=== PATIENT | male | born 1955 | race Caucasian/White ===

== ENCOUNTER 2019-03-16 13:12 | Outpatient (CLI) | payer BC, SELFPAY ==
--- NOTE | ~2019-03-16 | XR_ITS ---
XR abdomen/kub 1V 03/16/2019 13:37 Indication: Kidney stones. Hematuria. Procedure: KUB Comparison: No prior studies for comparison. Findings: Moderately distended small bowel loops measuring up to 4.3 cm. Moderate gas in the colon. E valuation for renal stones limited by bowel content and gas. There are possible bilateral renal stone s. Impression: 1: Moderate gas throughout the small bowel and colon, likely ileus. 2: Possible bilateral nephrolithiasis. Evaluation for renal stones limited by bowel content. Reviewed, dictated and finalized at location A. INSERTER Impression: 1: Moderate gas throughout the small bowel and colon, likely ileus. 2: Possible bilateral nephrolithiasis. Evaluation for renal stones limited by sariah adorno.
== END 2019-03-16 13:13 | disposition home or self-care (01) ==
LOC: ANHIMG 13:23
PROVIDERS: PCP Family Medicine; Visit Provider Urology
DX: N20.0 Calculus of kidney (principal)
CPT/HCPCS: 74018

== ENCOUNTER 2019-03-21 06:26 | Inpatient (IN) | payer BC, SELFPAY ==
[2019-03-21] VITALS (31 sets, daily range): BP systolic 97–141; BP diastolic 61–101; PULSE 66–99; RESP 18–36; TEMP 35.8–37.2; O2SAT 94–100; BMI 39.9
--- NOTE | ~2019-03-21 | XR_ITS ---
EXAMINATION: XR chest 1V portable DATE: 03/22/2019 05:50 INDICATION: Pulmonary edema. Vascular congestion. TECHNIQUE: A single frontal view of the chest was obtained. COMPARISON: Chest single view 03/21/2019, CT abdomen and pelvis 12/25/2018 FINDINGS: Sensitivity is decreased by obesity. A calcified left lung nodule and calcified left hilar lymph nodes are consistent with old granulomatous disease. No pleural effusion or pneumothorax. The h eart size is normal. IMPRESSION: 1. No acute cardiopulmonary disease. Reviewed, dictated and finalized at location A. CAR OPERATOR
--- NOTE | ~2019-03-21 | XR_ITS ---
XR chest 1V portable 03/21/2019 09:50 Indication: Shortness of breath Procedure: AP portable chest Comparison: 03/21/2019 Findings: Cardiomegaly with pulmonary vascular congestion. No focal pneumonia, pleural effusion or pn eumothorax. No acute osseous abnormality. Impression: 1: Cardiomegaly with pulmonary vascular congestion. Reviewed, dictated and finalized at location A. CUTTER Impression: 1: Cardiomegaly with pulmonary vascular congestion.
--- NOTE | ~2019-03-21 | XR_ITS ---
XR chest 1V portable 03/21/2019 06:53 Indication: Chest pain Procedure: AP portable chest Comparison: 09/22/2010 Findings: Shallow inspiration. No focal air space disease, pulmonary edema, pleural effusion or suspe cted pneumothorax. Heart size is normal for technique. There is evidence for chronic granulomatous di sease. Impression: 1: No acute cardiopulmonary disease. Reviewed, dictated and finalized at location A. T SETTER Impression: 1: No acute cardiopulmonary disease.
--- NOTE | 2019-03-21 06:29 | ECG_ITS ---
Measurements Intervals [place] Rate: 84 P: 66 OK: 218 QRS: -33 QRSD: 96 T: -29 QT: 383 QTc: 455 Interpretive Statements SINUS RHYTHM WITH FIRST DEGREE AV BLOCK VENTRICULAR PREMATURE COMPLEXES LEFT AXIS DEVIATION LOW QRS VOLTAGE IN PRECORDIAL LEADS ANTEROSEPTAL ST ELEVATION MYOCARDIAL INFARCT- ACUTE HIGH LATERAL ST ELEVATION MYOCARDIAL INJURY- ACUTE BASELINE WANDER- V6 ABNORMAL ECG Electronically Signed On 03-21-2019 8:05:39 GENERAL FARMER by Regulo Rios D.O.
--- NOTE | 2019-03-21 06:31 | ED.CHESTPAIN ---
HPI - Chest Pain General Chief Complaint: Chest Pain Stated Complaint: stemi Time Seen by Provider: 03/21/19 06:29 Source: patient, family and EMS Mode of arrival: EMS Limitations: no limitations History of Present Illness HPI narrative: Intermittent chest pain for the last 3 days, woke up this morning with severe central chest pain radiating to both arms, no shortness of breath, no diaphoresis. History of hypertension, denies smoking or a family history of coronary artery disease. MD complaint: chest pain and chest heaviness Pertinent past history: other (Hypertension) Prior episodes: No Pain location: substernal Pain radiation: right arm and left arm Severity: severe Pain scale (0-10): 10 Relieving factors: nothing Exacerbating factors: exertion Treatment prior to arrival: aspirin and oxygen Risk Factors Coronary artery disease risk factors: diabetes and hypertension Related Data Allergies Allergy/AdvReac Type Severity Reaction Status Date / Time Sulfa (Sulfonamide Allergy Unknown Unknown Verified 10/31/18 17:37 Antibiotics) Review of Systems Review of Systems: Narrative: CONSTITUTIONAL: Denies fever, chills, or sweats. EYES: Denies visual changes, redness, or discharge. ENT: Denies rhinorrhea, congestion, sore throat, or otalgia. CARDIOVASCULAR: Intermittent chest pain for the last 3 days RESPIRATORY: Denies cough or dyspnea. GASTROINTESTINAL: Denies abdominal pain, nausea, vomiting, or diarrhea. GENITOURINARY: Denies dysuria or hematuria. SKIN: Denies rash or itching. MUSCULOSKELETAL: Denies back pain, joint pain, or myalgia. NEUROLOGIC: Denies headache, numbness, or weakness. PSYCHIATRIC: Denies anxiety or depression. PMFSH Family History Family History Mother Hypertension Family history of malignant neoplasm of breast in first degree relative Family history of malignant neoplasm of ovary Social History Social History Smoking status: Never smoker Second hand tobacco smoke exposure: No Alcohol intake: never Gender identity (if verbalized by the patient): Male Exam Narrative: Exam Narrative: General appearance: Well-developed, well-nourished Skin: Pale, cold to skin Head: Normocephalic, nontraumatic Eyes: Clear conjunctiva ENT: Oropharynx normal, ears normal, nose normal Neck: Supple, nontender Chest and respiratory: Airway patent, no respiratory distress, no accessory muscle use Heart: Regular rate/rhythm Abdomen: Soft, nontender, no organomegaly, quiet bowel sounds Vascular: Normal peripheral pulses, normal capillary refill. Musculoskeletal: Normal range of motion, nontender back Neurologic: Alert and oriented ?3, ADVANCE SCOUT is normal as tested, no gross motor deficit Course Course Emergency Course: Improving Consultations Consultation #1: DR SARAH MORFIN Date: 03/21/19 Vital Signs Vital signs: Vital Signs Temperature 37.2 C 03/21/19 06:26 Pulse Rate 86 03/21/19 06:26 Respiratory Rate 20 03/21/19 06:26 Blood Pressure 139/95 H 03/21/19 06:26 Pulse Oximetry 96 03/21/19 06:26 Temperature 37.2 C 03/21/19 06:26 Pulse Rate 66 03/21/19 06:53 Respiratory Rate 18 03/21/19 06:44 Blood Pressure 141/101 H 03/21/19 06:44 Pulse Oximetry 95 03/21/19 06:44 MDM - Chest Pain MDM Narrative Medical decision making narrative: EKG showed acute anterolateral OH with reciprocal changes, cardiology consult placed prior patient arrival to the emergency room. Differential Diagnosis Differential diagnosis: Likely other (Acute OH) Lab Data Result diagrams: 03/21/19 06:39 03/21/19 06:3
[2019-03-21] MEDS: ONDANSETRON INJ 4 MG/2 ML VIAL IV PUSH (06:34)
[2019-03-21] MEDS: MORPHINE SULFATE 2 MG/ML INJ IV PUSH (06:34)
[2019-03-21] MEDS: NITROGLYCERIN OINTMENT 1 INCH DOSE TRANSDERM (06:35)
[2019-03-21] MEDS: HEPARIN SOD/D5W 100 UNITS/ML 25,000 UNITS/250 ML BAG 14.3 UNITS IV CONT (06:43)
[2019-03-21] MEDS: METOPROLOL TARTRATE INJ 5 MG/5 ML VIAL IV PUSH ×3 (06:49→06:53)
[2019-03-21 06:52] LABS: Basophils Absolute Auto 0.1 K/mm3 (0.0-0.1); Basophils Percent Auto 0.5 % (0.2-1.2); Eosinophils Absolute Auto 0.4 K/mm3 (0-0.3); Eosinophils Percent Auto 3.5 % (0-4.4); Hematocrit 43.2 % (42.0-52.0); Hemoglobin 13.9 g/dL (14.0-18.0); Immature Granulocyte Absolute 0.05 K/mm3 (0.00-0.031); Immature Granulocyte Percent A 0.4 % (0-0.5); Lymphocytes Absolute Auto 2.71 K/mm3 (0.9-3.2); Lymphocytes Percent Auto 21.4 % (18.3-44.2); Mean Corpuscular HGB Conc 32.2 g/dl (32-36); Mean Corpuscular Hemoglobin 26.9 pg (26-34); Mean Corpuscular Volume 83.6 fl (80-100); Monocytes Absolute Auto 0.9 K/mm3 (0.1-0.6); Monocytes Percent Auto 7.3 % (2.6-8.5); Neutrophils Absolute Auto 8.5 K/mm3 (1.3-6.7); Neutrophils Percent Auto 66.9 % (45.5-73.1); Platelet Count Result 264 k/mm3 (150-375); Red Blood Count 5.17 M/mm3 (4.6-6.20); Red Cell Distribution Width 14.4 % (11.5-14.5); White Blood Count 12.7 K/mm3 (4.5-10.0)
[2019-03-21] MEDS: HEPARIN SODIUM 5,000 UNITS/ML VIAL 4000 UNITS IV PUSH (06:57)
[2019-03-21 07:03] LABS: Partial Thromboplastin Time 24.3 SECONDS (22.3-36.8); Prothrombin Time 12.4 Seconds (11.1-14.7)
[2019-03-21 07:13] LABS: Alanine Aminotransferase 27 U/L (4-50); Albumin Level 4.3 g/dL (3.5-5.1); Alkaline Phosphatase 102 U/L (38-126); Aspartate Amino Transferase 25 U/L (17-59); Bilirubin,Total 0.3 mg/dL (0.2-1.3); Blood Urea Nitrogen 16 mg/dL (9-20); Calcium 10.2 mg/dL (8.4-10.2); Carbon Dioxide 29 mmol/L (22-30); Chloride 95 mmol/L (98-107); Estimated Glomerular Filt Rate > 60; Glucose 175 mg/dL (75-110); Potassium 2.7 mmol/L (3.4-5.0); Sodium 137 mmol/L (137-145)
[2019-03-21 07:17] LABS: Troponin I 0.032 ng/mL (0.000-0.034)
--- NOTE | 2019-03-21 08:23 | PM.CNCAR ---
Assessment and Plan Additional Plan STEMI ant wall; plan emergency LHC, heparin, ASA, Ticagrelor S/p PCI to proximal LAD with one ALEJANDRO, large thrombus burden, plan TTE, ASA, Ticagrelor, Integrillin for 12 hours, statin, ACEI History of Present Illness History of Present Illness Consult date/time: 03/21/19 08:23 Consult reason: chest pain Reason For Visit: stemi Narrative: acute chest pain mid sternal sever pressure like, 11/26 started at 7 AM, had milder chest pain last night and on/of pain for 3 days, pain radiates to shoulder and back, associated with sweating and nausea Review of Systems Review of Systems: All systems reviewed & are unremarkable except as noted in HPI and below PMFSH Past Medical History Medical History (Updated 03/21/19 @ 08:26 by Donnell Smith MD) HTN (hypertension) Kidney stones Surgical History Surgical History (Updated 03/21/19 @ 08:26 by Donnell Smith MD) H/O hand surgery Family History Family History Mother Hypertension Family history of malignant neoplasm of breast in first degree relative Family history of malignant neoplasm of ovary Social History Social History Smoking status: Never smoker Second hand tobacco smoke exposure: No Alcohol intake: never Gender identity (if verbalized by the patient): Male Meds Home Medications and Allergies Home Medications Medication Instructions Recorded Confirmed Type hydrochlorothiazide 25 mg tablet 25 mg PO DAILY #90 tablet 01/12/19 Rx simvastatin 10 mg tablet 10 mg PO DAILY #90 tablet 01/12/19 Rx zolpidem 10 mg tablet 10 mg PO DAILY #30 tablet 01/12/19 Rx amlodipine 5 mg tablet 5 mg PO DAILY #90 tablet 01/22/19 Rx potassium chloride 20 mEq 20 meq PO DAILY #90 tablet 01/22/19 Rx tablet,extended release Allergies Allergy/AdvReac Type Severity Reaction Status Date / Time Sulfa (Sulfonamide Allergy Unknown Unknown Verified 10/31/18 17:37 Antibiotics) Vital Signs Vital Signs - 24 hr 03/21/19 06:26 03/21/19 06:29 03/21/19 06:44 Temperature 37.2 C Pulse Rate 86 85 79 Respiratory Rate 20 18 Blood Pressure 139/95 H 141/101 H Pulse Oximetry 96 95 03/21/19 06:49 03/21/19 06:53 Temperature Pulse Rate 78 66 Respiratory Rate Blood Pressure Pulse Oximetry Exam Const: General: comfortable and no acute distress Other: Able to lie flat HENMT: General nose exam: Normal nares present and no epistaxis Mouth: Yes moist mucous membranes Eyes: Sclera: sclerae normal Pupils: Equal, round and reactive pupils present Neck: Neck: supple and no JVD Carotids: no bruits Resp: Auscultation: clear to auscultation bilaterally and lung sounds not diminished Other: No chest wall tenderness Cardio: Rate: regular rate Rhythm: regular rhythm Heart sounds: no gallops, no murmurs and no rubs GI: GI Palp: Yes Soft to palpation and No Tenderness to palpation present (GI) Auscultation: normal bowel sounds Skin: General skin exam: normal color, rashes and/or lesions noted and no erythema Other: Warm Neuro: Cranial nerves: Yes Equal, round and reactive pupils present Speech: normal speech Motor exam (neuro): Normal motor muscle tone present throughout Other: No obvious focal deficit or facial asymmetry Extrem: General: no edema Right upper extremity: normal capillary refill Left upper extremity: normal capillary refill Right lower extremity: normal capillary refill Left lower extremity: normal capillary refill Other: Normal capillary refills Intact distal pulses. Psych: Mental Status: mental status grossly normal Affect: normal affect Results Labs and Meds Result diagrams: 03/21/19 06:39 03/21/19 06:39 Lab results: Cardiac Enzymes 03/21/19 Range/Units 06:39 AST 25 (17-59) U/L Troponin I 0.032 (0.000-0.034) ng/mL Coagulation
--- NOTE | 2019-03-21 08:29 | P.PCNCC_ITS ---
Cardiac Cath Procedure Note Date of procedure:: 03/21/19 Performing physician:: Donnell Smith MD Procedure Procedure note:: INDICATION: 1. STEMI HISTORY Patient presented with acute sever chest pain, EKG showed STEMI ant wall PROCEDURES 1. Coronary angiogram 2. LHC 3. PCI to LAD ACCESS SITE PROCEDURE DETAILS Consent obtained and time out done. Access site prepped and draped in sterile fashion. Moderate sedation given with fentanyl 100 mcg and tolerated well, fully conscious at end of procedure Access obtained with modified Seldinger technique with no difficulty. Coronary angiogram was recorded using CLS 3.5 and JR4 catheter in different angels LHC was done with JR4 catheter HEMODYNAMIC FINDINGS Aorta: 100/80 LVEDP 30 No gradient across AV ANGIOGRAPHIC FINDINGS 1. Left main: normal, free of obstructive disease, gives LAD and LCX 2. LAD: proximal LAD 100% occlusion with large thrombus culprit lesion for STEMI, LAD gives large diagonal and wraps around apex. 3. LCX: Non dominant and gives large OM then continue as LPL with no obstructive disease. 4. RCA: Dominant vessel gives rPDA and rPL. RCA, Proximal RCA has 50% stenosis and remaining part and branches with no significant disease PCI DETAILS Pre intervention Lesion: acute total occlusion of proximal culprit lesion of STEMI, class C, GILBERTO 0 Guide catheter: CLS 3.5 Anticoagulation: Heparin to target ACT > 250 sec Antiplatelet therapy: ASA in ER , Integrillin given for large thrombus burden and Ticagrelor was to mervin geiven after cath Guide wire: Samurai used to cross to distal vessel into diagonal and later BMW crossed into LAD Balloon dilation was done with Emerge 2.25 * 12 balloon at 12 SREE Aspiration thrombectomy was done with EXPORT into LAD and diagonal and large thrombus aspirated Stent promus premier 3.0 * 24 mm deployed at lesion in proximal LAD and ended before origin of large Daigonal, deployed at 12 SREE, post stent balloon dilation was done with Quantum apex 3.0 * 8 and 3.5 * 12 NC balloon at 18 SREE. IC ad enosine 600 mcg given to improve myocardial blush and GILBERTO flow since apical LAD has residual thrombus and too far to aspirate. Post intervention: residual stenosis 0% and GILBERTO 3 flow established COMPLICATION: None Estimated blood loss: 30 ml patient tolerated procedure well, asymptomatic at end of procedure, awake, intact pulses and following commands CONCLUSION Acute total occlusion of proximal LAD Culprit lesion of STEMI S/P Primary PCI with promus premier 3.0 * 24 and post dilated with 3.5 * 12 NC balloon. Aspiration thrombectomy and IC adenosine was used RECOMMENDATION DAPT for at least one year lasix and TTE
[2019-03-21] MEDS: NITROGLYCERIN/D5W 200 MCG/ML 50 MG/250 ML BTL IV CONT (09:08)
[2019-03-21 09:37] LABS: Potassium 3.5 mmol/L (3.4-5.0)
--- NOTE | 2019-03-21 09:43 | WPDCNINT ---
Assessment and Plan Assessment and plan (1) ST elevation (STEMI) myocardial infarction: Qualifiers: Involved coronary artery: other anterior wall coronary artery Qualified Code(s): I21.09 - ST elevation (STEMI) myocardial infarction involving other coronary artery of anterior wall Code(s): I21.3 - ST elevation (STEMI) myocardial infarction of unspecified site Status: Acute Assessment and Plan: patient presented with chest pain on the morning of 03/21/2019, he has been having chest pain for the last 3 days prior to admission which was worse on the day of admission and was associated with shortness of breath, diaphoresis and nausea. 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 Status post primary PCI with drug eluting stent x1. Aspiration thrombectomy and intracardiac Adenosine was used. LVEDP was 30, went into flash pulmonary edema, was given Lasix, started on nitroglycerin infusion, transferred to the ICU for further management. - Patient currently chest pain-free - adequate urine output, - continue nitroglycerin infusion - continue heparin infusion, aspirin, Brilinta, high-dose statin - will hold beta-shayla (2) Pulmonary edema: Qualifiers: Chronicity: acute Qualified Code(s): J81.0 - Acute pulmonary edema Code(s): J81.1 - Chronic pulmonary edema Status: Acute Assessment and Plan: pulmonary edema on chest x-ray, patient has had adequate urine output, continue nitroglycerin BiPAP - ABGs reviewed, FiO2 has been decr (3) Hyperlipidemia: Qualifiers: Hyperlipidemia type: unspecified Qualified Code(s): E78.5 - Hyperlipidemia, unspecified Code(s): E78.5 - Hyperlipidemia, unspecified Status: Acute Assessment and Plan: continue high-dose statin (4) Essential hypertension: Code(s): I10 - Essential (primary) hypertension Status: Acute Assessment and Plan: on nitroglycerin infusion, maintain systolic blood pressures 100-120 mmHg Additional Plan discussed with patient and his in details and updated them regarding patient's condition and plan of care. I answered all questions code status: Full code Critical care time spent: 42 minutes Due to a high probability of clinically significant, life threatening deterioration, the patient required my highest level of preparedness to intervene emergently and I personally spent this critical care time directly and personally managing the patient. This critical care time included obtaining a history; examining the patient; pulse oximetry; ordering and review of studies; arranging urgent treatment with development of a management plan; evaluation of patient's response to treatment; frequent reassessment; and discussions with other providers. It was exclusive of separately billable procedures and treating other patients and teaching time. Please see Assessment and Plan section and the rest of the note for further information on patient assessment and treatment Char Filter Operator Consult Note Consult date: 03/21/19 Time Seen: 09:34 Reason for consult: acute STEMI status post cardiac catheterization with stent placement to proximal LAD, pulmonary edema, elevated LVEDP, respiratory failure on BiPAP HPI: Go Morrow is a 63 year old male history of arrhythmia, back pain, chronic bronchitis, enlarged prostate, history of bladder infections, sleep apnea on CPAP, hyperlipidemia, essential hypertension, kidney stones, obesity, pneumonia, urinary incontinence presented the ED on 03/21/2019 with severe substernal chest pain radiating to both thumbs along with diaphoresis, shortness of breath and nausea. Patient states he has been having intermittent chest pain for the last 3 days but woke up this morning with severe central chest pain. EKG showed acute anterior ST-
[2019-03-21 09:52] LABS: Alveolar/Arterial O2 Gradient 371.6 mmHg; Base Excess ABG 1.7 mEq/l (+/-2.0); Fractional Inspired Oxygen 80 %; HCO3 ABG 28.4 mEq/l (22.0-26.0); Oxygen Content ABG 21.3 %vol (16.0-22.0); Oxygen Saturation ABG 98.7 % (95.0-100.0); Oxyhemoglobin 97.5 % THb (90.0-100.0); PCO2 ABG 52.3 mmHg (35.0-45.0); PO2 ABG 143.9 mmHg (80.0-100.0); Total Hemoglobin 15.4 g/dL (12.0-18.0); pH ABG 7.353 (7.350-7.450)
[2019-03-21 09:53] LABS: Device NON-INVASIVE VENT; Modified Allen's Test Pass; Site Drawn LEFT RADIAL
[2019-03-21 09:54] LABS: Non-Invasive Expiratory Pressure 6 CMH2O; Non-Invasive Inspiratory Pressure 14 CMH2O; Non-Invasive Vent Rate 4 /MIN
[2019-03-21 09:58] LABS: Troponin I > 80.000 ng/mL (0.000-0.034)
--- NOTE | 2019-03-21 11:52 | ADMIMU ---
This patient, Go Morrow, was admitted to IMU status, and placed in Intensive Care Unit-7. Patient/family oriented to hospital policies and general routines including ID bracelet, bed and alarms, visiting hours, pain management, procedures, bathroom and other care routines, personal items, smoking policy, room service/diet, and visiting hours. Valuables list has been completed. Information on how to activate the Rapid Response Team has been discussed. Patient/Family are encouraged to report perceived risks to care and to ask questions if they do not understand what they are told or what they should do.
[2019-03-21] MEDS: POTASSIUM CHLORIDE 20 MEQ PACKET (FOR LIQUID) 40 MEQ PO (12:12)
[2019-03-21] MEDS: ASPIRIN 81 MG ENTERIC TABLET PO (12:13)
[2019-03-21] MEDS: ATORVASTATIN 40 MG TABLET 80 MG PO (12:13)
--- NOTE | 2019-03-21 13:07 | ECG_ITS ---
Measurements Intervals [place] Rate: 84 P: 16 SC: 179 QRS: 29 QRSD: 98 T: 67 QT: 384 QTc: 454 Interpretive Statements SINUS RHYTHM LOW QRS VOLTAGE IN LIMB LEADS ANTEROSEPTAL MYOCARDIAL INFARCTION , PROBABLY RECENT ABNORMAL ECG Electronically Signed On 03-21-2019 14:34:53 NAIL MACHINE OPERATOR by Regulo Rios D.O.
[2019-03-21 13:20] LABS: Troponin I > 80.000 ng/mL (0.000-0.034)
--- NOTE | 2019-03-21 14:52 | ADMGEN ---
This patient, Go Morrow, was admitted to Intensive Care Unit-7 at 0900. Patient/family oriented to hospital policies and general routines including ID bracelet, bed and alarms, visiting hours, pain management, procedures, bathroom and other care routines, personal items, smoking policy, room service/diet, and visiting hours. Valuables list has been completed. Information on how to activate the Rapid Response Team has been discussed. Patient/Family are encouraged to report perceived risks to care and to ask questions if they do not understand what they are told or what they should do.
[2019-03-21 15:16] LABS: Blood Urea Nitrogen 19 mg/dL (9-20); Calcium 9.6 mg/dL (8.4-10.2); Carbon Dioxide 31 mmol/L (22-30); Chloride 95 mmol/L (98-107); Estimated Glomerular Filt Rate > 60; Glucose 135 mg/dL (75-110); Sodium 136 mmol/L (137-145)
[2019-03-21 15:48] LABS: Partial Thromboplastin Time 25.4 SECONDS (22.3-36.8)
--- NOTE | 2019-03-21 16:36 | PC.NURSE ---
TR Band removed at 1635. Hemostasis achieved and stat seal and tegaderm in placed. Pulse strong, normal color. Fingers cool to touch, but no changed noted from before TR band removed.
--- NOTE | 2019-03-21 18:00 | ECG_ITS ---
Measurements Intervals [place] Rate: 93 P: 30 ND: 171 QRS: 9 QRSD: 101 T: 46 QT: 363 QTc: 453 Interpretive Statements SINUS RHYTHM CANNOT RULE OUT SEPTAL INFARCT, AGE INDETERMINATE BORDERLINE ST-T WAVE ABNORMALITY- INF/LAT LEADS ABNORMAL ECG Electronically Signed On 03-24-2019 9:44:12 LOCOMOTIVE CRANE ENGINEER by Regulo Rios D.O.
--- NOTE | 2019-03-21 19:45 | PC.NURSE ---
Dr. Smith notified regarding patient dyspepsia/chest pressure. Patient cannot distinguish wether or not it's chest pressure or heart burn. Order for Maalox (may substitute) and for protonix. Continue to monitor.
[2019-03-21] MEDS: lisinopriL 2.5 MG TABLET PO (20:15)
[2019-03-21] MEDS: MAG HYDROX/AL HYDROX/SIMETH 30 ML UDC PO (20:15)
[2019-03-21] MEDS: TICAGRELOR 90 MG TABLET PO (20:15)
[2019-03-21] MEDS: PANTOPRAZOLE SODIUM IV 40 MG VIAL IV PUSH (20:18)
[2019-03-21] MEDS: ACETAMINOPHEN 325 MG TABLET 650 MG PO (22:43)
[2019-03-22] VITALS (25 sets, daily range): BP systolic 96–132; BP diastolic 52–86; PULSE 70–106; RESP 17–33; TEMP 36.3–36.9; O2SAT 92–99
--- NOTE | 2019-03-22 | ECHO_ITS ---
Patient Info Name: Go Morrow Age: 63 years : 1955 Gender: Male Ht: 68 in Wt: 268 lbs BSA: 2.47 m2 HR: 92 bpm Heart Rhythm: Sinus Rhythm Technical Quality: Good Exam Date: 03/22/2019 7:59 AM Exam Location: [facility] Patient Status: Inpatient Admit Date: 03/21/2019 Staff Ordering Physician: Donnell Smith MD Repair Mechanic: Chalino Peña, JOHANA, RT Attending Provider: Donnell Smith MD Exam Type: CA echo dop color flow w con Study Info Indications I21.3 - ST elevation (STEMI) myocardial infarction of unspecified site Complete two-dimensional, color flow and Doppler transthoracic echocardiogram is performed with contrast to opacify the left ventrical and to improve the deliniation of the left ventrical endocarial boarders. Summary 1. Left ventricular chamber dimension is mildly enlarged. 2. Left ventricular systolic function is moderately reduced, estimated at 40-45%. 3. There is moderately increased left ventricular wall thickness. 4. The left ventricular diastolic function is grade I diastolic dysfunction. 5. The anteroseptal wall, apical septum, apical lateral wall, apical cap, mid anterior wall, and mid anterolateral wall are hypokinetic. 6. There is mild pulmonic regurgitation. 7. The aortic root size at the sinus of Valsalva is mildly dilated. Left Ventricle Left ventricular chamber dimension is mildly enlarged. Left ventricular systolic function is moderately reduced, estimated at 40-45%. There is moderately increased left ventricular wall thickness. The left ventricular diastolic function is grade I diastolic dysfunction. The anteroseptal wall, apical septum, apical lateral wall, apical cap, mid anterior wall, and mid anterolateral wall are hypokinetic. All other sims appear normal. Right Ventricle Right ventricular chamber dimension is normal. Right ventricular systolic function is normal. Left Atria Left atrial chamber dimension is normal. Right Atria Right atrial chamber dimension is normal. Atrial Septum Intact interatrial septum visualized by color flow imaging. Aortic Valve The aortic valve is probable trileaflet. There is mild aortic valve sclerosis. There is no aortic valve stenosis. There is trace aortic valve regurgitation. Pulmonic Valve The pulmonic valve is normal. There is no pulmonic valve stenosis. There is mild pulmonic regurgitation. Mitral Valve The mitral valve has normal leaflets. There is no mitral valve stenosis. There is trace mitral valve regurgitation. Tricuspid Valve The tricuspid valve leaflets are normal. There is no significant tricuspid valve stenosis. There is trace tricuspid valve regurgitation. Pericardium/Pleural The pericardium appears normal. There is no pericardial effusion. Inferior Vena Cava Dilated inferior vena cava with <50% collapse upon inspiration consistent with elevated right atrial pressure, 10 mmHg. Aorta The aortic root size at the sinus of Valsalva is mildly dilated. Left Ventricular Outflow Tract Name Value Normal LVOT 2D LVOT Diameter 2.26 cm LVOT Doppler LVOT Peak Gradient
[2019-03-22 05:36] LABS: Basophils Percent Auto 0.1 % (0.2-1.2); Eosinophils Absolute Auto 0.1 K/mm3 (0-0.3); Eosinophils Percent Auto 0.3 % (0-4.4); Hematocrit 39.2 % (42.0-52.0); Hemoglobin 12.9 g/dL (14.0-18.0); Immature Granulocyte Absolute 0.11 K/mm3 (0.00-0.031); Immature Granulocyte Percent A 0.6 % (0-0.5); Lymphocytes Absolute Auto 0.98 K/mm3 (0.9-3.2); Lymphocytes Percent Auto 5.4 % (18.3-44.2); Mean Corpuscular HGB Conc 32.9 g/dl (32-36); Mean Corpuscular Hemoglobin 26.8 pg (26-34); Mean Corpuscular Volume 81.5 fl (80-100); Monocytes Absolute Auto 1.3 K/mm3 (0.1-0.6); Monocytes Percent Auto 7.3 % (2.6-8.5); Neutrophils Absolute Auto 15.6 K/mm3 (1.3-6.7); Neutrophils Percent Auto 86.3 % (45.5-73.1); Platelet Count Result 258 k/mm3 (150-375); Red Blood Count 4.81 M/mm3 (4.6-6.20); Red Cell Distribution Width 14.5 % (11.5-14.5); White Blood Count 18.1 K/mm3 (4.5-10.0)
[2019-03-22 05:40] LABS: Alanine Aminotransferase 87 U/L (4-50); Albumin Level 3.8 g/dL (3.5-5.1); Alkaline Phosphatase 84 U/L (38-126); Aspartate Amino Transferase 527 U/L (17-59); Bilirubin,Total 0.5 mg/dL (0.2-1.3); Blood Urea Nitrogen 28 mg/dL (9-20); Calcium 9.3 mg/dL (8.4-10.2); Carbon Dioxide 29 mmol/L (22-30); Chloride 95 mmol/L (98-107); Estimated CRCL calculation 72 ml/min; Estimated Glomerular Filt Rate > 60; Glucose 124 mg/dL (75-110); Magnesium 2.1 mg/dL (1.6-2.3); Potassium 3.3 mmol/L (3.4-5.0); Sodium 134 mmol/L (137-145)
[2019-03-22] MEDS: ATORVASTATIN 40 MG TABLET 80 MG PO (08:56)
[2019-03-22] MEDS: TICAGRELOR 90 MG TABLET PO ×2 (08:56→20:36)
[2019-03-22] MEDS: ASPIRIN 81 MG ENTERIC TABLET PO (08:56)
[2019-03-22] MEDS: lisinopriL 2.5 MG TABLET PO (08:56)
--- NOTE | 2019-03-22 08:59 | PM.PNCARD ---
Progress Note: A&P Additional Plan 63-year-old patient with acute anterior wall myocardial infarction interrupted yesterday with emergency PCI Continue dual anti-platelet therapy Start metoprolol Continue WILL-inhibitor Continue high-dose statin Transfer to IMU Time Spent With Patient Time with patient: 15 - 25 minutes Subjective Date/time seen: Date of service: 03/22/19 08:59 Interval history: Follow-up visit for acute ST-elevation SD yesterday Patient asymptomatic this morning Questions answered regarding details of yesterday's procedure a and evaluation/prognosis going forward Exam Const: General: comfortable and no acute distress HENMT: Mouth: Yes moist mucous membranes Eyes: Sclera: sclerae normal Pupils: Equal, round and reactive pupils present Neck: Neck: supple and no JVD Thyroid: thyroid normal Resp: Effort & Inspection: normal respiratory effort Auscultation: clear to auscultation bilaterally Cardio: Rate: regular rate Rhythm: regular rhythm Heart sounds: Gallop heart sound present S4 gallop GI: Auscultation: normal bowel sounds Skin: General skin exam: normal color Extrem: General: normal to inspection Other: Normal distal pulses, no edema Objective Data Vital Signs Vital Signs: Vital Signs - 24 hr 03/21/19 09:05 03/21/19 09:14 03/21/19 09:30 Temperature Pulse Rate 86 86 85 Respiratory Rate 31 H 28 H 33 H Blood Pressure 135/88 116/94 H Pulse Oximetry 100 100 100 03/21/19 09:45 03/21/19 09:50 03/21/19 09:51 Temperature 35.8 C L Pulse Rate 87 86 87 Respiratory Rate 29 H 30 H Blood Pressure 117/75 116/94 H Pulse Oximetry 100 100 100 03/21/19 10:00 03/21/19 10:30 03/21/19 10:36 Temperature Pulse Rate 87 84 84 Respiratory Rate 28 H 20 Blood Pressure 112/74 108/79 Pulse Oximetry 99 100 100 03/21/19 11:00 03/21/19 11:07 03/21/19 12:00 Temperature Pulse Rate 79 80 79 Respiratory Rate 21 H 22 H 19 Blood Pressure 107/61 97/74 L Pulse Oximetry 94 95 97 03/21/19 12:35 03/21/19 13:00 03/21/19 14:00 Temperature Pulse Rate 83 85 Respiratory Rate 20 20 Blood Pressure 111/79 112/86 Pulse Oximetry 95 97 98 03/21/19 14:03 03/21/19 14:57 03/21/19 15:00 Temperature Pulse Rate 85 86 Respiratory Rate 20 22 H Blood Pressure 112/86 102/83 Pulse Oximetry 98 100 99 03/21/19 16:00 03/21/19 16:37 03/21/19 18:00 Temperature 36.7 C Pulse Rate 95 95 Respiratory Rate 21 H 19 Blood Pressure 109/78 131/82 Pulse Oximetry 97 98 100 03/21/19 20:00 03/21/19 20:38 03/21/19 22:00 Temperature 36.7 C Pulse Rate 92 93 Respiratory Rate 18 18 Blood Pressure 116/80 126/81 Pulse Oximetry 94 94 96 03/21/19 23:20 03/22/19 00:00 03/22/19 00:01 Temperature 36.8 C Pulse Rate 99 93 92 Respiratory Rate 19 19 17 Blood Pressure 96/67 L Pulse Oximetry 94 94 03/22/19 01:00 03/22/19 01:01 03/22/19 02:00 Temperature Pulse Rate 96 101 H 95 Respiratory Rate 23 H 24 H 30 H Blood Pressure 114/77 Pulse Oximetry 03/22/19 02:01 03/22/19 03:00 03/22/19 04:00 Temperature 36.9 C Pulse Rate 100 88 91 Respiratory Rate 33 H 17 22 H Blood Pressure 119/81 99/52 L Pulse Oximetry 96 03/22/19 05:48 03/22/19 06:00 Temperature Pulse Rate 91 92 Respiratory Rate 21 H Blood Pressure 132/86 Pulse Oximetry 95 Intake/Output Intake/Output: Intake & Output 03/19/19 03/20/19 03/21/19 03/22/19 23:59 23:59 23:59 23:59 Intake Total 257.5 800 Output Total 800 400 Balance -542.5 400 Meds/Results Medications: Active Medications Generic Name Dose Route Start Last Admin Trade Name Freq PRN Reason Stop Dose Admin Acetaminophen 650 mg 03/21/19 22:33 03/21/19 22:43 Tylenol Tablet PO 650 mg Q4H PRN Administration Mild Pain (1-3) or Fever Al Hydrox/Mg Hydrox/Simethicone 30 ml 03/21/19 19:46 Mylanta PO Q6H PRN Indigestion Aspirin 81 mg 03/21/19 09:00 03/21/19 12:13 A
[2019-03-22] MEDS: PANTOPRAZOLE SODIUM IV 40 MG VIAL IV PUSH (09:00)
[2019-03-22] MEDS: METOPROLOL SUCCINATE EXT REL 50 MG TABCR PO (09:43)
[2019-03-22] MEDS: PERFLUTREN LIPID MICROSPHERES 1.5 ML VIAL DILUTED TO 10 ML TOTAL VOLUME IV PUSH (09:48)
--- NOTE | 2019-03-22 10:36 | PCCPR ---
Visited pt inpt to discuss Cardiac Rehab
[2019-03-22 11:20] LABS: Activated Clotting Time 197 SEC (74-137)
[2019-03-22 11:21] LABS: Activated Clotting Time 257 SEC (74-137)
--- NOTE | 2019-03-22 14:28 | PC.NURSE ---
This patient, Go Morrow, was transferred to [[id number]] on 03/22/19 at 1428. Personal belongings sent with patient. Belongings list checked and signed with receiving [ ]. Report given to [DANIELA REZA]. Appropriate documentation sent with patient.
--- NOTE | 2019-03-22 14:41 | PC.NURSE ---
This patient, Go Morrow, was received from ICU-7 on 03/22/19 at 1430. Personal belongings list checked and signed. Patient/family oriented to unit policies and routines
[2019-03-23] VITALS (12 sets, daily range): BP systolic 99–116; BP diastolic 55–75; PULSE 84–97; RESP 20; TEMP 36.5–36.7; O2SAT 93–98
[2019-03-23] MEDS: ATORVASTATIN 40 MG TABLET 80 MG PO (09:09)
[2019-03-23] MEDS: lisinopriL 2.5 MG TABLET PO (09:09)
[2019-03-23] MEDS: ASPIRIN 81 MG ENTERIC TABLET PO (09:09)
[2019-03-23] MEDS: METOPROLOL SUCCINATE EXT REL 50 MG TABCR PO (09:09)
[2019-03-23] MEDS: TICAGRELOR 90 MG TABLET PO (09:09)
[2019-03-23] MEDS: PANTOPRAZOLE SODIUM IV 40 MG VIAL IV PUSH (09:10)
--- NOTE | 2019-03-23 11:07 | PM.DS ---
DS: Diagnosis Admitting Diagnosis Admitting Diagnosis: ST elevation (STEMI) myocardial infarction involving other coronary artery of anterior wall Discharge Diagnosis (1) ST elevation (STEMI) myocardial infarction: Qualifiers: Involved coronary artery: other anterior wall coronary artery Qualified Code(s): I21.09 - ST elevation (STEMI) myocardial infarction involving other coronary artery of anterior wall Code(s): I21.3 - ST elevation (STEMI) myocardial infarction of unspecified site Status: Acute Assessment and Plan: Presented 2019 with chest pain. Emergency cardiac catheterization with the findings of a total occlusion the proximal LAD. Proceeded on to primary PCI with a Promus Premier 3.0 x 24 mm drug-eluting stent. Aspiration thrombectomy and intracoronary adenosine was also used. He went into flash pulmonary edema which resolved with furosemide and BiPAP support. He was started on aspirin, atorvastatin, Brilinta and low-dose WILL-inhibitor. Beta-shayla was added by Dr. Sin on 03/22/2019 which he tolerated well. Lungs were clear the first day post procedure. Potassium was supplemented. Not planning to send him home on a potassium supplemented as his hydrochlorothiazide is being discontinued. Check BMP next week. (2) Pulmonary edema: Qualifiers: Chronicity: acute Qualified Code(s): J81.0 - Acute pulmonary edema Code(s): J81.1 - Chronic pulmonary edema Status: Acute Assessment and Plan: Resolved with BiPAP support and diuretics. (3) Essential hypertension: Code(s): I10 - Essential (primary) hypertension Status: Acute Assessment and Plan: Blood pressure was a little soft after 50 mg Metoprolol succinate. Plan to discharge with only 25 Metoprolol succinate along with lisinopril 2.5 mg daily. (4) Hyperlipidemia: Qualifiers: Hyperlipidemia type: unspecified Qualified Code(s): E78.5 - Hyperlipidemia, unspecified Code(s): E78.5 - Hyperlipidemia, unspecified Status: Acute Assessment and Plan: High-dose statin DS: Summary Hospital Course Reason for hospitalization: Chest pain Hospital Course: 63-year-old male presented to the hospital after several days of intermittent chest discomfort becoming severe central pain radiating to both arms. EKG was consistent with an anterior myocardial infarction. He was taken emergently to the cardiac catheterization lab with a significant findings of a total occlusion of the proximal LAD. This was treated with stenting with a drug-eluting stent. He also has had aspiration of large clot burden. He went into pulmonary edema after the procedure. He was supported with BiPAP and diuretics. Pulmonary edema resolved. He was started on aspirin, Brilinta, atorvastatin and a low-dose WILL-inhibitor. Beta-shayla was added than following day. Potassium was supplemented. Blood pressure was soft but he was asymptomatic. He was ambulating in the room without chest discomfort or shortness of breath. Right wrist was without swelling or bleeding. Fingers were warm. Capillary refill brisk. He had both a radial and ulnar pulse. He was discharged home in stable and pain-free condition. Time Spent with Patient Time attestation: Total time spent providing and/or coordinating discharge services: 35 minutes Exam Const: General: comfortable and no acute distress HENMT: General nose exam: Normal nares present and no epistaxis Mouth: Yes moist mucous membranes Eyes: Sclera: sclerae normal Pupils: Equal, round and reactive pupils present Neck: Neck: supple and no JVD Resp: Effort & Inspection: normal respiratory effort Auscultation: clear to auscultation bilaterally Cardio: Rate: regular rate Rhythm: regular rhythm Heart sounds: no murmurs and
[2019-03-23 11:27] LABS: Blood Urea Nitrogen 26 mg/dL (9-20); Calcium 8.7 mg/dL (8.4-10.2); Carbon Dioxide 32 mmol/L (22-30); Chloride 95 mmol/L (98-107); Estimated CRCL calculation 79 ml/min; Estimated Glomerular Filt Rate > 60; Glucose 109 mg/dL (75-110); Magnesium 2.4 mg/dL (1.6-2.3); Potassium 3.1 mmol/L (3.4-5.0); Sodium 136 mmol/L (137-145)
[2019-03-23] MEDS: POTASSIUM CHLORIDE 20 MEQ TABLET 40 MEQ PO ×2 (11:51→14:16)
== END 2019-03-23 16:05 | disposition home or self-care (01) | DRG 247 ==
LOC: ANHED 06:54 → ANHICU 08:04 → ANHIMU 03-22 14:40
PROVIDERS: Internal Medicine; Nurse Practitioner Adult Health; Admitting Provider Internal Medicine Interventional Cardiology; Emergency Provider Emergency Medicine; PCP Family Medicine; Visit Provider Internal Medicine Interventional Cardiology
PROC: 4A023N7 Measurement of Cardiac Sampling and Pressure, Left Heart, Percutaneous Approach (ICD-10-PCS; CPT 93452; principal; 2019-03-21 06:50)
PROC: 4A023N7 Measurement of Cardiac Sampling and Pressure, Left Heart, Percutaneous Approach (ICD-10-PCS; 2019-03-21 06:50)
DX: I21.09 ST elevation (STEMI) myocardial infarction involving other coronary artery of anterior wall (principal); Z68.41 Body mass index [BMI] 40.0-44.9, adult; I50.1 Left ventricular failure, unspecified; E11.9 Type 2 diabetes mellitus without complications; J42 Unspecified chronic bronchitis; N40.0 Benign prostatic hyperplasia without lower urinary tract symptoms; E78.5 Hyperlipidemia, unspecified; Z87.442 Personal history of urinary calculi; E66.9 Obesity, unspecified; R32 Unspecified urinary incontinence; G47.30 Sleep apnea, unspecified; I11.0 Hypertensive heart disease with heart failure
CPT/HCPCS: 36415; 36600; 71045; 80048; 80053; 82805; 83735; 84100; 84132; 84484; 85025; 85380; 85610; 85730; 87081; 93005; 93458; 94002; 94003; 94660; 96365; 96366; 96375; 99291; A9270; C1725; C1757; C1769; C1874; C1887; C1894; C8929; C9113; C9606; J0153; J1327; J1644; J1940; J2001; J2250; J2270; J2405; J3010; J3480; J7040; Q9957

== ENCOUNTER 2019-04-06 22:05 | Emergency (ER) | payer BC, SELFPAY ==
--- NOTE | ~2019-04-06 | CT_ITS ---
EXAMINATION: CT abdomen pelvis wo con DATE: 04/06/2019 22:55 INDICATION: Hematuria TECHNIQUE: Computed tomography (CT) of the abdomen and pelvis was performed without intravenous contr ast. The dose-length product was 813.55 mGy-cm. Automated exposure control and iterative reconstructi on technique were employed. COMPARISON: CT dated 12/25/2018 FINDINGS: Lung bases are unremarkable. No significant pleural or pericardial effusion. Calcified gran uloma left lower lobe. No significant vascular abnormality. There are innumerable nonobstructing bila teral renal stones. There is mild bilateral ureterectasis, although no ureteral stones are identified . There is mild periureteral edema. Ascending urinary tract infection not excluded. Bladder wall is m ildly thickened, likely due to decompression. There are coarse prostate calcifications. There are gallstones. The liver, spleen, pancreas, adrenal glands are unremarkable. Nonobstructive mervin wel gas pattern. Status post appendectomy. No abnormal pelvic masses or fluid collections. There is a n accessory splenule. Mild lumbar spondylosis. Stable 2.2 cm exophytic right renal cyst posteriorly. Lining diverticulosis without evidence for diverticulitis. No bowel obstruction. IMPRESSION: 1. Nonobstructing bilateral nephrolithiasis. 2: Cholelithiasis. 3: Mild bilateral ureterectasis without evidence for obstructing stone. Mild periureteral edema bilat erally. Cannot exclude ascending urinary tract infection. Reviewed, dictated and finalized at location A. DESIGNER IMPRESSION: 1. Nonobstructing bilateral nephrolithiasis. 2: Cholelithiasis. 3: Mild bilateral ureterectasis without evidence for obstructing stone. Mild pe riureteral edema bilaterally. Cannot exclude ascending urinary tract infection.
--- NOTE | ~2019-04-06 | XR_ITS ---
EXAMINATION: XR chest 2V 04/06/2019 23:02 INDICATION: Cough PROCEDURE: 2 view chest COMPARISON: Comparison to multiple prior studies sequentially, with oldest reviewed study dated 07/2010. FINDINGS: The lungs are clear. The cardiomediastinal silhouette is within normal limits. There are no pleural effusions. There is no pneumothorax suspected. IMPRESSION: 1: NO ACUTE CARDIOPULMONARY DISEASE. Reviewed, dictated and finalized at location A. ARCH AND INSIGHTS EXECUTIVE
[2019-04-06 22:10] VITALS: BP 140/88; PULSE 95; RESP 22; TEMP 37.2; O2SAT 97
--- NOTE | 2019-04-06 22:27 | ED.MALEGU ---
HPI - Male Genitourinary General Chief complaint: Urogenital-Male Stated complaint: bloody urination Time Seen by Provider: 04/06/19 22:13 Source: patient and RN notes reviewed Mode of arrival: ambulatory Limitations: no limitations History of Present Illness HPI Narrative: Pt is a 63 y/o male with a Hx of kidney stones, who presents to the ED with c/o hematuria starting this evening. Pt denies beng sob, but states he's had sob on exertion and that is nothing new and has had it since he had his cardiac cath done. Pt denies chest pain. Pt states he is not here for sob or cp but for hematuria. He notes that he was recently hospitalized on 03/22/19 following an acute MA. Pt states that he had a Moran catheter placed during his stay, and notes that the catheter was removed on 03/23/19. He states that he noticed mild burning with urination shortly after the catheter was removed, but notes that he hasn't had any blood in his urine until tonight. Pt also reports a cough for the past 6-7 weeks, but denies any flank pain, ABD pain, CP, or SOB. He notes that he is currently taking Brilinta and ASA. Complaint: other (Hematuria) Context: other (recent Moran catheter) Associated symptoms: Reports other (cough) Related Data Home Medications Medication Instructions Recorded Confirmed benzonatate 100 mg PO PRN PRN 03/21/19 03/21/19 ergocalciferol (vitamin D2) 50,000 unit PO DAILY 03/21/19 03/21/19 finasteride 5 mg PO DAILY 03/21/19 03/21/19 Allergies Allergy/AdvReac Type Severity Reaction Status Date / Time Sulfa (Sulfonamide Allergy Unknown Unknown Verified 04/06/19 22:18 Antibiotics) Review of Systems Review of Systems: All systems reviewed & are unremarkable except as noted in HPI and below Cardiovascular: Cardiovascular: Denies chest pain Respiratory: Respiratory: Denies dyspnea Gastrointestinal: Gastrointestinal: Denies abdominal pain Genitourinary: Genitourinary: Reports hematuria and Denies flank pain PMFSH Past Medical History Medical History Arrhythmia Arthritis Back pain Bronchitis Chronic back pain Eczema Enlarged prostate Essential (primary) hypertension Gallstones History of angina History of bladder infections HTN (hypertension) Hyperlipidemia Kidney stones Obesity Obstructive sleep apnea on CPAP Pneumonia ST elevation (STEMI) myocardial infarction Urinary incontinence UTI (urinary tract infection) Surgical History Surgical History H/O hand surgery History of appendectomy Hx of lithotripsy S/P trigger finger release Social History Social History Smoking status: Never smoker Second hand tobacco smoke exposure: No Alcohol intake: never Substance use: never Gender identity (if verbalized by the patient): Male Spiritual care concerns: No Agree to blood products: Yes Exam Const: General: cooperative, healthy appearing, comfortable, no acute distress, well developed, alert and awake; No confusion Orientation/consciousness: oriented to person, oriented to place, oriented to time, patient oriented x3 and No confusion Limitations: no limitations HENMT: Head: normal to inspection, normocephalic and atraumatic Resp: Effort & Inspection: normal respiratory effort, able to speak in complete sentences, no respiratory distress and not tachypneic Auscultation: clear to auscultation bilaterally, no crackles, no rales, no rhonchi and no wheezes Cardio: Rate: regular rate Rhythm: regular rhythm GI: Inspection: normal to inspection GI Palp: No abdominal tenderness, Yes Soft to palpation, No Tenderness to palpation present (GI), No Guarding due to palpation present (GI), No Rigid due to palpation and No Rebound tenderness present Auscultation: normal bowel sounds : General: Yes no CVA tenderness Back/Spine/Pelvis: Back: no CVA tenderness Skin
--- NOTE | 2019-04-06 22:32 | ECG_ITS ---
Measurements Intervals [place] Rate: 94 P: 50 TN: 180 QRS: -35 QRSD: 108 T: 120 QT: 382 QTc: 480 Interpretive Statements SINUS RHYTHM POSSIBLE LEFT ATRIAL ENLARGEMENT LEFT AXIS DEVIATION ANTEROSEPTAL INFARCT, AGE INDETERMINATE ST-T WAVE ABNORMALITY IN LATERAL LEADS- CONSIDER ISCHEMIA BASELINE WANDER- II, III, V2 ABNORMAL ECG Electronically Signed On 04-07-2019 6:58:53 VIDEO CONTROL ENGINEER by Regulo Rios D.O.
--- NOTE | 2019-04-06 22:53 | PC.NURSE ---
Patient in radiology.
[2019-04-06 23:04] LABS: Basophils Percent Auto 0.4 % (0.2-1.2); Eosinophils Absolute Auto 0.4 K/mm3 (0-0.3); Eosinophils Percent Auto 4.1 % (0-4.4); Hemoglobin 12.2 g/dL (14.0-18.0); Immature Granulocyte Absolute 0.02 K/mm3 (0.00-0.031); Immature Granulocyte Percent A 0.2 % (0-0.5); Lymphocytes Absolute Auto 1.13 K/mm3 (0.9-3.2); Lymphocytes Percent Auto 12.6 % (18.3-44.2); Mean Corpuscular HGB Conc 31.3 g/dl (32-36); Mean Corpuscular Volume 83.2 fl (80-100); Mean Platelet Volume 10.7 fl (7.4-10.4); Monocytes Absolute Auto 1.1 K/mm3 (0.1-0.6); Monocytes Percent Auto 12.5 % (2.6-8.5); Neutrophils Absolute Auto 6.3 K/mm3 (1.3-6.7); Neutrophils Percent Auto 70.2 % (45.5-73.1); Platelet Count Result 256 k/mm3 (150-375); Red Blood Count 4.69 M/mm3 (4.6-6.20); Red Cell Distribution Width 14.4 % (11.5-14.5)
[2019-04-06] MEDS: LACTATED RINGERS 1,000 ML 999 ML IV CONT (23:16)
[2019-04-06 23:19] LABS: Add Urine Microscopic? YES; Appearance Urine Clear (Clear); Bilirubin Urine Negative (Negative); Blood Urine 3+ (Negative); Color Urine Red (Yellow); Glucose Urine UA Negative (Negative); Ketones Urine Negative (Negative); Leukocyte Esterase Ur 2+ LEU/UL (Negative); Mucus Urine Rare /lpf; Nitrate Urine Negative (Negative); Protein Urine 2+ mg/dL (Negative); RBC Urine >75 /hpf (0-2); Specific Grav Ur 1.006 (1.001-1.035); Urobilinogen Urine Negative mg/dL (<2.0); WBC Urine >75 /hpf
[2019-04-06 23:22] LABS: Partial Thromboplastin Time 29.9 SECONDS (22.3-36.8)
[2019-04-06 23:49] VITALS: BP 120/77; PULSE 86; RESP 24; O2SAT 97
[2019-04-07 00:25] LABS: Blood Urea Nitrogen 20 mg/dL (9-20); Calcium 8.8 mg/dL (8.4-10.2); Carbon Dioxide 25 mmol/L (22-30); Chloride 100 mmol/L (98-107); Estimated Glomerular Filt Rate > 60; Glucose 97 mg/dL (75-110); Potassium 3.6 mmol/L (3.4-5.0); Sodium 137 mmol/L (137-145)
[2019-04-07 00:36] LABS: Troponin I 0.092 ng/mL (0.000-0.034)
[2019-04-07 00:53] VITALS: BP 140/86; PULSE 87; RESP 19; O2SAT 97
[2019-04-07 02:21] LABS: Troponin I 0.095 ng/mL (0.000-0.034)
[2019-04-07 02:38] VITALS: BP 133/86; PULSE 80; RESP 18; O2SAT 98
== END 2019-04-07 02:40 | disposition home or self-care (01) ==
PROVIDERS: Emergency Provider Emergency Medicine; PCP Family Medicine
DX: N30.01 Acute cystitis with hematuria (principal); M19.90 Unspecified osteoarthritis, unspecified site; N40.0 Benign prostatic hyperplasia without lower urinary tract symptoms; I10 Essential (primary) hypertension; I25.2 Old myocardial infarction; E78.5 Hyperlipidemia, unspecified; G47.33 Obstructive sleep apnea (adult) (pediatric); Z87.440 Personal history of urinary (tract) infections; E66.9 Obesity, unspecified; K80.20 Calculus of gallbladder without cholecystitis without obstruction; N20.0 Calculus of kidney; Z87.442 Personal history of urinary calculi; Z79.02 Long term (current) use of antithrombotics/antiplatelets
CPT/HCPCS: 36415; 71046; 74176; 80048; 81001; 84484; 85025; 85610; 85730; 87077; 87086; 87088; 87186; 93005; 96361; 96365; 99284; J0696; J7120

== ENCOUNTER 2019-04-22 16:41 | Emergency (ER) | payer BC, SELFPAY ==
[2019-04-22 17:10] VITALS: BP 114/67; PULSE 78; RESP 19; TEMP 37.2; O2SAT 99
[2019-04-22 17:28] LABS: Basophils Percent Auto 0.3 % (0.2-1.2); Eosinophils Absolute Auto 0.5 K/mm3 (0-0.3); Eosinophils Percent Auto 5.1 % (0-4.4); Hematocrit 40.4 % (42.0-52.0); Hemoglobin 12.5 g/dL (14.0-18.0); Immature Granulocyte Absolute 0.03 K/mm3 (0.00-0.031); Immature Granulocyte Percent A 0.3 % (0-0.5); Lymphocytes Absolute Auto 1.13 K/mm3 (0.9-3.2); Lymphocytes Percent Auto 12.8 % (18.3-44.2); Mean Corpuscular HGB Conc 30.9 g/dl (32-36); Mean Corpuscular Hemoglobin 25.9 pg (26-34); Mean Corpuscular Volume 83.8 fl (80-100); Mean Platelet Volume 11.1 fl (7.4-10.4); Monocytes Absolute Auto 0.8 K/mm3 (0.1-0.6); Monocytes Percent Auto 8.9 % (2.6-8.5); Neutrophils Absolute Auto 6.4 K/mm3 (1.3-6.7); Neutrophils Percent Auto 72.6 % (45.5-73.1); Platelet Count Result 214 k/mm3 (150-375); Red Blood Count 4.82 M/mm3 (4.6-6.20); Red Cell Distribution Width 14.6 % (11.5-14.5); White Blood Count 8.8 K/mm3 (4.5-10.0)
[2019-04-22 17:37] LABS: Blood Urea Nitrogen 13 mg/dL (9-20); Carbon Dioxide 25 mmol/L (22-30); Chloride 105 mmol/L (98-107); Estimated Glomerular Filt Rate > 60; Glucose 99 mg/dL (75-110); Potassium 3.3 mmol/L (3.4-5.0); Sodium 138 mmol/L (137-145)
[2019-04-22 18:56] LABS: Add Urine Microscopic? YES; Appearance Urine Cloudy (Clear); Bacteria Urine 3+ /hpf; Bilirubin Urine Negative (Negative); Blood Urine 3+ (Negative); Color Urine Yellow (Yellow); Glucose Urine UA Negative (Negative); Ketones Urine Negative (Negative); Leukocyte Esterase Ur 3+ LEU/UL (Negative); Mucus Urine Rare /lpf; Nitrate Urine Negative (Negative); Protein Urine 1+ mg/dL (Negative); RBC Urine >75 /hpf (0-2); Specific Grav Ur 1.008 (1.001-1.035); Urobilinogen Urine Negative mg/dL (<2.0); WBC Urine >75 /hpf
--- NOTE | 2019-04-22 19:53 | ED.ABDPAIN ---
HPI - Abdominal Pain General Chief Complaint: Urogenital-Male Stated Complaint: blood in urine Time Seen by Provider: 04/22/19 18:28 Source: patient, family and old records reviewed Mode of arrival: ambulatory Limitations: no limitations History of Present Illness HPI narrative: Patient is a 63-year-old male who presents to emergency department for evaluation of hematuria that is painless in nature and has been present now since this morning noting red blood in the urine notes that he recently had a similar occurrence that was diagnosed as cystitis had had blood work and imaging at that time and is scheduled to see urology on Friday patient on arrival denies any pain or other complaints and is resting comfortably in the room Related Data Home Medications Medication Instructions Recorded Confirmed benzonatate 100 mg PO PRN PRN 03/21/19 03/21/19 ergocalciferol (vitamin D2) 50,000 unit PO DAILY 03/21/19 03/21/19 finasteride 5 mg PO DAILY 03/21/19 03/21/19 Allergies Allergy/AdvReac Type Severity Reaction Status Date / Time Sulfa (Sulfonamide Allergy Unknown Unknown Verified 04/09/19 16:29 Antibiotics) Review of Systems Review of Systems: All systems reviewed & are unremarkable except as noted in HPI and below PMFSH Past Medical History Medical History Arrhythmia Arthritis Back pain Bronchitis CHF (congestive heart failure), NYHA class I Chronic back pain Eczema Enlarged prostate Essential (primary) hypertension Gallstones History of angina History of bladder infections HTN (hypertension) Hyperlipidemia Kidney stones Obesity Obstructive sleep apnea on CPAP Pneumonia ST elevation (STEMI) myocardial infarction Urinary incontinence UTI (urinary tract infection) Surgical History Surgical History H/O hand surgery History of appendectomy Hx of lithotripsy S/P trigger finger release Social History Social History Smoking status: Never smoker Second hand tobacco smoke exposure: No Alcohol intake: never Substance use: never Gender identity (if verbalized by the patient): Male Spiritual care concerns: No Agree to blood products: Yes Exam Narrative: Exam Narrative: GENERAL: Well-appearing, obese, and in no acute distress. HEAD: Normocephalic, atraumatic. EYES: PERRLA and EOMI. ENT: Nares clear, no rhinorrhea or epistaxis. Mucous membranes moist. CHEST: Clear to auscultation. No respiratory distress. No wheezes rales or rhonchi HEART: Regular rate and rhythm. No murmur heard. Normal peripheral pulses. ABDOMEN: Soft, nontender, distended EXTREMITIES: Normal range of motion. No edema. SKIN: Warm, dry, no rash. NEURO: No focal deficits. Alert and oriented x3. PSYCH: Normal mood and affect. Course Course Emergency Course: Patient in the room at this time will be treated for his cystitis as the likely etiology given that it had resolved with antibiotics and the prior recurrence and is scheduled to see urology Vital Signs Vital signs: Vital Signs Temperature 99 F 04/22/19 17:10 Pulse Rate 78 04/22/19 17:10 Respiratory Rate 19 04/22/19 17:10 Blood Pressure 114/67 04/22/19 17:10 Pulse Oximetry 99 04/22/19 17:10 Temperature 99 F 04/22/19 17:10 Pulse Rate 78 04/22/19 17:10 Respiratory Rate 19 04/22/19 17:10 Blood Pressure 114/67 04/22/19 17:10 Pulse Oximetry 99 04/22/19 17:10 MDM - Abdominal Pain MDM Narrative Medical decision making narrative: Patient is afebrile nontoxic-appearing no distress felt appropriate for outpatient reevaluation provided with reasons to return was given a dose of antibiotic in the emergency department and provided with reasons to return and agrees to do so no high risk changes in the blood work at this time urinalysis suggest cystitis Lab Data Result diagra
[2019-04-22] MEDS: cefTRIAXone 1 GM VIAL IM (19:57)
--- NOTE | 2019-04-22 20:01 | PC.NURSE ---
Lidocaine used for Rocephin reconstitution.
[2019-04-22 20:09] VITALS: BP 111/71; PULSE 71; RESP 18; TEMP 36.4; O2SAT 96
== END 2019-04-22 20:10 | disposition home or self-care (01) ==
PROVIDERS: Emergency Medicine; Emergency Provider Emergency Medicine; PCP Family Medicine
DX: N39.0 Urinary tract infection, site not specified (principal); M19.90 Unspecified osteoarthritis, unspecified site; I50.9 Heart failure, unspecified; I11.0 Hypertensive heart disease with heart failure; N40.0 Benign prostatic hyperplasia without lower urinary tract symptoms; E78.5 Hyperlipidemia, unspecified; Z87.442 Personal history of urinary calculi; E66.9 Obesity, unspecified; I25.2 Old myocardial infarction; Z87.440 Personal history of urinary (tract) infections
CPT/HCPCS: 36415; 80048; 81001; 85025; 87077; 87086; 87088; 87186; 96372; 99283; J0696

== ENCOUNTER 2019-05-04 15:34 | Outpatient (CLI) | payer BC, SELFPAY ==
--- NOTE | ~2019-05-04 | XR_ITS ---
XR chest 2V DATE: 05/04/2019 15:51 INDICATION: Dyspnea on exertion. Productive cough. History of congestive heart failure and hypertensi on. TECHNIQUE: PA and lateral views COMPARISON: 04/06/2019 PA and lateral chest FINDINGS: Small pleural effusions, right greater than left, new since 04/06/2019. There is pulmonary v ascular redistribution suggesting mild pulmonary venous hypertension. Mild cardiomegaly. Aortic unfol ding. There is minimal atelectasis at the right lung base. IMPRESSION: Mild congestive changes and right basilar atelectasis, small pleural effusions Reviewed, dictated and finalized at location B. IMPRESSION: Mild congestive changes and right basilar atelectasis, small pleura l effusions
== END 2019-05-04 15:35 | disposition home or self-care (01) ==
LOC: ANHIMG 15:38
PROVIDERS: PCP Family Medicine; Visit Provider Nurse Practitioner Adult Health
DX: R06.09 Other forms of dyspnea (principal)
CPT/HCPCS: 71046

== ENCOUNTER 2019-05-10 16:30 | Outpatient (RCR) | payer BC, SELFPAY ==
[2019-04-30 08:54] VITALS: BP 104/70; PULSE 64; RESP 16; O2SAT 94
[2019-04-30 12:01] VITALS: PULSE 64
--- NOTE | 2019-05-12 09:54 | PCCPR ---
Program is temporarily suspended due to COVID outbreak.
--- NOTE | 2019-05-19 12:53 | PCCPR ---
Spoke with Go today to check on him and his home activity. He states he is walking most 30 min 2 times per wk. However he did c/o it he does experience SOB during his walk and does have a cough. He had a C x R 2-3 weeks ago and was told he has some fluid on his lungs. He was prescribed a water pill and does not feel that has improved his SOB. Denies having a fever and is due to see Dr Vargas in the next couple of days. Reminded him we definitely closed for through June 16. Let him know to call for questions and that we will be calling weekly to check on him. Go want his exercise guide hand out mailed to his home.
--- NOTE | 2019-05-26 11:12 | PCCPR ---
Spoke with Brice - he was not home. She states he is doing well but has a cough. She said he has had the cough and SOB since his procedure. She states they spoke with the research consultant who discontinued the lisinopril. Told her that Go could call us back if he wanted otherwise we will check in next week.
--- NOTE | 2019-06-02 14:45 | PCCPR ---
Check in completed with patient. Last I spoke with Go he was having an increased cough & SOB. had mentioned that they were discontinuing his lisinopril. When speaking with the patient today he states that the cough and SOB has gotten worse. He states they are going to be removing fluid from his lungs. He is supposed to have an appt Friday. Will continue to follow weekly.
--- NOTE | 2019-06-09 13:44 | PCCPR ---
Weekly update call-Left message.
--- NOTE | 2019-07-01 13:06 | PCCPR ---
Starting Bi-Weekly calls. Left message for patient.
--- NOTE | 2019-09-13 16:37 | PCCPR ---
Go here today states he was Covid tested today in preparation for his ICD procedure on Friday. Explained our experience told us the pt should isolate between now and the procedure. We encouraged him to check with his MD. Explained he will need a release to resume cardiac rehab post procedure.
--- NOTE | 2019-09-27 08:12 | PCCPR ---
Spoke with Go Inquiring about his release to resume rehab. He states he is scheduled to see Dr Lee who placed his ICD and plans to ask when he may return to exercise. Reminded him we will need a release to resume.
== END 2019-05-10 23:59 | disposition home or self-care (01) ==
LOC: ANHCPREHAB 16:30
PROVIDERS: PCP Family Medicine; Visit Provider Nurse Practitioner Adult Health
DX: Z95.5 Presence of coronary angioplasty implant and graft (principal)
CPT/HCPCS: 93798

== ENCOUNTER 2019-06-01 10:25 | Outpatient (CLI) | payer BC, SELFPAY ==
--- NOTE | ~2019-06-01 | CT_ITS ---
EXAMINATION: CT chest wo con DATE: 06/01/2019 10:50 INDICATION: Cough TECHNIQUE: Computed tomography (CT) of the chest was performed without intravenous contrast. Addition al 3D reconstructions utilizing coronal maximum intensity projection (MIP) were performed. Automated exposure control and iterative reconstruction technique were employed. The dose-length product was 56 1.15 mGy-cm. COMPARISON: CT chest dated 08/05/[address] abdomen and pelvis dated 04/06/2019 FINDINGS: Unilateral small to moderate sized posteriorly layering right pleural effusion. Passive compressive a telectasis in the dependent right lower lobe. No evident underlying pneumonia or pulmonary edema. Parrish cified nodule at the lingula and calcified left hilar lymph nodes consistent with old granulomatous d isease. 5 mm noncalcified granuloma in the left lower lobe unchanged since 2014. Heart size is normal . Atherosclerotic calcifications at the circumflex coronary artery and likely stenting along the left anterior descending coronary artery. No pericardial effusion. Several mildly prominent but still nor mal-sized mediastinal lymph nodes which are likely reactive. Small calcification along the nondepende nt wall of the partially visualized otherwise normal-appearing gallbladder. Splenic calcification con sistent with old granulomatous disease. Mild scattered degenerative skeletal changes. IMPRESSION: 1. Unilateral small to moderate-sized right pleural effusion of indeterminate etiology with compressi ve atelectasis in the right lower lobe. Consider diagnostic thoracentesis. Reviewed, dictated and finalized at location A. IMPRESSION: 1. Unilateral small to moderate-sized right pleural effusion of indeterminate e tiology with compressive atelectasis in the right lower lobe. Consider diagnost ic thoracentesis.
== END 2019-06-01 10:26 | disposition home or self-care (01) ==
PROVIDERS: PCP Family Medicine; Visit Provider Family Medicine
DX: I50.9 Heart failure, unspecified (principal); J81.1 Chronic pulmonary edema; R05 Cough; R06.09 Other forms of dyspnea; J90 Pleural effusion, not elsewhere classified
CPT/HCPCS: 71250

== ENCOUNTER 2019-06-17 10:23 | Outpatient (CLI) | payer BC, SELFPAY ==
--- NOTE | ~2019-06-17 | XR_ITS ---
XR chest 2V DATE: 06/17/2019 10:48 INDICATION: Shortness of breath TECHNIQUE: 2 views COMPARISON: 06/01/2019 CT chest without contrast material 05/03/2021 view chest FINDINGS: There is moderate increased right pleural effusion since 05/04/2019, with persistent right b asilar infiltrate/atelectasis Heart size appears within normal limits. Probable LAD coronary artery stent. No left pleural effusion . No pneumothorax. The left lung appears clear. Old calcified pulmonary granulomatous disease on the left. No hilar or mediastinal enlargement is evident. Diffuse osteopenia. IMPRESSION: Moderate right pleural effusion, increased since 05/04/2019, with infiltrate and/or atelec tasis at right lung base. Reviewed, dictated and finalized at location A. IMPRESSION: Moderate right pleural effusion, increased since 05/04/2019, with in filtrate and/or atelectasis at right lung base.
== END 2019-06-17 10:24 | disposition home or self-care (01) ==
PROVIDERS: PCP Family Medicine; Visit Provider Family Medicine
DX: R06.02 Shortness of breath (principal); J90 Pleural effusion, not elsewhere classified; R91.8 Other nonspecific abnormal finding of lung field
CPT/HCPCS: 71046

== ENCOUNTER 2019-06-21 00:37 | Emergency (ER) | payer BC, SELFPAY ==
--- NOTE | ~2019-06-21 | CT_ITS ---
EXAMINATION: CTA chest PE abdomen pel DATE: 06/21/2019 08:11 CDT INDICATION: Dyspnea and cough. Right upper quadrant abdominal pain. TECHNIQUE: Computed tomographic angiography (CTA) of the chest, abdomen, and pelvis was performed wit hout and with 100 mL Omnipaque-350 intravenous contrast. The dose-length product was 2298.89 mGy-cm. Maximum intensity projection 3D-reconstructions of the aorta and other arteries were constructed by lisa morales technologist on a separate workstation. Automated exposure control and iterative reconstruction te chnique were employed. COMPARISON: CT dated 06/01/2019 FINDINGS: CHEST CTA: Interval enlargement of moderate right pleural effusion. Heart size normal. There is compressive atel ectasis in the right lower lobe and right middle lobe. Study is technically adequate without evidence for pulmonary embolism. No evidence for thoracic aortic aneurysm or dissection. There is atheroscler osis of the aorta and coronary arteries. No pneumothorax. No endobronchial lesions. ABDOMEN AND PELVIS CTA: The liver, spleen, pancreas, adrenal glands are unremarkable. There are gallstones. There are multipl e nonobstructing bilateral renal stones. There is a 3 mm left to mid ureteral stone with mild hydrone phrosis. There is mild bilateral urothelial enhancement/thickening. There are small bilateral renal c ysts. Nonobstructive bowel gas pattern with moderate gas throughout the small bowel and colon. No damaris e air. Colonic diverticulosis without evidence for diverticulitis. No lymphadenopathy. The thoracic a nd lumbar spondylosis most advanced at L5-S1. IMPRESSION: 1. Moderate right pleural effusion with underlying compressive atelectasis. 2: No evidence for pulmonary embolism. 3: 3 mm left mid ureteral stone with mild hydronephrosis. 4: Bilateral urothelial enhancement/thickening. Consider correlation with urinalysis to assess for UT I. 5: Cholelithiasis. 6: Nonobstructing bilateral nephrolithiasis. Reviewed, dictated and finalized at location A. IMPRESSION: 1. Moderate right pleural effusion with underlying compressive atelectasis. 2: No evidence for pulmonary embolism. 3: 3 mm left mid ureteral stone with mild hydronephrosis. 4: Bilateral urothelial enhancement/thickening. Consider correlation with urina lysis to assess for UTI. 5: Cholelithiasis. 6: Nonobstructing bilateral nephrolithiasis.
[2019-06-21 00:40] VITALS: BP 148/88; PULSE 104; RESP 30; TEMP 36.8; O2SAT 97
--- NOTE | 2019-06-21 00:47 | ED.SOB ---
HPI - SOB/Dyspnea General Chief Complaint: Shortness of Breath/Dyspnea Stated Complaint: SOB Time Seen by Provider: 06/21/19 00:41 Source: patient Mode of arrival: ambulatory Limitations: no limitations History of Present Illness HPI Narrative: Patient is a 63-year-old male presents to the emergency department with complaint of shortness of breath and right upper quadrant abdominal pain. Patient reports onset of symptoms of both shortness of breath and right upper quadrant pain 3 days ago. On review of patient's medical record, patient has been having issues with pulmonary edema and right-sided pleural effusion. Patient is supposed to be getting a thoracentesis for further evaluation of the pleural effusion. Patient is now complaining of right upper quadrant abdominal pain which she states is new. He denies any nausea, vomiting, diarrhea, constipation, or current urinary symptoms. Patient had issues with cough that subsided when he was taken off of his lisinopril. Patient denies any fever. MD elicited complaint: shortness of breath Pertinent past history: congestive heart failure Onset (ago): day(s) Timing: constant and progressively worsening Exacerbating factors: lying flat Known history of: congestive heart failure Associated symptoms: abdominal pain (Right upper quadrant) Related Data Home Medications Medication Instructions Recorded Confirmed acetaminophen 500 mg tablet 500 mg PO Q6H PRN 05/21/19 06/21/19 ascorbic acid (vitamin C) 500 mg 500 mg PO DAILY 05/21/19 06/21/19 tablet ergocalciferol (vitamin D2) 1,250 50,000 unit PO WEEKLY cap 05/21/19 06/21/19 mcg (50,000 unit) capsule fexofenadine 180 mg tablet 180 mg PO DAILY 05/21/19 06/21/19 furosemide 40 mg tablet 80 mg PO BID tablet 06/15/19 06/21/19 potassium chloride 20 mEq 20 meq PO BID tablet 06/15/19 06/21/19 tablet,extended release Allergies Allergy/AdvReac Type Severity Reaction Status Date / Time Sulfa (Sulfonamide Allergy Unknown Unknown Verified 06/21/19 00:45 Antibiotics) Review of Systems Review of Systems: All systems reviewed & are unremarkable except as noted in HPI and below Constitutional: Constitutional: Denies fever(s) Cardiovascular: Cardiovascular: Denies chest pain and Reports leg edema (Chronic) Respiratory: Respiratory: Reports cough (Subsided) and Reports dyspnea Gastrointestinal: Gastrointestinal: Reports abdominal pain, Denies constipation, Denies diarrhea, Denies nausea and Denies vomiting PMFSH Past Medical History Medical History (Updated 06/21/19 @ 03:24 by Liza Richard MD) Arrhythmia Arthritis Back pain Bronchitis Calculus of kidney CHF (congestive heart failure), NYHA class I Chronic back pain Cough Eczema Enlarged prostate Essential (primary) hypertension Gallstones History of angina History of bladder infections HTN (hypertension) Hyperlipidemia Kidney stones Obesity Obstructive sleep apnea on CPAP Pneumonia ST elevation (STEMI) myocardial infarction Urinary incontinence UTI (urinary tract infection) Surgical History Surgical History (Updated 06/21/19 @ 01:10 by Liza Richard MD) H/O hand surgery History of appendectomy History of coronary artery stent placement Hx of lithotripsy S/P trigger finger release Social History Social History Smoking status: Never smoker Second hand tobacco smoke exposure: No Alcohol intake: never Substance use: never Gender identity (if verbalized by the patient): Male Spiritual care concerns: No Agree to blood products: Yes Exam Const: General: cooperative, no acute distress and alert Nutritional Appearance: obese Orientation/consciousness: patient oriented x3 Limitations: no limitations Eyes: Conjunctivae: conjunctivae normal Pupils: Equal, round and reactive pupils present Resp: Effort & Inspection: normal respiratory effort Auscultation: diminished lung
--- NOTE | 2019-06-21 00:59 | ECG_ITS ---
Measurements Intervals [place] Rate: 100 P: 51 ME: 165 QRS: -34 QRSD: 104 T: 100 QT: 352 QTc: 454 Interpretive Statements SINUS TACHYCARDIA VENTRICULAR PREMATURE COMPLEXES POSSIBLE LEFT ATRIAL ENLARGEMENT LEFT AXIS DEVIATION CANNOT RULE OUT SEPTAL INFARCT, AGE INDETERMINATE BORDERLINE ST-T WAVE ABNORMALITY- LATERAL LEADS BASELINE WANDER- AVR, AVL, AVF, V1-V2 ABNORMAL ECG Electronically Signed On 06-21-2019 6:59:26 CDT by Regulo Rios D.O.
[2019-06-21 01:22] LABS: Lactic Acid Reflex 0.9 mmol/L (0.7-2.1)
[2019-06-21 01:27] LABS: Basophils Percent Auto 0.3 % (0.2-1.2); Eosinophils Absolute Auto 0.4 K/mm3 (0-0.3); Eosinophils Percent Auto 3.5 % (0-4.4); Hematocrit 44.2 % (42.0-52.0); Hemoglobin 13.9 g/dL (14.0-18.0); Immature Granulocyte Absolute 0.05 K/mm3 (0.00-0.031); Immature Granulocyte Percent A 0.4 % (0-0.5); Lymphocytes Absolute Auto 1.49 K/mm3 (0.9-3.2); Lymphocytes Percent Auto 12.9 % (18.3-44.2); Mean Corpuscular HGB Conc 31.4 g/dl (32-36); Mean Corpuscular Hemoglobin 25.4 pg (26-34); Mean Corpuscular Volume 80.7 fl (80-100); Mean Platelet Volume 12.1 fl (7.4-10.4); Monocytes Percent Auto 8.9 % (2.6-8.5); Neutrophils Absolute Auto 8.5 K/mm3 (1.3-6.7); Platelet Count Result 239 k/mm3 (150-375); Red Blood Count 5.48 M/mm3 (4.6-6.20); Red Cell Distribution Width 14.5 % (11.5-14.5); White Blood Count 11.6 K/mm3 (4.5-10.0)
[2019-06-21 01:31] LABS: Estimated Glomerular Filt Rate > 60
[2019-06-21 01:31] LABS: Prothrombin Time 13.2 Seconds (11.1-14.7)
[2019-06-21 01:32] LABS: Partial Thromboplastin Time 27.9 SECONDS (22.3-36.8)
[2019-06-21 02:08] LABS: Add Urine Microscopic? YES; Appearance Urine Clear (Clear); Bilirubin Urine Negative (Negative); Blood Urine 3+ (Negative); Color Urine Colorless (Yellow); Glucose Urine UA Negative (Negative); Ketones Urine Negative (Negative); Leukocyte Esterase Ur Trace LEU/UL (Negative); Mucus Urine Rare /lpf; Nitrate Urine Negative (Negative); Protein Urine Negative (Negative); RBC Urine >75 /hpf (0-2); Specific Grav Ur 1.009 (1.001-1.035); Squamous Epithelial Cell Urine Rare /hpf (Few); Urobilinogen Urine Negative mg/dL (<2.0)
[2019-06-21 02:23] VITALS: BP 124/85; PULSE 91; RESP 28; O2SAT 100
[2019-06-21 02:44] LABS: Alanine Aminotransferase 26 U/L (4-50); Albumin Level 3.9 g/dL (3.5-5.1); Alkaline Phosphatase 99 U/L (38-126); Aspartate Amino Transferase 24 U/L (17-59); Bilirubin,Total 0.4 mg/dL (0.2-1.3); Blood Urea Nitrogen 19 mg/dL (9-20); Calcium 8.3 mg/dL (8.4-10.2); Carbon Dioxide 27 mmol/L (22-30); Chloride 101 mmol/L (98-107); Estimated Glomerular Filt Rate > 60; Glucose 108 mg/dL (75-110); Lipase 95 U/L (23-300); Magnesium 2.1 mg/dL (1.6-2.3); Potassium 3.7 mmol/L (3.4-5.0); Sodium 137 mmol/L (137-145)
[2019-06-21 02:56] LABS: NT Pro B Type Natriuretic Pept 1620 PG/ML (5-100); Troponin I 0.022 ng/mL (0.000-0.034)
[2019-06-21 03:23] VITALS: BP 120/67; PULSE 90; RESP 20; O2SAT 97
[2019-06-21] MEDS: ACETAMINOPHEN 500 MG TABLET 1000 MG PO (03:36)
[2019-06-21 03:37] VITALS: BP 122/81; PULSE 88; RESP 28; O2SAT 97
== END 2019-06-21 03:40 | disposition home or self-care (01) ==
PROVIDERS: Emergency Provider Emergency Medicine; PCP Family Medicine
DX: J90 Pleural effusion, not elsewhere classified (principal); R10.11 Right upper quadrant pain; M19.90 Unspecified osteoarthritis, unspecified site; K80.20 Calculus of gallbladder without cholecystitis without obstruction; N13.2 Hydronephrosis with renal and ureteral calculous obstruction; Z87.442 Personal history of urinary calculi; I50.9 Heart failure, unspecified; I11.0 Hypertensive heart disease with heart failure; N40.0 Benign prostatic hyperplasia without lower urinary tract symptoms; Z87.440 Personal history of urinary (tract) infections; G47.33 Obstructive sleep apnea (adult) (pediatric); I25.2 Old myocardial infarction; Z95.5 Presence of coronary angioplasty implant and graft; R00.0 Tachycardia, unspecified; I49.3 Ventricular premature depolarization; R94.31 Abnormal electrocardiogram [ECG] [EKG]
CPT/HCPCS: 36415; 71275; 74177; 80053; 81001; 83605; 83690; 83735; 83880; 84484; 85025; 85610; 85730; 87086; 93005; 99284; A9270; Q9967

== ENCOUNTER 2019-06-23 09:43 | Outpatient (CLI) | payer BC, SELFPAY ==
[2019-06-23] VITALS (9 sets, daily range): BP systolic 105–123; BP diastolic 56–75; PULSE 70–85; RESP 18–30; TEMP 36.6; O2SAT 93–100
--- NOTE | ~2019-06-23 | XR_ITS ---
XR chest 1V 06/23/2019 11:01 Indication: Right pleural effusion. Procedure: AP view of the chest Comparison: Comparison to multiple prior studies sequentially, with oldest reviewed study dated 04/2019. Findings: Cardiomegaly. Small right pleural effusion. No focal pneumonia, edema or pneumothorax. No a cute osseous abnormality. Impression: 1: Stable small right pleural effusion. 2: Cardiomegaly. Reviewed, dictated and finalized at location A. Impression: 1: Stable small right pleural effusion. 2: Cardiomegaly.
--- NOTE | ~2019-06-23 | US_ITS ---
EXAMINATION: US thoracentesis DATE: 06/23/2019 11:23 INDICATION: Right pleural effusion TECHNIQUE: The procedure and its risks and benefits were discussed with the patient. Potential risks discussed included bleeding, infection, and pneumothorax. The patient understood the risks and agreed to proceed. The skin was prepped and draped in sterile fashion. 1% lidocaine was used for local anes thesia. Under ultrasound guidance, a 5 Fr catheter with trochar was advanced into the right pleural e ffusion. Fluid was aspirated. The catheter was removed, and a dressing was applied. There were no imm ediate complications. FINDINGS: Ultrasound images demonstrate a moderate-sized right pleural effusion and the catheter within the flu id. IMPRESSION: 1. Successful ultrasound-guided thoracentesis yielding 1000 mL of cloudy yellowish fluid. Reviewed, dictated and finalized at location A. IMPRESSION: 1. Successful ultrasound-guided thoracentesis yielding 1000 mL of cloudy yello wish fluid.
[2019-06-23 10:27] LABS: Amylase 85 U/L (30-110); Glucose 113 mg/dL (75-110); Lactate Dehydrogenase 298 U/L (313-618)
[2019-06-23 11:52] LABS: Appearance Pleural Fluid Cloudy (Clear); Pleural fluid source Pleural fluid
[2019-06-23 11:53] LABS: Color Pleural Fluid Yellow (Colorless)
--- NOTE | 2019-06-23 13:05 | SUR.PHASEII ---
1245 BUTTERFLY IV IN RIGHT AC W/OCCLUSIVE DRSG D/I DC'D AT THIS TIME W/TIP INTACT. 1255 PT DC'D TO HOME. BANDAID D/I TO RIGHT UPPER LATERAL THORACIC AREA. NO DISTRESS NOTED. FOLLOW UP INSTRUCTION PROVIDED.
[2019-06-23 13:27] LABS: pH Pleural Fluid 7.458 (7.210-7.500)
[2019-06-23 14:03] LABS: Lymphocytes Pleural Fluid 23 %; Macrophages Pleural Fluid 3 %; Mesothelial Cells Pleural Flui 3 %; Monocytes Pleural Fluid 1 %; Neutrophils Pleural Fluid 70 % (0-25)
[2019-06-25 04:29] LABS: LDH Pleural Fluid 463 U/L; Total Protein Pleural Fluid 3.7 g/dL
[2019-06-26 02:41] LABS: Amylase, Pleural Fluid 26 U/L
== END 2019-06-23 09:44 | disposition home or self-care (01) ==
PROVIDERS: Radiology Diagnostic Radiology; PCP Family Medicine; Visit Provider Nurse Practitioner Family
DX: J90 Pleural effusion, not elsewhere classified (principal)
CPT/HCPCS: 32555; 36415; 71045; 82150; 82947; 83615; 83986; 84155; 84157; 87015; 87102; 87116; 87206; 88104; 88108; 88305; 89051

== ENCOUNTER 2019-07-01 11:30 | Inpatient (IN) | payer BC, SELFPAY ==
[2019-07-01] VITALS (9 sets, daily range): BP systolic 106–141; BP diastolic 52–87; PULSE 86–110; RESP 18–28; TEMP 36.1–36.9; O2SAT 95–99; BMI 36.6
--- NOTE | ~2019-07-01 | US_ITS ---
US thoracentesis DATE: 07/01/2019 16:19 INDICATION: Right pleural effusion TECHNIQUE: The purpose of the procedure, technique and potential locations including bleeding and pne umothorax were discussed with the patient. The patient verbalized understanding and gave consent. Timeout procedure confirmed proper patient and procedure. An appropriate site for intracostal access to the posterior lateral right pleural space was identifie d sonographically. The skin was prepared with sterile Betadine solution. Sterile drape was applied. 1 % lidocaine local anesthetic was administered to the skin and underlying subcutaneous tissues. A sing le stick thoracentesis needle/catheter was introduced into the pleural space, yielding clear yellowis h pleural fluid at the hub of the needle. The catheter was then advanced over the needle and the need le withdrawn. 1 L of clear yellowish pleural fluid was evacuated into vacuum bottle. The patient was cooperative and tolerated the procedure well, without comp location. Chest radiograph following the procedure revealed no evidence of pneumothorax. IMPRESSION: Uneventful sonographically directed percutaneous right thoracentesis yielding 1 L of ricardo r yellowish pleural fluid Reviewed, dictated and finalized at Location A. Reviewed, dictated and finalized at location A. IMPRESSION: Uneventful sonographically directed percutaneous right thoracentesi s yielding 1 L of clear yellowish pleural fluid
--- NOTE | ~2019-07-01 | CT_ITS ---
EXAMINATION: CTA chest PE protocol DATE: 07/01/2019 14:40 INDICATION: Chest pain. Pleural effusion. TECHNIQUE: Computed tomography angiography (CTA) of the chest was performed with 100 mL Omnipaque-350 intravenous contrast timed to evaluate the pulmonary arteries. Coronal maximum intensity projection 3D-reconstructions were created by the technologist. Automated exposure control and iterative reconst ruction technique were employed. Exam dose: 913.75 mGy-cm total exam DLP. COMPARISON: 06/23/2019 AP chest FINDINGS: There is diagnostic contrast enhancement of the pulmonary arteries and no evidence of pulmo nary embolism. No evidence of thoracic aortic aneurysm or dissection. There is a large right pleural effusion with compressive atelectasis of the right lower and middle lo bes. Heart size is within normal limits. No pericardial or left pleural effusion. Calcified lingular pulmonary granuloma and calcified left hilar nodes consistent with old granulomato us disease. No hilar or mediastinal mass lesion or lymphadenopathy. There is a nonspecific small focal sclerotic lesion at the anterolateral aspect of the left seventh r ib. IMPRESSION: Large right pleural effusion with compressive atelectasis since the middle and lower lob es and particularly No evidence of pulmonary embolism Reviewed, dictated and finalized at Location [facility]. Reviewed, dictated and finalized at location A. IMPRESSION: Large right pleural effusion with compressive atelectasis since th e middle and lower lobes and particularly No evidence of pulmonary embolism
--- NOTE | ~2019-07-01 | XR_ITS ---
EXAMINATION: XR chest 1V portable DATE: 07/02/2019 10:01 INDICATION: Right pleural effusion. TECHNIQUE: A single frontal view of the chest was obtained. COMPARISON: Chest single view 07/01/2019, chest CT 07/01/2019 FINDINGS: Moderate-sized right pleural effusion. A calcified left lung nodule and calcified left nicholas r lymph nodes are consistent with old granulomatous disease. No pneumothorax. The heart size is robyn l. IMPRESSION: 1. Stable moderate-sized right pleural effusion. 2. Airspace opacities at right lung base, consistent with atelectasis or less likely pneumonia. Reviewed, dictated and finalized at location A. IMPRESSION: 1. Stable moderate-sized right pleural effusion. 2. Airspace opacities at right lung base, consistent with atelectasis or less l ikely pneumonia.
--- NOTE | ~2019-07-01 | US_ITS ---
EXAMINATION: US thoracentesis DATE: 07/02/2019 15:36 INDICATION: pleural effusion TECHNIQUE: The procedure and its risks, benefits, and alternatives were discussed with the patient. P otential risks discussed included bleeding, infection, and pneumothorax. The patient understood the r isks and agreed to proceed. The skin was prepped and draped in sterile fashion. 1% lidocaine was used for local anesthesia. Under ultrasound guidance, a 5 Fr catheter with trochar was advanced into the right pleural effusion. Fluid was aspirated. The catheter was removed, and a dressing was applied. Th ere were no immediate complications. FINDINGS: Ultrasound images demonstrate a right pleural effusion and the catheter within the fluid. IMPRESSION: 1. Successful ultrasound-guided thoracentesis yielding 1000 mL of rene-colored fluid. Reviewed, dictated and finalized at location A. IMPRESSION: 1. Successful ultrasound-guided thoracentesis yielding 1000 mL of rene-colore d fluid.
--- NOTE | ~2019-07-01 | XR_ITS ---
EXAMINATION: XR chest 1V DATE: 07/02/2019 15:22 INDICATION: Right pleural effusion status post thoracentesis. TECHNIQUE: A single frontal view of the chest was obtained. COMPARISON: Chest single view at 9:52 AM FINDINGS: There is a moderate-sized right pleural effusion. There are airspace opacities at right collin g base. A calcified left lung nodule and calcified left hilar lymph nodes are consistent with old gra nulomatous disease. No pneumothorax. The heart size is normal. IMPRESSION: 1. Moderate-sized right pleural effusion with improvement status post thoracentesis. 2. Airspace opacities at right lung base, consistent with atelectasis or less likely pneumonia. Reviewed, dictated and finalized at location A. IMPRESSION: 1. Moderate-sized right pleural effusion with improvement status post thoracent esis. 2. Airspace opacities at right lung base, consistent with atelectasis or less l ikely pneumonia.
--- NOTE | ~2019-07-01 | XR_ITS ---
EXAMINATION: XR chest 2V DATE: 07/03/2019 13:42 INDICATION: Congestive heart failure TECHNIQUE: Frontal and lateral views of the chest are obtained COMPARISON: 07/02/2019 FINDINGS: Right basilar airspace opacities persist with slight worsening. There is a stable moderate- sized right pleural effusion. No pneumothorax is identified. The cardiomediastinal silhouette is norm al. There is mild thoracic spondylosis. IMPRESSION: 1. Stable moderate-sized right pleural effusion. 2. Right basilar airspace opacity with slight worsening, consistent with atelectasis or less likely p neumonia. Reviewed, dictated and finalized at location A. IMPRESSION: 1. Stable moderate-sized right pleural effusion. 2. Right basilar airspace opacity with slight worsening, consistent with atelec tasis or less likely pneumonia.
--- NOTE | ~2019-07-01 | XR_ITS ---
EXAMINATION: XR chest 2V DATE: 07/04/2019 13:36 INDICATION: Right pleural effusion TECHNIQUE: Frontal and lateral views of the chest are obtained COMPARISON: 07/03/2019 FINDINGS: A moderate size right pleural effusion persists without significant change. There are stabl e airspace opacities of the right lung base. There is no pneumothorax. The heart size is normal. Mild thoracic spondylosis is noted. IMPRESSION: 1. Moderate size right pleural effusion, stable. 2. Stable right basilar airspace opacity, consistent with atelectasis or less likely pneumonia. Reviewed, dictated and finalized at location A. IMPRESSION: 1. Moderate size right pleural effusion, stable. 2. Stable right basilar airspace opacity, consistent with atelectasis or less l ikely pneumonia.
--- NOTE | ~2019-07-01 | XR_ITS ---
XR chest 1V DATE: 07/01/2019 16:11 INDICATION: Post right thoracentesis chest radiograph TECHNIQUE: Portable AP chest on 07/01/2019 at 1609 hours following right-sided ultrasound-guided thora centesis yielding 1 L of yellowish pleural fluid COMPARISON: 06/23/2019 AP chest FINDINGS: There is opacification of the lower 1/3-1/2 of the right hemithorax likely due to a combina tion of pleural effusion and atelectasis. No pneumothorax is evident. No left pleural effusion. The l eft lung appears essentially clear. IMPRESSION: Persistent opacification of the lower 1/3-1/2 of right hemithorax likely due to a combina tion of residual right pleural fluid and atelectasis; no evidence of pneumothorax following right-ena ed thoracentesis yielding 1000 cc yellowish pleural fluid Reviewed, dictated and finalized at location A. IMPRESSION: Persistent opacification of the lower 1/3-1/2 of right hemithorax l ikely due to a combination of residual right pleural fluid and atelectasis; no evidence of pneumothorax following right-sided thoracentesis yielding 1000 cc y ellowish pleural fluid
--- NOTE | ~2019-07-01 | XR_ITS ---
EXAMINATION: XR chest 2V DATE: 07/01/2019 12:00 INDICATION: Chest pain. TECHNIQUE: Frontal and lateral views of the chest were obtained. COMPARISON: Chest single view 06/23/2019, CT abdomen and pelvis 06/21/2019 FINDINGS: There is a moderate-sized right pleural effusion. There are airspace opacities at right collin g base. A calcified left lung nodule and calcified left hilar lymph nodes are consistent with old gra nulomatous disease. No pneumothorax. Cardiomegaly is noted. IMPRESSION: 1. Worsened moderate-sized right pleural effusion. 2. Airspace opacities at right lung base, consistent with atelectasis or less likely pneumonia. 3. Cardiomegaly. Reviewed, dictated and finalized at location A. IMPRESSION: 1. Worsened moderate-sized right pleural effusion. 2. Airspace opacities at right lung base, consistent with atelectasis or less l ikely pneumonia. 3. Cardiomegaly.
--- NOTE | 2019-07-01 11:46 | ECG_ITS ---
Measurements Intervals [place] Rate: 104 P: 55 [place]: 163 QRS: -28 QRSD: 93 T: 102 QT: 327 QTc: 432 Interpretive Statements SINUS TACHYCARDIA VENTRICULAR PREMATURE COMPLEXES CANNOT RULE OUT SEPTAL INFARCT, AGE INDETERMINATE BORDERLINE ST-T WAVE ABNORMALITY- LATERAL LEADS ABNORMAL ECG Electronically Signed On 07-01-2019 12:11:30 CDT by Regulo Rios D.O.
[2019-07-01 11:58] LABS: Basophils Percent Auto 0.2 % (0.2-1.2); Eosinophils Absolute Auto 0.2 K/mm3 (0-0.3); Eosinophils Percent Auto 1.7 % (0-4.4); Hematocrit 40.7 % (42.0-52.0); Hemoglobin 12.7 g/dL (14.0-18.0); Immature Granulocyte Absolute 0.03 K/mm3 (0.00-0.031); Immature Granulocyte Percent A 0.3 % (0-0.5); Lymphocytes Absolute Auto 0.54 K/mm3 (0.9-3.2); Lymphocytes Percent Auto 5.8 % (18.3-44.2); Mean Corpuscular HGB Conc 31.2 g/dl (32-36); Mean Corpuscular Hemoglobin 25.3 pg (26-34); Mean Corpuscular Volume 81.1 fl (80-100); Mean Platelet Volume 10.8 fl (7.4-10.4); Monocytes Absolute Auto 1.2 K/mm3 (0.1-0.6); Monocytes Percent Auto 12.6 % (2.6-8.5); Neutrophils Absolute Auto 7.4 K/mm3 (1.3-6.7); Neutrophils Percent Auto 79.4 % (45.5-73.1); Platelet Count Result 243 k/mm3 (150-375); Red Blood Count 5.02 M/mm3 (4.6-6.20); Red Cell Distribution Width 14.7 % (11.5-14.5); White Blood Count 9.3 K/mm3 (4.5-10.0)
[2019-07-01 12:08] LABS: INR 1.1; Prothrombin Time 14.2 Seconds (11.1-14.7)
[2019-07-01 12:09] LABS: Partial Thromboplastin Time 30.1 SECONDS (22.3-36.8)
[2019-07-01 12:10] LABS: Blood Urea Nitrogen 14 mg/dL (9-20); Calcium 8.7 mg/dL (8.4-10.2); Carbon Dioxide 31 mmol/L (22-30); Chloride 100 mmol/L (98-107); Estimated CRCL calculation 83 ml/min; Estimated Glomerular Filt Rate > 60; Glucose 106 mg/dL (75-110); Potassium 3.4 mmol/L (3.4-5.0); Sodium 137 mmol/L (137-145)
[2019-07-01] MEDS: ASPIRIN 81 MG CHEWABLE TABLET 324 MG PO (12:11)
--- NOTE | 2019-07-01 12:17 | ED.CHESTPAIN ---
HPI - Chest Pain General Chief Complaint: Chest Pain <EARLE Lujan Last Filed: 07/01/19 17:15> Stated Complaint: CP <Marsha Garcia PA-C - Last Filed: 07/01/19 17:15> Time Seen by Provider: 07/01/19 11:37 <Marsha Garcia PA-C - Last Filed: 07/01/19 17:15> Source: patient and family <EARLE Lujan Last Filed: 07/01/19 17:15> Mode of arrival: wheelchair <EARLE Lujan Last Filed: 07/01/19 17:15> Limitations: no limitations <EARLE Lujan Last Filed: 07/01/19 17:15> History of Present Illness HPI narrative: This is a 63 year old male that presents to the ER for shortness of breath x 4 days. Reports increasing shortness of breath. Even at rest. Also reports over the last couple days he has been having sharp intermittent chest pain that only lasts a second. Does not report any association with exertion and chest pain. Reports he recently had some fluid removed from his right lung. Also reports a mild cough. Denies fever. <Marsha Garcia PA-C - Last Filed: 07/01/19 17:15> Related Data Home Medications: Home Medications Medication Instructions Recorded Confirmed acetaminophen 500 mg tablet 500 mg PO Q6H PRN 05/21/19 06/29/19 ascorbic acid (vitamin C) 500 mg 500 mg PO DAILY 05/21/19 06/29/19 tablet ergocalciferol (vitamin D2) 1,250 50,000 unit PO WEEKLY cap 05/21/19 06/29/19 mcg (50,000 unit) capsule fexofenadine 180 mg tablet 180 mg PO DAILY 05/21/19 06/29/19 potassium chloride 20 mEq 20 meq PO BID tablet 06/15/19 06/29/19 tablet,extended release furosemide 40 mg tablet 40 mg PO BID tablet 06/29/19 06/29/19 <EARLE Lujan Last Filed: 07/01/19 17:15> Allergies/Adverse Reactions: Allergies Allergy/AdvReac Type Severity Reaction Status Date / Time Sulfa (Sulfonamide Allergy Unknown Unknown Verified 06/29/19 08:35 Antibiotics) <Marsha Garcia PA-C - Last Filed: 07/01/19 17:15> Review of Systems Review of Systems: Narrative: CONSTITUTIONAL: Denies fever CARDIOVASCULAR: Reports chest pain, and edema. RESPIRATORY: Reports cough and dyspnea. <Marsha Garcia PA-C - Last Filed: 07/01/19 17:15> All systems reviewed & are unremarkable except as noted in HPI and below <Marsha Garcia PA-C - Last Filed: 07/01/19 17:15> [facility] Past Medical History Medical History: Medical History (Updated 07/01/19 @ 17:15 by Marsha Garcia PA-C) Arrhythmia Arthritis Back pain Bronchitis Calculus of kidney CHF (congestive heart failure), NYHA class I Chronic back pain Cough Eczema Enlarged prostate Essential (primary) hypertension Gallstones History of angina History of bladder infections HTN (hypertension) Hyperlipidemia Kidney stones Obesity Obstructive sleep apnea on CPAP Pneumonia ST elevation (STEMI) myocardial infarction Urinary incontinence UTI (urinary tract infection) <Marsha Garcia PA-C - Last Filed: 07/01/19 17:15> Surgical History Surgical History: Surgical History (Updated 06/21/19 @ 01:10 by Liza Richard MD) H/O hand surgery History of appendectomy History of coronary artery stent placement Hx of lithotripsy S/P trigger finger release <Marsha Garcia PA-C - Last Filed: 07/01/19 17:15> Social History Social History: Social History Smoking status: Never smoker Second hand tobacco smoke exposure: No Alcohol intake: never Substance use: never Gender identity (if verbalized by the patient): Male Spiritual care concerns: No Agree to blood products: Yes <Marsha Garcia PA-C - Last Filed: 07/01/19 17:15> Exam Narrative: Exam Narrative: GENERAL: Well-appearing, obese, and in no acute distress. HEAD: Normocephalic, atraumatic. EYES: EOMI. ENT: Nares clear, no rhinorrhea or epistaxis. Mucous membranes moist. Oropharynx without tonsillar hypertrophy exudate or other lesions. Nicola
[2019-07-01 12:22] LABS: Troponin I 0.023 ng/mL (0.000-0.034)
[2019-07-01 12:43] LABS: Alveolar/Arterial O2 Gradient 33.9 mmHg; Base Excess ABG 4.8 mEq/l (+/-2.0); Carboxyhemoglobin 0.6 % THb (0-2.0); Fractional Inspired Oxygen 21 %; HCO3 ABG 27.9 mEq/l (22.0-26.0); Methemoglobin ABG 0.2 %THb (0-1.5); Oxygen Content ABG 17.7 %vol (16.0-22.0); Oxygen Saturation ABG 95.8 % (95.0-100.0); Oxyhemoglobin 93.8 % THb (90.0-100.0); PCO2 ABG 36.3 mmHg (35.0-45.0); PO2 ABG 72.4 mmHg (80.0-100.0); PO2 FiO2 Ratio Arterial Blood 3.45 %; Reduced Hemoglobin 5.4 %THb (0-5.0); Total Hemoglobin 13.4 g/dL (12.0-18.0); pH ABG 7.504 (7.350-7.450)
[2019-07-01 12:44] LABS: Device ROOM AIR; Modified Allen's Test Pass; Site Drawn LEFT RADIAL
[2019-07-01 12:48] LABS: Lactate Dehydrogenase 269 U/L (313-618)
[2019-07-01 13:15] LABS: NT Pro B Type Natriuretic Pept 1610 PG/ML (5-100)
[2019-07-01 13:19] LABS: Lactic Acid Reflex 1.2 mmol/L (0.7-2.1)
[2019-07-01 13:27] LABS: Alanine Aminotransferase 26 U/L (4-50); Albumin Level 3.8 g/dL (3.5-5.1); Alkaline Phosphatase 92 U/L (38-126); Aspartate Amino Transferase 25 U/L (17-59); Bilirubin,Total 0.5 mg/dL (0.2-1.3); CRP 11.7 mg/dL (<1.0)
[2019-07-01] MEDS: FUROSEMIDE INJ 40 MG/4 ML VIAL IV PUSH (13:34)
[2019-07-01 16:09] LABS: Troponin I 0.022 ng/mL (0.000-0.034)
[2019-07-01 16:41] LABS: pH Pleural Fluid 7.456 (7.210-7.500)
--- NOTE | 2019-07-01 17:43 | ADMGEN ---
This patient, oG Morrow, was admitted to Medical Room 250-. Patient/family oriented to hospital policies and general routines including ID bracelet, bed and alarms, visiting hours, pain management, procedures, bathroom and other care routines, personal items, smoking policy, room service/diet, and visiting hours. Valuables list has been completed. Information on how to activate the Rapid Response Team has been discussed. Patient/Family are encouraged to report perceived risks to care and to ask questions if they do not understand what they are told or what they should do.
[2019-07-01 18:14] LABS: Appearance Pleural Fluid Hazy (Clear); Color Pleural Fluid Yellow (Colorless); Neutrophils Pleural Fluid 70 % (0-25); Nucleated Cell Pleural Fluid 7011 /uL (0-1000); Pleural fluid source Pleural fluid; RBC Pleural Fluid 2344 /uL (0-0)
[2019-07-01 18:15] LABS: Lymphocytes Pleural Fluid 23 %; Macrophages Pleural Fluid 2 %; Monocytes Pleural Fluid 5 %
[2019-07-01 19:29] LABS: Troponin I 0.021 ng/mL (0.000-0.034)
--- NOTE | 2019-07-01 20:15 | PM.IMHP ---
H&P: HPI History of Present Illness Chief complaint: Shortness of breath and chest pain. Narrative: Go Morrow is a 63-year-old male with coronary artery disease, anterior wall STEMI on 03/21/2019 status post drug-eluting stent and aspiration thrombectomy of a totally occluded proximal LAD, systolic congestive heart failure, hypertension, hyperlipidemia, and obstructive sleep apnea who presented to the emergency department earlier today with complaints of shortness of breath and chest pain. Over the past 3 days or so he reports increasing dyspnea on lesser and lesser exertion, to the point where he is short of breath even walking across the room. He also reports orthopnea, lower extremity edema, and abdominal bloating. Additionally, he has right-sided pleuritic chest pain. The symptoms are similar to those he experienced several weeks ago when he was found to have a right-sided pleural effusion. A thoracentesis done 06/23/2019 yielded 1000 milliliters of cloudy, yellow fluid. The patient was told that this was likely due to congestive heart failure, and he continues to take Lasix 40 milligrams b.i.d. Today, he was found to have reaccumulation of the right-sided pleural effusion and is being admitted in this setting. He is feeling better after repeat thoracentesis. He denies fever, chills, and sweats. No cold or flu symptoms. He denies cough. No chest pain or palpitations. He denies history of venous thromboembolism. No known history of cirrhosis. He denies recent travel and sick contacts. Review of Systems Review of Systems: Narrative: Twelve systems were reviewed with pertinent positives and negatives as per HPI. No nausea, vomiting, diarrhea, or constipation. He denies dysuria, hematuria, and urinary retention. He states compliance with his CPAP. Since his [place] he has been trying to lose weight, and has lost 22 pounds in that time frame. He does note, however, that his abdomen seems to be bloated and more distended despite this weight loss. No known history of liver disease. No jaundice or pruritus. Except as documented, all other systems were reviewed and are negative. [facility] Past Medical History Medical History (Updated 07/01/19 @ 21:29 by Emilee Siegel PA-C) Benign prostatic hyperplasia Calculus of kidney Chronic anemia Chronic back pain Congestive heart failure March 2019 showed mildly enlarged left ventricle, reduced left ventricular systolic function with ejection fraction estimated at 40 to 45%, moderately increased left ventricular wall thickness, grade 1 diastolic dysfunction, and hypokinetic segments to include the anteroseptal wall, apical septum, apical lateral wall, apical cap, mid anterior wall, and mid anterolateral wall. Coronary artery disease Eczema Essential hypertension Gallstones History of angina History of bladder infections Hyperlipidemia Kidney stones Obesity Obstructive sleep apnea on CPAP Osteoarthritis ST elevation (STEMI) myocardial infarction ST elevation myocardial infarction (STEMI) of anterior wall (~03/2019) Status post drug-eluting stent to the proximal LAD. Urinary incontinence UTI (urinary tract infection) Surgical History Surgical History (Updated 06/21/19 @ 01:10 by Liza Richard MD) H/O hand surgery History of appendectomy History of coronary artery stent placement Hx of lithotripsy S/P trigger finger release Family History Family History (Updated 07/01/19 @ 21:22 by Emilee Siegel PA-C) Mother Hypertension Family history of malignant neoplasm of breast in first degree relative Family history of malignant neoplasm of ovary Father Pacemaker Social History Social History (Updated 07/01/19 @ 21:23 by Emilee Siegel PA-C) Social History: The patient is and lives in [place], [place] with his . He has no children. 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 He mandy
[2019-07-02] VITALS (13 sets, daily range): BP systolic 105–134; BP diastolic 51–98; PULSE 57–105; RESP 12–30; TEMP 36.1–36.8; O2SAT 94–100
--- NOTE | 2019-07-02 | ECHO_ITS ---
Patient Info Name: Go Morrow Age: 63 years : 1955 Gender: Male Ht: 69 in Wt: 254 lbs BSA: 2.42 m2 HR: 94 bpm BP: 109 / 51 mmHg Technical Quality: Good Exam Date: 07/02/2019 12:01 PM Exam Location: [facility] Patient Status: Inpatient Admit Date: 07/01/2019 Staff Ordering Physician: Anita Jane MD Fortune Teller: Chalino Peña RDCS, RT Attending Provider: Adri Bustillo PA-C Referring Physician: Lucinda JONES; Exam Type: CA echo doppler color flow Study Info Indications R06.02 - Shortness of breath Complete two-dimensional, color flow and Doppler transthoracic echocardiogram is performed. Summary 1. Left ventricular chamber dimension is severely enlarged. 2. The entire apex is akinetic, remaining wall segments are hypokinetic. 3. Left ventricular systolic function is severely reduced, estimated at 15-20%. 4. The left ventricular diastolic function is grade IV diastolic dysfunction. 5. E/e' 16 is elevated. 6. Left atrial chamber dimension is severely enlarged. 7. There is moderate aortic valve sclerosis. 8. The mitral valve has mildly calcified annulus. 9. There is mild mitral valve regurgitation. 10. There is trace tricuspid valve regurgitation. 11. Moderate pulmonary hypertension, estimated pulmonary arterial systolic pressure is 59 mmHg. Left Ventricle E/e' 16 is elevated. The entire apex is akinetic, remaining wall segments are hypokinetic. Left ventricular chamber dimension is severely enlarged. Left ventricular systolic function is severely reduced, estimated at 15-20%. The left ventricular diastolic function is grade IV diastolic dysfunction. Right Ventricle Right ventricular systolic function is normal based on TAPSE 2.6 cm. Right ventricular chamber dimension is not well visualized. Left Atria Left atrial chamber dimension is severely enlarged. Right Atria Right atrial chamber dimension is not well visualized. Aortic Valve The aortic valve is trileaflet. There is moderate aortic valve sclerosis. There is no aortic valve stenosis. There is no aortic valve regurgitation. Pulmonic Valve There is no pulmonic regurgitation. Mitral Valve The mitral valve has mildly calcified annulus. There is no mitral valve stenosis. There is mild mitral valve regurgitation. Tricuspid Valve There is trace tricuspid valve regurgitation. Moderate pulmonary hypertension, estimated pulmonary arterial systolic pressure is 59 mmHg. Pericardium/Pleural There is no pericardial effusion. Inferior Vena Cava Normal inferior vena cava with >50% collapse upon inspiration consistent with normal right atrial pressure, 5 mmHg. Aorta The aortic root size at the sinus of Valsalva is normal. Left Ventricular Outflow Tract Name Value Normal LVOT 2D LVOT Diameter 2.2 cm LVOT Doppler LVOT Peak Gradient 3 mmHg LVOT Mean Gradient 2 mmHg LVOT VTI 15 cm LVOT VTI/AV VTI Ratio 0.7 LVOT Stroke Volume 58 ml
[2019-07-02] MEDS: MORPHINE SULFATE 4 MG/ML INJ IV PUSH (02:05)
--- NOTE | 2019-07-02 04:36 | PC.NURSE ---
[id number] computer down time
[2019-07-02 06:01] LABS: Basophils Percent Auto 0.3 % (0.2-1.2); Eosinophils Absolute Auto 0.4 K/mm3 (0-0.3); Eosinophils Percent Auto 4.3 % (0-4.4); Hematocrit 39.5 % (42.0-52.0); Hemoglobin 12.3 g/dL (14.0-18.0); Immature Granulocyte Absolute 0.03 K/mm3 (0.00-0.031); Immature Granulocyte Percent A 0.3 % (0-0.5); Lymphocytes Percent Auto 9.6 % (18.3-44.2); Mean Corpuscular HGB Conc 31.1 g/dl (32-36); Mean Corpuscular Hemoglobin 25.3 pg (26-34); Mean Corpuscular Volume 81.1 fl (80-100); Mean Platelet Volume 10.7 fl (7.4-10.4); Monocytes Percent Auto 11.1 % (2.6-8.5); Neutrophils Absolute Auto 6.9 K/mm3 (1.3-6.7); Neutrophils Percent Auto 74.4 % (45.5-73.1); Platelet Count Result 248 k/mm3 (150-375); Red Blood Count 4.87 M/mm3 (4.6-6.20); Red Cell Distribution Width 14.6 % (11.5-14.5); White Blood Count 9.3 K/mm3 (4.5-10.0)
[2019-07-02 06:19] LABS: Blood Urea Nitrogen 16 mg/dL (9-20); Calcium 7.9 mg/dL (8.4-10.2); Carbon Dioxide 31 mmol/L (22-30); Chloride 99 mmol/L (98-107); Estimated CRCL calculation 94 ml/min; Estimated Glomerular Filt Rate > 60; Glucose 112 mg/dL (75-110); Potassium 3.4 mmol/L (3.4-5.0); Sodium 136 mmol/L (137-145)
[2019-07-02] MEDS: ASPIRIN 81 MG ENTERIC TABLET PO (09:17)
[2019-07-02] MEDS: FINASTERIDE 5 MG TABLET PO (09:17)
[2019-07-02] MEDS: POTASSIUM CHLORIDE 20 MEQ TABLET.ER PO ×2 (09:17→18:04)
[2019-07-02] MEDS: ATORVASTATIN 40 MG TABLET 80 MG PO (09:17)
[2019-07-02] MEDS: TICAGRELOR 90 MG TABLET PO ×2 (09:18→19:47)
[2019-07-02] MEDS: LORATADINE 10 MG TABLET PO (09:18)
[2019-07-02] MEDS: FUROSEMIDE 40 MG TABLET PO (09:18)
[2019-07-02] MEDS: METOPROLOL SUCCINATE EXT REL 25 MG TABCR PO (09:18)
--- NOTE | 2019-07-02 11:44 | PM.CNPUL ---
Assessment and Plan Assessment and plan (1) Pleural effusion on right: Code(s): J90 - Pleural effusion, not elsewhere classified Status: Acute Assessment and Plan: Seems to be exudative, likely due to CHF, BNP was 1600 on admission with a normal Cr. Unilateral pleural effusions are present in 25% of decompensated heart failure. Cytology has been negative multiple times now and he has no significant risk factors for lung malignancy - Will need another large volume thoracentesis today - will need repeat Echo to recheck EF, diastolic dysfunction changes - Would recommend adding spironlactone to lasix - can be discharged home after thoracentesis from pulmonary point of view - needs outpatient CXR PA and lateral in 1-2 weeks History of Present Illness History of Present Illness Consult date: 07/02/19 Reason for consult: pleural effusion Chief complaint: R Pleural effusion Narrative: 63 y/o male with CAD, CHF, AIDAN with no significant smoking or drinking history presents with recurrent pleural effusion causing dyspnea on exertion. He denies orthopnea, PND or LE edema. He has large volume thoracentesis a few weeks ago which produced 1000 cc of cloudy yellow fluid. He has no signs of infection, bronchitis or pneumonia. He has no significant smoking history. His weight is consitent at home and he takes his diuretics as prescribed bid. He was admitted and had another large volume thoracentesis but only 1000 cc was drained. CXR today still shows moderate to large pleural effusion Review of Systems Review of Systems: All systems reviewed & are unremarkable except as noted in HPI and below PMFSH Past Medical History Medical History (Updated 07/01/19 @ 21:29 by Emilee Siegel, PAAndrewC) Benign prostatic hyperplasia Calculus of kidney Chronic anemia Chronic back pain Congestive heart failure March 2019 showed mildly enlarged left ventricle, reduced left ventricular systolic function with ejection fraction estimated at 40 to 45%, moderately increased left ventricular wall thickness, grade 1 diastolic dysfunction, and hypokinetic segments to include the anteroseptal wall, apical septum, apical lateral wall, apical cap, mid anterior wall, and mid anterolateral wall. Coronary artery disease Eczema Essential hypertension Gallstones History of angina History of bladder infections Hyperlipidemia Kidney stones Obesity Obstructive sleep apnea on CPAP Osteoarthritis ST elevation (STEMI) myocardial infarction ST elevation myocardial infarction (STEMI) of anterior wall (~03/2019) Status post drug-eluting stent to the proximal LAD. Urinary incontinence UTI (urinary tract infection) Surgical History Surgical History (Updated 06/21/19 @ 01:10 by Liza Richard MD) H/O hand surgery History of appendectomy History of coronary artery stent placement Hx of lithotripsy S/P trigger finger release Family History Family History (Updated 07/01/19 @ 21:22 by Emilee Siegel PA-C) Mother Hypertension Family history of malignant neoplasm of breast in first degree relative Family history of malignant neoplasm of ovary Father Pacemaker Social History Social History (Updated 07/01/19 @ 21:23 by Emilee Siegel PA-C) Social History: The patient is and lives in [place], [place] with his . He has no children. 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 He designates his , Concepción Nunes, as his surrogate decision maker and he wishes to be a full code. He Spiritual care concerns: No Agree to blood products: Yes Meds Home Medications and Allergies Home Medications Medication Instructions Recorded Confirmed Type aspirin 81 mg PO QAM #30 tablet 03/23/19 07/01/19 Rx atorvastatin 80 mg PO DAILY #30 tablet 03/23/19 07/01/19 Rx metoprolol succinate 25 mg PO DAILY #30 tablet 03/23/19 07/01/19 Rx nitroglycerin 0.4 mg SUBLINGUAL D
--- NOTE | 2019-07-02 17:25 | PM.IMPN ---
Progress Note: A&P Assessment and Plan (1) Congestive heart failure: Code(s): I50.9 - Heart failure, unspecified Status: Acute Assessment and Plan: Acute on chronic systolic and diastolic CHF. His Echocardiogram from 03/21/19 showed his EF was 40-45%, mildly enlarged LV, diastolic dysfunction grade 1, anterior septal wall, apical septal, apical lateral wall, apical cap, mid anterior wall and mid anterior lateral wall hypokinetic. Mild pulmonic regurg. Echocardiogram shows he has worsening systolic function with EF of 15-20%. Left ventricular chamber dimension is severely enlarged. The entire apex is akinetic, remaining wall segments are hypokinetic. The left ventricular diastolic function is grade IV diastolic dysfunction. E/e' 16 is elevated. Left atrial chamber dimension is severely enlarged. There is moderate aortic valve sclerosis. Moderate pulmonary hypertension, estimated pulmonary arterial systolic pressure is 59 mmHg. Will start IV Lasix for better diuresis Will also start spironolactone 25 mg in the morning. 1500 cc fluid restriction Will consult Cardiology for further evaluation with worsening EF. Strict input and output, monitor renal function electrolytes. (2) Pleural effusion on right: Code(s): J90 - Pleural effusion, not elsewhere classified Status: Acute Assessment and Plan: Recurrent right-sided pleural effusion, status post thoracentesis on 06/23/2019 and 07/01/2019. By history, likely related to congestive heart failure. Fluid results show yellow, hazy appearance with 2300 PRBCs, 7000 nucleated cells, neutrophils elevated at 70%. We have ruled out acute infection since his pH of his pleural fluid is normal, no leukocytosis, no fevers or other symptoms associated with an infection. CRP was elevated 11.7. He was empirically started on azithromycin and ceftriaxone, but this was discontinued. Liver was unremarkable on CT of the abdomen pelvis in March 2019, with no reports of ascites. Dr. Jane Pulmonology was consulted who feels it is associated with CHF exacerbation and he is low risk for infection/malignant cause. Continue monitoring fluid status (3) Pleuritic chest pain: Code(s): R07.81 - Pleurodynia Status: Acute Assessment and Plan: On arrival he was having Right-sided pleuritic chest pain related to pleural effusion. Today after thoracentesis he denies any chest pain at this time. (4) Chronic anemia: Code(s): D64.9 - Anemia, unspecified Status: Acute Assessment and Plan: Hemoglobin and hematocrit are stable on review of previous labs. (5) Coronary artery disease: Code(s): I25.10 - Atherosclerotic heart disease of [place] coronary artery without angina pectoris Status: Acute Assessment and Plan: Status post drug-eluting stent to the proximal LAD in March 2019. Continue aspirin, ticagrelor, beta-shayla, and statin. (6) Obstructive sleep apnea on CPAP: Code(s): G47.33 - Obstructive sleep apnea (adult) (pediatric); Z99.89 - Dependence on other enabling machines and devices Status: Acute Assessment and Plan: Patient states he is compliant with CPAP. Will order home CPAP settings. Time Spent With Patient Time with patient: 25 - 35 minutes Subjective Date/time seen: 07/02/19 17:26 Interval history: Date of service 07/02/2019: Patient reports feeling better since having his 2nd thoracentesis. He denies any shortness of breath at rest or with exertion. He has not been coughing at all. He otherwise is very anxious and would like to go home today. He denies much leg sw
[2019-07-02] MEDS: FUROSEMIDE INJ 40 MG/4 ML VIAL IV PUSH (18:05)
[2019-07-02] MEDS: POTASSIUM CHLORIDE 20 MEQ TABLET (19:47)
[2019-07-02] MEDS: ACETAMINOPHEN 325 MG TABLET 650 MG PO (19:51)
[2019-07-03] VITALS (11 sets, daily range): BP systolic 114–128; BP diastolic 55–88; PULSE 72–96; RESP 16–26; TEMP 36.1–36.4; O2SAT 95–97
[2019-07-03 05:24] LABS: Hematocrit 41.7 % (42.0-52.0); Hemoglobin 13.1 g/dL (14.0-18.0); Mean Corpuscular HGB Conc 31.4 g/dl (32-36); Mean Corpuscular Hemoglobin 25.3 pg (26-34); Mean Corpuscular Volume 80.7 fl (80-100); Mean Platelet Volume 10.7 fl (7.4-10.4); Platelet Count Result 260 k/mm3 (150-375); Red Blood Count 5.17 M/mm3 (4.6-6.20); Red Cell Distribution Width 14.6 % (11.5-14.5); White Blood Count 10.1 K/mm3 (4.5-10.0)
[2019-07-03 05:40] LABS: Blood Urea Nitrogen 17 mg/dL (9-20); Calcium 8.6 mg/dL (8.4-10.2); Carbon Dioxide 31 mmol/L (22-30); Chloride 101 mmol/L (98-107); Estimated CRCL calculation 95 ml/min; Estimated Glomerular Filt Rate > 60; Glucose 130 mg/dL (75-110); Magnesium 2.3 mg/dL (1.6-2.3); Potassium 3.6 mmol/L (3.4-5.0); Sodium 136 mmol/L (137-145)
[2019-07-03] MEDS: ONDANSETRON INJ 4 MG/2 ML VIAL IV PUSH ×2 (08:03→20:08)
[2019-07-03] MEDS: FUROSEMIDE INJ 40 MG/4 ML VIAL IV PUSH ×2 (08:05→16:53)
[2019-07-03] MEDS: POTASSIUM CHLORIDE 20 MEQ TABLET.ER PO ×2 (10:06→16:53)
[2019-07-03] MEDS: FINASTERIDE 5 MG TABLET PO (10:06)
[2019-07-03] MEDS: SPIRONOLACTONE 25 MG TABLET PO (10:07)
[2019-07-03] MEDS: ASPIRIN 81 MG ENTERIC TABLET PO (10:07)
[2019-07-03] MEDS: LORATADINE 10 MG TABLET PO (10:07)
[2019-07-03] MEDS: ATORVASTATIN 40 MG TABLET 80 MG PO (10:07)
[2019-07-03] MEDS: TICAGRELOR 90 MG TABLET PO ×2 (10:08→21:10)
--- NOTE | 2019-07-03 10:41 | PM.PNPUL ---
Progress Note: A&P Assessment and Plan (1) Pleural effusion on right: Code(s): J90 - Pleural effusion, not elsewhere classified Status: Acute Assessment and Plan: Likely due to CHF, EF is now 15-20% with total apical wall akinesis s/p anterio wall [place] and PCI in Mar 2019. - Cardiology consult pending - continue lasix and spironolactone, Would recommend decreasing dose of lasix as some contraction alkalosis is developing - no signs of pneumonia or pulmonary infection Subjective Date/time seen: 07/03/19 10:41 Interval history: Feels better after second thoracentesis except for minor pain at site. EF is 15-20% with total akinesis of apical wall, down from 45% in Mar 2019. Right pleural effusion is from CHF. Cardiology consult pending. Pt had an acute anterior wall [place] in Mar 2019 requiring PCI. Review of Systems Review of Systems: All systems reviewed & are unremarkable except as noted in HPI and below Exam Const: General: comfortable and no acute distress Eyes: General: appearance normal, both eyes and all related structures Neck: Neck: supple and no JVD Resp: Auscultation: crackles and diminished lung sounds Cardio: Rate: regular rate Rhythm: regular rhythm Heart sounds: Murmur heart sound present GI: GI Palp: Yes Soft to palpation Auscultation: normal bowel sounds Skin: General skin exam: normal color Neuro: Speech: normal speech Extrem: General: normal to inspection, no edema and no pedal edema Psych: Mental Status: mental status grossly normal Affect: normal affect Objective Data Vital Signs Vital Signs: Vital Signs - 24 hr 07/02/19 12:00 07/02/19 13:26 07/02/19 15:38 Temperature 36.1 C L Pulse Rate 93 101 H 90 Respiratory Rate 22 H 30 H Blood Pressure 134/71 116/67 Pulse Oximetry 94 94 07/02/19 15:39 07/02/19 16:00 07/02/19 20:00 Temperature Pulse Rate 91 92 94 Respiratory Rate 30 H Blood Pressure 105/60 Pulse Oximetry 95 07/02/19 22:00 07/02/19 22:42 07/03/19 00:00 Temperature 36.8 C Pulse Rate 57 L 78 85 Respiratory Rate 12 Blood Pressure 133/98 H Pulse Oximetry 100 95 07/03/19 04:00 07/03/19 06:00 Temperature 36.4 C L Pulse Rate 86 82 Respiratory Rate 16 Blood Pressure 128/71 Pulse Oximetry 97 Intake/Output Intake/Output: Intake & Output 06/30/19 07/01/19 07/02/19 07/03/19 23:59 23:59 23:59 23:59 Intake Total 540 2460 350 Output Total 1650 2000 580 Balance -1110 460 -230 Meds/Results Medications: Active Medications Generic Name Dose Route Start Last Admin Trade Name Freq PRN Reason Stop Dose Admin Acetaminophen 650 mg 07/01/19 19:07 07/02/19 19:51 Tylenol Tablet PO 650 mg Q6H PRN Administration Mild Pain (1-3) or Fever Acetaminophen 500 mg 07/01/19 21:11 Tylenol Tablet PO Q6H PRN Pain Rated 1-3 Hydrocodone Bitart/Acetaminophen 1 tab 07/01/19 19:07 07/02/19 15:48 Freeman 5-325 Mg PO 1 tab Q6H PRN Administration Pain Rated 4-6 Ascorbic Acid 500 mg 07/06/19 09:00 Vitamin C PO TuTh@0900 ADAN Aspirin 81 mg 07/02/19 09:00 07/03/19 10:07 Aspirin Ec PO 81 mg QAM ADAN Administration Atorvastatin Calcium 80 mg 07/02/19 09:00 07/03/19 10:07 Lipitor PO 80 mg DAILY ADAN Administration Finasteride 5 mg 07/02/19 09:00 07/03/19 10:06 Proscar PO 5 mg DAILY ADAN Administration Fluticasone Propionate 1 spray 07/01/19 21:11 Flonase 0.05% Nasal [place] NASAL BID PRN nasal congestion Furosemide 40 mg 07/02/19 17:00 07/03/19 08:05 Lasix Inj IV PUSH 40 mg BID ADAN Administration Loratadine 10 mg 07/02/19 09:00 07/03/19 10:07 Claritin PO 10 mg QAM ADAN Administration Metoprolol Succinate 25 mg 07/02/19 09:00 07/02/19 09:18 Toprol Xl PO 25 mg DAILY ADAN Administration Morphine Sulfate 2 mg 07/02/19 01:18 Morphine Sulfate Inj IV PUSH Q4H PRN Pain Rated 7-10 Rigobertodajoee
--- NOTE | 2019-07-03 11:19 | PM.CNCAR ---
Assessment and Plan Assessment and plan (1) Congestive heart failure: Code(s): I50.9 - Heart failure, unspecified Status: Acute Assessment and Plan: This is acute on chronic systolic congestive heart failure. Ejection fraction has markedly declined as compared to her EF at the time of his coronary angiogram. This is concerning for possible occlusion of his previous stent. He did have prolonged chest pain a few weeks ago. Continue long-acting metoprolol. Will add Entresto 24/26 mg p.o. b.i.d. as well as low-dose isosorbide mononitrate 15 mg daily as long as blood pressure will allow. Basic metabolic panel daily. He also may benefit from [place] in or depending on how he responds to the above treatment. Continue IV diuretics. Due to his significant decline in ejection fraction, I will keep him NPO after midnight on Friday for plan to repeat coronary angiogram to redefine his coronary anatomy. (2) Coronary artery disease: Code(s): I25.10 - Atherosclerotic heart disease of [place] coronary artery without angina pectoris Status: Acute Assessment and Plan: Continue aspirin, statin, Brilinta, metoprolol. (3) Essential hypertension: Code(s): I10 - Essential (primary) hypertension Status: Acute Assessment and Plan: At goal at this point (4) Hyperlipidemia: Qualifiers: Hyperlipidemia type: unspecified Qualified Code(s): E78.5 - Hyperlipidemia, unspecified Code(s): E78.5 - Hyperlipidemia, unspecified Status: Acute Assessment and Plan: On high-dose statin (5) Ischemic cardiomyopathy: Code(s): I25.5 - Ischemic cardiomyopathy Status: Acute Assessment and Plan: Severe. Upon discharge he will need a lifevest if able or implantation of an ICD depending on the results of the angiogram. History of Present Illness History of Present Illness Consult date/time: 07/03/19 11:19 Requesting physician: Adri Bustillo PA-C Consult reason: congestive heart failure Reason For Visit: R Pleural effusion Narrative: Date of service 07/03/2019: History: Patient is a 63-year-old male who has history of coronary disease who sustained a large anterior ST-elevation myocardial infarction in March 21, 2019 status post drug-eluting stent an aspiration thrombectomy of the proximal LAD. He has seen Dr. Randall and follow-up. Patient came to hospital because of a pleural effusion status post thoracentesis, shortness of breath and chest pain. Patient states that he had chest pain 1-2 weeks ago that was constant for about 3 days it was as if somebody was sitting on his chest. It then went away. Then 3 or 4 days ago he redeveloped chest pain. He also has a stabbing sensation that is much more short lived and feels like a poke. Chest x-ray did show large pleural effusion and he did have 1000 cc of fluid drained from his right lung. Echocardiogram was performed showing a markedly reduced ejection fraction of 15-20% with moderate pulmonary hypertension wall motion abnormalities consistent with LAD infarction in grade 4 diastolic dysfunction. Ejection fraction is markedly lower than half at the time of his previous intervention. At that time his ejection fraction was 40-45%. Patient does state that he is compliant with his medications. He denies any syncope, presyncope, palpitations. He admits to some occasional paroxysmal nocturnal dyspnea as well as some swelling. Review of Systems Review of Systems: All systems reviewed & are unremarkable except as noted in HPI and below Constitutional: Constitutional: Denies weakness Eyes: Eyes: Denies blurry vision ENT: Reports Normal hearing present Cardiovascular: Cardiovascular: Reports chest pain and Reports leg edema Respiratory: Respiratory: Reports dyspnea Gastrointestinal: Gastrointestinal: Reports abdominal pain Genitourinary: Genitourinary: Denies dysuria Musculoskeletal: Musculoskeletal: Denies
[2019-07-03] MEDS: METOPROLOL SUCCINATE EXT REL 25 MG TABCR PO (11:22)
--- NOTE | 2019-07-03 14:25 | P.PNIM_ITS ---
Progress Note: A&P Assessment and Plan (1) Congestive heart failure: Code(s): I50.9 - Heart failure, unspecified Status: Acute Assessment and Plan: Acute on chronic systolic and diastolic CHF. His Echocardiogram from 03/21/19 showed his EF was 40-45%, mildly enlarged LV, diastolic dysfunction grade 1, anterior septal wall, apical septal, apical lateral wall, apical cap, mid anterior wall and mid anterior lateral wall hypokinetic. Mild pulmonic regurg. * Echocardiogram shows he has worsening systolic function with EF of 15-20%. Left ventricular chamber dimension is severely enlarged. The entire apex is ak inetic, remaining wall segments are hypokinetic. The left ventricular diastolic function is grade IV diastolic dysfunction. E/e' 16 is elevated. Left atrial chamber dimension is severely enlarged. There is moderate aortic valve sclerosis. Moderate pulmonary hypertension, estimated pulmonary arterial systolic pressure is 59 mmHg. * Will start IV Lasix for better diuresis * Cardiology evalauted the patient and is concerned about the patient possibly reoccluding his recent stent. There are plans for cardiac catheterization Friday morning for further evaluation. * Then, depending on cath results plan for LifeVest or placing Defibrillator prior to discharge. * Cardiology started Entresto 25/26, Imdur 15mg, continue spironolactone 25, Toprol XL 25, * 1500 cc fluid restriction Will consult Cardiology for further evaluation with worsening EF. Strict input and output, monitor renal function electrolytes. (2) Pleural effusion on right: Code(s): J90 - Pleural effusion, not elsewhere classified Status: Acute Assessment and Plan: Recurrent right-sided pleural effusion, status post thoracentesis on 06/23/2019 and 07/01/2019. * By history, likely related to congestive heart failure. * Fluid results show yellow, hazy appearance with 2300 PRBCs, 7000 nucleated cells, neutrophils elevated at 70%. * We have ruled out acute infection since his pH of his pleural fluid is normal, no leukocytosis, no fevers or other symptoms associated with an infection. CRP was elevated 11.7. He was empirically started on azithromycin and ceftriaxone, but this was discontinued. * Liver was unremarkable on CT of the abdomen pelvis in March 2019, with no reports of ascites. * Dr. Jane Pulmonology was consulted who feels it is associated with CHF exacerbation and he is low risk for infection/malignant cause. Continue monitoring fluid status (3) Pleuritic chest pain: Code(s): R07.81 - Pleurodynia Status: Acute Assessment and Plan: * On arrival he was having Right-sided pleuritic chest pain related to pleural effusion. * Today after thoracentesis he denies any chest pain at this time. (4) Chronic anemia: Code(s): D64.9 - Anemia, unspecified Status: Acute Assessment and Plan: * Hemoglobin and hematocrit are stable on review of previous labs. (5) Coronary artery disease: Code(s): I25.10 - Atherosclerotic heart disease of [place] coronary artery without angina pectoris Status: Acute Assessment and Plan: * Status post drug-eluting stent to the proximal LAD in March 2019. * Continue aspirin, ticagrelor, beta-shayla, and statin. (6) Obstructive sleep apnea on CPAP: Code
--- NOTE | 2019-07-03 14:25 | PM.IMPN ---
Progress Note: A&P Assessment and Plan (1) Congestive heart failure: Code(s): I50.9 - Heart failure, unspecified Status: Acute Assessment and Plan: Acute on chronic systolic and diastolic CHF. His Echocardiogram from 03/21/19 showed his EF was 40-45%, mildly enlarged LV, diastolic dysfunction grade 1, anterior septal wall, apical septal, apical lateral wall, apical cap, mid anterior wall and mid anterior lateral wall hypokinetic. Mild pulmonic regurg. Echocardiogram shows he has worsening systolic function with EF of 15-20%. Left ventricular chamber dimension is severely enlarged. The entire apex is akinetic, remaining wall segments are hypokinetic. The left ventricular diastolic function is grade IV diastolic dysfunction. E/e' 16 is elevated. Left atrial chamber dimension is severely enlarged. There is moderate aortic valve sclerosis. Moderate pulmonary hypertension, estimated pulmonary arterial systolic pressure is 59 mmHg. Will start IV Lasix for better diuresis Cardiology evalauted the patient and is concerned about the patient possibly reoccluding his recent stent. There are plans for cardiac catheterization Friday morning for further evaluation. Then, depending on cath results plan for LifeVest or placing Defibrillator prior to discharge. Cardiology started Entresto /, Imdur 15mg, continue spironolactone 25, Toprol XL 25, 1500 cc fluid restriction Will consult Cardiology for further evaluation with worsening EF. Strict input and output, monitor renal function electrolytes. (2) Pleural effusion on right: Code(s): J90 - Pleural effusion, not elsewhere classified Status: Acute Assessment and Plan: Recurrent right-sided pleural effusion, status post thoracentesis on 06/23/2019 and 07/01/2019. By history, likely related to congestive heart failure. Fluid results show yellow, hazy appearance with 2300 PRBCs, 7000 nucleated cells, neutrophils elevated at 70%. We have ruled out acute infection since his pH of his pleural fluid is normal, no leukocytosis, no fevers or other symptoms associated with an infection. CRP was elevated 11.7. He was empirically started on azithromycin and ceftriaxone, but this was discontinued. Liver was unremarkable on CT of the abdomen pelvis in March 2019, with no reports of ascites. Dr. Jane Pulmonology was consulted who feels it is associated with CHF exacerbation and he is low risk for infection/malignant cause. Continue monitoring fluid status (3) Pleuritic chest pain: Code(s): R07.81 - Pleurodynia Status: Acute Assessment and Plan: On arrival he was having Right-sided pleuritic chest pain related to pleural effusion. Today after thoracentesis he denies any chest pain at this time. (4) Chronic anemia: Code(s): D64.9 - Anemia, unspecified Status: Acute Assessment and Plan: Hemoglobin and hematocrit are stable on review of previous labs. (5) Coronary artery disease: Code(s): I25.10 - Atherosclerotic heart disease of [place] coronary artery without angina pectoris Status: Acute Assessment and Plan: Status post drug-eluting stent to the proximal LAD in March 2019. Continue aspirin, ticagrelor, beta-shayla, and statin. (6) Obstructive sleep apnea on CPAP: Code(s): G47.33 - Obstructive sleep apnea (adult) (pediatric); Z99.89 - Dependence on other enabling machines and devices Status: Acute Assessment and Plan: Patient states he is compliant with CPAP. Will order home CPAP settings. Time Spent With Patient Time with patient: 25 - 35 minutes Subjective Date/t
[2019-07-03] MEDS: SACUBITRIL/VALSARTAN 24-26 MG TABLET 1 TAB PO (21:10)
[2019-07-04] VITALS (12 sets, daily range): BP systolic 106–127; BP diastolic 67–94; PULSE 68–97; RESP 20–24; TEMP 35.9–36.8; O2SAT 93–98
[2019-07-04 06:26] LABS: Hematocrit 40.5 % (42.0-52.0); Hemoglobin 12.5 g/dL (14.0-18.0); Mean Corpuscular HGB Conc 30.9 g/dl (32-36); Mean Corpuscular Hemoglobin 24.9 pg (26-34); Mean Corpuscular Volume 80.7 fl (80-100); Mean Platelet Volume 10.6 fl (7.4-10.4); Platelet Count Result 300 k/mm3 (150-375); Red Blood Count 5.02 M/mm3 (4.6-6.20); Red Cell Distribution Width 14.7 % (11.5-14.5); White Blood Count 12.7 K/mm3 (4.5-10.0)
[2019-07-04 06:49] LABS: Blood Urea Nitrogen 19 mg/dL (9-20); Calcium 8.3 mg/dL (8.4-10.2); Carbon Dioxide 28 mmol/L (22-30); Chloride 103 mmol/L (98-107); Estimated CRCL calculation 85 ml/min; Estimated Glomerular Filt Rate > 60; Glucose 117 mg/dL (75-110); Sodium 138 mmol/L (137-145)
[2019-07-04] MEDS: TICAGRELOR 90 MG TABLET PO ×2 (08:43→20:45)
[2019-07-04] MEDS: FUROSEMIDE INJ 40 MG/4 ML VIAL IV PUSH ×3 (08:43→20:45)
[2019-07-04] MEDS: SPIRONOLACTONE 25 MG TABLET PO (08:44)
[2019-07-04] MEDS: FINASTERIDE 5 MG TABLET PO (08:44)
[2019-07-04] MEDS: ASPIRIN 81 MG ENTERIC TABLET PO (08:44)
[2019-07-04] MEDS: SACUBITRIL/VALSARTAN 24-26 MG TABLET 1 TAB PO ×2 (08:45→20:45)
[2019-07-04] MEDS: POTASSIUM CHLORIDE 20 MEQ TABLET.ER PO ×2 (08:45→17:01)
[2019-07-04] MEDS: LORATADINE 10 MG TABLET PO (08:45)
[2019-07-04] MEDS: ATORVASTATIN 40 MG TABLET 80 MG PO (08:45)
[2019-07-04] MEDS: METOPROLOL SUCCINATE EXT REL 25 MG TABCR PO (08:46)
[2019-07-04] MEDS: ISOSORBIDE MONONITRATE 15 MG TAB.ER.24H PO (08:46)
--- NOTE | 2019-07-04 09:15 | PM.PNCARD ---
Progress Note: A&P Assessment and Plan (1) Congestive heart failure: Code(s): I50.9 - Heart failure, unspecified Status: Acute Assessment and Plan: This is acute on chronic systolic congestive heart failure. Ejection fraction has markedly declined as compared to her EF at the time of his coronary angiogram. This is concerning for possible occlusion of his previous stent. He did have prolonged chest pain a few weeks ago. Continue long-acting metoprolol, Entresto, isosorbide. He appears to be tolerating these new medications and therefore will increase isosorbide at 30 mg daily. Consider Corlanor in the future if needed. Continue IV diuretics. Due to his significant decline in ejection fraction, I will keep him NPO after midnight on Friday for plan to repeat coronary angiogram to redefine his coronary anatomy. (2) Coronary artery disease: Code(s): I25.10 - Atherosclerotic heart disease of [place] coronary artery without angina pectoris Status: Acute Assessment and Plan: Continue aspirin, statin, Brilinta, metoprolol. (3) Essential hypertension: Code(s): I10 - Essential (primary) hypertension Status: Acute Assessment and Plan: At goal at this point (4) Hyperlipidemia: Qualifiers: Hyperlipidemia type: unspecified Qualified Code(s): E78.5 - Hyperlipidemia, unspecified Code(s): E78.5 - Hyperlipidemia, unspecified Status: Acute Assessment and Plan: On high-dose statin (5) Ischemic cardiomyopathy: Code(s): I25.5 - Ischemic cardiomyopathy Status: Acute Assessment and Plan: Severe. Upon discharge he will need a lifevest if able or implantation of an ICD depending on the results of the angiogram. Subjective Date/time seen: 07/04/19 09:15 Interval history: Chief complaint: Pleural effusion, shortness of breath, heart failure Date of service 07/04/2019: He feels pretty well today overall. He does have some trivial swelling. No chest pain. Does have some abdominal distension. No shortness of breath Review of Systems Review of Systems: All systems reviewed & are unremarkable except as noted in HPI and below Constitutional: Constitutional: Denies excessive sweating, Denies headache(s) and Denies weakness Eyes: Eyes: Denies blurry vision ENT: Reports Normal hearing present, Denies headache(s), Denies lip swelling and Denies neck pain Cardiovascular: Cardiovascular: Reports chest pain, Reports leg edema and Reports dyspnea Respiratory: Respiratory: Reports dyspnea Gastrointestinal: Gastrointestinal: Reports abdominal pain Genitourinary: Genitourinary: Denies dysuria Musculoskeletal: Musculoskeletal: Denies neck pain and Denies numbness Integumentary/Breasts: Skin/Breast: Denies skin pain Neurologic: Reports Normal hearing present, Denies headache(s), Denies numbness and Denies weakness Psychiatric: Psychiatric: Denies depression Endocrine: Endocrine: Denies excessive sweating Hematologic/Lymphatic: Hematologic/Lymphatic: Denies easy bleeding Allergic/Immunologic: Allergic/Immunologic: Denies GI upset with certain foods and Denies lip swelling Exam Narrative: Exam Narrative: Alert and oriented Const: General: no acute distress HENMT: General nose exam: Normal nares present Eyes: Sclera: sclerae normal Neck: Neck: no JVD Chest: Other: No chest wall pain to palpation Resp: Effort & Inspection: normal respiratory effort Auscultation: diminished lung sounds Cardio: Rate: regular rate Rhythm: regular rhythm GI: Other: Protuberant Skin: General skin exam: normal color Neuro: Cranial nerves: Yes Normal hearing present Cognition (Neuro): normal cognition Speech: normal speech Extrem: General: edema (1+ bilateral lower extremity edema) Psych: Mental Status: mental status grossly normal Objective Data Vital Signs Vital Signs: Vital Signs - 24 hr 07/03/19 11:22 07/03/19 12:00
[2019-07-04] MEDS: polyethylene glycoL 3350 17 GM POWD.PACK PO (11:49)
[2019-07-04] MEDS: DOCUSATE SODIUM 100 MG CAPSULE PO ×2 (11:49→20:45)
--- NOTE | 2019-07-04 12:00 | PC.NURSE ---
Patient complaining of SOB. Oxygen level dropped to 93% on room air after patient taking a nap. After assessing the patient and encouraging the patient to take deep breaths, the oxygen level came up to 98%. Dr. Lange entered room during assessment and assessed the patient as well. He suggested ordering a STAT 12 lead EKG because the patient was dropping beats. Will continue to monitor patient condition.
--- NOTE | 2019-07-04 12:06 | PM.PNPUL ---
Progress Note: A&P Assessment and Plan (1) Pleural effusion on right: Code(s): J90 - Pleural effusion, not elsewhere classified Status: Acute Assessment and Plan: Likely due to CHF, EF is now 15-20% with total apical wall akinesis s/p anterio wall SC and PCI in Mar 2019. Still has residual fluid/atelectesis but this should not be causing periodic dyspnea - Cardiology consult pending - continue lasix and spironolactone, Would recommend decreasing dose of lasix as some contraction alkalosis is developing - no signs of pneumonia or pulmonary infection (2) Bradycardia: Code(s): R00.1 - Bradycardia, unspecified Status: Acute Assessment and Plan: Transient and symptomatic. - Nurse informed to get 12 lead and call Cardiology for further instructions - this was not last picker on Tele monitoring but on beside pulse oximeter but O2 sats remained 94-98% and it correlated with symptoms. Subjective Date/time seen: 07/04/19 12:06 Interval history: Has had episodes of periodic dyspnea with anxiety this morning which seems to correlate with brief episodes of bradycardia into high 30's low 40's. This was picked up on bedside pulse ox and not on monitor, O2 sats remained 94-98%. He denies lightheadness while lying in bed Review of Systems Review of Systems: All systems reviewed & are unremarkable except as noted in HPI and below Exam Const: General: comfortable and no acute distress Eyes: General: appearance normal, both eyes and all related structures Neck: Neck: supple and no JVD Resp: Auscultation: crackles and diminished lung sounds Cardio: Rate: bradycardic Rhythm: abnormal rhythm GI: GI Palp: Yes Soft to palpation Auscultation: normal bowel sounds Skin: General skin exam: normal color Neuro: Speech: normal speech Extrem: General: normal to inspection, no edema and no pedal edema Psych: Mental Status: mental status grossly normal Affect: normal affect Objective Data Vital Signs Vital Signs: Vital Signs - 24 hr 07/03/19 14:00 07/03/19 16:00 07/03/19 20:00 Temperature 36.1 C L Pulse Rate 72 93 96 Respiratory Rate 20 Blood Pressure 117/55 L Pulse Oximetry 95 07/03/19 20:46 07/03/19 21:13 07/04/19 00:00 Temperature 36.4 C Pulse Rate 93 94 93 Respiratory Rate 26 H Blood Pressure 114/88 Pulse Oximetry 95 95 07/04/19 04:00 07/04/19 06:00 07/04/19 08:46 Temperature 35.9 C L Pulse Rate 88 97 68 Respiratory Rate 20 Blood Pressure 127/94 H Pulse Oximetry 96 Intake/Output Intake/Output: Intake & Output 07/01/19 07/02/19 07/03/19 07/04/19 23:59 23:59 23:59 23:59 Intake Total 540 2460 1130 120 Output Total 1650 2000 1880 Balance -1110 460 -750 120 Meds/Results Medications: Active Medications Generic Name Dose Route Start Last Admin Trade Name Freq PRN Reason Stop Dose Admin Acetaminophen 500 mg 07/01/19 21:11 Tylenol Tablet PO Q6H PRN Pain Rated 1-3 Hydrocodone Bitart/Acetaminophen 1 tab 07/01/19 19:07 07/03/19 16:53 [place] 5-325 Mg PO 1 tab Q6H PRN Administration Pain Rated 4-6 Ascorbic Acid 500 mg 07/06/19 09:00 Vitamin C PO TuTh@0900 ADAN Aspirin 81 mg 07/02/19 09:00 07/04/19 08:44 Aspirin Ec PO 81 mg QAM ADAN Administration Atorvastatin Calcium 80 mg 07/02/19 09:00 07/04/19 08:45 Lipitor PO 80 mg DAILY ADAN Administration Docusate Sodium 100 mg 07/04/19 11:15 07/04/19 11:49 Colace Capsule PO 100 mg Q12HR ADAN Administration Finasteride 5 mg 07/02/19 09:00 07/04/19 08:44 Proscar PO 5 mg DAILY ADAN Administration Fluticasone Propionate 1 spray 07/01/19 21:11 Flonase 0.05% Nasal [place] NASAL BID PRN nasal congestion Furosemide 40 mg 07/02/19 17:00 07/04/19 08:43 Lasix Inj IV PUSH 40 mg BID ADAN Administration Isosorbide Mononitrate 30 mg 07/05/19 09:00 Imdur PO QAM ADAN Loratadine 10 mg 07/01
--- NOTE | 2019-07-04 12:09 | ECG_ITS ---
Measurements Intervals [place] Rate: 88 P: 43 SD: 148 QRS: -38 QRSD: 99 T: 76 QT: 393 QTc: 478 Interpretive Statements SINUS RHYTHM VENTRICULAR PREMATURE COMPLEX POSSIBLE LEFT ATRIAL ENLARGEMENT LEFT AXIS DEVIATION CANNOT RULE OUT SEPTAL INFARCT, AGE INDETERMINATE BORDERLINE ST-T WAVE ABNORMALITY- HIGH LATERAL LEADS ABNORMAL ECG Electronically Signed On 07-04-2019 13:46:09 CDT by Regulo Rios D.O.
--- NOTE | 2019-07-04 12:15 | PC.NURSE ---
patient taking a nap and CPAP was applied
--- NOTE | 2019-07-04 12:30 | PM.IMPN ---
Progress Note: A&P Assessment and Plan (1) Congestive heart failure: Code(s): I50.9 - Heart failure, unspecified Status: Acute Assessment and Plan: Acute on chronic systolic and diastolic CHF. His Echocardiogram from 03/21/19 showed his EF was 40-45%, mildly enlarged LV, diastolic dysfunction grade 1, anterior septal wall, apical septal, apical lateral wall, apical cap, mid anterior wall and mid anterior lateral wall hypokinetic. Mild pulmonic regurg. Echocardiogram shows he has worsening systolic function with EF of 15-20%. Left ventricular chamber dimension is severely enlarged. The entire apex is akinetic, remaining wall segments are hypokinetic. The left ventricular diastolic function is grade IV diastolic dysfunction. E/e' 16 is elevated. Left atrial chamber dimension is severely enlarged. There is moderate aortic valve sclerosis. Moderate pulmonary hypertension, estimated pulmonary arterial systolic pressure is 59 mmHg. Will start IV Lasix for better diuresis Cardiology evaluated the patient and is concerned about the patient possibly reoccluded his recent stent. There are plans for cardiac catheterization Friday morning for further evaluation. Then, depending on cath results plan for LifeVest or placing Defibrillator prior to discharge. Cardiology started Entresto , Imdur 30 mg, continue spironolactone 25, Toprol XL 25, 1500 cc fluid restriction Will consult Cardiology for further evaluation with worsening EF. Strict input and output, monitor renal function electrolytes. (2) Bradycardia: Code(s): R00.1 - Bradycardia, unspecified Status: Acute Assessment and Plan: I was called about the patient and informed by the weigher alloy. Upon the weigher alloy evaluation the patient reported having some symptoms of shortness of breath and anxiety. At that time they were checking his vital signs and his pulse ox was normal between 94-98% but his heart rate stated it was in the 30s. The weigher alloy ordered a stat EKG to be completed which showed normal sinus rhythm with a heart rate of 88 bpm, occasional PVCs, left axis deviation, and cannot rule out septal infarct and borderline ST T-wave abnormality in the high lateral leads. The nurse told me while this was happening she felt his pulse is and manually checked it and she stated it was in the 130s. A trim crew supervisor was called and informed and he ordered a 1 time dose of Lasix 40 mg IV to be given. This episode was not caught on his sole dyer. His telemetry today showed normal sinus rhythm with a heart rate of 95 bpm, frequent PVCs, PVC bigeminy and trigeminy, PVC couplets and triplets. This is not uncommon since he has systolic heart dysfunction. No other acute abnormality arrhythmia was noted. Will continue monitoring telemetry for any abnormality or issues. (3) Leukocytosis: Code(s): D72.829 - Elevated white blood cell count, unspecified Status: Acute Assessment and Plan: On arrival the patient's white blood cell count was 9300. Over the last 2 days his leukocytosis has slightly increased and today it was 12,700. The pleural fluid is felt to not be infectious and no antibiotics were started on him. Will recheck patient's chest x-ray to rule out any acute underlying pneumonia, will order urinalysis with reflux to look for any urinary tract infection, otherwise there is no other signs of infection and that I can find. Patient's vitals have otherwise been stable, afebrile, normal blood pressure, non tachycardic, today his respiratory rate is increased slightly his oxygenation was 96% on room air. Will continue monitoring the patient's symptoms. (4) Pleural effusion on right: Code(s): J90 - Pleural effusion, not elsewhere classified Status: Acute Assessment and Plan: Recurrent right-sided pleural effusion, stat
--- NOTE | 2019-07-04 12:40 | PC.NURSE ---
Called SINGH Thakur to update her on patient's condition. She informed me to notify Dr. Vazquez of patient's condition and update her with any recommendations that he may have.
[2019-07-04 16:16] LABS: Add Urine Microscopic? YES; Appearance Urine Clear (Clear); Bilirubin Urine Negative (Negative); Blood Urine 3+ (Negative); Color Urine Yellow (Yellow); Glucose Urine UA Negative (Negative); Ketones Urine Negative (Negative); Leukocyte Esterase Ur Trace LEU/UL (Negative); Nitrate Urine Negative (Negative); Protein Urine Negative (Negative); RBC Urine >75 /hpf (0-2); Specific Grav Ur 1.012 (1.001-1.035); Squamous Epithelial Cell Urine Rare /hpf (Few); Urobilinogen Urine Negative mg/dL (<2.0)
[2019-07-04] MEDS: ACETAMINOPHEN 500 MG TABLET PO (20:50)
[2019-07-05] VITALS (19 sets, daily range): BP systolic 98–121; BP diastolic 58–75; PULSE 81–97; RESP 12–20; TEMP 35.6–36.9; O2SAT 93–99
[2019-07-05 06:02] LABS: Basophils Percent Auto 0.2 % (0.2-1.2); Eosinophils Absolute Auto 0.4 K/mm3 (0-0.3); Eosinophils Percent Auto 2.9 % (0-4.4); Hematocrit 41.1 % (42.0-52.0); Hemoglobin 12.7 g/dL (14.0-18.0); Immature Granulocyte Absolute 0.05 K/mm3 (0.00-0.031); Immature Granulocyte Percent A 0.4 % (0-0.5); Lymphocytes Percent Auto 7.3 % (18.3-44.2); Mean Corpuscular HGB Conc 30.9 g/dl (32-36); Mean Corpuscular Hemoglobin 24.9 pg (26-34); Mean Corpuscular Volume 80.4 fl (80-100); Mean Platelet Volume 10.4 fl (7.4-10.4); Monocytes Percent Auto 8.1 % (2.6-8.5); Neutrophils Absolute Auto 10.1 K/mm3 (1.3-6.7); Neutrophils Percent Auto 81.1 % (45.5-73.1); Platelet Count Result 305 k/mm3 (150-375); Red Blood Count 5.11 M/mm3 (4.6-6.20); Red Cell Distribution Width 14.6 % (11.5-14.5); White Blood Count 12.4 K/mm3 (4.5-10.0)
[2019-07-05 06:10] LABS: Blood Urea Nitrogen 20 mg/dL (9-20); Calcium 8.7 mg/dL (8.4-10.2); Carbon Dioxide 30 mmol/L (22-30); Chloride 106 mmol/L (98-107); Cholesterol 129 mg/dL (0-200); Estimated CRCL calculation 94 ml/min; Estimated Glomerular Filt Rate > 60; Glucose 115 mg/dL (75-110); HDL Direct 28 mg/dL; Magnesium 2.6 mg/dL (1.6-2.3); Potassium 3.9 mmol/L (3.4-5.0); Sodium 139 mmol/L (137-145); Triglycerides 99 mg/dL (<150)
[2019-07-05 06:21] LABS: LDL Cholesterol Direct 71 mg/dL
--- NOTE | 2019-07-05 08:00 | PC.NURSE ---
Spoke with Ness in [facility] regarding patients medications before procedure. Per Ness, patient ok to take all AM medications prior to procedure except IV lasix and spironolactone.
[2019-07-05] MEDS: METOPROLOL SUCCINATE EXT REL 25 MG TABCR PO (09:14)
[2019-07-05] MEDS: POTASSIUM CHLORIDE 20 MEQ TABLET.ER PO (09:15)
[2019-07-05] MEDS: FINASTERIDE 5 MG TABLET PO (09:15)
[2019-07-05] MEDS: ISOSORBIDE MONONITRATE 30 MG TAB.ER.24H PO (09:15)
[2019-07-05] MEDS: TICAGRELOR 90 MG TABLET PO ×2 (09:15→21:05)
[2019-07-05] MEDS: ATORVASTATIN 40 MG TABLET 80 MG PO (09:15)
[2019-07-05] MEDS: LORATADINE 10 MG TABLET PO (09:15)
[2019-07-05] MEDS: ASPIRIN 81 MG ENTERIC TABLET PO (09:15)
[2019-07-05] MEDS: SACUBITRIL/VALSARTAN 24-26 MG TABLET 1 TAB PO ×2 (09:15→21:05)
[2019-07-05] MEDS: DOCUSATE SODIUM 100 MG CAPSULE PO (09:16)
[2019-07-05] MEDS: polyethylene glycoL 3350 17 GM POWD.PACK PO (09:16)
--- NOTE | 2019-07-05 10:13 | WPDMODSED ---
Moderate Sedation Note-Pt Data Patient Data Diagnosis: Coronary artery disease with anterior wall TN interrupted by emergency PCI of the ostial segment of the LAD in March of this year Significant decline in LV function with development of decompensated CHF Present Complaint: Shortness of breath Procedure to be performed/Plan: Left heart catheterization Allergies Allergy/AdvReac Type Severity Reaction Status Date / Time Sulfa (Sulfonamide Allergy Unknown Unknown Verified 06/29/19 08:35 Antibiotics) Home Medications Medication Instructions Recorded Confirmed Type aspirin 81 mg PO QAM #30 tablet 03/23/19 07/01/19 Rx atorvastatin 80 mg PO DAILY #30 tablet 03/23/19 07/01/19 Rx metoprolol succinate 25 mg PO DAILY #30 tablet 03/23/19 07/01/19 Rx nitroglycerin 0.4 mg SUBLINGUAL DIRECTED PRN 03/23/19 07/01/19 Rx #25 tablet ticagrelor [Brilinta] 90 mg PO Q12HR #60 tablet 03/23/19 07/01/19 Rx fluticasone propionate 50 1 spray NASAL BID PRN #9.9 ml 05/11/19 07/01/19 Rx mcg/actuation nasal spray,suspension acetaminophen 500 mg tablet 500 mg PO Q6H PRN 05/21/19 07/01/19 History ascorbic acid (vitamin C) 500 mg 500 mg PO DIRECTED 05/21/19 07/01/19 History tablet ergocalciferol (vitamin D2) 1,250 50,000 unit PO WEEKLY cap 05/21/19 07/01/19 History mcg (50,000 unit) capsule fexofenadine 180 mg tablet 180 mg PO DAILY 05/21/19 07/01/19 History finasteride 5 mg tablet 5 mg PO DAILY #90 tablet 05/29/19 07/01/19 Rx potassium chloride 20 mEq 20 meq PO DAILY tablet 06/15/19 07/01/19 History tablet,extended release furosemide 40 mg tablet 40 mg PO BID tablet 06/29/19 07/01/19 History zolpidem 10 mg PO HS PRN 07/01/19 07/01/19 History Current Medications: Active Medications Acetaminophen (Tylenol Tablet) 500 mg PO Q6H PRN PRN Reason: Pain Rated 1-3 Last Admin: 07/04/19 20:50 Dose: 500 mg Documented by: Hydrocodone Bitart/Acetaminophen ([place] 5-325 Mg) 1 tab PO Q6H PRN PRN Reason: Pain Rated 4-6 Last Admin: 07/03/19 16:53 Dose: 1 tab Documented by: Ascorbic Acid (Vitamin C) 500 mg PO TuTh@0900 [facility] Aspirin (Aspirin Ec) [facility] [place] [place] Admin: 07/05/19 09:15 Dose: 81 mg Documented by: Atorvastatin Calcium (Lipitor) 80 mg PO DAILY [facility] Last Admin: 07/05/19 09:15 Dose: 80 mg Documented by: Docusate Sodium (Colace Capsule) 100 mg PO Q12HR [facility] Last Admin: 07/05/19 09:16 Dose: 100 mg Documented by: Finasteride (Proscar) 5 mg PO DAILY [facility] Last Admin: 07/05/19 09:15 Dose: 5 mg Documented by: Fluticasone Propionate (Flonase 0.05% Nasal [place]) 1 spray NASAL BID PRN PRN Reason: nasal congestion Furosemide (Lasix Inj) 40 mg IV PUSH BID [facility] Last Admin: 07/04/19 20:45 Dose: 40 mg Documented by: Isosorbide Mononitrate (Imdur) 30 mg PO [facility] [place] [place] Admin: 07/05/19 09:15 Dose: 30 mg Documented by: Loratadine (Claritin) 10 mg PO [facility] Last Admin: 07/05/19 09:15 Dose: 10 mg Documented by: Lorazepam (Ativan Tab) 0.5 mg PO Q6H PRN PRN Reason: Anxiety Melatonin (Melatonin) 3 mg PO HS PRN PRN Reason: insomnia/trouble sleeping Metoprolol Succinate (Toprol Xl) 25 mg PO DAILY [facility] Last Admin: 07/05/19 09:14 Dose: 25 mg Documented by: Morphine Sulfate (Morphine Sulfate Inj) 2 mg IV PUSH Q4H PRN PRN Reason: Pain Rated 7-10 Ondansetron HCl (Zofran Inj) 4 mg IV PUSH Q6H PRN PRN Reason: Nausea And Vomiting Last Admin: 07/03/19 20:08 Dose: 4 mg Documented by: Polyethylene Glycol (Miralax) 17 gm [facility] [place] [place] Admin: 07/05/19 09:16 Dose: 17 gm Documented by: Potassium Chloride (Kcl Tablet) 20 meq PO BID [facility] Last Admin: 07/05/19 09:15 Dose: 20 meq Documented by: Sacubitril/Valsartan (Entresto 24 Mg-26 Mg Tablet) 1 tab PO Q12HR [facility] Last Admin: 07/05/19 09:15 Dose: 1 tab Documented by: Spironolactone (Aldactone) 25 mg PO QAM [facility] Last Admin: 07/04/19 08:44 Dose: 25 mg Documented by: Ticagrelor (Brilinta) 90 mg PO Q12HR [facility] Last Admin: 07/05/19 09
--- NOTE | 2019-07-05 10:28 | PC.NURSE ---
To Repossessor per bed, IV intact.
--- NOTE | 2019-07-05 10:59 | WPDCARDPROC ---
Cardiac Cath Procedure Note Date of procedure:: 07/05/19 Performing physician:: Musa Sin MD Indication:: coronary artery disease with recent anterior wall WA decline in LV systolic function Brief clinical history:: this is a 63-year-old man who sustained an anterior wall WA in March of this year. He was brought to the cardiac catheterization lab at this hospital and underwent emergency PCI of the ostial segment of the LAD. The vessel was totally occluded at the beginning of the case. He is now admitted with congestive heart failure and left ventricular systolic function has significantly declined resulting in the recommendation to perform a follow-up angiogram. Procedure Procedure performed:: Coronary angiography Sedation/Medication given:: fentanyl 50 mg Versed 2 mg case start time 10:45 a.m. case end time 10:54 a.m. sedation provided Ness Perez RN, trained observer Access site:: right femoral artery Estimated blood loss:: 10-15 cc Procedure note:: patient was brought to the cardiac catheterization lab in the postabsorptive state the right femoral triangle was prepared and draped in the usual fashion. Anesthesia was provided with 1% lidocaine infiltrated locally. Using modified Seldinger technique the femoral artery was punctured and I placed a 5 Estonian vascular sheath. I used a 5 Estonian angled pigtail catheter to enter the left ventricle and performed left-sided hemodynamics. As echocardiogram was done during this admission I elected not to injection LV-gram during this procedure. The pigtail catheter was then removed and a 5 Estonian JR4 catheter was used to engage inject the right coronary artery. A FL4 catheter was used to inject the left coronary artery. Multiple angiographic projections were taken. The procedure was then terminated. The patient was taken to the holding area where manual sheath removal be performed. Because of low cardiac output I elected not to consider to place an Angio-Seal device. Findings:: The central aortic pressure is 100/68 left ventricle 100 over 0 end-diastolic pressure 7 there is no systolic gradient on pullback across the aortic valve. The left main coronary artery is widely patent the left anterior descending is a moderate caliber vessel extending down to and around the apex. There is obvious visible stent material in the ostial segment of the LAD. There was no loss of lumen in the LAD ostium there was excellent GILBERTO 3 flow throughout the vessel. There is some distal disease in the mid to apical portion of the LAD but none of this appears to be flow limiting. The circumflex is a moderate caliber artery giving rise to the marginal branches which is angiographically free of disease the right coronary artery is a moderate to large caliber vessel dominant to the posterior circulation. There is mild luminal irregularity and stenosis in the proximal and midportion of the RCA but nothing that represents more than 30-40% stenosis Conclusion:: coronary artery disease which remains well revascularized following emergency PCI with stenting of the ostial segment of the LAD 3 months ago no progressive coronary disease following revascularization patient presumably has ischemic cardiomyopathy due to the anterior infarction that occurred March Musa Sin MD [facility]
--- NOTE | 2019-07-05 11:55 | SUR.PHASEII ---
1118-sheath pulled and firm pressure held by Carri Pittman RN. Pressure stopped at 1143. Groin soft and non-tender, no evidence of bleedong or hematoma noted. Strong right pedal pulse noted. Will continue to monitor.
--- NOTE | 2019-07-05 12:45 | PC.NURSE ---
Returned from [facility] per bed. IV intact.
--- NOTE | 2019-07-05 12:55 | SUR.PHASEII ---
1250-pt transported by Khang Cordero RN and Isma Sarmiento, RT to [address] [place] [address]. No distress noted. Groin soft and non-tender, no evidence of bleeding or hematoma noted. Strong right pedal pulse noted. Groin inspected by receiving RN.
[2019-07-05] MEDS: SPIRONOLACTONE 25 MG TABLET PO (13:09)
[2019-07-05] MEDS: FUROSEMIDE INJ 40 MG/4 ML VIAL IV PUSH (13:09)
--- NOTE | 2019-07-05 13:34 | PM.IMPN ---
Progress Note: A&P Assessment and Plan (1) Congestive heart failure: Code(s): I50.9 - Heart failure, unspecified Status: Acute Assessment and Plan: Acute on chronic systolic and diastolic CHF. His Echocardiogram from 03/21/19 showed his EF was 40-45%, mildly enlarged LV, diastolic dysfunction grade 1, anterior septal wall, apical septal, apical lateral wall, apical cap, mid anterior wall and mid anterior lateral wall hypokinetic. Mild pulmonic regurg. Echocardiogram shows he has worsening systolic function with EF of 15-20%. Left ventricular chamber dimension is severely enlarged. The entire apex is akinetic, remaining wall segments are hypokinetic. The left ventricular diastolic function is grade IV diastolic dysfunction. E/e' 16 is elevated. Left atrial chamber dimension is severely enlarged. There is moderate aortic valve sclerosis. Moderate pulmonary hypertension, estimated pulmonary arterial systolic pressure is 59 mmHg. Patient had a cardiac catheterization done today which showed coronary artery disease which remains well revascularized following emergency PCI with stenting of the ostial segment of the LAD 3 months ago. Cardiology will talk to the patient about LifeVest prior to discharge. Cardiology started Entresto , Imdur 30 mg, continue spironolactone 25, Toprol XL 25, 1500 cc fluid restriction Will consult Cardiology for further evaluation with worsening EF. Strict input and output, monitor renal function electrolytes. (2) Bradycardia: Code(s): R00.1 - Bradycardia, unspecified Status: Acute Assessment and Plan: I was called about the patient and informed by the professor of graphic design. Upon the professor of graphic design evaluation the patient reported having some symptoms of shortness of breath and anxiety. At that time they were checking his vital signs and his pulse ox was normal between 94-98% but his heart rate stated it was in the 30s. The professor of graphic design ordered a stat EKG to be completed which showed normal sinus rhythm with a heart rate of 88 bpm, occasional PVCs, left axis deviation, and cannot rule out septal infarct and borderline ST T-wave abnormality in the high lateral leads. The nurse told me while this was happening she felt his pulse is and manually checked it and she stated it was in the 130s. A powerhouse tender was called and informed and he ordered a 1 time dose of Lasix 40 mg IV to be given. This episode was not caught on his quality assurance monitor body. His telemetry today showed normal sinus rhythm with a heart rate of 95 bpm, frequent PVCs, PVC bigeminy and trigeminy, PVC couplets and triplets. This is not uncommon since he has systolic heart dysfunction. No other acute abnormality arrhythmia was noted. Today the patient's telemetry shows normal sinus rhythm with a heart rate of 91, frequent PVCs, PVC couplets, PVC bigeminy and trigeminy, which is stable from what it was yesterday. I see no episodes of bradycardia or any issues. He reports feeling better today. Will continue monitoring telemetry for any abnormality or issues. (3) Leukocytosis: Code(s): D72.829 - Elevated white blood cell count, unspecified Status: Acute Assessment and Plan: On arrival the patient's white blood cell count was 9300. Over the last 2 days his leukocytosis has been stable at 12,000. The pleural fluid is felt to not be infectious and no antibiotics were started on him. Will recheck patient's chest x-ray to rule out any acute underlying pneumonia, will order urinalysis with reflux to look for any urinary tract infection, otherwise there is no other signs of infection and that I can find. Patient's vitals have otherwise been stable, afebrile, normal blood pressure, non tachycardic, today his respiratory rate is increased slightly his oxygenation was 96% on room air. Patient states he is still having some pain t
--- NOTE | 2019-07-05 17:07 | PM.PNPUL ---
Progress Note: A&P Assessment and Plan (1) Pleural effusion on right: Code(s): J90 - Pleural effusion, not elsewhere classified Status: Acute Assessment and Plan: Likely due to CHF, EF is now 15-20% with total apical wall akinesis s/p anterio wall PR and PCI in Mar 2019. Still has residual fluid/atelectesis but this should not be causing periodic dyspnea - Cardiology consult reviewed - continue lasix and spironolactone, with a lower dose of lasix as contraction alkalosis. - no signs of pneumonia or pulmonary infection (2) Bradycardia: Code(s): R00.1 - Bradycardia, unspecified Status: Acute Assessment and Plan: Transient and resolved. He was symptomatic yesterday. . 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 Subjective Date/time seen: 07/05/19 17:07 Patient is seen in follow up for a right pleural effusion, probably due to heart failure. He is feeling better with additional diuresis. Blood pressure is running low, although he is perfusing adequately. He says that he felt much better after each of the last 2 thoracenteses, and would like to have another tap to improve his dyspnea. We discussed how this procedure is a temporary fix for a medical problem, and that the same effect can be sustained through having proper diuresis.I do not have strong perference if he has the repeat thoracentesis or not. His pleural effusion is due to CHF, so a repeat tap will provide temporary benefir only. Review of Systems Review of Systems: All systems reviewed & are unremarkable except as noted in HPI and below Exam Const: General: comfortable and no acute distress Eyes: General: appearance normal, both eyes and all related structures Neck: Neck: supple and no JVD Resp: Auscultation: crackles bilateral and diminished lung sounds on the right Cardio: Rate: bradycardic Rhythm: abnormal rhythm Heart sounds: Murmur heart sound present GI: Auscultation: normal bowel sounds Skin: General skin exam: normal color Neuro: Speech: normal speech Extrem: General: normal to inspection, no edema and no pedal edema Psych: Mental Status: mental status grossly normal Affect: normal affect Objective Data Vital Signs Vital Signs: Vital Signs - 24 hr 07/04/19 20:00 07/04/19 21:36 07/04/19 22:00 Temperature 36.4 C L Pulse Rate 88 81 96 Respiratory Rate 20 Blood Pressure 106/69 Pulse Oximetry 95 98 07/05/19 00:00 07/05/19 04:00 07/05/19 06:00 Temperature 36.6 C Pulse Rate 87 87 86 Respiratory Rate 18 Blood Pressure 121/62 Pulse Oximetry 96 07/05/19 08:00 07/05/19 09:14 07/05/19 11:10 Temperature 36.9 C Pulse Rate 95 97 90 Respiratory Rate 13 Blood Pressure 109/70 Pulse Oximetry 93 07/05/19 11:15 07/05/19 11:30 07/05/19 11:45 Temperature Pulse Rate 89 87 85 Respiratory Rate 14 14 15 Blood Pressure 113/66 99/66 L 102/66 Pulse Oximetry 94 95 95 07/05/19 12:00 07/05/19 12:32 07/05/19 12:58 Temperature 36.4 C L Pulse Rate 81 82 88 Respiratory Rate 14 14 20 Blood Pressure 104/75 116/62 110/62 Pulse Oximetry 93 98 99 07/05/19 13:58 07/05/19 15:50 07/05/19 16:00 Temperature 36.7 C 36.6 C Pulse Rate 92 91 91 Respiratory Rate 20 20 Blood Pressure 100/62 108/58 L Pulse Oximetry 99 96 Intake/Output Intake/Output: Intake & Output 07/02/19 07/03/19 07/04/19 07/05/19 23:59 23:59 23:59 23:59 Intake Total 2460 1130 420 200 Output Total 1999 9323 511 0931 Balance 104 -730 -991 -518 Meds/Results Medications: Active Medications Generic Name Dose Route Start Last Admin Trade Name Freq PRN Reason Stop Dose Admin Acetaminophen 500 mg 07/01/19 21:11 07/04/19 20:50 Tylenol Tablet PO 500 mg Q6H PRN Administration Pain Rated 1-3 Hydrocodone Bitart/Acetaminophen 1 tab 07/01/19 19:07 07/03/19 16:53 [place] 5-325 Mg PO 1 tab Q6H P
[2019-07-05] MEDS: FUROSEMIDE 40 MG TABLET PO (17:21)
[2019-07-05] MEDS: ACETAMINOPHEN 500 MG TABLET PO (17:24)
[2019-07-06] VITALS (10 sets, daily range): BP systolic 101–126; BP diastolic 51–77; PULSE 62–99; RESP 12–20; TEMP 36.2–36.6; O2SAT 95–98
[2019-07-06 05:56] LABS: Basophils Percent Auto 0.3 % (0.2-1.2); Eosinophils Absolute Auto 0.4 K/mm3 (0-0.3); Eosinophils Percent Auto 3.6 % (0-4.4); Hematocrit 42.5 % (42.0-52.0); Hemoglobin 13.2 g/dL (14.0-18.0); Immature Granulocyte Absolute 0.04 K/mm3 (0.00-0.031); Immature Granulocyte Percent A 0.4 % (0-0.5); Lymphocytes Absolute Auto 0.93 K/mm3 (0.9-3.2); Lymphocytes Percent Auto 9.2 % (18.3-44.2); Mean Corpuscular HGB Conc 31.1 g/dl (32-36); Mean Corpuscular Hemoglobin 25.1 pg (26-34); Mean Corpuscular Volume 80.8 fl (80-100); Mean Platelet Volume 10.6 fl (7.4-10.4); Monocytes Absolute Auto 0.8 K/mm3 (0.1-0.6); Monocytes Percent Auto 7.8 % (2.6-8.5); Neutrophils Percent Auto 78.7 % (45.5-73.1); Platelet Count Result 339 k/mm3 (150-375); Red Blood Count 5.26 M/mm3 (4.6-6.20); Red Cell Distribution Width 14.8 % (11.5-14.5); White Blood Count 10.1 K/mm3 (4.5-10.0)
[2019-07-06 06:18] LABS: Blood Urea Nitrogen 22 mg/dL (9-20); Calcium 8.5 mg/dL (8.4-10.2); Carbon Dioxide 31 mmol/L (22-30); Chloride 104 mmol/L (98-107); Estimated CRCL calculation 93 ml/min; Estimated Glomerular Filt Rate > 60; Glucose 114 mg/dL (75-110); Sodium 140 mmol/L (137-145)
--- NOTE | 2019-07-06 09:04 | PM.PNCARD ---
Progress Note: A&P Assessment and Plan (1) Congestive heart failure: Qualifiers: Heart failure chronicity: acute on chronic Heart failure type: systolic Qualified Code(s): I50.23 - Acute on chronic systolic (congestive) heart failure Code(s): I50.9 - Heart failure, unspecified Status: Acute Assessment and Plan: Acute on chronic systolic congestive heart failure. Ejection fraction has markedly declined as compared to his EF at the time of his coronary angiogram. Cardiac catheterization 07/05/2019:coronary artery disease which remains well revascularized following emergency PCI with stenting of the ostial segment of the LAD 3 months ago. No progressive coronary disease following revascularization. [place] Heart Association class 3. Was class 4 on admission. Continue Metoprolol succinate, Entresto, isosorbide and spironolactone. Consider Corlanor in the future if needed. Transitioned to p.o. diuretics. Stop potassium supplement and monitor electrolytes as an outpatient. As he was not on an WILL, ARB or spironolactone on admission he has not had maximal guideline directed therapy and he is tolerating medications for the treatment of his heart failure Life Vest has been recommended and he is agreeable. Up titration if possible as an outpatient. (2) Coronary artery disease: Qualifiers: Associated angina: without angina Coronary Disease-Associated Artery/Lesion type: [place] artery [place] vs. transplanted heart: [place] heart Qualified Code(s): I25.10 - Atherosclerotic heart disease of [place] coronary artery without angina pectoris Code(s): I25.10 - Atherosclerotic heart disease of [place] coronary artery without angina pectoris Status: Acute Assessment and Plan: Continue aspirin, atorvastatin, Brilinta, metoprolol succinate. (3) Essential hypertension: Code(s): I10 - Essential (primary) hypertension Status: Acute Assessment and Plan: At goal at this point (4) Hyperlipidemia: Qualifiers: Hyperlipidemia type: unspecified Qualified Code(s): E78.5 - Hyperlipidemia, unspecified Code(s): E78.5 - Hyperlipidemia, unspecified Status: Acute Assessment and Plan: On high-dose statin (5) Ischemic cardiomyopathy: Code(s): I25.5 - Ischemic cardiomyopathy Status: Acute Assessment and Plan: Severe. Seven beat run of nonsustained ventricular tachycardia at 7:22 a.m. this morning. Asymptomatic. Other shorter episodes of nonsustained VT noted on monitor. Potassium and magnesium within normal limits. Life vest as above. Additional Plan Reviewed treatment of systolic heart failure with the medications including addition of Entresto and spironolactone, risk for sudden cardiac with ejection fraction of 15-20% and Life Vest, continued monitoring of the pleural effusions and treatment of heart failure, activity restrictions and sodium restrictions. Plan discussed with Dr. Vazquez 0915 07/06/2019 Time Spent With Patient Time with patient: 15 - 25 minutes Subjective Date/time seen: 07/06/19 09:04 Interval history: Chief complaint: Pleural effusion, shortness of breath, acute on chronic systolic heart failure Date of service: 07/06/2019 Subjective: No chest discomfort. Does have some pain with deep inspiration below the thoracentesis site. No lightheadedness. Slight shortness of breath with exertional activity such as going to the bathroom. Slept well as CPAP. Review of Systems Constitutional: Constitutional: Denies excessive sweating, Denies headache(s) and Denies weakness Eyes: Eyes: Denies blurry vision ENT: Reports Normal hearing present, Denies headache(s), Denies lip swelling and Denies neck pain Cardiovascular: Cardiovascular: Denies chest pain, Denies leg edema,
[2019-07-06] MEDS: ATORVASTATIN 40 MG TABLET 80 MG PO (09:28)
[2019-07-06] MEDS: ASPIRIN 81 MG ENTERIC TABLET PO (09:28)
[2019-07-06] MEDS: ISOSORBIDE MONONITRATE 30 MG TAB.ER.24H PO (09:29)
[2019-07-06] MEDS: SACUBITRIL/VALSARTAN 24-26 MG TABLET 1 TAB PO (09:29)
[2019-07-06] MEDS: ASCORBIC ACID 500 MG TABLET PO (09:29)
[2019-07-06] MEDS: FUROSEMIDE 40 MG TABLET PO ×2 (09:29→16:21)
[2019-07-06] MEDS: SPIRONOLACTONE 25 MG TABLET PO (09:29)
[2019-07-06] MEDS: LORATADINE 10 MG TABLET PO (09:29)
[2019-07-06] MEDS: METOPROLOL SUCCINATE EXT REL 25 MG TABCR PO (09:29)
[2019-07-06] MEDS: POTASSIUM CHLORIDE 20 MEQ TABLET.ER PO (09:29)
[2019-07-06] MEDS: FINASTERIDE 5 MG TABLET PO (09:29)
[2019-07-06] MEDS: TICAGRELOR 90 MG TABLET PO (09:30)
--- NOTE | 2019-07-06 09:40 | PM.DS ---
DS: Summary Hospital Course Reason for hospitalization: Acute on Chronic systolic heart failure; right sided pleural effusion Hospital Course: Patient is a 63 yo M with coronary artery disease, anterior wall STEMI on 03/21/2019 status post drug-eluting stent and aspiration thrombectomy of a totally occluded proximal LAD, systolic congestive heart failure, hypertension, hyperlipidemia, and obstructive sleep apnea who presented to the emergency department on 06/30 with complaints of shortness of breath and chest pain. Patient had reported increasing dyspnea on lesser and lesser exertion for the previous 3 days to a point were he was SOB while even walking across a room. He also reported orthopnea, LE edema, abdominal bloating and right sided pleuritic chest pain; symptoms similar to those he experienced several weeks prior when he was found to have right sided pleural effusion (06/22 thoracentesis yielded 1000 mL cloudy, yellow fluid). Patient was found to have reaccumulation of right-sided pleural effusion while in the ED this stay and was admitted under this setting. Please see H&P for further details. Presenting VS: Temp Pulse Resp BP Pulse Ox 98.4 F 105 H 28 H 141/87 H 98 07/01/19 11:36 07/01/19 11:36 07/01/19 11:36 07/01/19 11:36 07/01/19 11:36 Presenting Pertinent labs: WBC 9.3k, H&H 12.7/40.7, MCV 81.1, CRP 11.7, BNP 1610. ABG showed pH 7.504, pO2 72.4, HCO3 27.9, reduced Hgb 5.4, ABG on RA. Pleural fluid showed yellow, hazy fluid, 2344 RBC, 7011 Nuc cells, 70% neutrophils, pH 7.456. UA showed 3+ blood, trace leuk est, >75 RBC, 10-15 WBC. CBC, chemistry, ABG, pleuritic fluid, UA otherwise unremarkable Micro: BC negative to date x2. UC pending at discharge. Gram stain of pleural fluid showed mod WBCs, no organisms; no anaerobes isolated to date Imaging: Chest X-Ray 07/01/19 12:01 IMPRESSION: 1. Worsened moderate-sized right pleural effusion. 2. Airspace opacities at right lung base, consistent with atelectasis or less likely pneumonia. 3. Cardiomegaly. Chest CTA 07/01/19 14:45 IMPRESSION: Large right pleural effusion with compressive atelectasis since the middle and lower lobes and particularly No evidence of pulmonary embolism Chest X-Ray 07/01/19 16:12 IMPRESSION: Persistent opacification of the lower 1/3-1/2 of right hemithorax likely due to a combination of residual right pleural fluid and atelectasis; no evidence of pneumothorax following right-sided thoracentesis yielding 1000 cc yellowish pleural fluid Thoracentesis Ultrasound 07/02/19 08:36 IMPRESSION: Uneventful sonographically directed percutaneous right thoracentesis yielding 1 L of clear yellowish pleural fluid Chest X-Ray 07/02/19 10:10 IMPRESSION: 1. Stable moderate-sized right pleural effusion. 2. Airspace opacities at right lung base, consistent with atelectasis or less likely pneumonia. Chest X-Ray 07/02/19 15:31 IMPRESSION: 1. Moderate-sized right pleural effusion with improvement status post thoracentesis. 2. Airspace opacities at right lung base, consistent with atelectasis or less likely pneumonia. Thoracentesis Ultrasound 07/02/19 15:38 IMPRESSION: 1. Successful ultrasound-guided thoracentesis yielding 1000 mL of rene-colored fluid. Echo 07/02/19 Summary 1. Left ventricular chamber dimension is severely enlarged. 2. The entire apex is akinetic, remaining wall segments are hypokinetic. 3. Left ventricular systolic function is severely reduced, estimated at 15-20%. 4. The left ventricular diastolic function is grade IV diastolic dysfunction. 5. E/e' 16 is elevated. 6. Left atrial chamber dimension is severely enlarged. 7. There is moderate aortic valve sclerosis. 8. The mitral valve has mildly calcified annulus. 9. There is mild mitral valve regurgitation. 10. There is trace tricuspid valve regurgitation. 11. Moderate pulmonary hypertension, estimated pulmonary arterial systolic pressure is 59 mmHg Chest X-Ray 07/03/19 14:03 IMPRESSION:
[2019-07-08 01:37] LABS: Glucose Pleural Fluid 105 mg/dL; LDH Pleural Fluid 626 U/L; Total Protein Pleural Fluid 3.7 g/dL
[2019-07-08 12:09] LABS: Albumin Pleural Fluid 2.4 g/dL
--- NOTE | 2019-07-21 17:17 | PM.IMPN ---
Progress Note: A&P Assessment and Plan (1) Congestive heart failure: Qualifiers: Heart failure type: systolic Heart failure chronicity: acute on chronic Qualified Code(s): I50.23 - Acute on chronic systolic (congestive) heart failure Code(s): I50.9 - Heart failure, unspecified Status: Acute Assessment and Plan: Acute on chronic systolic and diastolic CHF. - Echocardiogram from 03/21/19 showed his EF was 40-45%, mildly enlarged LV, diastolic dysfunction grade 1, anterior septal wall, apical septal, apical lateral wall, apical cap, mid anterior wall and mid anterior lateral wall hypokinetic. Mild pulmonic regurg. - Echocardiogram this hospital stay shows he has worsening systolic function with EF of 15-20%. Left ventricular chamber dimension is severely enlarged. The entire apex is akinetic, remaining wall segments are hypokinetic. The left ventricular diastolic function is grade IV diastolic dysfunction. E/e' 16 is elevated. Left atrial chamber dimension is severely enlarged. There is moderate aortic valve sclerosis. Moderate pulmonary hypertension, estimated pulmonary arterial systolic pressure is 59 mmHg. Patient had a cardiac catheterization done during stay which showed coronary artery disease which remains well revascularized following emergency PCI with stenting of the ostial segment of the LAD 3 months ago. Cardiology will talk to the patient about LifeVest prior to discharge. Entresto, Imdur, spironolactone, Toprol XL per Cardiology recommendations 2000 cc fluid restriction, 2 G sodium diet F/u with Cardiology and PCP after discharge (2) Bradycardia: Code(s): R00.1 - Bradycardia, unspecified Status: Acute Assessment and Plan: Episode of bradycardia; appears to have resolved. Although it appears that the pulse was manually checked and HR was actually in 130s. Cardiology following; appreciate recommendations (3) Leukocytosis: Code(s): D72.829 - Elevated white blood cell count, unspecified Status: Acute Assessment and Plan: On arrival the patient's white blood cell count was 9.3k. Today, it is 10.1k, improved from yesterday. The pleural fluid is felt to not be infectious and no antibiotics were initiated during stay. Leukocytosis less likely due to a pneumonia. CTA was considered during stay, initially to rule out PE or PNA, however, clinically, patient appears to have improved and PE and pneumonia felt to be less likely. Instructed patient to follow up with his PCP, particularly if pain is persistent or worsens (4) Pleural effusion on right: Code(s): J90 - Pleural effusion, not elsewhere classified Status: Acute Assessment and Plan: Recurrent right-sided pleural effusion, status post thoracentesis on 06/23/2019 and 07/01/2019. It is felt this is the likely etiology for his right posterior/flank pain; pleuritic in nature. CTA chest was considered to rule out PE, although it is ultimately felt this is unlikely; satting 97% on RA, regular HR. Given his history, this is likely related to congestive heart failure; Fluid results show yellow, hazy appearance with 2300 PRBCs, 7000 nucleated cells, neutrophils elevated at 70%; pH is normal. Dr. Jane Pulmonology was consulted who feels it is associated with CHF exacerbation and he is low risk for infection/malignant cause. (5) Pleuritic chest pain: Code(s): R07.81 - Pleurodynia Status: Acute Assessment and Plan: On arrival he was having Right lateral/posterior sided pleuritic chest pain related to pleural effusion. Right posterior/flank pain has improved today. Chest x-ray showed moderate size right pleural effusion, stable. Stable right basilar airspace opacity, consistent w
--- NOTE | 2019-07-22 08:51 | P.PNIM_ITS ---
Progress Note: A&P Assessment and Plan (1) Congestive heart failure: Qualifiers: Heart failure type: systolic Heart failure chronicity: acute on chronic Qualified Code(s): I50.23 - Acute on chronic systolic (congestive) heart failure Code(s): I50.9 - Heart failure, unspecified Status: Acute Assessment and Plan: Acute on chronic systolic and diastolic CHF. - Echocardiogram from 03/21/19 showed his EF was 40-45%, mildly enlarged LV, diastolic dysfunction grade 1, anterior septal wall, apical septal, apical lateral wall, apical cap, mid anterior wall and mid anterior lateral wall hypokinetic. Mild pulmonic regurg. - Echocardiogram this hospital stay shows he has worsening systolic function with EF of 15-20%. Left ventricular chamber dimension is severely enlarged. The entire apex is akinetic, remaining wall segments are hypokinetic. The left ventricular diastolic function is grade IV diastolic dysfunction. E/e' 16 is elevated. Left atrial chamber dimension is severely enlarged. There is moderate aortic valve sclerosis. Moderate pulmonary hypertension, estimated pulmonary arterial systolic pressure is 59 mmHg. * Patient had a cardiac catheterization done during stay which showed coronary artery disease which remains well revascularized following emergency PCI with stenting of the ostial segment of the LAD 3 months ago. * Cardiology will talk to the patient about LifeVest prior to discharge. * Entresto, Imdur, spironolactone, Toprol XL per Cardiology recommendations * 2000 cc fluid restriction, 2 G sodium diet * F/u with Cardiology and PCP after discharge (2) Bradycardia: Code(s): R00.1 - Bradycardia, unspecified Status: Acute Assessment and Plan: Episode of bradycardia; appears to have resolved. Although it appears that the pulse was manually checked and HR was actually in 130s. * Cardiology following; appreciate recommendations (3) Leukocytosis: Code(s): D72.829 - Elevated white blood cell count, unspecified Status: Acute Assessment and Plan: On arrival the patient's white blood cell count was 9.3k. Today, it is 10.1k, improved from yesterday. The pleural fluid is felt to not be infectious and no antibiotics were initiated during stay. Leukocytosis less likely due to a pneumonia. CTA was considered during stay, initially to rule out PE or PNA, however, clinically, patient appears to have improved and PE and pneumonia felt to be less likely. * Instructed patient to follow up with his PCP, particularly if pain is persistent or worsens (4) Pleural effusion on right: Code(s): J90 - Pleural effusion, not elsewhere classified Status: Acute Assessment and Plan: Recurrent right-sided pleural effusion, status post thoracentesis on 06/23/2019 and 07/01/2019. It is felt this is the likely etiology for his right posterior/flank pain; pleuritic in nature. CTA chest was considered to rule out PE, although it is ultimately felt this is unlikely; satting 97% on RA, regular HR. Given his history, this is likely related to congestive heart failure; Fluid results show yellow, hazy appearance with 2300 PRBCs, 7000 nucleated cell s, neutrophils elevated at 70%; pH is normal. * Dr. Jane Pulmonology was consulted who feels it is associated with CHF exacerbation and he is low risk for infection/malignant cause. (5) Pleuritic chest pain: Code(s): R07.81 - Pleurodynia
== END 2019-07-06 19:45 | disposition home or self-care (01) | DRG 287 ==
LOC: ANHED 16:13 → ANH2MED 17:15
PROVIDERS: Internal Medicine Cardiovascular Disease; Physician Assistant; Specialist; Admitting Provider Family Medicine; Emergency Provider Emergency Medicine; PCP Family Medicine; Visit Provider Physician Assistant
PROC: 4A023N7 Measurement of Cardiac Sampling and Pressure, Left Heart, Percutaneous Approach (ICD-10-PCS; CPT 93452; principal; 2019-07-05 11:30)
DX: I11.0 Hypertensive heart disease with heart failure (principal); J91.8 Pleural effusion in other conditions classified elsewhere; I50.23 Acute on chronic systolic (congestive) heart failure; I25.10 Atherosclerotic heart disease of native coronary artery without angina pectoris; I25.5 Ischemic cardiomyopathy; D64.9 Anemia, unspecified; G47.33 Obstructive sleep apnea (adult) (pediatric); E78.5 Hyperlipidemia, unspecified; F41.9 Anxiety disorder, unspecified; R00.1 Bradycardia, unspecified; D72.829 Elevated white blood cell count, unspecified; I25.2 Old myocardial infarction; Z79.82 Long term (current) use of aspirin; Z79.899 Other long term (current) drug therapy; Z88.2 Allergy status to sulfonamides; Z95.5 Presence of coronary angioplasty implant and graft
CPT/HCPCS: 32555; 36415; 36600; 71045; 71046; 71275; 80048; 80061; 80076; 81001; 82042; 82375; 82728; 82805; 82945; 83050; 83605; 83615; 83735; 83880; 83986; 84157; 84478; 84484; 85025; 85027; 85610; 85730; 86140; 87040; 87070; 87075; 87086; 87205; 88104; 88108; 88305; 89051; 93005; 93306; 93458; 96365; 96367; 96375; 99285; A9270; C1887; C1894; J0456; J0696; J1644; J1940; J2250; J2270; J2405; J3010; J7040; Q9957; Q9967

== ENCOUNTER 2019-07-20 14:34 | Outpatient (CLI) | payer BC, SELFPAY ==
--- NOTE | ~2019-07-20 | XR_ITS ---
XR chest 2V 07/20/2019 14:51 Indication: Dry cough. Pleural effusion. CHF. Procedure: 2 view chest Comparison: Comparison to multiple prior studies sequentially, with oldest reviewed study dated 07/01. Findings: Borderline heart size. There has been significant improvement of right basilar airspace dis ease. Small residual right pleural effusion. Heart left lung clear. No edema or pneumothorax. Impression: 1: Resolving right basilar airspace disease, likely improving pneumonia. 2: Small right pleural effusion. Reviewed, dictated and finalized at location A. Impression: 1: Resolving right basilar airspace disease, likely improving pneumonia. 2: Small right pleural effusion.
== END 2019-07-20 14:35 | disposition home or self-care (01) ==
PROVIDERS: PCP Family Medicine; Visit Provider Nurse Practitioner Adult Health
DX: R05 Cough (principal); J90 Pleural effusion, not elsewhere classified; R91.8 Other nonspecific abnormal finding of lung field
CPT/HCPCS: 71046

== ENCOUNTER 2019-11-18 16:30 | Outpatient (RCR) | payer BC, SELFPAY | END 2019-11-18 23:59 | disposition home or self-care (01) | LOC: ANHCPREHAB 16:30 | PROVIDERS: PCP Family Medicine; Visit Provider Nurse Practitioner Adult Health | DX: J90 Pleural effusion, not elsewhere classified (principal) | CPT/HCPCS: 93798 ==

== ENCOUNTER → 2020-04-25 06:59 | Outpatient (CLI) | payer BC, SELFPAY ==
[2020-04-25 22:47] LABS: SARS-CoV-2 RNA PCR Negative
== END ==
PROVIDERS: PCP Family Medicine; Visit Provider Family Medicine
DX: R68.89 Other general symptoms and signs (principal); Z20.822 Contact with and (suspected) exposure to COVID-19
CPT/HCPCS: C9803; U0003; U0005

== ENCOUNTER 2020-05-02 13:53 | Outpatient (CLI) | payer BC, SELFPAY | END 2020-05-02 13:54 | disposition home or self-care (01) | LOC: ANHCOVIDVC 13:53 | PROVIDERS: PCP Family Medicine | DX: Z23 Encounter for immunization (principal) | CPT/HCPCS: 0001A; 91300 ==

== ENCOUNTER 2020-05-23 14:06 | Outpatient (CLI) | payer BC, SELFPAY | END 2020-05-23 14:07 | disposition home or self-care (01) | LOC: ANHCOVIDVC 14:06 | PROVIDERS: PCP Family Medicine | DX: Z23 Encounter for immunization (principal) | CPT/HCPCS: 0002A; 91300 ==

== ENCOUNTER 2020-08-31 11:58 | Outpatient (CLI) | payer BC, SELFPAY ==
--- NOTE | ~2020-08-31 | XR_ITS ---
EXAMINATION:XR cervical spine 4-5V DATE: 08/31/2020 13:13 INDICATION: Neck pain TECHNIQUE: AP, lateral, lateral swimmers and odontoid views of the cervical spine are provided. COMPARISON: 11/03/2018 FINDINGS: Straightening of the normal cervical lordosis. Unchanged 1-2 mm retrolisthesis C5 with respect to bot h C4 and C6. Vertebral body heights are normal. Moderate disc height loss at C5-C6 and mild disc heig ht loss at C6-C7. Odontoid is intact. Normal atlantoaxial interval. Multilevel mild cervical uncover tebral osteoarthritis and mild to moderate cervical facet osteoarthritis. Prevertebral soft tissues a re normal. Cerclage wires at the ankles of the mandibles on both the left and right. There is a left- sided single lead cardiac pacemaker with lead extending caudally along the superior vena cava and bey ond the inferior margin of the [id number]. IMPRESSION: 1. Moderate cervical spondylosis without significant interval change. Reviewed, dictated and finalized at location A.
--- NOTE | ~2020-08-31 | XR_ITS ---
XR chest 2V DATE: 08/31/2020 13:13 INDICATION: Shortness of breath, cough TECHNIQUE: PA and lateral views COMPARISON: 07/20/2019 PA and lateral chest FINDINGS: Interval placement of left cardiac pacemaker with lead overlying right ventricular apex. No rmal heart size. Probable coronary stent. Mild aortic tortuosity. No hilar or mediastinal enlargement. No pulmonary infiltrate or consolidation, pleural effusion or pulmonary vascular congestion or pneumo thorax is detected. Diffuse osteopenia. IMPRESSION: Left cardiac pacemaker with lead in right ventricle No active cardiopulmonary disease Reviewed, dictated and finalized at location A.
[2020-08-31 12:25] LABS: Hemoglobin 13.1 g/dL (14.0-18.0); Mean Corpuscular HGB Conc 31.2 g/dl (32-36); Mean Corpuscular Volume 86.6 fl (80-100); Mean Platelet Volume 10.1 fl (7.4-10.4); Platelet Count Result 187 k/mm3 (150-375); Red Blood Count 4.85 M/mm3 (4.6-6.20); Red Cell Distribution Width 13.8 % (11.5-14.5); White Blood Count 7.8 K/mm3 (4.5-10.0)
--- NOTE | 2020-08-31 12:34 | ECG_ITS ---
Measurements Intervals [place] Rate: 70 P: 33 NC: 194 QRS: -32 QRSD: 108 T: 26 QT: 395 QTc: 426 Interpretive Statements SINUS RHYTHM VENTRICULAR PREMATURE COMPLEX LEFT AXIS DEVIATION LOW QRS VOLTAGE IN PRECORDIAL LEADS CANNOT RULE OUT SEPTAL INFARCT, AGE INDETERMINATE BORDERLINE ST-T WAVE ABNORMALITY- ANTEROLAT/INF LEADS ABNORMAL ECG Electronically Signed On 08-31-2020 13:01:44 CDT by Regulo Rios D.O.
[2020-08-31 12:45] LABS: Alanine Aminotransferase 37 U/L (4-50); Albumin Level 4.2 g/dL (3.5-5.1); Alkaline Phosphatase 83 U/L (38-126); Anion Gap 9 mmol/L (8-16); Aspartate Amino Transferase 29 U/L (17-59); Bilirubin,Total 0.8 mg/dL (0.2-1.3); Blood Urea Nitrogen 19 mg/dL (9-20); Calcium 9.3 mg/dL (8.4-10.2); Carbon Dioxide 26 mmol/L (22-30); Chloride 103 mmol/L (98-107); Estimated Glomerular Filt Rate > 60; Glucose 100 mg/dL (75-110); NT Pro B Type Natriuretic Pept 326 pg/mL (5-100); Potassium 4.1 mmol/L (3.4-5.0); Sodium 138 mmol/L (137-145)
== END 2020-08-31 11:59 | disposition home or self-care (01) ==
PROVIDERS: PCP Family Medicine; Visit Provider Family Medicine
DX: R53.83 Other fatigue (principal); I50.23 Acute on chronic systolic (congestive) heart failure; R06.00 Dyspnea, unspecified; R05 Cough; M47.892 Other spondylosis, cervical region; Z95.0 Presence of cardiac pacemaker; R94.31 Abnormal electrocardiogram [ECG] [EKG]
CPT/HCPCS: 36415; 71046; 72050; 80053; 83880; 85027; 93005

== ENCOUNTER 2020-09-01 12:06 | Outpatient (CLI) | payer BC, SELFPAY ==
[2020-09-01 12:38] LABS: D Dimer 0.38 ug/mL (<0.48)
== END 2020-09-01 12:07 | disposition home or self-care (01) ==
PROVIDERS: PCP Family Medicine; Visit Provider Physician Assistant
DX: R06.02 Shortness of breath (principal)
CPT/HCPCS: 36415; 85380

== ENCOUNTER 2021-02-02 07:59 | Outpatient (CLI) | payer BC, OTHER, SELFPAY ==
--- NOTE | 2021-02-05 12:40 | P.PCNPFT_ITS ---
PFT Procedure Performed PFT Procedure Performed Spirometry with Pre/Post Bronchodilator Plethysmography (Lung Vol) Diffusing Cap (DLCO) Flow Vol Loop PFT Interpretation This is a pulmonary function test with pre and post-bronchodilator spirometry, plethysmography and diffusing capacity. The test was performed and results interpreted in accordance with the 2019 and 2005 ATS/ERS Task Force guidelines respectively using the Global Lung Function Initiative-2012 reference equations. Patient demonstrated good effort and cooperation. Reproducibility criteria were met. The quality of the pre bronchodilator spirometry maneuver was Grade B and post bronchodilator spirometry maneuver was Grade A. Findings: Spirometry: The contour the inspiratory expiratory flow tracing are normal. The pre bronchodilator FVC BC is 3.43 L, 81% predicted. The pre bronchodilator FEV1 is 2.54 L, 78% predicted. The FEV1: FVC ratio 74%. The post bronchodilator FVC is 3.68 L, representing a 7% increase. The post bronchodilator FEV1 is 2.82 L, representing an 11% increase. The post bronchodilator FEV1: FVC ratio 77%. Plethysmography: The total lung capacity 6.41 L, 97% predicted. The functional residual capacity is 2.67 L, 78% predicted. The residual volume is 2.65 L, 120% predicted. Diffusion capacity: The absolute diffusion capacity is 18.9, 70% predicted. The diffusing capacity corrected for alveolar volume is 4.13, 97% predicted. Impression: The spirometry is normal without evidence of an obstructive abnor mality. There is no significant improvement after inhaling a single dose of albuterol. The lung volumes are normal. The diffusing capacity is normal. There are no prior studies for comparison
== END 2021-02-02 08:00 | disposition home or self-care (01) ==
PROVIDERS: PCP Family Medicine; Visit Provider Family Medicine
DX: R06.09 Other forms of dyspnea (principal)
CPT/HCPCS: 94060; 94726; 94729

== ENCOUNTER 2021-07-09 10:42 | Outpatient (CLI) | payer OTHER, SELFPAY ==
--- NOTE | ~2021-07-09 | XR_ITS ---
XR chest 2V 07/09/2021 11:07 Indication: Cough and shortness of breath Procedure: 2 view chest Comparison: Comparison to multiple prior studies sequentially, with oldest reviewed study dated 07/02. Findings: Heart size normal. No focal air space disease, pulmonary edema, pleural effusion or suspect ed pneumothorax. Calcified granuloma left lung base. Defibrillator lead tip in the right ventricle. Impression: 1: No cardiopulmonary disease. Reviewed, dictated and finalized at location A. Impression: 1: No cardiopulmonary disease.
== END 2021-07-09 10:43 | disposition home or self-care (01) ==
PROVIDERS: PCP Family Medicine; Visit Provider Physician Assistant Medical
DX: R05.9 Cough, unspecified (principal); R07.9 Chest pain, unspecified
CPT/HCPCS: 71046

== ENCOUNTER 2022-01-25 15:01 | Outpatient (CLI) | payer MEDICARE, OTHER, SELFPAY ==
--- NOTE | ~2022-01-25 | US_ITS ---
US art doppler w press LE BI INDICATION: Peripheral vascular disease. TECHNIQUE: Segmental pressures and plethysmographic and Doppler waveforms of the brachial and lower e xtremity arteries were obtained. COMPARISON: None. FINDINGS: Right and left brachial artery pressures of 87 mm Hg and 86 mm Hg, respectively, are concordant (norm al difference <= 30 mmHg). The right ankle-brachial index (ISAC) is 1.34 (normal >= 0.9-1.0). The right great toe-brachial index (TBI) is 0.63 (normal >= 0.60). The left ISAC is 1.43. The left TBI is 1.01. IMPRESSION: 1. Normal bilateral ankle and toe brachial indices. 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
== END 2022-01-25 15:02 | disposition home or self-care (01) ==
LOC: ANHIMG 15:09
PROVIDERS: PCP Family Medicine
DX: I73.9 Peripheral vascular disease, unspecified (principal)
CPT/HCPCS: 93923

== ENCOUNTER 2022-04-28 16:27 | Inpatient (IN) | payer MEDICARE, OTHER, SELFPAY ==
--- NOTE | ~2022-04-28 | XR_ITS ---
EXAMINATION: XR abdomen/kub 1V DATE: 05/06/2022 09:02 INDICATION: Pseudoobstruction TECHNIQUE: A supine view of the abdomen on 2 radiographs was obtained. COMPARISON: 05/05/2022 FINDINGS: Multiple calcified renal stones project over both kidneys as well as in the mid to distal left ureter along side a left internal ureteral stent. The stent appears appropriately positioned with loops for med in the left renal pelvis and in the bladder. There are multiple scattered loops of gas-filled but not frankly dilated loops of large and small bowel scattered throughout the abdomen. Prostatic calci fications. Calcified nodules at the left lung base along with calcified left hilar lymph nodes consis tent with old granulomatous disease. Blunting at the left costophrenic angle suggestive of a small le ft pleural effusion. Heart size is normal. Cardiac pacemaker/defibrillator lead tip in the right vent ricle. IMPRESSION: 1. Nonspecific nonobstructive bowel gas pattern with multiple gas-filled but not frankly dilated loop s of bowel. 2. Bilateral nephrolithiasis including multiple stones in the left ureter alongside a left internal u reteral stent. 3. Small left pleural effusion. Reviewed, dictated and finalized at location A. IMPRESSION: 1. Nonspecific nonobstructive bowel gas pattern with multiple gas-filled but no t frankly dilated loops of bowel. 2. Bilateral nephrolithiasis including multiple stones in the left ureter along side a left internal ureteral stent. 3. Small left pleural effusion.
--- NOTE | ~2022-04-28 | XR_ITS ---
XR abdomen/kub 1V 05/03/2022 14:06 Indication: Abdominal distention and bloating Procedure: KUB Comparison: Comparison to multiple prior studies sequentially, with oldest reviewed study dated 03/16. Findings: Diffusely dilated small bowel and colon, consistent with ileus versus distal colonic obstru ction. There is a left internal ureteral stent in expected position. There are multiple bilateral princess al stones. There is a stone in the left mid ureter at the L5 level measuring 3-4 mm. Impression: 1: Diffusely dilated small bowel and colon which may represent ileus or distal colonic obstruction. 2: Left ureteral and bilateral nephrolithiasis. Left internal ureteral stent in expected position. Reviewed, dictated and finalized at location A. Impression: 1: Diffusely dilated small bowel and colon which may represent ileus or distal colonic obstruction. 2: Left ureteral and bilateral nephrolithiasis. Left internal ureteral stent i n expected position.
--- NOTE | ~2022-04-28 | XR_ITS ---
EXAM: XR abdomen/kub 1V DATE: 04/29/2022 16:27 HISTORY: Abd distension/pain . COMPARISON: X-ray stent KUB-surgery same date, x-ray abdomen/KUB 04/28/2022, CT abdomen and pelvis 01/2023. FINDINGS: Bibasilar atelectasis/consolidation. Scattered air-filled loops of large and small bowel w ith mild small bowel dilation. Known bilateral renal calcifications not well seen. The proximal end o f a left ureteral stent is poorly visualized. Moderate left hydronephrosis persists. Known left urete ral calcifications poorly visualized, and a suspected 7 mm calcification remains at the level of L5. IMPRESSION: Small bowel ileus, early/partial obstruction not excluded. Partially visualized left uret eral stent. Left hydronephrosis. Possible mid left ureteral calcification/s. Reviewed, dictated and finalized at location K. IMPRESSION: Small bowel ileus, early/partial obstruction not excluded. Partiall y visualized left ureteral stent. Left hydronephrosis. Possible mid left ureter al calcification/s.
--- NOTE | ~2022-04-28 | XR_ITS ---
XR abdomen/kub 1V 05/04/2022 11:19 Indication: Severe abdominal pain and distention Procedure: KUB Comparison: Comparison to multiple prior studies sequentially, with oldest reviewed study dated 05/03. Findings: Persistently dilated small bowel and colon, most likely ileus. There is a left internal ure teral stent. There is residual contrast in the colon. Impression: 1: Stable diffusely dilated gas-filled bowel, likely ileus. Reviewed, dictated and finalized at location A. Impression: 1: Stable diffusely dilated gas-filled bowel, likely ileus.
--- NOTE | ~2022-04-28 | XR_ITS ---
EXAMINATION: XR abdomen/kub 1V DATE: 05/01/2022 10:05 INDICATION: Adynamic ileus. TECHNIQUE: A supine view of the abdomen on 3 radiographs was obtained. COMPARISON: CT abdomen and pelvis 04/28/2022 FINDINGS: There is a left internal ureteral stent in expected position. There are multiple stones in the left ureter measuring up to 11 x 7 mm. There are multiple stones in each kidney. There is gaseous distention of the colon. There are dilated loops of small bowel. There is a pacer wire in right vent ricle. IMPRESSION: 1. Stones in the kidneys and left ureter with left internal ureteral stent in expected position. 2. Dilated bowel, likely adynamic ileus. Reviewed, dictated and finalized at location A. IMPRESSION: 1. Stones in the kidneys and left ureter with left internal ureteral stent in e xpected position. 2. Dilated bowel, likely adynamic ileus.
--- NOTE | ~2022-04-28 | XR_ITS ---
XR abdomen NG/feed tube insert INDICATION: Evaluate NG tube position. TECHNIQUE: Limited KUB perform for evaluating NG tube . COMPARISON: CT dated 05/02/2022 FINDINGS: NG tube coiled in the midesophagus. Dilated bowel throughout the abdomen, most likely ileus . Left internal ureteral stent partially visualized. Left basilar atelectasis. Visualized bowel gas p attern is unremarkable. IMPRESSION: 1: NG tube coiled in the midesophagus. Recommend repositioning. Reviewed, dictated and finalized at location A.
--- NOTE | ~2022-04-28 | XR_ITS ---
EXAMINATION: XR stent kub - surgery DATE: 04/29/2022 11:34 INDICATION: Left ureteral stone with hydronephrosis. TECHNIQUE: 4 fluoroscopic images of the abdomen and pelvis were obtained during procedure performed sariah Hammond. Radiologist was not present for the imaging or procedure. The amount of fluoroscopy ti me used during this procedure was 0.6 minutes. COMPARISON: CT dated 04/28/2022 FINDINGS: There is contrast within the left renal collecting system with moderate left hydroureteronephrosis. S everal more lucent filling defects are seen in the mid ureter corresponding to the renal stone seen o n prior CT. Subsequent image demonstrates a wire advanced into the left renal collecting system. IMPRESSION: 1. Moderate left hydroureteronephrosis with multiple stones in the mid left ureter. See procedure not e for further detail. Reviewed, dictated and finalized at location B. IMPRESSION: 1. Moderate left hydroureteronephrosis with multiple stones in the mid left ure ter. See procedure note for further detail.
--- NOTE | ~2022-04-28 | US_ITS ---
EXAMINATION: US renal BI DATE: 04/30/2022 15:12 INDICATION: Acute kidney injury. TECHNIQUE: Multiple ultrasound grayscale images of the kidneys were obtained. COMPARISON: CT abdomen and pelvis 04/28/2022 FINDINGS: The right kidney measures 12.0 x 5.6 x 4.8 cm. The left kidney measures 12.2 x 7.1 x 6.3 cm. The kidn eys demonstrate normal parenchymal echogenicity. There are stones in both kidneys. There is moderate left hydronephrosis. The bladder is normal. IMPRESSION: 1. Moderate left hydronephrosis. 2. Bilateral kidney stones. Reviewed, dictated and finalized at location A.
--- NOTE | ~2022-04-28 | XR_ITS ---
XR abdomen/kub 1V 05/05/2022 06:48 Indication: Colonic pseudoobstruction Procedure: KUB Comparison: Comparison to multiple prior studies sequentially, with oldest reviewed study dated 05/03. Findings: There is improving gaseous distention of the small bowel and colon. There is a left interna l ureteral stent. Small left pleural effusion. No acute osseous abnormality. Impression: 1: Improving gaseous distention of the small bowel and colon, likely resolving ileus. 2: Small left pleural effusion. Reviewed, dictated and finalized at location A. Impression: 1: Improving gaseous distention of the small bowel and colon, likely resolving ileus. 2: Small left pleural effusion.
--- NOTE | ~2022-04-28 | XR_ITS ---
Supine views of the abdomen Clinical history: Kidney stone, abdominal pain COMPARISON: 03/16/2019 Findings: Bowel gas pattern is nonspecific. No evidence for obstruction or free air. Multiple stones noted in the mid left ureter, as seen on CAT scan earlier today. Bilateral renal stones are also pres ent. There is excreted contrast within the right renal collecting system and urinary bladder. Osseous structures are intact. Impression: Multiple stones at the mid left ureter, as seen on earlier CT scan. Additional bilateral nephrolithiasis probably present. Excreted contrast in right renal collecting system and urinary bladder. Reviewed, dictated and finalized at location . Impression: Multiple stones at the mid left ureter, as seen on earlier CT scan. Additional bilateral nephrolithiasis probably present. Excreted contrast in right renal collecting system and urinary bladder.
--- NOTE | ~2022-04-28 | XR_ITS ---
EXAMINATION: XR enema water soluble DATE: 05/03/2022 16:49 INDICATION: Distal colonic obstruction. TECHNIQUE: A flavor tank tender radiograph was obtained. A catheter was inserted into the patient's rectum. Contra st was infused by gravity. Fluoroscopic spot images and conventional radiographs were obtained. Fluor oscopy exposure time was 0.2 minutes. The total number of images was 23. COMPARISON: CT abdomen and pelvis 05/02/2022 FINDINGS: There is gaseous distention of small and large bowel. There is no stricture. There are dive rticula of the sigmoid colon. There is a left internal ureteral stent in expected position. There are multiple stones in left ureter and in the kidneys. IMPRESSION: 1. Dilated small and large bowel, consistent with adynamic ileus. Reviewed, dictated and finalized at location A.
--- NOTE | ~2022-04-28 | CT_ITS ---
CT of the Abdomen and Pelvis: Indication: Abdominal pain Technique: 2.5 mm axial scans were obtained through the abdomen and pelvis following intravenous adm inistration of 100 cc of Omnipaque 350. Dose reduction technique was used on this scan by utilizing a utomated exposure control and iterative reconstruction technique. The dose-length product (DLP) was 1 441.84 mGy-cm. COMPARISON: 06/21/2019 Findings: Scans through the lung bases is a probable left basilar atelectasis or scarring. There are multiple stones in the mid left ureter, largest probably measuring approximately 9 mm in di ameter. There is mild left hydroureteronephrosis leading up to the stones. Multiple additional bilate ral nonobstructing stones are present in the bilateral renal collecting systems. No right ureteral st one or right hydronephrosis. The liver, spleen, pancreas, and adrenal glands are within normal limits. Small calcified gallstones are noted. No evidence of aortic aneurysm. No lymphadenopathy. No bowel obstruction or bowel wall thickening. There is no evidence to suggest acute appendicitis. Images through the pelvis were performed. Urinary bladder unremarkable. Prostate gland and seminal ve sicles are unremarkable. No ascites. Impression: Multiple mid left ureteral stones, largest probably measuring 9 mm in diameter, with mild left hydrou reteronephrosis up to this level. Multiple additional bilateral nonobstructing renal stones. Cholelithiasis. Reviewed, dictated and finalized at [facility]. Impression: Multiple mid left ureteral stones, largest probably measuring 9 mm in diameter, with mild left hydroureteronephrosis up to this level. Multiple additional bilateral nonobstructing renal stones. Cholelithiasis.
--- NOTE | ~2022-04-28 | XR_ITS ---
EXAMINATION: XR stent kub - surgery DATE: 05/02/2022 15:11 INDICATION: Left-sided ureteral stent exchange TECHNIQUE: 2 fluoroscopic images of the abdomen and pelvis were obtained during procedure performed sariah Durán. Radiologist was not present for the imaging or procedure. The amount of fluoroscopy bruna e used during this procedure was 1.1 minutes. COMPARISON: CT dated 05/02/2022 FINDINGS: Left internal ureteral stent with formed loop projecting over the expected locations of the left donna l pelvis and bladder. Large amount of gas scattered throughout the colon. IMPRESSION: 1. Left internal ureteral stent in expected position. See procedure note for further detail. Reviewed, dictated and finalized at location L. IMPRESSION: 1. Left internal ureteral stent in expected position. See procedure note for fu rther detail.
--- NOTE | ~2022-04-28 | CT_ITS ---
EXAMINATION: CT abdomen pelvis wo con DATE: 05/02/2022 10:19 INDICATION: Abdominal pain. TECHNIQUE: Computed tomography (CT) of the abdomen and pelvis was performed without intravenous contr ast. Automated exposure control and iterative reconstruction technique were employed. The dose-length product was 1502.71 mGy-cm. COMPARISON: CT abdomen and pelvis 04/28/2022 FINDINGS: The visualized portions of the lung bases demonstrate mild atelectasis. A calcified left noelle ng nodule is consistent with old granulomatous disease. There are small pleural effusions. The heart size is normal. There is a large old infarct in left and vertical the heart. There is left atrial and left ventricular enlargement of the heart. There is a pacer wire in right ventricle. No pericardial effusion. There is bilateral gynecomastia. The liver is normal. There are gallstones in the gallbladd er, which is normal in size. Calcifications in the spleen are consistent with old granulomatous disea se. The pancreas and adrenal glands are normal. There are greater than 10 stones in right kidney claribel uring up to 12 mm. There are cysts in left kidney measuring up to 17 mm. There are greater than 10 st ones in left kidney measuring up to 8 mm. There is mild left hydronephrosis and hydroureter. There ar e 5 stones in proximal left ureter measuring up to 7 mm. The left internal ureteral stent is coiled i n the left ureter distal to the stones. The other end is in expected position in the bladder. There i s a 4 mm stone in the bladder. There is gaseous distention of the transverse colon. There are changes of appendectomy. There is diverticulosis of the colon without evidence of diverticulitis. There are no pathologically enlarged lymph nodes. There is no free intraperitoneal fluid. There is severe lowe r lumbar spondylosis. IMPRESSION: 1. Left internal ureteral stent in abnormal position with proximal end coiled in the ureter at the le halima of the sacrum and distal to the stones. 2. Stones in the kidneys and left ureter with mild left hydronephrosis and proximal left hydroureter. 3. Small bladder stone. 4. Small pleural effusions. 5. Gaseous distention of the transverse colon, likely adynamic ileus. Reviewed, dictated and finalized at location A. IMPRESSION: 1. Left internal ureteral stent in abnormal position with proximal end coiled i n the ureter at the level of the sacrum and distal to the stones. 2. Stones in the kidneys and left ureter with mild left hydronephrosis and prox imal left hydroureter. 3. Small bladder stone. 4. Small pleural effusions. 5. Gaseous distention of the transverse colon, likely adynamic ileus.
[2022-04-28 16:42] VITALS: BP 127/78; PULSE 81; RESP 20; TEMP 36.5; O2SAT 100
--- NOTE | 2022-04-28 17:08 | PC.NURSE ---
multiple attempts at blood draw without success.
[2022-04-28 17:56] VITALS: BP 124/58; PULSE 72; RESP 16; TEMP 36.9; O2SAT 100
[2022-04-28 19:34] LABS: Basophils Absolute Auto 0.1 K/mm3 (0.0-0.1); Basophils Percent Auto 0.4 % (0.2-1.2); Eosinophils Absolute Auto 0.1 K/mm3 (0-0.3); Eosinophils Percent Auto 0.9 % (0-4.4); Hematocrit 48.1 % (42.0-52.0); Immature Granulocyte Absolute 0.06 K/mm3 (0.00-0.031); Immature Granulocyte Percent A 0.4 % (0-0.5); Lymphocytes Absolute Auto 0.98 K/mm3 (0.9-3.2); Lymphocytes Percent Auto 6.5 % (18.3-44.2); Mean Corpuscular HGB Conc 31.2 g/dl (32-36); Mean Corpuscular Hemoglobin 27.5 pg (26-34); Mean Corpuscular Volume 88.3 fl (80-100); Mean Platelet Volume 10.1 fl (7.4-10.4); Monocytes Absolute Auto 0.8 K/mm3 (0.1-0.6); Monocytes Percent Auto 5.6 % (2.6-8.5); Neutrophils Absolute Auto 13.1 K/mm3 (1.3-6.7); Neutrophils Percent Auto 86.2 % (45.5-73.1); Platelet Count Result 191 k/mm3 (150-375); Red Blood Count 5.45 M/mm3 (4.6-6.20); Red Cell Distribution Width 14.4 % (11.5-14.5); White Blood Count 15.1 K/mm3 (4.5-10.0)
[2022-04-28] MEDS: SODIUM CHLORIDE 0.9% IV 1,000 ML 999 ML IV CONT (19:34)
[2022-04-28 19:46] VITALS: BP 105/61; PULSE 95; RESP 20
[2022-04-28 19:47] VITALS: PULSE 94; RESP 20
[2022-04-28 19:47] LABS: Alanine Aminotransferase 31 U/L (6-50); Albumin Level 4.4 g/dL (3.5-5.1); Alkaline Phosphatase 92 U/L (38-126); Anion Gap 9 mmol/L (8-16); Aspartate Amino Transferase 28 U/L (17-59); Bilirubin,Total 0.9 mg/dL (0.2-1.3); Blood Urea Nitrogen 27 mg/dL (9-20); Calcium 9.7 mg/dL (8.4-10.2); Carbon Dioxide 23 mmol/L (22-30); Chloride 103 mmol/L (98-107); Estimated CRCL calculation 78 ml/min; Estimated Glomerular Filt Rate > 60; Glucose 143 mg/dL (65-110); Lactic Acid Reflex 1.6 mmol/L (0.7-2.0); Lipase 97 U/L (23-300); Potassium 4.7 mmol/L (3.4-5.0); Sodium 135 mmol/L (137-145)
[2022-04-28 20:58] LABS: Appearance Urine Clear (Clear); Bacteria Urine None Seen /hpf; Bilirubin Urine Negative (Negative); Blood Urine 1+ (Negative); Color Urine Yellow (Yellow); Glucose Urine UA Negative (Negative); Ketones Urine Trace mg/dL (Negative); Leukocyte Esterase Ur Trace LEU/UL (Negative); Nitrate Urine Negative (Negative); Non Pathogenic Casts 0-2; Protein Urine Trace mg/dL (Negative); RBC Urine 21-50 /hpf (0-2); Specific Grav Ur 1.031 (1.001-1.035); Squamous Epithelial Cell Urine None seen /hpf (Few); Urobilinogen Urine 0.2 mg/dL (<2.0); WBC Urine 0-5 /hpf; pH Urine 6.5 (5.0-9.0)
[2022-04-28 21:05] LABS: Add Urine Microscopic? YES
[2022-04-28] MEDS: MORPHINE SULFATE (*CRX) 4 MG/ML INJ 2 MG IV PUSH (21:05)
--- NOTE | 2022-04-28 21:16 | ED.ABDPAIN ---
HPI - Abdominal Pain General Chief Complaint: Abdominal Pain Stated Complaint: abd pain radiates to back, bloated, UTI Time Seen by Provider: 04/28/22 18:39 Source: RN notes reviewed History of Present Illness HPI narrative: Patient presents emergency department from home via EMS for abdominal pain. Patient states has been having abdominal pain for the past several weeks that across the upper abdomen and goes in the bilateral back states the pain became more severe this evening and was associated with nausea and vomiting patient was given Zofran by EMS in route. Patient states he was seen by his PCP on Friday and a CT scan was ordered but he has not had it yet he denies any fevers or chills he denies any diarrhea. States he was having some dysuria and took a home UTI test yesterday is positive and he did take a Cipro that he had at his house today. States he has not taken any pain medication at Related Data Home Medications Medication Instructions Recorded Confirmed acetaminophen 500 mg tablet 500 mg PO Q6H PRN Pain 05/21/19 04/26/22 (Tylenol Extra Strength) ascorbic acid (vitamin C) 500 mg 500 mg PO DIRECTED 05/21/19 04/26/22 tablet ergocalciferol (vitamin D2) 1,250 50,000 unit PO WEEKLY 05/21/19 04/26/22 mcg (50,000 unit) capsule fexofenadine 180 mg tablet 180 mg PO DAILY 05/21/19 04/26/22 (Rosemarie Allergy) coenzyme Q10 75 mg capsule (Ultra 75 mg PO DAILY 03/24/20 04/26/22 CoQ10) sacubitril 49 mg-valsartan 51 mg 1 tablet PO BID 10/30/21 04/26/22 tablet (Entresto) warfarin 2 mg tablet 2 mg PO DAILY 10/30/21 04/26/22 warfarin 3 mg tablet 3 mg PO .QMTh 10/30/21 04/26/22 Allergies Allergy/AdvReac Type Severity Reaction Status Date / Time Sulfa (Sulfonamide Allergy Unknown Unknown Verified 04/26/22 09:00 Antibiotics) lisinopril AdvReac Intermediate Cough Verified 04/26/22 09:00 Review of Systems Review of Systems: Gen.: Denies fevers or chills Eyes: Denies eye pain or visual valle ENT: Denies congestion Respiratory: Denies shortness of breath or cough CV: Denies chest pain or palpitations GI: See HPI reports pain with urination Musculoskeletal: Denies back pain or muscle pain Neuro: Denies numbness, tingling, weakness or focal weakness Skin: Denies rash Except as documented, all other systems reviewed and negative [facility] Past Medical History Medical History Benign prostatic hyperplasia Calculus of kidney Chronic anemia Chronic back pain Congestive heart failure March 2019 showed mildly enlarged left ventricle, reduced left ventricular systolic function with ejection fraction estimated at 40 to 45%, moderately increased left ventricular wall thickness, grade 1 diastolic dysfunction, and hypokinetic segments to include the anteroseptal wall, apical septum, apical lateral wall, apical cap, mid anterior wall, and mid anterolateral wall. Coronary artery disease Cough due to WILL inhibitor Depression Eczema Essential hypertension Gallstones History of angina History of bladder infections Hyperlipidemia Ischemic cardiomyopathy Kidney stones Obesity Obstructive sleep apnea on CPAP Obstructive sleep apnea on CPAP Osteoarthritis Prediabetes ST elevation (STEMI) myocardial infarction ST elevation myocardial infarction (STEMI) of anterior wall (~03/2019) Status post drug-eluting stent to the proximal LAD. Urinary incontinence UTI (urinary tract infection) Surgical History Surgical History H/O hand surgery History of appendectomy History of coronary artery stent placement Hx of lithotripsy S/P trigger finger release Family History Family History Mother Hypertension Family history of malignant neoplasm of breast in first degree relative Family history of malignant neoplasm of ovary Father Pacemaker Social History
--- NOTE | 2022-04-28 21:39 | PM.IMHP ---
H&P: HPI History of Present Illness Date/Time: 04/28/22 21:39 Chief Complaint: Flank pain Narrative: This is a 66-year-old male with past medical history significant for coronary artery disease, hypertension, ischemic cardiomyopathy, obstructive sleep apnea on CPAP, osteoarthritis, myocardial infarction, benign prostatic hyperplasia, chronic back pain, obesity. Patient presents to the emergency room due to lower abdomen pain for 2 weeks worsened in the last 48 hours or so. Patient had nausea, vomiting, fevers, chills. Patient had been to see his primary care physician for this who ordered a CT of abdomen and pelvis. Preliminary workup was significant for CBC with leukocyte count of 15,[address] of abdomen and pelvis was reported as: Findings:? Scans through the lung bases is a probable left basilar atelectasis or scarring. There are multiple stones in the mid left ureter, largest probably measuring approximately 9 mm in diameter. There is mild left hydroureteronephrosis leading up to the stones. Multiple additional bilateral nonobstructing stones are present in the bilateral renal collecting systems. No right ureteral stone or right hydronephrosis. The liver, spleen, pancreas, and adrenal glands are within normal limits. Small calcified gallstones are noted. No evidence of aortic aneurysm.? No lymphadenopathy. No bowel obstruction or bowel wall thickening. There is no evidence to suggest acute appendicitis. Images through the pelvis were performed. Urinary bladder unremarkable. Prostate gland and seminal vesicles are unremarkable. No ascites. Impression: Multiple mid left ureteral stones, largest probably measuring 9 mm in diameter, with mild left hydroureteronephrosis up to this level. Multiple additional bilateral nonobstructing renal stones. Cholelithiasis. Review of Systems Review of Systems: Abdominal pain for 2 weeks worse in the last 2 days Constitutional: Constitutional: Reports chills, Reports fatigue, Reports malaise, Reports poor appetite and Reports weakness Eyes: Eyes: Denies change in vision ENT: Denies dysphagia and Denies odynophagia Cardiovascular: Cardiovascular: Denies chest pain, Denies leg edema and Denies lightheadedness Respiratory: Respiratory: Denies chest congestion, Denies cough, Denies excessive phlegm production and Denies pain on inspiration Gastrointestinal: Gastrointestinal: Reports abdominal pain, Denies dyspepsia, Denies heartburn, Reports nausea and Reports vomiting Genitourinary: Genitourinary: Reports flank pain Musculoskeletal: Musculoskeletal: Reports back pain Integumentary/Breasts: Skin/Breast: Denies rash Neurologic: Denies focal weakness and Denies Sensory deficit (Neuro) Psychiatric: Psychiatric: Reports no additional psychiatric complaints and Reports as per HPI Endocrine: Endocrine: Denies cold intolerance, Denies flushing, Denies heat intolerance, Denies polyphagia, Denies polydipsia and Denies palpitations Hematologic/Lymphatic: Hematologic/Lymphatic: Reports no additional hematologic/lymphatic complaints and Reports as per HPI Allergic/Immunologic: Allergic/Immunologic: Reports no additional allergic/immunologic complaints and Reports as per HPI PMFSH Past Medical History Medical History Benign prostatic hyperplasia Calculus of kidney Chronic anemia Chronic back pain Congestive heart failure March 2019 showed mildly enlarged left ventricle, reduced left ventricular systolic function with ejection fraction estimated at 40 to 45%, moderately increased left ventricular wall thickness, grade 1 diastolic dysfunction, and hypokinetic segments to include the anteroseptal wall, apical septum, apical lateral wall, apical cap, mid anterior wall, and mid anterolateral wall. Coronary artery disease Cough due to WILL inhibitor Depression Eczema Essential hypertension Gallstones History of angina History of bladder inf
[2022-04-28 22:35] VITALS: BP 105/69; PULSE 99; RESP 20; TEMP 36.6; O2SAT 99
[2022-04-28] MEDS: SODIUM CHLORIDE 0.9% IV 1,000 ML 125 ML IV CONT (22:47)
[2022-04-28 22:50] VITALS: BP 115/62; PULSE 75; RESP 24; TEMP 36.7; O2SAT 98
--- NOTE | 2022-04-28 23:31 | PC.NURSE ---
This patient, Go Morrow, was admitted to Medical Room 342-01. Patient/family oriented to hospital policies and general routines including ID bracelet, bed and alarms, visiting hours, pain management, procedures, bathroom and other care routines, personal items, smoking policy, room service/diet, and visiting hours. Information on how to activate the Rapid Response Team has been discussed. Patient/Family are encouraged to report perceived risks to care and to ask questions if they do not understand what they are told or what they should do.
[2022-04-29] VITALS (10 sets, daily range): BP systolic 110–3110; BP diastolic 7–82; PULSE 71–103; RESP 12–23; TEMP 36.7; O2SAT 93–98
[2022-04-29] MEDS: MORPHINE SULFATE (*CRX) 2 MG/ML INJ IV PUSH (00:35)
[2022-04-29] MEDS: ONDANSETRON INJ 4 MG/2 ML VIAL IV PUSH ×2 (02:36→15:11)
[2022-04-29] MEDS: HYDROmorphone HCL INJ (*CRX) 1 MG/ML SYR IV PUSH ×4 (03:37→20:06)
[2022-04-29 06:31] LABS: Basophils Percent Auto 0.1 % (0.2-1.2); Eosinophils Percent Auto 0.1 % (0-4.4); Hematocrit 48.5 % (42.0-52.0); Hemoglobin 15.2 g/dL (14.0-18.0); Immature Granulocyte Absolute 0.09 K/mm3 (0.00-0.031); Immature Granulocyte Percent A 0.5 % (0-0.5); Lymphocytes Absolute Auto 0.58 K/mm3 (0.9-3.2); Lymphocytes Percent Auto 3.1 % (18.3-44.2); Mean Corpuscular HGB Conc 31.3 g/dl (32-36); Mean Corpuscular Hemoglobin 27.4 pg (26-34); Mean Corpuscular Volume 87.4 fl (80-100); Monocytes Absolute Auto 0.9 K/mm3 (0.1-0.6); Monocytes Percent Auto 4.6 % (2.6-8.5); Neutrophils Absolute Auto 17.3 K/mm3 (1.3-6.7); Neutrophils Percent Auto 91.6 % (45.5-73.1); Platelet Count Result 207 k/mm3 (150-375); Red Blood Count 5.55 M/mm3 (4.6-6.20); Red Cell Distribution Width 14.5 % (11.5-14.5); White Blood Count 18.9 K/mm3 (4.5-10.0)
[2022-04-29 06:54] LABS: Alanine Aminotransferase 30 U/L (6-50); Albumin Level 4.1 g/dL (3.5-5.1); Alkaline Phosphatase 81 U/L (38-126); Anion Gap 7 mmol/L (8-16); Aspartate Amino Transferase 27 U/L (17-59); Bilirubin,Total 0.7 mg/dL (0.2-1.3); Blood Urea Nitrogen 25 mg/dL (9-20); Calcium 8.6 mg/dL (8.4-10.2); Carbon Dioxide 23 mmol/L (22-30); Chloride 107 mmol/L (98-107); Estimated CRCL calculation 62 ml/min; Estimated Glomerular Filt Rate 51; Glucose 136 mg/dL (65-110); Sodium 137 mmol/L (137-145)
[2022-04-29] MEDS: SODIUM CHLORIDE 0.9% IV 1,000 ML 125 ML IV CONT (07:06)
[2022-04-29] MEDS: ATORVASTATIN 40 MG TABLET 80 MG PO (09:22)
[2022-04-29] MEDS: SACUBITRIL/VALSARTAN 49-51 MG TABLET 1 TABLET PO (09:23)
[2022-04-29] MEDS: FINASTERIDE 5 MG TABLET PO (09:23)
[2022-04-29] MEDS: METOPROLOL SUCCINATE EXT REL 12.5 MG TABCR 37.5 MG PO (09:24)
[2022-04-29] MEDS: ISOSORBIDE MONONITRATE 30 MG TAB.ER.24H PO (09:25)
[2022-04-29] MEDS: IPRATROPIUM NASAL SPRAY 0.06% 15 ML BOTTLE 2 SPRAY NASAL (09:26)
[2022-04-29] MEDS: DICLOFENAC SODIUM 1% 100 GM GEL (*BKC) 1 APPLIC TOPICAL ×2 (09:26→20:08)
--- NOTE | 2022-04-29 09:30 | WPDURCON ---
Assessment and Plan Assessment and plan (1) Kidney stone on left side: Code(s): N20.0 - Calculus of kidney Status: Acute Assessment and Plan: Obtain consent: Cystocopy, left ureteroscopy with possible stone extraction, left stent placement, left retrograde pyelogram, possible holmium laser. Keep NPO Plan to go to the OR with Dr. Hammond today. (2) Acute UTI: Code(s): N39.0 - Urinary tract infection, site not specified Status: Acute Assessment and Plan: Urine culture negative from 04/26/22. (3) Bilateral kidney stones: Code(s): N20.0 - Calculus of kidney Status: Acute Urology Consult Note HPI Date Seen: 04/29/22 Requesting Physician: Kerry Pappas PA-C Primary Care Provider: Sarahi Roth MD Consult Narrative Narrative: Go Morrow is a 66 year old male [facility] Past Medical History Medical History Benign prostatic hyperplasia Calculus of kidney Chronic anemia Chronic back pain Congestive heart failure March 2019 showed mildly enlarged left ventricle, reduced left ventricular systolic function with ejection fraction estimated at 40 to 45%, moderately increased left ventricular wall thickness, grade 1 diastolic dysfunction, and hypokinetic segments to include the anteroseptal wall, apical septum, apical lateral wall, apical cap, mid anterior wall, and mid anterolateral wall. Coronary artery disease Cough due to WILL inhibitor Depression Eczema Essential hypertension Gallstones History of angina History of bladder infections Hyperlipidemia Ischemic cardiomyopathy Kidney stones Obesity Obstructive sleep apnea on CPAP Obstructive sleep apnea on CPAP Osteoarthritis Prediabetes ST elevation (STEMI) myocardial infarction ST elevation myocardial infarction (STEMI) of anterior wall (~03/2019) Status post drug-eluting stent to the proximal LAD. Urinary incontinence UTI (urinary tract infection) Surgical History Surgical History H/O hand surgery History of appendectomy History of coronary artery stent placement Hx of lithotripsy S/P trigger finger release Family History Family History Mother Hypertension Family history of malignant neoplasm of breast in first degree relative Family history of malignant neoplasm of ovary Father Pacemaker Social History Social History Social History: The patient is and lives in [place], [place] with his . He has no children. 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 He designates his , Concepción Nunes, as his surrogate decision maker and he wishes to be a full code. He Smoking status: Never smoker Second hand tobacco smoke exposure: No Alcohol intake: never Substance use: never Substance use type: does not use Lack of Transportation: No Lack of Food: Never True Current Housing: I Have Housing Concerned About Future Housing: Decline to Answer Difficulty Paying Gas/Electric Bills: Decline to Answer Difficulty Paying for Meds: Decline to Answer Currently Unemployed: Decline to Answer Education: Decline to Answer Difficulty w/ Childcare or Family Care: Decline to Answer Living arrangements: with family Occupation/Education: occupation Gender identity (if verbalized by the patient): Male Sexual Orientation (if Verbalized by the Patient): Straight or Heterosexual Spiritual care concerns: No Agree to blood products: Yes Meds Home Medications and Allergies Home Medications Medication Instructions Recorded Confirmed Type atorvastatin 80 mg tablet 80 mg PO DAILY #30 tabs 03/23/19 04/28/22 Rx nitroglycerin 0.4 mg sublingual 0.4 mg sublingual DIRECTED PRN 03/23/19 04/28/22
[2022-04-29 09:50] LABS: INR 2.3; Prothrombin Time 24.5 Seconds (11.1-14.7)
--- NOTE | 2022-04-29 10:31 | WPDANESEPPF ---
Anes - Initial Pre Proc Eval Procedure: Operation Date: 04/29/22 16:30 Proposed Procedures p Cystoscopy, Left Stent Placement - Jesus Manuel Hammond MD Date/Time: 04/29/22 10:31 Surgeon: Kerry Pappas PA-C Pre Op Diagnosis: Left Kidney Stone, UTI Patient Data Age: 66 Gender: M Height: 1.78 m Weight: 120 kg Last Vital Signs Temp 36.7 C 04/29/22 06:00 Pulse 103 H 04/29/22 09:24 Resp 22 H 04/29/22 06:00 BP 3110/59 H 04/29/22 06:00 Pulse Ox 98 04/29/22 06:00 O2 Del Method Room Air 04/28/22 23:27 Allergies Allergy/AdvReac Type Severity Reaction Status Date / Time Sulfa (Sulfonamide Allergy Unknown Unknown Verified 04/26/22 09:00 Antibiotics) lisinopril AdvReac Intermediate Cough Verified 04/26/22 09:00 Home Medications Medication Instructions Recorded Confirmed Type atorvastatin 80 mg tablet 80 mg PO DAILY #30 tabs 03/23/19 04/28/22 Rx nitroglycerin 0.4 mg sublingual 0.4 mg sublingual DIRECTED PRN 03/23/19 04/28/22 Rx tablet chest pain #25 tabs acetaminophen 500 mg tablet 500 mg PO Q6H PRN Pain 05/21/19 04/28/22 History (Tylenol Extra Strength) ascorbic acid (vitamin C) 500 mg 500 mg PO DIRECTED 05/21/19 04/28/22 History tablet spironolactone 25 mg tablet 25 mg PO DAILY #30 tabs 07/02/19 04/28/22 Rx coenzyme Q10 75 mg capsule (Ultra 75 mg PO DAILY 03/24/20 04/28/22 History CoQ10) finasteride 5 mg tablet 5 mg PO DAILY #90 tabs 06/03/21 04/28/22 Rx ipratropium bromide 42 mcg (0.06 2 spray intranasal BID #15 mL 10/30/21 04/28/22 Rx %) nasal spray sacubitril 49 mg-valsartan 51 mg 1 tablet PO BID 10/30/21 04/28/22 History tablet (Entresto) warfarin 2 mg tablet 2 mg PO DAILY 10/30/21 04/28/22 History warfarin 3 mg tablet 3 mg PO .QMTh 10/30/21 04/28/22 History zolpidem 10 mg tablet 10 mg PO .QHS PRN insomnia #30 tabs 10/30/21 04/28/22 Rx isosorbide mononitrate 30 mg 30 mg PO QAM #90 tabs 12/07/21 04/28/22 Rx tablet,extended release 24 hr aspirin 81 mg tablet,delayed 81 mg PO QAM #30 tabs 01/13/22 04/28/22 Rx release diclofenac sodium 1 % topical gel 2 g topical QID #100 grams 02/11/22 04/28/22 Rx (Arthritis Pain (diclofenac)) furosemide 40 mg tablet 40 mg PO BID 04/28/22 04/28/22 History metoprolol succinate 25 mg 37.5 mg PO DAILY 04/28/22 04/28/22 History tablet,extended release 24 hr Laboratory Tests 04/28/22 04/28/22 04/28/22 19:14 19:14 19:14 WBC 15.1 K/mm3 H K/mm3 (4.5-10.0) RBC 5.45 M/mm3 M/mm3 (4.6-6.20) Hgb 15.0 g/dL g/dL (14.0-18.0) Hct 48.1 % % (42.0-52.0) MCV 88.3 fl fl (80-100) MCH 27.5 pg pg (26-34) MCHC 31.2 g/dl L g/dl (32-36) RDW 14.4 % % (11.5-14.5) Plt Count 191 k/mm3 k/mm3 (150-375) MPV 10.1 fl fl (7.4-10.4) Immature Gran % (Auto) 0.4 % % (0-0.5) Neut % (Auto) 86.2 % H % (45.5-73.1) Lymph % (Auto) 6.5 % L % (18.3-44.2) [place] % (Auto) 5.6 % % (2.6-8.5) Eos % (Auto) 0.9 % % (0-4.4) Baso % (Auto) 0.4 % % (0.2-1.2) Lymph # (Auto) 0.98 K/mm3 K/mm3 (0.9-3.2) [place] # (Auto) 0.8 K/mm3 H K/mm3 (0.1-0.6) Eos # (Auto) 0.1 K/mm3 K/mm3 (0-0.3) Baso # (Auto) 0.1 K/mm3 K/mm3 (0.0-0.1) Abs Immat Gran (auto) 0.06 K/mm3 H K/mm3 (0.00-0.031) Absolute Neuts (auto) 13.1 K/mm3 H K/mm3 (1.3-6.7) Absolute Nucleated RBC 0.0 K/mm3 K/mm3 (0.0-0.012) Nucleated RBC % 0.0 % % (0.0-0.2) PT INR Sodium 135 mmol/L L mmol/L (137-145) Potassium 4.7 mmol/L mmol/L (3.4-5.0) Chloride 103 mmol/L mmol/L (98-107) Carbon Dioxide 23 mmol/L mmol/L (22-30) Anion Gap 9 mmol/L mmol/L (8-16) BUN 27 mg/dL H mg/dL (9-20) Creatinine 1.10 mg/dL mg/dL (0.7-1.3) Estim Creat Clear Ca
--- NOTE | 2022-04-29 10:55 | WPDURCON ---
Assessment and Plan Assessment and plan (1) Bilateral kidney stones: Code(s): N20.0 - Calculus of kidney Status: Acute (2) Left ureteral stone: Code(s): N20.1 - Calculus of ureter Status: Acute Assessment and Plan: plan on cystoscopy and left ureteral stent today. He understands I will not be removing the stone. He understands risks of bleeding, infection, damage to the urinary tract, inability to place the stent. He will need cardiac clearance and to be off blood thinners for definitive stone management. This will likely be in the form of lithotripsy. If all goes well he can be discharged home today if okay with the Medicine Service (3) Hydronephrosis: Code(s): N13.30 - Unspecified hydronephrosis Status: Acute Urology Consult Note HPI Date Seen: 04/29/22 Requesting Physician: Kerry Pappas PA-C Primary Care Provider: Sarahi Roth MD Consult Narrative Narrative: Go Morrow is a 66 year old male Who is seen my partner Dr. Hernandez in the past. He has had kidney stones in the past. He has had lithotripsy in the past. He has had a 2 week history of left flank pain associated with hematuria. The pain became so intense that he presented to the emergency room last night. CT scan was done. Bilateral nonobstructing renal stones were seen. Several left mid ureteral stones were seen as well mild hydronephrosis. He is admitted for pain control and further evaluation. He has noted some nausea without vomiting. He has no dysuria or or symptoms of urinary tract infection. Review of Systems Review of Systems: All systems reviewed & are unremarkable except as noted in HPI and below PMFSH Past Medical History Medical History Benign prostatic hyperplasia Calculus of kidney Chronic anemia Chronic back pain Congestive heart failure March 2019 showed mildly enlarged left ventricle, reduced left ventricular systolic function with ejection fraction estimated at 40 to 45%, moderately increased left ventricular wall thickness, grade 1 diastolic dysfunction, and hypokinetic segments to include the anteroseptal wall, apical septum, apical lateral wall, apical cap, mid anterior wall, and mid anterolateral wall. Coronary artery disease Cough due to WILL inhibitor Depression Eczema Essential hypertension Gallstones History of angina History of bladder infections Hyperlipidemia Ischemic cardiomyopathy Kidney stones Obesity Obstructive sleep apnea on CPAP Obstructive sleep apnea on CPAP Osteoarthritis Prediabetes ST elevation (STEMI) myocardial infarction ST elevation myocardial infarction (STEMI) of anterior wall (~03/2019) Status post drug-eluting stent to the proximal LAD. Urinary incontinence UTI (urinary tract infection) Surgical History Surgical History H/O hand surgery History of appendectomy History of coronary artery stent placement Hx of lithotripsy S/P trigger finger release Family History Family History Mother Hypertension Family history of malignant neoplasm of breast in first degree relative Family history of malignant neoplasm of ovary Father Pacemaker Social History Social History Social History: The patient is and lives in [place], [place] with his . He has no children. 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 He designates his , Concepción Nunes, as his surrogate decision maker and he wishes to be a full code. He Smoking status: Never smoker Second hand tobacco smoke exposure: No Alcohol intake: never Substance use: never Substance use type: does not use Lack of Transportation: No Lack of Food: Never True Current Housing: I Have H
[2022-04-29] MEDS: LACTATED RINGERS 1,000 ML 30 ML IV CONT (11:00)
--- NOTE | 2022-04-29 11:02 | WPDHPUPDATE1 ---
History and Physical Update Update Date/Time: 04/29/22 11:02 History and Physical has been reviewed, including an updated exam of the patient. There are NO changes in the patient's condition. Risks, benefits, and alternatives have been discussed and questions answered. Patient agrees to proceed with procedure.
[2022-04-29] MEDS: LIDOCAINE HCL 2% GEL UROJET 10 ML PKG MUCOUS MEM (11:32)
--- NOTE | 2022-04-29 11:34 | W.PM.PROC2 ---
Procedure Note - Detailed Date of Procedure 04/29/22 Pre-op Diagnosis left ureteral stone Post-op Diagnosis Same Procedure Performed cystoscopy with left stent placement Surgeon Jesus Manuel Hammond MD Anesthesia MAC Indications this is a gentleman with left mid ureteral stones. He has no signs of infection. He presents today for stent placement. He is on blood thinners. We will plan on definitive stone management to follow. Findings Multiple left ureteral stones. Stent seen in upper pole kidney and bladder Description of Procedure he has correctly identified. Informed consent obtained. He was brought the operating room. He was given MAC anesthesia. He was prepped and draped in sterile fashion. Time-out performed. He was on appropriate antibiotics. I performed cystoscopy. He had mild trabeculations. There was blood seen coming from the left ureteral orifice. There was no bladder tumors or other bladder abnormalities. I can see the outline of the kidney on fulfillment coordinator radiograph is he had previous contrast enhanced CT scan. Stones were visible the mid ureter. I placed a Glidewire into the upper pole kidney. A 4.8 variable length stent was placed over the Glidewire. Proximal coil in the upper pole kidney. Distal coil the bladder. The bladder was drained. Uro jet was applied. He was awakened transferred to PACU in stable condition Implants 4.8 variable length stent Estimated Blood Loss 0 Urine Output 200 Condition Stable Disposition PACU
[2022-04-29] MEDS: fentaNYL CITRATE INJ (*CRX) 100 MCG/2 ML VIAL 25 MCG IV PUSH (12:28)
[2022-04-29 14:37] LABS: Hemoglobin 13.6 g/dL (14.0-18.0); Mean Corpuscular HGB Conc 30.9 g/dl (32-36); Mean Corpuscular Volume 90.7 fl (80-100); Platelet Count Result 193 k/mm3 (150-375); Red Blood Count 4.85 M/mm3 (4.6-6.20); Red Cell Distribution Width 14.6 % (11.5-14.5); White Blood Count 19.7 K/mm3 (4.5-10.0)
[2022-04-29 14:46] LABS: Anion Gap 4 mmol/L (8-16); Blood Urea Nitrogen 24 mg/dL (9-20); Calcium 8.2 mg/dL (8.4-10.2); Carbon Dioxide 22 mmol/L (22-30); Chloride 109 mmol/L (98-107); Estimated CRCL calculation 62 ml/min; Estimated Glomerular Filt Rate 51; Glucose 135 mg/dL (65-110); Potassium 4.3 mmol/L (3.4-5.0); Sodium 135 mmol/L (137-145)
--- NOTE | 2022-04-29 15:09 | P.PNIM_ITS ---
Progress Note: A&P Assessment and Plan (1) Left ureteral stone: Code(s): N20.1 - Calculus of ureter Status: Acute Assessment and Plan: CT on presentation showed multiple mid left ureteral stones largest 9 mm in diameter with mild left hydroureteronephrosis * appreciate urology consultation * patient underwent cystoscopy with left stent placement this afternoon. Tolerated the procedure well * will need outpatient follow-up for definitive stone management (2) Hydronephrosis: Code(s): N13.30 - Unspecified hydronephrosis Status: Acute Assessment and Plan: as above (3) Abdominal pain: Code(s): R10.9 - Unspecified abdominal pain Status: Acute Assessment and Plan: patient with complaints of bloating and diffuse abdominal pain postoperatively * CT of the abdomen/ pelvis on 04/28 with no acute process of the abdomen * KUB on 04/28 with nonspecific bowel gas pattern and no evidence of obstructio n or free air * will obtain repeat KUB given onset of bloating in severe pain * symptoms may be due to ureteral stent. Continue analgesics * supportive care to include analgesics and antiemetics (4) Acute kidney injury: Code(s): N17.9 - Acute kidney failure, unspecified Status: Acute Assessment and Plan: creatinine was normal on admission at 1.1 with increased to 1.4 today * likely secondary to ureteral stone /hydronephrosis * anticipate improvement postoperatively. Repeat BMP tomorrow * avoid nephrotoxins. Hold Entresto and spironolactone * patient was rehydrated with IV fluids preoperatively. Fluids discontinued to avoid volume overload. Encourage adequate p.o. intake * monitor BMP (5) Obstructive sleep apnea on CPAP: Code(s): G47.33 - Obstructive sleep apnea (adult) (pediatric); Z99.89 - Dependence on other enabling machines and devices Status: Acute Assessment and Plan: continue CPAP titrated to home settings (6) Essential hypertension: Code(s): I10 - Essential (primary) hypertension Status: Acute Assessment and Plan: blood pressures are stable * continue metoprolol succinate * spironolactone on hold (7) Chronic anticoagulation: Code(s): Z79.01 - longterm (current) use of 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 * INR is therapeutic at 2.3 * continue warfarin (8) Congestive heart failure: Qualifiers: Heart failure type: systolic Heart failure chronicity: acute on chronic Qualified Code(s): I50.23 - Acute on chronic systolic (congestive) heart failure Code(s): I50.9 - Heart failure, unspecified Status: Acute Assessment and Plan: patient appears clinically compensated * monitor volume status closely * IV fluids have been discontinued postoperatively (9) Leukocytosis: Code(s): D72.829 - Elevated white blood cell count, unspecified Status: Acute Assessment and Plan: patient with mild leukocytosis on admission at 15.1. Increased today to 19.7 which may have been reactive secondary to surgery * does not appear to have acute infectious process. UA reviewed and is not concerning for infection * monitor CBC with differential Subjective Date/time seen: 04/29/22 15:09 Interval history: date of service: 04/29/2022 Go Morrow is a 66-year-old male with a histo
--- NOTE | 2022-04-29 15:09 | PM.IMPN ---
Progress Note: A&P Assessment and Plan (1) Left ureteral stone: Code(s): N20.1 - Calculus of ureter Status: Acute Assessment and Plan: CT on presentation showed multiple mid left ureteral stones largest 9 mm in diameter with mild left hydroureteronephrosis appreciate urology consultation patient underwent cystoscopy with left stent placement this afternoon. Tolerated the procedure well will need outpatient follow-up for definitive stone management (2) Hydronephrosis: Code(s): N13.30 - Unspecified hydronephrosis Status: Acute Assessment and Plan: as above (3) Abdominal pain: Code(s): R10.9 - Unspecified abdominal pain Status: Acute Assessment and Plan: patient with complaints of bloating and diffuse abdominal pain postoperatively CT of the abdomen/ pelvis on 04/28 with no acute process of the abdomen KUB on 04/28 with nonspecific bowel gas pattern and no evidence of obstruction or free air will obtain repeat KUB given onset of bloating in severe pain symptoms may be due to ureteral stent. Continue analgesics supportive care to include analgesics and antiemetics (4) Acute kidney injury: Code(s): N17.9 - Acute kidney failure, unspecified Status: Acute Assessment and Plan: creatinine was normal on admission at 1.1 with increased to 1.4 today likely secondary to ureteral stone /hydronephrosis anticipate improvement postoperatively. Repeat BMP tomorrow avoid nephrotoxins. Hold Entresto and spironolactone patient was rehydrated with IV fluids preoperatively. Fluids discontinued to avoid volume overload. Encourage adequate p.o. 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 INR is therapeutic at 2.3 continue warfarin (8) Congestive heart failure: Qualifiers: Heart failure type: systolic Heart failure chronicity: acute on chronic Qualified Code(s): I50.23 - Acute on chronic systolic (congestive) heart failure Code(s): I50.9 - Heart failure, unspecified Status: Acute Assessment and Plan: patient appears clinically compensated monitor volume status closely IV fluids have been discontinued postoperatively (9) Leukocytosis: Code(s): D72.829 - Elevated white blood cell count, unspecified Status: Acute Assessment and Plan: patient with mild leukocytosis on admission at 15.1. Increased today to 19.7 which may have been reactive secondary to surgery does not appear to have acute infectious process. UA reviewed and is not concerning for infection monitor CBC with differential Subjective Date/time seen: 04/29/22 15:09 Interval history: date of service: 04/29/2022 Go Morrow is a 66-year-old male with a history of BPH, kidney stones, CAD s/p coronary artery stents maintained on systemic anticoagulation, CHF, hypertension, hyperlipidemia, AIDAN on CPAP, in several other medical problems who is seen in follow-up for left ureteral stone. Patient is seen today following cystoscopy with left stent placement. He tolerated the procedure well but shortly after he developed abdominal bloating and abdominal pain which she rates as 9/10. States that his abdomen is distended. He feels jonathan
[2022-04-29] MEDS: WARFARIN (*PBKC) 3 MG TABLET PO (18:40)
[2022-04-30 00:30] VITALS: RESP 21; O2SAT 95
[2022-04-30] MEDS: ACETAMINOPHEN 500 MG TABLET PO (05:55)
[2022-04-30 06:07] LABS: Basophils Percent Auto 0.2 % (0.2-1.2); Eosinophils Absolute Auto 0.3 K/mm3 (0-0.3); Eosinophils Percent Auto 1.9 % (0-4.4); Hematocrit 43.8 % (42.0-52.0); Hemoglobin 13.8 g/dL (14.0-18.0); Immature Granulocyte Absolute 0.06 K/mm3 (0.00-0.031); Immature Granulocyte Percent A 0.4 % (0-0.5); Lymphocytes Absolute Auto 1.15 K/mm3 (0.9-3.2); Lymphocytes Percent Auto 7.2 % (18.3-44.2); Mean Corpuscular HGB Conc 31.5 g/dl (32-36); Mean Corpuscular Hemoglobin 27.4 pg (26-34); Mean Corpuscular Volume 87.1 fl (80-100); Mean Platelet Volume 9.8 fl (7.4-10.4); Monocytes Absolute Auto 1.3 K/mm3 (0.1-0.6); Neutrophils Absolute Auto 13.2 K/mm3 (1.3-6.7); Neutrophils Percent Auto 82.3 % (45.5-73.1); Platelet Count Result 200 k/mm3 (150-375); Red Blood Count 5.03 M/mm3 (4.6-6.20); Red Cell Distribution Width 14.6 % (11.5-14.5)
[2022-04-30 06:19] LABS: Anion Gap 5 mmol/L (8-16); Blood Urea Nitrogen 21 mg/dL (9-20); Calcium 8.4 mg/dL (8.4-10.2); Carbon Dioxide 26 mmol/L (22-30); Chloride 103 mmol/L (98-107); Estimated CRCL calculation 55 ml/min; Estimated Glomerular Filt Rate 44; Glucose 116 mg/dL (65-110); Magnesium 2.3 mg/dL (1.6-2.3); Potassium 3.8 mmol/L (3.4-5.0); Sodium 134 mmol/L (137-145)
[2022-04-30] MEDS: ONDANSETRON INJ 4 MG/2 ML VIAL IV PUSH (06:30)
[2022-04-30] MEDS: HYDROmorphone HCL INJ (*CRX) 1 MG/ML SYR IV PUSH (08:09)
[2022-04-30 08:12] VITALS: PULSE 82
[2022-04-30] MEDS: ASPIRIN 81 MG ENTERIC TABLET PO (08:12)
[2022-04-30] MEDS: METOPROLOL SUCCINATE EXT REL 12.5 MG TABCR 37.5 MG PO (08:12)
[2022-04-30] MEDS: ASCORBIC ACID 500 MG TABLET PO (08:12)
[2022-04-30] MEDS: DICLOFENAC SODIUM 1% 100 GM GEL (*BKC) 1 APPLIC TOPICAL ×4 (08:13→20:48)
[2022-04-30] MEDS: IPRATROPIUM NASAL SPRAY 0.06% 15 ML BOTTLE 2 SPRAY NASAL ×2 (08:13→16:31)
[2022-04-30] MEDS: ATORVASTATIN 40 MG TABLET 80 MG PO (08:13)
[2022-04-30] MEDS: ISOSORBIDE MONONITRATE 30 MG TAB.ER.24H PO (08:13)
[2022-04-30] MEDS: FINASTERIDE 5 MG TABLET PO (08:13)
[2022-04-30] MEDS: SODIUM CHLORIDE 0.9% IV 1,000 ML 110 ML IV CONT (11:30)
--- NOTE | 2022-04-30 13:36 | P.PNIM_ITS ---
Progress Note: A&P Assessment and Plan (1) Left ureteral stone: Code(s): N20.1 - Calculus of ureter Status: Acute Assessment and Plan: CT on presentation showed multiple mid left ureteral stones largest 9 mm in diameter with mild left hydroureteronephrosis * appreciate urology consultation * patient underwent cystoscopy with left stent placement on 04/29. Tolerated the procedure well * will need outpatient follow-up for definitive stone management (2) Hydronephrosis: Code(s): N13.30 - Unspecified hydronephrosis Status: Acute Assessment and Plan: as above (3) Ileus: Code(s): K56.7 - Ileus, unspecified Status: Acute Assessment and Plan: 313 patient with complaints of bloating and diffuse abdominal pain postoperatively * CT of the abdomen/ pelvis on 04/28 with no acute process in KUB with nonspecific bowel gas pattern, no evidence of obstruction or free air * repeat KUB on 04/29 with onset of pain showed findings consistent with small bowel ileus versus early/partial obstruction * patient is clinically improved, abdominal pain is resolved, tolerating diet, no emesis, passing flatus * favor ileus that is likely already improved * patient ambulating frequently in the halls, continue to encourage activity * MiraLax and Colace. continue Dulcolax suppository if no bowel movement with above therapies * continue with regular diet as patient is tolerating this well. * consider General surgery consultation if worsening/lack of improvement (4) Acute kidney injury: Code(s): N17.9 - Acute kidney failure, unspecified Status: Acute Assessment and Plan: creatinine was normal on admission at 1.1 with increase to 1.6 today * likely secondary to ureteral stone /hydronephrosis exacerbated by nephrotoxins and possibly component of dehydration * left hydronephrosis persistent on KUB yesterday afternoon * renal ultrasound is pending at this time * started on IV fluids normal saline 110 mL/hour. monitor volume status * avoid nephrotoxins. continue to hold Entresto and spironolactone * monitor BMP closely * consider nephrology consultation if worsening/lack of improvement (5) Obstructive sleep apnea on CPAP: Code(s): G47.33 - Obstructive sleep apnea (adult) (pediatric); Z99.89 - Dependence on other enabling machines and devices Status: Acute Assessment and Plan: continue CPAP titrated to home settings (6) Essential hypertension: Code(s): I10 - Essential (primary) hypertension Status: Acute Assessment and Plan: blood pressures are stable * continue metoprolol succinate * spironolactone on hold (7) Chronic anticoagulation: Code(s): 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 * INR is therapeutic at 3.0 * continue warfarin * monitor INR daily (8) Congestive heart failure: Qualifiers: Heart failure type: systolic Heart failure chronicity: acute on chronic Qualified Code(s): I50.23 - Acute on chronic systolic (congestive) heart failure Code(s): I50.9 - Heart failure, unspecified Status: Acute Assessment and Plan: no evidence of hypervolemia, patient appears clinically compensated * monitor volume status closely with IV fluid rehydration * home Entresto and spironolactone on hold due to DUANE (9) Leukocytosis:
--- NOTE | 2022-04-30 13:36 | PM.IMPN ---
Progress Note: A&P Assessment and Plan (1) Left ureteral stone: Code(s): N20.1 - Calculus of ureter Status: Acute Assessment and Plan: CT on presentation showed multiple mid left ureteral stones largest 9 mm in diameter with mild left hydroureteronephrosis appreciate urology consultation patient underwent cystoscopy with left stent placement on 04/29. Tolerated the procedure well will need outpatient follow-up for definitive stone management (2) Hydronephrosis: Code(s): N13.30 - Unspecified hydronephrosis Status: Acute Assessment and Plan: as above (3) Ileus: Code(s): K56.7 - Ileus, unspecified Status: Acute Assessment and Plan: 313 patient with complaints of bloating and diffuse abdominal pain postoperatively CT of the abdomen/ pelvis on 04/28 with no acute process in KUB with nonspecific bowel gas pattern, no evidence of obstruction or free air repeat KUB on 04/29 with onset of pain showed findings consistent with small bowel ileus versus early/partial obstruction patient is clinically improved, abdominal pain is resolved, tolerating diet, no emesis, passing flatus favor ileus that is likely already improved patient ambulating frequently in the halls, continue to encourage activity MiraLax and Colace. continue Dulcolax suppository if no bowel movement with above therapies continue with regular diet as patient is tolerating this well. consider General surgery consultation if worsening/lack of improvement (4) Acute kidney injury: Code(s): N17.9 - Acute kidney failure, unspecified Status: Acute Assessment and Plan: creatinine was normal on admission at 1.1 with increase to 1.6 today likely secondary to ureteral stone /hydronephrosis exacerbated by nephrotoxins and possibly component of dehydration left hydronephrosis persistent on KUB yesterday afternoon renal ultrasound is pending at this time started on IV fluids normal saline 110 mL/hour. monitor volume status avoid nephrotoxins. continue to hold Entresto and spironolactone monitor BMP closely consider nephrology consultation if worsening/lack of improvement (5) Obstructive sleep apnea on CPAP: Code(s): G47.33 - Obstructive sleep apnea (adult) (pediatric); Z99.89 - Dependence on other enabling machines and devices Status: Acute Assessment and Plan: continue CPAP titrated to home settings (6) Essential hypertension: Code(s): I10 - Essential (primary) hypertension Status: Acute Assessment and Plan: blood pressures are stable continue metoprolol succinate spironolactone on hold (7) Chronic anticoagulation: Code(s): Z79.01 - 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 INR is therapeutic at 3.0 continue warfarin monitor INR daily (8) Congestive heart failure: Qualifiers: Heart failure type: systolic Heart failure chronicity: acute on chronic Qualified Code(s): I50.23 - Acute on chronic systolic (congestive) heart failure Code(s): I50.9 - Heart failure, unspecified Status: Acute Assessment and Plan: no evidence of hypervolemia, patient appears clinically compensated monitor volume status closely with IV fluid rehydration home Entresto and spironolactone on hold due to DUANE (9) Leukocytosis: Code(s): D72.829 - Elevated white blood cell count, unspecified Status: Acute Assessment and Plan: patient with mild leukocytosis on admission at 15.1 with postoperative increased to 19.7 suspect this is reactive secondary to surgery WBC trending down, 16.0 today does not appear to have acute infectious process. UA reviewed and is not concerning for infection monitor CBC with differential Subjective Date/ti
[2022-04-30] MEDS: WARFARIN (*PBKC) 2 MG TABLET PO (16:32)
[2022-04-30] MEDS: HYDROcodone/acetaminophen (*CRX) 5-325 MG TABLET 1 TAB PO (17:06)
[2022-04-30] MEDS: DOCUSATE SODIUM 100 MG CAPSULE PO (20:48)
[2022-05-01 00:30] VITALS: RESP 18; O2SAT 96
[2022-05-01] MEDS: SODIUM CHLORIDE 0.9% IV 1,000 ML 110 ML IV CONT ×3 (01:54→23:20)
[2022-05-01 05:38] LABS: Hematocrit 40.1 % (42.0-52.0); Hemoglobin 12.6 g/dL (14.0-18.0); Mean Corpuscular HGB Conc 31.4 g/dl (32-36); Mean Corpuscular Hemoglobin 27.6 pg (26-34); Mean Corpuscular Volume 87.7 fl (80-100); Mean Platelet Volume 9.8 fl (7.4-10.4); Platelet Count Result 165 k/mm3 (150-375); Red Blood Count 4.57 M/mm3 (4.6-6.20); Red Cell Distribution Width 14.6 % (11.5-14.5); White Blood Count 9.9 K/mm3 (4.5-10.0)
[2022-05-01 05:49] LABS: Anion Gap 5 mmol/L (8-16); Blood Urea Nitrogen 20 mg/dL (9-20); Calcium 7.6 mg/dL (8.4-10.2); Carbon Dioxide 23 mmol/L (22-30); Chloride 108 mmol/L (98-107); Estimated CRCL calculation 62 ml/min; Estimated Glomerular Filt Rate 51; Glucose 105 mg/dL (65-110); Sodium 136 mmol/L (137-145)
[2022-05-01 05:50] LABS: INR 3.2; Prothrombin Time 31.4 Seconds (11.1-14.7)
[2022-05-01] MEDS: IPRATROPIUM NASAL SPRAY 0.06% 15 ML BOTTLE 2 SPRAY NASAL (08:51)
[2022-05-01] MEDS: DICLOFENAC SODIUM 1% 100 GM GEL (*BKC) 1 APPLIC TOPICAL ×4 (08:51→20:32)
[2022-05-01 08:52] VITALS: PULSE 82
[2022-05-01] MEDS: METOPROLOL SUCCINATE EXT REL 12.5 MG TABCR 37.5 MG PO (08:52)
[2022-05-01] MEDS: FINASTERIDE 5 MG TABLET PO (08:52)
[2022-05-01] MEDS: ATORVASTATIN 40 MG TABLET 80 MG PO (08:52)
[2022-05-01] MEDS: ISOSORBIDE MONONITRATE 30 MG TAB.ER.24H PO (08:52)
[2022-05-01] MEDS: ASPIRIN 81 MG ENTERIC TABLET PO (08:52)
[2022-05-01] MEDS: BISACODYL 10 MG SUPPOSITORY RECTAL (13:00)
[2022-05-01 14:00] VITALS: BP 119/55; PULSE 88; RESP 20; TEMP 36.3; O2SAT 95
--- NOTE | 2022-05-01 16:51 | P.PNIM_ITS ---
Progress Note: A&P Assessment and Plan (1) Left ureteral stone: Code(s): N20.1 - Calculus of ureter Status: Acute Assessment and Plan: CT on presentation showed multiple mid left ureteral stones largest 9 mm in diameter with mild left hydroureteronephrosis * appreciate urology consultation * patient underwent cystoscopy with left stent placement on 04/29. Tolerated the procedure well * will need outpatient follow-up for definitive stone management (2) Hydronephrosis: Code(s): N13.30 - Unspecified hydronephrosis Status: Acute Assessment and Plan: as above (3) Ileus: Code(s): K56.7 - Ileus, unspecified Status: Acute Assessment and Plan: 04/29 patient with complaints of bloating and diffuse abdominal pain postoperatively * CT of the abdomen/ pelvis on 04/28 with no acute process in KUB with nonspecific bowel gas pattern, no evidence of obstruction or free air * repeat KUB on 04/29 with onset of pain showed findings consistent with small bowel ileus versus early/partial obstruction * patient with one loose stool yesterday, no BM today * clinically improved, however abdomen remains distended. patient is tolerating diet and passing flatus * KUB today shows dilated bowel consistent with adynamic ileus * MiraLax and Colace. Dulcolax suppository x1 today * continue to encourage frequent ambulation * continue with regular diet as patient is tolerating this well. (4) Acute kidney injury: Code(s): N17.9 - Acute kidney failure, unspecified Status: Acute Assessment and Plan: creatinine was normal on admission at 1.1 with increase to 1.6 today * likely secondary to ureteral stone /hydronephrosis exacerbated by nephrotoxins and possibly component of dehydration * left hydronephrosis persistent on KUB 04/29 * renal ultrasound reveals moderate left hydronephrosis with bilateral kidney stone * continue IV fluids * slight improvement in creatinine around 1.4 today * avoid nephrotoxins. 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 * INR is supratherapeutic at 3.2 * hold warfarin 2 mg tonight * recheck INR in the morning (8) Congestive heart failure: Qualifiers: Heart failure type: systolic Heart failure chronicity: acute on chronic Qualified Code(s): I50.23 - Acute on chronic systolic (congestive) heart failure Code(s): I50.9 - Heart failure, unspecified Status: Acute Assessment and Plan: no evidence of hypervolemia, patient appears clinically compensated * monitor volume status closely with IV fluid rehydration * home Entresto and spironolactone on hold due to DUANE (9) Leukocytosis: Code(s):
--- NOTE | 2022-05-01 16:51 | PM.IMPN ---
Progress Note: A&P Assessment and Plan (1) Left ureteral stone: Code(s): N20.1 - Calculus of ureter Status: Acute Assessment and Plan: CT on presentation showed multiple mid left ureteral stones largest 9 mm in diameter with mild left hydroureteronephrosis appreciate urology consultation patient underwent cystoscopy with left stent placement on 04/29. Tolerated the procedure well will need outpatient follow-up for definitive stone management (2) Hydronephrosis: Code(s): N13.30 - Unspecified hydronephrosis Status: Acute Assessment and Plan: as above (3) Ileus: Code(s): K56.7 - Ileus, unspecified Status: Acute Assessment and Plan: 04/29 patient with complaints of bloating and diffuse abdominal pain postoperatively CT of the abdomen/ pelvis on 04/28 with no acute process in KUB with nonspecific bowel gas pattern, no evidence of obstruction or free air repeat KUB on 04/29 with onset of pain showed findings consistent with small bowel ileus versus early/partial obstruction patient with one loose stool yesterday, no BM today clinically improved, however abdomen remains distended. patient is tolerating diet and passing flatus KUB today shows dilated bowel consistent with adynamic ileus MiraLax and Colace. Dulcolax suppository x1 today continue to encourage frequent ambulation continue with regular diet as patient is tolerating this well. (4) Acute kidney injury: Code(s): N17.9 - Acute kidney failure, unspecified Status: Acute Assessment and Plan: creatinine was normal on admission at 1.1 with increase to 1.6 today likely secondary to ureteral stone /hydronephrosis exacerbated by nephrotoxins and possibly component of dehydration left hydronephrosis persistent on KUB 04/29 renal ultrasound reveals moderate left hydronephrosis with bilateral kidney stone continue IV fluids slight improvement in creatinine around 1.4 today avoid nephrotoxins. 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 INR is supratherapeutic at 3.2 hold warfarin 2 mg tonight recheck INR in the morning (8) Congestive heart failure: Qualifiers: Heart failure type: systolic Heart failure chronicity: acute on chronic Qualified Code(s): I50.23 - Acute on chronic systolic (congestive) heart failure Code(s): I50.9 - Heart failure, unspecified Status: Acute Assessment and Plan: no evidence of hypervolemia, patient appears clinically compensated monitor volume status closely with IV fluid rehydration home Entresto and spironolactone on hold due to DUANE (9) Leukocytosis: Code(s): D72.829 - Elevated white blood cell count, unspecified Status: Acute Assessment and Plan: patient with mild leukocytosis on admission at 15.1 with postoperative increase to 19.7 suspect this is reactive secondary to surgery WBC normalized today no evidence of acute infectious process. UA reviewed and is not concerning for infection Subjective Date/time seen: 05/01/22 16:51 Interval history: date of service:
[2022-05-01 20:00] VITALS: PULSE 81; RESP 18; O2SAT 95
[2022-05-01] MEDS: DOCUSATE SODIUM 100 MG CAPSULE PO (20:34)
[2022-05-01 21:44] VITALS: BP 117/48; PULSE 81; RESP 18; TEMP 36.3; O2SAT 95
[2022-05-01] MEDS: HYDROcodone/acetaminophen (*CRX) 5-325 MG TABLET 1 TAB PO (22:47)
[2022-05-02] VITALS (15 sets, daily range): BP systolic 108–144; BP diastolic 67–99; PULSE 74–90; RESP 14–20; TEMP 36.2–36.9; O2SAT 92–100
[2022-05-02 06:10] LABS: Hemoglobin 12.8 g/dL (14.0-18.0); Mean Corpuscular HGB Conc 31.2 g/dl (32-36); Mean Corpuscular Hemoglobin 28.3 pg (26-34); Mean Corpuscular Volume 90.7 fl (80-100); Platelet Count Result 166 k/mm3 (150-375); Red Blood Count 4.52 M/mm3 (4.6-6.20); Red Cell Distribution Width 14.5 % (11.5-14.5); White Blood Count 10.1 K/mm3 (4.5-10.0)
[2022-05-02 06:36] LABS: INR 2.5; Prothrombin Time 25.7 Seconds (11.1-14.7)
[2022-05-02 06:39] LABS: Anion Gap 3 mmol/L (8-16); Blood Urea Nitrogen 19 mg/dL (9-20); Calcium 7.7 mg/dL (8.4-10.2); Carbon Dioxide 23 mmol/L (22-30); Chloride 108 mmol/L (98-107); Estimated CRCL calculation 72 ml/min; Estimated Glomerular Filt Rate > 60; Glucose 103 mg/dL (65-110); Potassium 3.9 mmol/L (3.4-5.0); Sodium 134 mmol/L (137-145)
[2022-05-02] MEDS: ONDANSETRON INJ 4 MG/2 ML VIAL IV PUSH (06:56)
[2022-05-02] MEDS: ISOSORBIDE MONONITRATE 30 MG TAB.ER.24H PO (08:54)
[2022-05-02] MEDS: HYDROcodone/acetaminophen (*CRX) 5-325 MG TABLET 1 TAB PO (08:54)
[2022-05-02] MEDS: DOCUSATE SODIUM 100 MG CAPSULE PO ×2 (08:54→21:10)
[2022-05-02] MEDS: ASCORBIC ACID 500 MG TABLET PO (08:55)
[2022-05-02] MEDS: METOPROLOL SUCCINATE EXT REL 12.5 MG TABCR 37.5 MG PO (08:55)
[2022-05-02] MEDS: FINASTERIDE 5 MG TABLET PO (08:55)
[2022-05-02] MEDS: polyethylene glycoL 3350 17 GM POWD.PACK PO (08:55)
[2022-05-02] MEDS: ATORVASTATIN 40 MG TABLET 80 MG PO (08:55)
[2022-05-02] MEDS: SODIUM CHLORIDE 0.9% IV 1,000 ML 110 ML IV CONT (08:56)
[2022-05-02] MEDS: ASPIRIN 81 MG ENTERIC TABLET PO (08:56)
[2022-05-02] MEDS: HYDROmorphone HCL INJ (*CRX) 1 MG/ML SYR IV PUSH ×2 (11:49→17:22)
--- NOTE | 2022-05-02 13:43 | WPDANESEPPF ---
Anes - Initial Pre Proc Eval Procedure: Operation Date: 04/29/22 16:30 Proposed Procedures p Cystoscopy, Left Stent Placement - Jesus Manuel Hammond MD Operation Date: 05/02/22 15:00 Proposed Procedures p Cystoscopy, Left Stent Placement - Jas Durán MD Date/Time: 05/02/22 13:43 Surgeon: Kerry Pappas PA-C Pre Op Diagnosis: Left Kidney Stone, UTI Patient Data Age: 66 Gender: M Height: 1.78 m Weight: 120 kg Last Vital Signs Temp 36.2 C L 05/02/22 06:00 Pulse 90 05/02/22 08:55 Resp 20 05/02/22 06:00 BP 143/90 H 05/02/22 06:00 Pulse Ox 98 05/02/22 06:00 O2 Del Method Room Air 05/02/22 08:45 O2 Flow Rate 10 04/29/22 11:50 Allergies Allergy/AdvReac Type Severity Reaction Status Date / Time Sulfa (Sulfonamide Allergy Unknown Unknown Verified 04/26/22 09:00 Antibiotics) lisinopril AdvReac Intermediate Cough Verified 04/26/22 09:00 Home Medications Medication Instructions Recorded Confirmed Type atorvastatin 80 mg tablet 80 mg PO DAILY #30 tabs 03/23/19 04/28/22 Rx nitroglycerin 0.4 mg sublingual 0.4 mg sublingual DIRECTED PRN 03/23/19 04/28/22 Rx tablet chest pain #25 tabs acetaminophen 500 mg tablet 500 mg PO Q6H PRN Pain 05/21/19 04/28/22 History (Tylenol Extra Strength) ascorbic acid (vitamin C) 500 mg 500 mg PO DIRECTED 05/21/19 04/28/22 History tablet spironolactone 25 mg tablet 25 mg PO DAILY #30 tabs 07/02/19 04/28/22 Rx coenzyme Q10 75 mg capsule (Ultra 75 mg PO DAILY 03/24/20 04/28/22 History CoQ10) finasteride 5 mg tablet 5 mg PO DAILY #90 tabs 06/03/21 04/28/22 Rx ipratropium bromide 42 mcg (0.06 2 spray intranasal BID #15 mL 10/30/21 04/28/22 Rx %) nasal spray sacubitril 49 mg-valsartan 51 mg 1 tablet PO BID 10/30/21 04/28/22 History tablet (Entresto) warfarin 2 mg tablet 2 mg PO DAILY 10/30/21 04/28/22 History warfarin 3 mg tablet 3 mg PO .QMTh 10/30/21 04/28/22 History zolpidem 10 mg tablet 10 mg PO .QHS PRN insomnia #30 tabs 10/30/21 04/28/22 Rx isosorbide mononitrate 30 mg 30 mg PO QAM #90 tabs 12/07/21 04/28/22 Rx tablet,extended release 24 hr aspirin 81 mg tablet,delayed 81 mg PO QAM #30 tabs 01/13/22 04/28/22 Rx release diclofenac sodium 1 % topical gel 2 g topical QID #100 grams 02/11/22 04/28/22 Rx (Arthritis Pain (diclofenac)) furosemide 40 mg tablet 40 mg PO BID 04/28/22 04/28/22 History metoprolol succinate 25 mg 37.5 mg PO DAILY 04/28/22 04/28/22 History tablet,extended release 24 hr hydrocodone 5 mg-acetaminophen 325 1 tablet PO Q6H PRN pain #30 tabs 04/29/22 Rx mg tablet Laboratory Tests 05/02/22 05/02/22 05/02/22 05:52 05:52 05:52 WBC 10.1 K/mm3 H K/mm3 (4.5-10.0) RBC 4.52 M/mm3 L M/mm3 (4.6-6.20) Hgb 12.8 g/dL L g/dL (14.0-18.0) Hct 41.0 % L % (42.0-52.0) MCV 90.7 fl fl (80-100) MCH 28.3 pg pg (26-34) MCHC 31.2 g/dl L g/dl (32-36) RDW 14.5 % % (11.5-14.5) Plt Count 166 k/mm3 k/mm3 (150-375) MPV 10.0 fl fl (7.4-10.4) PT 25.7 Seconds H Seconds (11.1-14.7) INR 2.5 Sodium 134 mmol/L L mmol/L (137-145) Potassium 3.9 mmol/L mmol/L (3.4-5.0) Chloride 108 mmol/L H mmol/L (98-107) Carbon Dioxide 23 mmol/L mmol/L (22-30) Anion Gap 3 mmol/L L mmol/L (8-16) BUN 19 mg/dL mg/dL (9-20) Creatinine 1.20 mg/dL mg/dL (0.7-1.3) Estim Creat Clear Calc 72 ml/min ml/min Estimated GFR > 60 (59 - ) Glucose 103 mg/dL mg/dL (65-110) Calcium 7.7 mg/dL L mg/dL (8.4-10.2) Patient hx anesthesia problems: none Family hx anesthesia problems: none Results Review: All pre-operative results and documents have been reviewed as part of the pre-operative evaluation. [facility] Past Medical History Medical History (Reviewed 05/02/22 @ 13:43 by Renato
[2022-05-02] MEDS: LACTATED RINGERS 1,000 ML 30 ML IV CONT (13:45)
--- NOTE | 2022-05-02 14:06 | P.PNIM_ITS ---
Progress Note: A&P Assessment and Plan (1) Left ureteral stone: Code(s): N20.1 - Calculus of ureter Status: Acute Assessment and Plan: CT on presentation showed multiple mid left ureteral stones largest 9 mm in diameter with mild left hydroureteronephrosis * appreciate urology consultation * patient underwent cystoscopy with left stent placement on 04/29. Tolerated the procedure well * will need outpatient follow-up for definitive stone management Patient with onset of 10/10 abdominal pain today. Repeat CT of the abdomen/pelvis showed left internal ureteral stent in abnormal position with proximal end coiled in the ureter at the level of the sacrum and distal to the stones. Discussed case with urology. Patient will undergo repeat cystoscopy with left ureteral stent placement this afternoon. NPO diet. (2) Hydronephrosis: Code(s): N13.30 - Unspecified hydronephrosis Status: Acute Assessment and Plan: Imaging today shows mild left hydronephrosis and proximal left hydroureter * Cysto with stent placement today (3) Ileus: Code(s): K56.7 - Ileus, unspecified Status: Acute Assessment and Plan: 04/29 patient with complaints of bloating and diffuse abdominal pain postoperatively * CT of the abdomen/ pelvis on 04/28 with no acute process in KUB with nonspecific bowel gas pattern, no evidence of obstruction or free air * repeat KUB on 04/29 with onset of pain showed findings consistent with small bowel ileus versus early/partial obstruction * KUB on 05/01 with dilated bowel consistent with adynamic ileus * Patient has been able to tolerate diet, no vomiting * 3 bowel movements yesterday, 1 bowel movement today following Dulcolax suppository. Continue MiraLax and Colace * CT of abdomen/pelvis today shows gaseous distention of the transverse colon consistent with adynamic ileus, however significant abdominal pain felt to be secondary to ureteral issues as above * Patient NPO at this time for procedure. Slowly advance diet following * Consider NG tube if patient continues to have significant nausea or develops emesis (4) Acute kidney injury: Code(s): N17.9 - Acute kidney failure, unspecified Status: Acute Assessment and Plan: creatinine was normal on admission at 1.1 with increase to 1.6 * likely secondary to ureteral stone /hydronephrosis exacerbated by nephrotoxic agents and possibly component of dehydration * left hydronephrosis persistent * renal ultrasound reveals moderate left hydronephrosis with bilateral kidney stone * slight improvement in creatinine to 1.2 today * avoid nephrotoxins. continue to hold Entresto and spironolactone * monitor BMP closely * consider nephrology consultation if worsening/lack of improvement (5) Obstructive sleep apnea on CPAP: Code(s): G47.33 - Obstructive sleep apnea (adult) (pediatric); Z99.89 - Dependence on other enabling machines and devices Status: Acute Assessment and Plan: continue CPAP titrated to home settings (6) Essential hypertension: Code(s): I10 - Essential (primary) hypertension Status: Acute Assessment and Plan: blood pressures are stable * continue metoprolol succinate * spironolactone on hold (7) Chronic anticoagulation: Code(s): Z79.01 - oil heaterman (current) use of 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 * Warfarin held on 05/01/2022 given supratherapeutic INR
--- NOTE | 2022-05-02 14:06 | PM.IMPN ---
Progress Note: A&P Assessment and Plan (1) Left ureteral stone: Code(s): N20.1 - Calculus of ureter Status: Acute Assessment and Plan: CT on presentation showed multiple mid left ureteral stones largest 9 mm in diameter with mild left hydroureteronephrosis appreciate urology consultation patient underwent cystoscopy with left stent placement on 04/29. Tolerated the procedure well will need outpatient follow-up for definitive stone management Patient with onset of 10/10 abdominal pain today. Repeat CT of the abdomen/pelvis showed left internal ureteral stent in abnormal position with proximal end coiled in the ureter at the level of the sacrum and distal to the stones. Discussed case with urology. Patient will undergo repeat cystoscopy with left ureteral stent placement this afternoon. NPO diet. (2) Hydronephrosis: Code(s): N13.30 - Unspecified hydronephrosis Status: Acute Assessment and Plan: Imaging today shows mild left hydronephrosis and proximal left hydroureter Cysto with stent placement today (3) Ileus: Code(s): K56.7 - Ileus, unspecified Status: Acute Assessment and Plan: 04/29 patient with complaints of bloating and diffuse abdominal pain postoperatively CT of the abdomen/ pelvis on 04/28 with no acute process in KUB with nonspecific bowel gas pattern, no evidence of obstruction or free air repeat KUB on 04/29 with onset of pain showed findings consistent with small bowel ileus versus early/partial obstruction KUB on 05/01 with dilated bowel consistent with adynamic ileus Patient has been able to tolerate diet, no vomiting 3 bowel movements yesterday, 1 bowel movement today following Dulcolax suppository. Continue MiraLax and Colace CT of abdomen/pelvis today shows gaseous distention of the transverse colon consistent with adynamic ileus, however significant abdominal pain felt to be secondary to ureteral issues as above Patient NPO at this time for procedure. Slowly advance diet following Consider NG tube if patient continues to have significant nausea or develops emesis (4) Acute kidney injury: Code(s): N17.9 - Acute kidney failure, unspecified Status: Acute Assessment and Plan: creatinine was normal on admission at 1.1 with increase to 1.6 likely secondary to ureteral stone /hydronephrosis exacerbated by nephrotoxic agents and possibly component of dehydration left hydronephrosis persistent renal ultrasound reveals moderate left hydronephrosis with bilateral kidney stone slight improvement in creatinine to 1.2 today avoid nephrotoxins. continue to hold Entresto and spironolactone monitor BMP closely consider nephrology consultation if worsening/lack of improvement (5) Obstructive sleep apnea on CPAP: Code(s): G47.33 - Obstructive sleep apnea (adult) (pediatric); Z99.89 - Dependence on other enabling machines and devices Status: Acute Assessment and Plan: continue CPAP titrated to home settings (6) Essential hypertension: Code(s): I10 - Essential (primary) hypertension Status: Acute Assessment and Plan: blood pressures are stable continue metoprolol succinate spironolactone on hold (7) Chronic anticoagulation: Code(s): Z79.01 - senior care (current) use of 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 Warfarin held on 05/01/2022 given supratherapeutic INR INR improved to 2.5 today. Continue home warfarin Monitor PT/INR daily (8) Congestive heart failure: Qualifiers: Heart failure type: systolic Heart failure chronicity: acute on chronic Qualified Code(s): I50.23 - Acute on chronic systolic (congestive) heart failure Code(s): I50.9 - Heart failure, unspecified Status: Acute Assessment and Plan: no evidence of hyperv
--- NOTE | 2022-05-02 14:21 | WPDHPUPDATE1 ---
History and Physical Update Update Date/Time: 05/02/22 14:21 History and Physical has been reviewed, including an updated exam of the patient. There are NO changes in the patient's condition. Risks, benefits, and alternatives have been discussed and questions answered. Patient agrees to proceed with procedure.
[2022-05-02] MEDS: ceFAZolin 2 GM/D5W 50 ML 2 GM/50 ML BAG IVPB (14:28)
[2022-05-02] MEDS: LIDOCAINE HCL 2% GEL UROJET 10 ML PKG MUCOUS MEM (14:43)
--- NOTE | 2022-05-02 15:35 | W.PM.PROC2 ---
Procedure Note - Detailed Date of Procedure 05/02/22 Pre-op Diagnosis Left ureteral and renal stones Post-op Diagnosis Same Procedure Performed Cystoscopy, left ureteral stent removal, left ureteroscopy with laser lithotripsy, left ureteral stent replacement Surgeon Jas Durán MD Anesthesia General Description of Procedure patient is brought to the op suite was prepped draped in routine sterile fashion while in dorsal lithotomy position. 2% xylocaine jelly was introduced intraurethrally and systemic general anesthesia is administered via a LMA route. A 21 F rigid cystoscope was placed in his bladder. There was no intravesical neoplasm. 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 The indwelling stent is grasped and brought to the external urethral meatus. A 0.035 in glidewire was advanced into the left renal pelvis. The distal ureter was dilated with an 8 F 10 F dilator and then 12 14 ureteral access sheath was placed. Flexible ureteroscopy was undertaken a 7.5 F flexible ureteral scope. He has several stones in his left ureter. There fractured into small pieces with a 200 micron holmium laser fiber. Because of the multiplicity pieces and very small caliber of size after lithotripsy at that I opted not to extract all but simply replace the 4.8 F variable length stent with the proximal coil in the renal pelvis and distal coil in the bladder. Scopes and wires removed and he was taken recovery room good condition. Estimated Blood Loss 0 Urine Output 350 Drains Yes Packing No Pathology None sent Condition Stable Disposition PACU
[2022-05-02] MEDS: IPRATROPIUM NASAL SPRAY 0.06% 15 ML BOTTLE 2 SPRAY NASAL (17:23)
[2022-05-02] MEDS: DICLOFENAC SODIUM 1% 100 GM GEL (*BKC) 1 APPLIC TOPICAL ×2 (17:23→21:12)
[2022-05-03 02:02] VITALS: PULSE 79; RESP 11; O2SAT 93
[2022-05-03 05:47] LABS: Basophils Percent Auto 0.2 % (0.2-1.2); Eosinophils Percent Auto 0.1 % (0-4.4); Hematocrit 41.4 % (42.0-52.0); Hemoglobin 13.1 g/dL (14.0-18.0); Immature Granulocyte Absolute 0.03 K/mm3 (0.00-0.031); Immature Granulocyte Percent A 0.3 % (0-0.5); Lymphocytes Absolute Auto 0.57 K/mm3 (0.9-3.2); Lymphocytes Percent Auto 5.5 % (18.3-44.2); Mean Corpuscular HGB Conc 31.6 g/dl (32-36); Mean Corpuscular Hemoglobin 27.9 pg (26-34); Mean Corpuscular Volume 88.1 fl (80-100); Mean Platelet Volume 9.9 fl (7.4-10.4); Monocytes Absolute Auto 0.6 K/mm3 (0.1-0.6); Monocytes Percent Auto 5.6 % (2.6-8.5); Neutrophils Absolute Auto 9.2 K/mm3 (1.3-6.7); Neutrophils Percent Auto 88.3 % (45.5-73.1); Platelet Count Result 206 k/mm3 (150-375); Red Cell Distribution Width 14.3 % (11.5-14.5); White Blood Count 10.4 K/mm3 (4.5-10.0)
[2022-05-03 05:58] LABS: INR 2.4
[2022-05-03 06:00] VITALS: BP 130/68; PULSE 72; RESP 18; TEMP 36.8; O2SAT 95
[2022-05-03 06:08] LABS: Alanine Aminotransferase 25 U/L (6-50); Albumin Level 3.9 g/dL (3.5-5.1); Alkaline Phosphatase 69 U/L (38-126); Anion Gap 6 mmol/L (8-16); Aspartate Amino Transferase 26 U/L (17-59); Bilirubin,Total 0.8 mg/dL (0.2-1.3); Blood Urea Nitrogen 20 mg/dL (9-20); Calcium 8.2 mg/dL (8.4-10.2); Carbon Dioxide 19 mmol/L (22-30); Chloride 107 mmol/L (98-107); Estimated CRCL calculation 78 ml/min; Estimated Glomerular Filt Rate > 60; Glucose 115 mg/dL (65-110); Potassium 3.9 mmol/L (3.4-5.0); Sodium 132 mmol/L (137-145)
--- NOTE | 2022-05-03 07:47 | WPDUROPN2 ---
Progress Note: A&P Assessment and Plan (1) Left ureteral stone: Code(s): N20.1 - Calculus of ureter Status: Acute (2) Bilateral kidney stones: Code(s): N20.0 - Calculus of kidney Status: Acute Plan Much improved following left ureteral stone manipulation and replacement of ureteral stent. Home anytime, from my standpoint. F/U 2-3 weeks for stent removal Subjective Subjective Date/Time Seen: 05/03/22 07:47 Feeling much better today Review of Systems Cardiovascular: Cardiovascular: Denies chest pain, Denies lightheadedness, Denies palpitations and Denies dyspnea Respiratory: Respiratory: Denies dyspnea Gastrointestinal: Gastrointestinal: Denies diarrhea, Denies nausea and Denies vomiting Genitourinary: Genitourinary: Denies hematuria and Denies dysuria Endocrine: Endocrine: Denies palpitations Exam Const: General: no acute distress Resp: Effort & Inspection: normal respiratory effort GI: Inspection: non-distended GI Palp: No abdominal tenderness and No Guarding due to palpation present (GI) Auscultation: normal bowel sounds Objective Data Vital Signs Vital Signs: Vital Signs - 24 hr 05/02/22 08:55 05/02/22 08:45 05/02/22 13:30 Temperature Pulse Rate 90 86 Respiratory Rate 20 Blood Pressure 124/83 Pulse Oximetry 98 Oxygen Delivery Room Air Room Air Oxygen Flow Rate 05/02/22 15:15 05/02/22 15:30 05/02/22 15:40 Temperature 97.6 F Pulse Rate 87 78 76 Respiratory Rate 15 15 14 Blood Pressure 141/99 H 144/87 H 141/79 H Pulse Oximetry 100 100 100 Oxygen Delivery Simple Face Mask Simple Face Mask Room Air Oxygen Flow Rate 8 8 05/02/22 15:55 05/02/22 16:10 05/02/22 16:18 Temperature 98.4 F Pulse Rate 74 77 78 Respiratory Rate 17 17 18 Blood Pressure 139/94 H 131/92 H 143/93 H Pulse Oximetry 96 97 94 Oxygen Delivery Room Air Room Air Room Air Oxygen Flow Rate 05/02/22 16:30 05/02/22 16:45 05/02/22 17:15 Temperature 97.7 F 97.7 F 97.9 F Pulse Rate 77 78 77 Respiratory Rate 18 16 16 Blood Pressure 125/78 130/70 123/76 Pulse Oximetry 97 96 95 Oxygen Delivery Oxygen Flow Rate 03/16/23 22:00 05/02/22 22:30 05/03/22 02:02 Temperature 98.2 F Pulse Rate 88 81 79 Respiratory Rate 16 17 11 L Blood Pressure 108/67 Pulse Oximetry 92 94 93 Oxygen Delivery CPAP CPAP Oxygen Flow Rate Intake/Output Intake/Output: Intake & Output 04/30/22 05/01/22 05/02/22 05/03/22 23:59 23:59 23:59 23:59 Intake Total 2720 3460 2210 Output Total 350 625 Balance 2370 3460 1585 Meds/Results Medications: Active Medications Generic Name Dose Route Start Last Admin Trade Name Freq PRN Reason Stop Dose Admin Acetaminophen 650 mg 04/30/22 16:53 Acetaminophen 325 Mg Tablet PO Q6H PRN Pain Rated 1-5 Hydrocodone Bitart/Acetaminophen 1 tab 04/30/22 16:53 05/02/22 08:54 Hydrocodone/Acetaminophen (*Crx) 5-325 Mg Tablet PO 1 tab Q6H PRN Administration Pain Rated 6-10 Ascorbic Acid 500 mg 04/30/22 09:00 05/02/22 08:55 Ascorbic Acid 500 Mg Tablet PO 500 mg TuTh@0900 [facility] Administration Aspirin 81 mg 04/29/22 09:00 05/02/22 08:56 Aspirin 81 Mg Enteric Tablet PO 81 mg QAM [facility] Administration Atorvastatin Calcium 80 mg 04/29/22 09:00 05/02/22 08:55 Atorvastatin 40 Mg Tablet PO 80 mg DAILY [facility] Administration Diclofenac Sodium 1 applic 04/29/22 09:00 05/02/22 21:12 Diclofenac Sodium 1% 100 Gm Gel (*Bkc) TOPICAL 1 applic QID [facility] Administration Docusate Sodium 100 mg 04/30/22 21:00 05/02/22 21:10 Docusate Sodium 100 Mg Capsule PO 100 mg Q12HR [facility] Administration Finasteride 5 mg 04/29/22 09:00 05/02/22 08:55 Finasteride 5 Mg Tablet PO 5 mg DAILY [facility] Administration Hydromorphone HCl 1 mg 04/30/22 16:53 05/02/22 17:22 Hydromorphone Hcl Inj (*Crx) 1 Mg/Ml Syr IV PUSH 1 mg Q3H PRN Administration Breakthrough pain Ipra
[2022-05-03] MEDS: ISOSORBIDE MONONITRATE 30 MG TAB.ER.24H PO (08:38)
[2022-05-03] MEDS: ASPIRIN 81 MG ENTERIC TABLET PO (08:38)
[2022-05-03] MEDS: FINASTERIDE 5 MG TABLET PO (08:38)
[2022-05-03] MEDS: ATORVASTATIN 40 MG TABLET 80 MG PO (08:38)
[2022-05-03 08:39] VITALS: PULSE 62
[2022-05-03] MEDS: METOPROLOL SUCCINATE EXT REL 12.5 MG TABCR 37.5 MG PO (08:39)
[2022-05-03] MEDS: HYDROcodone/acetaminophen (*CRX) 5-325 MG TABLET 1 TAB PO (08:42)
[2022-05-03] MEDS: DICLOFENAC SODIUM 1% 100 GM GEL (*BKC) 1 APPLIC TOPICAL ×3 (12:42→21:25)
--- NOTE | 2022-05-03 13:40 | P.PNAN_ITS ---
Anes - Prog Note Post-Op Date/Time: 05/03/22 13:40 Cardiovascular status: normal Respiratory status: normal Airway patency: baseline Mental status: baseline Post-Op hydration status: normal Vital Signs: Last Vital Signs Temp 98.2 F 05/03/22 06:00 Pulse 62 05/03/22 08:39 Resp 18 05/03/22 06:00 BP 130/68 05/03/22 06:00 Pulse Ox 95 05/03/22 06:00 O2 Del Method Room Air 05/03/22 08:00 O2 Flow Rate 8 05/02/22 15:30 Pain Score (VAS): 0/10 I/O: Intake & Output 05/02/22 05/03/22 05/03/22 23:59 07:59 15:59 Intake Total 410 600 240 Output Total 275 Balance 135 600 240 Laboratory Tests 05/03/22 05:40 05/03/22 05:40 05/03/22 05/03/22 05/03/22 05:40 05:40 05:40 WBC 10.4 H RBC 4.70 Hgb 13.1 L Hct 41.4 L MCV 88.1 MCH 27.9 MCHC 31.6 L RDW 14.3 Plt Count 206 MPV 9.9 Immature Gran % (Auto) 0.3 Neut % (Auto) 88.3 H Lymph % (Auto) 5.5 L [place] % (Auto) 5.6 Eos % (Auto) 0.1 Baso % (Auto) 0.2 Lymph # (Auto) 0.57 L [place] # (Auto) 0.6 Eos # (Auto) 0.0 Baso # (Auto) 0.0 Abs Immat Gran (auto) 0.03 Absolute Neuts (auto) 9.2 H Absolute Nucleated RBC 0.0 Nucleated RBC % 0.0 PT 25.0 H INR 2.4 Sodium 132 L Potassium 3.9 Chloride 107 Carbon Dioxide 19 L Anion Gap 6 L BUN 20 Creatinine 1.10 Estim Creat Clear Calc 78 Estimated GFR > 60 Glucose 115 H Calcium 8.2 L Total Bilirubin 0.8 AST 26 ALT 25 Alkaline Phosphatase 69 Total Protein 7.0 Albumin 3.9 Post-procedural complaints: none Patient Feedback: Patient satisfied with anesthetic care.
[2022-05-03 14:00] VITALS: BP 123/57; PULSE 80; RESP 14; TEMP 36.2; O2SAT 97
--- NOTE | 2022-05-03 14:38 | P.PNIM_ITS ---
Progress Note: A&P Assessment and Plan (1) Left ureteral stone: Code(s): N20.1 - Calculus of ureter Status: Acute Assessment and Plan: CT on presentation showed multiple mid left ureteral stones largest 9 mm in diameter with mild left hydroureteronephrosis * appreciate urology consultation * patient underwent cystoscopy with left stent placement on 04/29. Tolerated the procedure well * 05/03: Patient with onset of 10/[address]. [address] of the abdomen/pelvis showed left internal ureteral stent in abnormal position with proximal end coiled in the ureter at the level of the sacrum and distal to the stones. * Discussed case with urology and pt underwent repeat cystoscopy with left ureteral stent removal, left ureteroscopy with laser lithotripsy, and left ureteral stent replacement * ureteral stent x-ray showed left internal ureteral stent in expected position * outpatient follow-up with urology in 2-3 weeks for stent removal (2) Hydronephrosis: Code(s): N13.30 - Unspecified hydronephrosis Status: Acute Assessment and Plan: secondary to above * see plan above (3) Ileus: Code(s): K56.7 - Ileus, unspecified Status: Acute Assessment and Plan: 04/29 patient with complaints of bloating and diffuse abdominal pain postoperatively * KUB on 04/29 with onset of pain showed findings consistent with small bowel ileus versus early/partial obstruction, however patient tolerating diet, moving bowels, increasing activity, no interventions performed * KUB on 05/01 with dilated bowel consistent with adynamic ileus. patient given Dulcolax suppository with subsequent bowel movements * repeat CT completed on 05/02 which did reveal gaseous distention of the transverse colon consistent with adynamic ileus and patient was NPO for ureteral stent replacement * diet resumed following stent placement and this morning patient complaining of worsened abdominal pain and bloating. no nausea or vomiting but not really able to tolerate diet * KUB today showed diffusely dilated small bowel and colon which may represent ileus versus distal colonic obstruction the patient is still having bowel movements, reports 2-3 loose stools this morning * NPO diet. Gentle IV fluids while NPO * initiate NG tube * appreciate general surgery recommendations (4) Acute kidney injury: Code(s): N17.9 - Acute kidney failure, unspecified Status: Acute Assessment and Plan: creatinine was normal on admission at 1.1 with increase to 1.6 * likely secondary to ureteral stone /hydronephrosis exacerbated by nephrotoxic agents and possibly component of dehydration * renal ultrasound reveals moderate left hydronephrosis with bilateral kidney stone * creatinine essentially back to baseline today at 1.1 * home Entresto and spironolactone on hold, will resume for tomorrow morning * monitor BMP closely (5) Obstructive sleep apnea on CPAP: Code(s): G47.33 - Obstructive sleep apnea (adult) (pediatric); Z99.89 - Dependence on other enabling machines and devices Status: Acute Assessment and Plan: continue CPAP titrated to home settings (6) Essential hypertension: Code(s): I10 - Essential (primary) hypertension Status: Acute Assessment and Plan: blood pressures are stable * continue metoprolol succinate * resume spironolactone (7) Chronic anticoagulation: Code(s): Z79.01 - 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 (current) use of anticoagulants Status: Acute Asses
--- NOTE | 2022-05-03 14:38 | PM.IMPN ---
Progress Note: A&P Assessment and Plan (1) Left ureteral stone: Code(s): N20.1 - Calculus of ureter Status: Acute Assessment and Plan: CT on presentation showed multiple mid left ureteral stones largest 9 mm in diameter with mild left hydroureteronephrosis appreciate urology consultation patient underwent cystoscopy with left stent placement on 04/29. Tolerated the procedure well 05/03: Patient with onset of 10/[address]. [address] of the abdomen/pelvis showed left internal ureteral stent in abnormal position with proximal end coiled in the ureter at the level of the sacrum and distal to the stones. Discussed case with urology and pt underwent repeat cystoscopy with left ureteral stent removal, left ureteroscopy with laser lithotripsy, and left ureteral stent replacement ureteral stent x-ray showed left internal ureteral stent in expected position outpatient follow-up with urology in 2-3 weeks for stent removal (2) Hydronephrosis: Code(s): N13.30 - Unspecified hydronephrosis Status: Acute Assessment and Plan: secondary to above see plan above (3) Ileus: Code(s): K56.7 - Ileus, unspecified Status: Acute Assessment and Plan: 04/29 patient with complaints of bloating and diffuse abdominal pain postoperatively KUB on 04/29 with onset of pain showed findings consistent with small bowel ileus versus early/partial obstruction, however patient tolerating diet, moving bowels, increasing activity, no interventions performed KUB on 05/01 with dilated bowel consistent with adynamic ileus. patient given Dulcolax suppository with subsequent bowel movements repeat CT completed on 05/02 which did reveal gaseous distention of the transverse colon consistent with adynamic ileus and patient was NPO for ureteral stent replacement diet resumed following stent placement and this morning patient complaining of worsened abdominal pain and bloating. no nausea or vomiting but not really able to tolerate diet KUB today showed diffusely dilated small bowel and colon which may represent ileus versus distal colonic obstruction the patient is still having bowel movements, reports 2-3 loose stools this morning NPO diet. Gentle IV fluids while NPO initiate NG tube appreciate general surgery recommendations (4) Acute kidney injury: Code(s): N17.9 - Acute kidney failure, unspecified Status: Acute Assessment and Plan: creatinine was normal on admission at 1.1 with increase to 1.6 likely secondary to ureteral stone /hydronephrosis exacerbated by nephrotoxic agents and possibly component of dehydration renal ultrasound reveals moderate left hydronephrosis with bilateral kidney stone creatinine essentially back to baseline today at 1.1 home Entresto and spironolactone on hold, will resume for tomorrow morning monitor BMP closely (5) Obstructive sleep apnea on CPAP: Code(s): G47.33 - Obstructive sleep apnea (adult) (pediatric); Z99.89 - Dependence on other enabling machines and devices Status: Acute Assessment and Plan: continue CPAP titrated to home settings (6) Essential hypertension: Code(s): I10 - Essential (primary) hypertension Status: Acute Assessment and Plan: blood pressures are stable continue metoprolol succinate resume spironolactone (7) Chronic anticoagulation: Code(s): Z79.01 - long term care social worker (current) use of 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 Warfarin held on 05/01 given supratherapeutic INR INR is therapeutic today at 2.4 continue home warfarin Monitor PT/INR daily (8) Congestive heart failure: Qualifiers: Heart failure type: systolic Heart failure chronicity: acute on chronic Qualified Code(s): I50.23 - Acute on chronic systolic (congestive) heart f
[2022-05-03] MEDS: HYDROmorphone HCL INJ (*CRX) 1 MG/ML SYR IV PUSH ×2 (14:52→21:23)
[2022-05-03] MEDS: SODIUM CHLORIDE 0.9% IV 1,000 ML 110 ML IV CONT (17:12)
[2022-05-03] MEDS: WARFARIN (*PBKC) 2 MG TABLET PO (17:17)
--- NOTE | 2022-05-03 18:13 | PM.CNGS ---
Assessment and Plan Assessment and plan (1) Colonic pseudoobstruction: Code(s): K59.81 - [place] syndrome Status: Acute Assessment and Plan: Explained to patient and his that this is not a surgical condition. While it can be difficult to resolve, it usually does resolve with medical therapy. I will go ahead and consult Dr. Guajardo, gastroenterology for consideration of decompressive colonoscopy. Neostigmine administration is another consideration if first-line treatments are ineffective. Will have nasogastric tube placed and rectal tube placed. NPO except ice chips. Serial plain films of the abdomen and labs. Will continue to follow but no surgery is expected to be needed. History of Present Illness Consult details Consult date: 05/03/22 Reason for consult: abdominal pain Requesting physician: Kerry Pappas PA-C Narrative: Patient is a 66-year-old man with a history of coronary stenting of proximal LAD stenoses in 2019. He has global hypokinesis of his heart. He has a long history of kidney stones. He came to the emergency room on 04/28 with severe left flank pain. He was noted to have multiple left ureteral stones. He was taken to the OR on 04/29 and a left ureteral stent was placed. The patient started showing some signs of abdominal distension but nothing specific. Yesterday a CT scan was done and showed that the proximal coil of the stent had migrated into the ureter distal to the stone. The same day, patient was taken back to surgery. Laser therapy of the stone was performed and a new ureteral stent placed that is in the proper position. This morning the patient felt pretty good but as he started to eat he developed severe abdominal pain which he described as 10/10. Plain films were done which suggested severe colonic dilatation. I was asked to see the patient in consultation for this reason. Earlier today I saw the patient and ordered a water-soluble contrast enema. This showed no distal colonic obstruction. He is seen now in consultation. Review of Systems Review of Systems: All systems reviewed & are unremarkable except as noted in HPI and below (HPI and those items noted below) Constitutional: Constitutional: Denies chills and Denies fever(s) Cardiovascular: Cardiovascular: Denies chest pain, Denies diaphoresis, Denies dyspnea and Denies paroxysmal nocturnal dyspnea Respiratory: Respiratory: Denies chest congestion, Denies cough and Denies dyspnea Integumentary/Breasts: Skin/Breast: Denies lesions and Denies rash [facility] Past Medical History Medical History Benign prostatic hyperplasia Calculus of kidney Chronic anemia Chronic back pain Congestive heart failure March 2019 showed mildly enlarged left ventricle, reduced left ventricular systolic function with ejection fraction estimated at 40 to 45%, moderately increased left ventricular wall thickness, grade 1 diastolic dysfunction, and hypokinetic segments to include the anteroseptal wall, apical septum, apical lateral wall, apical cap, mid anterior wall, and mid anterolateral wall. Coronary artery disease Cough due to WILL inhibitor Depression Eczema Essential hypertension Gallstones History of angina History of bladder infections Hyperlipidemia Ischemic cardiomyopathy Kidney stones Obesity Obstructive sleep apnea on CPAP Obstructive sleep apnea on CPAP Osteoarthritis Prediabetes ST elevation (STEMI) myocardial infarction ST elevation myocardial infarction (STEMI) of anterior wall (~03/2019) Status post drug-eluting stent to the proximal LAD. Urinary incontinence UTI (urinary tract infection) Surgical History Surgical History H/O hand surgery History of appendectomy History of coronary artery stent placement Hx of lithotripsy S/P trigger finger release Family History Family History (Reviewed 05/03/22 @ 18:18 by
--- NOTE | 2022-05-03 18:57 | PC.NURSE ---
Nurse placed NG tube. Pt panicked and pulled it out. Says he cant do it He is refusing NG at this time. made aware.
[2022-05-03 21:20] VITALS: BP 124/67; PULSE 90; RESP 18; TEMP 36.6; O2SAT 93
[2022-05-03 22:27] VITALS: PULSE 85; RESP 17; O2SAT 92
[2022-05-04 01:25] VITALS: PULSE 77; RESP 10; O2SAT 94
[2022-05-04] MEDS: SODIUM CHLORIDE 0.9% IV 1,000 ML 110 ML IV CONT ×3 (02:20→21:00)
[2022-05-04 05:21] VITALS: BP 127/68; PULSE 68; RESP 18; TEMP 36.6; O2SAT 96
[2022-05-04 06:08] LABS: Hematocrit 40.7 % (42.0-52.0); Hemoglobin 12.9 g/dL (14.0-18.0); Mean Corpuscular HGB Conc 31.7 g/dl (32-36); Mean Corpuscular Volume 88.5 fl (80-100); Mean Platelet Volume 10.1 fl (7.4-10.4); Platelet Count Result 189 k/mm3 (150-375); Red Cell Distribution Width 14.5 % (11.5-14.5); White Blood Count 9.9 K/mm3 (4.5-10.0)
[2022-05-04 06:15] LABS: Anion Gap 6 mmol/L (8-16); Blood Urea Nitrogen 19 mg/dL (9-20); Carbon Dioxide 22 mmol/L (22-30); Chloride 113 mmol/L (98-107); Estimated CRCL calculation 86 ml/min; Estimated Glomerular Filt Rate > 60; Glucose 100 mg/dL (65-110); Potassium 3.8 mmol/L (3.4-5.0); Sodium 141 mmol/L (137-145)
[2022-05-04 06:17] LABS: INR 2.4; Prothrombin Time 25.1 Seconds (11.1-14.7)
[2022-05-04] MEDS: HYDROcodone/acetaminophen (*CRX) 5-325 MG TABLET 1 TAB PO (08:20)
[2022-05-04 08:23] VITALS: PULSE 85
[2022-05-04] MEDS: METOPROLOL SUCCINATE EXT REL 12.5 MG TABCR 37.5 MG PO (08:23)
[2022-05-04] MEDS: FINASTERIDE 5 MG TABLET PO (08:25)
[2022-05-04] MEDS: IPRATROPIUM NASAL SPRAY 0.06% 15 ML BOTTLE 2 SPRAY NASAL ×2 (08:26→17:04)
[2022-05-04] MEDS: ISOSORBIDE MONONITRATE 30 MG TAB.ER.24H PO (08:26)
[2022-05-04] MEDS: ATORVASTATIN 40 MG TABLET 80 MG PO (09:18)
[2022-05-04] MEDS: DOCUSATE SODIUM 100 MG CAPSULE PO (09:18)
[2022-05-04] MEDS: ASPIRIN 81 MG ENTERIC TABLET PO (09:19)
[2022-05-04 09:30] VITALS: PULSE 85; RESP 18; O2SAT 96
--- NOTE | 2022-05-04 11:01 | WPDUROPN2 ---
Progress Note: A&P Assessment and Plan (1) Hydronephrosis: Code(s): N13.30 - Unspecified hydronephrosis Status: Acute (2) Left ureteral stone: Code(s): N20.1 - Calculus of ureter Status: Acute Assessment and Plan: Indwelling left ureteral stent to be removed in 2-3 weeks. Plan Indwelling left ureteral stent to be removed as outpatient in 2-3 weeks Subjective Subjective Date/Time Seen: 05/04/22 11:01 Gen. surg. input appreciated Feeling better today - no return of renal colic Review of Systems Cardiovascular: Cardiovascular: Denies chest pain, Denies lightheadedness, Denies palpitations and Denies dyspnea Respiratory: Respiratory: Denies dyspnea Gastrointestinal: Gastrointestinal: Denies diarrhea, Denies nausea and Denies vomiting Genitourinary: Genitourinary: Denies hematuria and Denies dysuria Endocrine: Endocrine: Denies palpitations Exam Const: General: no acute distress Resp: Effort & Inspection: normal respiratory effort GI: Inspection: non-distended GI Palp: No abdominal tenderness and No Guarding due to palpation present (GI) Auscultation: normal bowel sounds Objective Data Vital Signs Vital Signs: Vital Signs - 24 hr 05/03/22 14:00 05/03/22 21:20 05/03/22 22:27 Temperature 97.2 F L 97.8 F Pulse Rate 80 90 85 Respiratory Rate 14 18 17 Blood Pressure 123/57 L 124/67 Pulse Oximetry 97 93 92 Oxygen Delivery CPAP 05/04/22 01:25 05/04/22 05:21 05/04/22 08:23 Temperature 97.8 F Pulse Rate 77 68 85 Respiratory Rate 10 L 18 Blood Pressure 127/68 Pulse Oximetry 94 96 Oxygen Delivery CPAP Intake/Output Intake/Output: Intake & Output 05/01/22 05/02/22 05/03/22 05/04/22 23:59 23:59 23:59 23:59 Intake Total 3460 2210 1340 1000 Output Total 625 Balance 3460 1585 1340 1000 Meds/Results Medications: Active Medications Generic Name Dose Route Start Last Admin Trade Name Freq PRN Reason Stop Dose Admin Ascorbic Acid 500 mg 04/30/22 09:00 05/02/22 08:55 Ascorbic Acid 500 Mg Tablet PO 500 mg TuTh@0900 ADAN Administration Aspirin 81 mg 04/29/22 09:00 05/04/22 09:19 Aspirin 81 Mg Enteric Tablet PO 81 mg QAM [facility] Administration Atorvastatin Calcium 80 mg 04/29/22 09:00 05/04/22 09:18 Atorvastatin 40 Mg Tablet PO 80 mg DAILY [facility] Administration Diclofenac Sodium 1 applic 04/29/22 09:00 05/04/22 08:27 Diclofenac Sodium 1% 100 Gm Gel (*Bkc) TOPICAL Not Given QID [facility] Finasteride 5 mg 04/29/22 09:00 05/04/22 08:25 Finasteride 5 Mg Tablet PO 5 mg DAILY [facility] Administration Sodium Chloride 1,000 mls @ 110 mls/hr 05/03/22 14:50 05/04/22 02:20 Normal Saline Iv IV CONT 110 mls/hr .Q9H6M [facility] Administration Acetaminophen 1,000 mg in 100 mls @ 400 mls/hr 05/04/22 10:27 Ofirmev 1,000 Mg Ivpb IVPB 05/05/22 10:26 Q6H PRN Pain or Fever 1-3 Ipratropium [place] 2 spray 04/29/22 09:00 05/04/22 08:26 Ipratropium Nasal [place] 0.06% 15 Ml Bottle NASAL 2 spray BID [facility] Administration Isosorbide Mononitrate 30 mg 04/29/22 09:00 05/04/22 08:26 Isosorbide Mononitrate 30 Mg Tab.Er.24h PO 30 mg QAM [facility] Administration Metoprolol Succinate 37.5 mg 04/29/22 09:00 05/04/22 08:23 Metoprolol Succinate Ext Rel 12.5 Mg Tabcr PO 37.5 mg DAILY [facility] Administration Nitroglycerin 0.4 mg 04/29/22 01:13 Nitroglycerin Sl 0.4 Mg Tablet SUBLINGUAL Q5M PRN chest pain Coenzyme Q10 [Ultra 1 each 04/29/22 09:00 Coq10] 75 Mg Capsule XX 05/29/22 08:59 DAILY [facility] Ondansetron HCl 4 mg 04/28/22 21:41 05/02/22 06:56 Ondansetron Inj 4 Mg/2 Ml Vial IV PUSH 4 mg Q4H PRN Administration Nausea Sacubitril/Valsartan 1 tablet 04/29/22 09:00 05/04/22 08:32 Sacubitril/Valsartan 49-51 Mg Tablet PO Not Given Q12HR ADAN Spironolactone 25 mg 04/29/22 09:00 05/04/22 08:32 Spironolactone 25 Mg Tablet PO Not Given DA
[2022-05-04 14:00] VITALS: BP 107/46; PULSE 83; RESP 20; TEMP 35.9; O2SAT 92
--- NOTE | 2022-05-04 14:29 | PM.PNGS ---
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 Further management per hospitalist and Gastroenterology. 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 Subjective Subjective Date/Time Seen: 05/04/22 14:29 Patient reports: no new complaints, feels better, pain is less, bowel movement (Fecal containment device in place), afebrile and other (Patient refused nasogastric tube) Review of Systems Review of Systems: All systems reviewed & are unremarkable except as noted in HPI and below (HPI) Exam Const: General: comfortable and no acute distress; No confusion Orientation/consciousness: patient oriented x3 and No confusion GI: Inspection: distended and obesity GI Palp: Yes Firmness to palpation present (GI), Yes Tenderness to palpation present (GI) (Less tender), No Guarding due to palpation present (GI) and No Rebound tenderness present Auscultation: absent bowel sounds Neuro: General: patient oriented x3, no focal motor deficits and No confusion Extrem: General: no calf tenderness and no edema Psych: Affect: normal affect Insight: Good insight present (Psych) Judgement: Good judgement present (Psych) Objective Data Vital Signs Vital Signs: Vital Signs - 24 hr 05/03/22 21:20 05/03/22 22:27 05/04/22 01:25 Temperature 36.6 C Pulse Rate 90 85 77 Respiratory Rate 18 17 10 L Blood Pressure 124/67 Pulse Oximetry 93 92 94 Oxygen Delivery CPAP CPAP 05/04/22 05:21 05/04/22 08:23 05/04/22 09:30 Temperature 36.6 C Pulse Rate 68 85 85 Respiratory Rate 18 18 Blood Pressure 127/68 Pulse Oximetry 96 96 Oxygen Delivery Room Air Intake/Output Intake/Output: Intake & Output 05/01/22 05/02/22 05/03/22 05/04/22 23:59 23:59 23:59 23:59 Intake Total 3460 2210 1340 1999 Output Total 625 Balance 3460 1585 1340 1999 Meds/Results Medications: Active Medications Generic Name Dose Route Start Last Admin Trade Name Freq PRN Reason Stop Dose Admin Ascorbic Acid 500 mg 04/30/22 09:00 05/02/22 08:55 Ascorbic Acid 500 Mg Tablet PO 500 mg TuTh@0900 [facility] Administration Aspirin 81 mg 04/29/22 09:00 05/04/22 09:19 Aspirin 81 Mg Enteric Tablet PO 81 mg QAM [facility] Administration Atorvastatin Calcium 80 mg 04/29/22 09:00 05/04/22 09:18 Atorvastatin 40 Mg Tablet PO 80 mg DAILY [facility] Administration Diclofenac Sodium 1 applic 04/29/22 09:00 05/04/22 12:50 Diclofenac Sodium 1% 100 Gm Gel (*Bkc) TOPICAL Not Given QID [facility] Finasteride 5 mg 04/29/22 09:00 05/04/22 08:25 Finasteride 5 Mg Tablet PO 5 mg DAILY [facility] Administration Sodium Chloride 1,000 mls @ 110 mls/hr 05/03/22 14:50 05/04/22 11:08 Normal Saline Iv IV CONT 110 mls/hr .Q9H6M [facility] Administration Acetaminophen 1,000 mg in 100 mls @ 400 mls/hr 05/04/22 10:27 05/04/22 11:06 Ofirmev 1,000 Mg Ivpb IVPB 05/05/22 10:26 400 mls/hr Q6H PRN Administration Pain or Fever 1-3 Ipratropium [place] 2 spray 04/29/22 09:00 05/04/22 08:26 Ipratropium Nasal [place] 0.06% 15 Ml Bottle NASAL 2 spray BID [facility] Administration Isosorbide Mononitrate 30 mg 04/29/22 09:00 05/04/22 08:26 Isosorbide Mononitrate 30 Mg Tab.Er.24h PO 30 mg QAM [facility] Administration Metoprolol Succinate 37.5 mg 04/29/22 09:00 05/04/22 08:23 Metoprolol Succinate Ext Rel 12.5 Mg Tabcr PO 37.5 mg DAILY [facility] Administration Nitroglycerin 0.4 mg 04/29/22 01:13 Nitroglycerin Sl 0.4 Mg Tablet SUBLINGUAL Q5M PRN chest pain Coenzyme Q10 [Ultra 1 each 04/29/22 09:00 Coq10] 75 Mg Capsule XX 05/29/22 08:59 DAILY [facility] Ondansetron HCl 4 mg 04/28/22 21:41 05/02/22 06:56 Ondansetron Inj 4 Mg/2 Ml Vial IV PU
--- NOTE | 2022-05-04 16:11 | P.PNIM_ITS ---
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 Initial imaging showed ileus, however KUB on 05/03 showed diffusely dilated small bowel and colon which may represent ileus versus distal colonic obstruction * Patient made NPO an NG was ordered. Patient has refused NG * Consult to General surgery * Water-soluble enema on 05/03 revealed dilated small and large bowel with no mechanical obstruction, findings felt to be consistent with [place]sco syndrome, possibly due to surgical procedures * Rectal tube place per General surgery recommendations. Appreciate general surgery consultation * Consult to GI. Recommendations are appreciated * Repeat KUB tomorrow * NPO diet. Continue with gentle IV fluids while NPO (2) Left ureteral stone: Code(s): N20.1 - Calculus of ureter Status: Acute Assessment and Plan: CT on presentation showed multiple mid left ureteral stones largest 9 mm in diameter with mild left hydroureteronephrosis * appreciate urology consultation * patient underwent cystoscopy with left stent placement on 04/29. Tolerated the procedure well * 05/03: Patient with onset of 10/[address]. [address] of the abdomen/pelvis showed left internal ureteral stent in abnormal position with proximal end coiled in the ureter at the level of the sacrum and distal to the stones. * Discussed case with urology and pt underwent repeat cystoscopy with left ureteral stent removal, left ureteroscopy with laser lithotripsy, and left ureteral stent replacement * ureteral stent x-ray showed left internal ureteral stent in expected position * outpatient follow-up with urology in 2-3 weeks for stent removal (3) Hydronephrosis: Code(s): N13.30 - Unspecified hydronephrosis Status: Acute Assessment and Plan: secondary to above * see plan above (4) Acute kidney injury: Code(s): N17.9 - Acute kidney failure, unspecified Status: Acute Assessment and Plan: creatinine was normal on admission at 1.1 with increase to 1.6 * likely secondary to ureteral stone /hydronephrosis exacerbated by nephrotoxic agents and possibly component of dehydration * renal ultrasound reveals moderate left hydronephrosis with bilateral kidney stone * creatinine back to baseline at 1.0 * monitor BMP closely (5) Obstructive sleep apnea on CPAP: Code(s): G47.33 - Obstructive sleep apnea (adult) (pediatric); Z99.89 - Dependence on other enabling machines and devices Status: Acute Assessment and Plan: continue CPAP titrated to home settings (6) Essential hypertension: Code(s): I10 - Essential (primary) hypertension Status: Acute Assessment and Plan: blood pressures are stable * continue metoprolol succinate and spironolactone (7) Chronic anticoagulation: 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 * Warfarin held on 05/01 given supratherapeutic INR * INR is therapeutic today at 2.4 * continue home warfarin * Monitor PT/INR daily (8) Congestive heart failure: Qualifiers: Heart failure type: systolic Heart failure chronicity: acute on chronic Qualified Code(s): I50.23 - Acute on chronic systolic (congestive) heart failure
--- NOTE | 2022-05-04 16:11 | PM.IMPN ---
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 Initial imaging showed ileus, however KUB on 05/03 showed diffusely dilated small bowel and colon which may represent ileus versus distal colonic obstruction Patient made NPO an NG was ordered. 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 Appreciate general surgery consultation Consult to GI. Recommendations are appreciated Repeat KUB tomorrow NPO diet. Continue with gentle IV fluids while NPO (2) Left ureteral stone: Code(s): N20.1 - Calculus of ureter Status: Acute Assessment and Plan: CT on presentation showed multiple mid left ureteral stones largest 9 mm in diameter with mild left hydroureteronephrosis appreciate urology consultation patient underwent cystoscopy with left stent placement on 04/29. Tolerated the procedure well 05/03: Patient with onset of 10/[address]. [address] of the abdomen/pelvis showed left internal ureteral stent in abnormal position with proximal end coiled in the ureter at the level of the sacrum and distal to the stones. Discussed case with urology and pt underwent repeat cystoscopy with left ureteral stent removal, left ureteroscopy with laser lithotripsy, and left ureteral stent replacement ureteral stent x-ray showed left internal ureteral stent in expected position outpatient follow-up with urology in 2-3 weeks for stent removal (3) Hydronephrosis: Code(s): N13.30 - Unspecified hydronephrosis Status: Acute Assessment and Plan: secondary to above see plan above (4) Acute kidney injury: Code(s): N17.9 - Acute kidney failure, unspecified Status: Acute Assessment and Plan: creatinine was normal on admission at 1.1 with increase to 1.6 likely secondary to ureteral stone /hydronephrosis exacerbated by nephrotoxic agents and possibly component of dehydration renal ultrasound reveals moderate left hydronephrosis with bilateral kidney stone creatinine back to baseline at 1.0 monitor BMP closely (5) Obstructive sleep apnea on CPAP: Code(s): G47.33 - Obstructive sleep apnea (adult) (pediatric); Z99.89 - Dependence on other enabling machines and devices Status: Acute Assessment and Plan: continue CPAP titrated to home settings (6) Essential hypertension: Code(s): I10 - Essential (primary) hypertension Status: Acute Assessment and Plan: blood pressures are stable continue metoprolol succinate and spironolactone (7) Chronic anticoagulation: Code(s): Z79.01 - detention (current) use of 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 Warfarin held on 05/01 given supratherapeutic INR INR is therapeutic today at 2.4 continue home warfarin Monitor PT/INR daily (8) Congestive heart failure: Qualifiers: Heart failure type: systolic Heart failure chronicity: acute on chronic Qualified Code(s): I50.23 - Acute on chronic systolic (congestive) heart failure Code(s): I50.9 - Heart failure, unspecified Status: Acute Assessment and Plan: no evidence of hypervolemia, patient appears clinically compensated monitor volume status closely with IV fluid rehydration continue home Entresto and spironolactone (9) Leukocytosis: Code(s): D72.829 - Elevated white blood cell count, unspecified Status: Acute Assessment and Plan: patient with mild l
[2022-05-04] MEDS: DICLOFENAC SODIUM 1% 100 GM GEL (*BKC) 1 APPLIC TOPICAL ×2 (17:04→21:03)
[2022-05-04] MEDS: WARFARIN (*PBKC) 2 MG TABLET PO (17:05)
[2022-05-04 20:57] VITALS: BP 134/68; PULSE 89; RESP 20; TEMP 36.6; O2SAT 93
[2022-05-04] MEDS: SACUBITRIL/VALSARTAN 49-51 MG TABLET 1 TABLET PO (21:01)
[2022-05-05 04:27] VITALS: BP 115/59; PULSE 86; RESP 18; TEMP 36.6; O2SAT 94
[2022-05-05 05:51] LABS: Hematocrit 41.7 % (42.0-52.0); Mean Corpuscular HGB Conc 31.2 g/dl (32-36); Mean Corpuscular Volume 86.7 fl (80-100); Platelet Count Result 197 k/mm3 (150-375); Red Blood Count 4.81 M/mm3 (4.6-6.20); Red Cell Distribution Width 14.4 % (11.5-14.5); White Blood Count 9.6 K/mm3 (4.5-10.0)
[2022-05-05 05:52] LABS: Anion Gap 4 mmol/L (8-16); Blood Urea Nitrogen 15 mg/dL (9-20); Calcium 7.6 mg/dL (8.4-10.2); Carbon Dioxide 23 mmol/L (22-30); Chloride 113 mmol/L (98-107); Estimated CRCL calculation 119 ml/min; Estimated Glomerular Filt Rate > 60; Glucose 104 mg/dL (65-110); INR 2.8; Potassium 3.7 mmol/L (3.4-5.0); Prothrombin Time 28.7 Seconds (11.1-14.7); Sodium 140 mmol/L (137-145)
[2022-05-05] MEDS: SACUBITRIL/VALSARTAN 49-51 MG TABLET 1 TABLET PO ×2 (08:38→21:35)
[2022-05-05] MEDS: FINASTERIDE 5 MG TABLET PO (08:38)
[2022-05-05] MEDS: ASPIRIN 81 MG ENTERIC TABLET PO (08:39)
[2022-05-05] MEDS: ISOSORBIDE MONONITRATE 30 MG TAB.ER.24H PO (08:39)
[2022-05-05 08:40] VITALS: PULSE 86; RESP 18; O2SAT 94
[2022-05-05] MEDS: SPIRONOLACTONE 25 MG TABLET PO (08:40)
[2022-05-05] MEDS: IPRATROPIUM NASAL SPRAY 0.06% 15 ML BOTTLE 2 SPRAY NASAL ×2 (08:40→17:04)
[2022-05-05] MEDS: METOPROLOL SUCCINATE EXT REL 12.5 MG TABCR 37.5 MG PO (08:40)
[2022-05-05] MEDS: SODIUM CHLORIDE 0.9% IV 1,000 ML 110 ML IV CONT ×2 (11:03→21:35)
[2022-05-05 14:00] VITALS: BP 110/58; PULSE 107; RESP 20; TEMP 36.3; O2SAT 92
--- NOTE | 2022-05-05 14:50 | P.PNIM_ITS ---
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 Initial imaging showed ileus, however KUB on 05/03 showed diffusely dilated small bowel and colon which may represent ileus versus distal colonic obstruction * Patient made NPO an NG was ordered. Patient has refused NG * Consult to General surgery * Water-soluble enema on 05/03 revealed dilated small and large bowel with no mechanical obstruction, findings felt to be consistent with [place] syndrome, possibly due to surgical procedures * Rectal tube place per General surgery recommendations. Appreciate general surgery consultation * Consult to GI. Recommendations are appreciated * KUB today with improving gaseous distension of small bowel and cololn. Repeat KUB tomorrow * NPO diet. Continue with gentle IV fluids while NPO * Hopeful to discontinue rectal tube tomorrow and possibly begin clear liquids if continued improvement (2) Left ureteral stone: Code(s): N20.1 - Calculus of ureter Status: Acute Assessment and Plan: CT on presentation showed multiple mid left ureteral stones largest 9 mm in diameter with mild left hydroureteronephrosis * appreciate urology consultation * patient underwent cystoscopy with left stent placement on 04/29. Tolerated the procedure well * 05/03: Patient with onset of 10/[address]. [address] of the abdomen/pelvis showed left internal ureteral stent in abnormal position with proximal end coiled in the ureter at the level of the sacrum and distal to the stones. * Discussed case with urology and pt underwent repeat cystoscopy with left ureteral stent removal, left ureteroscopy with laser lithotripsy, and left ureteral stent replacement * ureteral stent x-ray showed left internal ureteral stent in expected position * outpatient follow-up with urology in 2-3 weeks for stent removal (3) Hydronephrosis: Code(s): N13.30 - Unspecified hydronephrosis Status: Acute Assessment and Plan: secondary to above * see plan above (4) Acute kidney injury: Code(s): N17.9 - Acute kidney failure, unspecified Status: Acute Assessment and Plan: Resolved. creatinine was normal on admission at 1.1 with increase to 1.6 * likely secondary to ureteral stone /hydronephrosis exacerbated by nephrotoxic agents and possibly component of dehydration * renal ultrasound reveals moderate left hydronephrosis with bilateral kidney stone * creatinine back to baseline * monitor BMP closely (5) Obstructive sleep apnea on CPAP: Code(s): G47.33 - Obstructive sleep apnea (adult) (pediatric); Z99.89 - Dependence on other enabling machines and devices Status: Acute Assessment and Plan: continue CPAP titrated to home settings (6) Essential hypertension: Code(s): I10 - Essential (primary) hypertension Status: Acute Assessment and Plan: blood pressures are stable * continue metoprolol succinate and spironolactone (7) Chronic anticoagulation: 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 * Warfarin held on 05/01 given supratherapeutic INR * INR is therapeutic today at 2.8 * continue home warfarin * Monitor PT/INR daily (8) Congestive heart failure:
--- NOTE | 2022-05-05 14:50 | PM.IMPN ---
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 Initial imaging showed ileus, however KUB on 05/03 showed diffusely dilated small bowel and colon which may represent ileus versus distal colonic obstruction Patient made NPO an NG was ordered. 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 Appreciate general surgery consultation Consult to GI. Recommendations are appreciated KUB today with improving gaseous distension of small bowel and cololn. Repeat KUB tomorrow NPO diet. Continue with gentle IV fluids while NPO Hopeful to discontinue rectal tube tomorrow and possibly begin clear liquids if continued improvement (2) Left ureteral stone: Code(s): N20.1 - Calculus of ureter Status: Acute Assessment and Plan: CT on presentation showed multiple mid left ureteral stones largest 9 mm in diameter with mild left hydroureteronephrosis appreciate urology consultation patient underwent cystoscopy with left stent placement on 04/29. Tolerated the procedure well 05/03: Patient with onset of 10/[address]. [address] of the abdomen/pelvis showed left internal ureteral stent in abnormal position with proximal end coiled in the ureter at the level of the sacrum and distal to the stones. Discussed case with urology and pt underwent repeat cystoscopy with left ureteral stent removal, left ureteroscopy with laser lithotripsy, and left ureteral stent replacement ureteral stent x-ray showed left internal ureteral stent in expected position outpatient follow-up with urology in 2-3 weeks for stent removal (3) Hydronephrosis: Code(s): N13.30 - Unspecified hydronephrosis Status: Acute Assessment and Plan: secondary to above see plan above (4) Acute kidney injury: Code(s): N17.9 - Acute kidney failure, unspecified Status: Acute Assessment and Plan: Resolved. creatinine was normal on admission at 1.1 with increase to 1.6 likely secondary to ureteral stone /hydronephrosis exacerbated by nephrotoxic agents and possibly component of dehydration renal ultrasound reveals moderate left hydronephrosis with bilateral kidney stone creatinine back to baseline monitor BMP closely (5) Obstructive sleep apnea on CPAP: Code(s): G47.33 - Obstructive sleep apnea (adult) (pediatric); Z99.89 - Dependence on other enabling machines and devices Status: Acute Assessment and Plan: continue CPAP titrated to home settings (6) Essential hypertension: Code(s): I10 - Essential (primary) hypertension Status: Acute Assessment and Plan: blood pressures are stable continue metoprolol succinate and spironolactone (7) Chronic anticoagulation: Code(s): Z79.01 - roasterman (current) use of 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 Warfarin held on 05/01 given supratherapeutic INR INR is therapeutic today at 2.8 continue home warfarin Monitor PT/INR daily (8) Congestive heart failure: Qualifiers: Heart failure type: systolic Heart failure chronicity: acute on chronic Qualified Code(s): I50.23 - Acute on chronic systolic (congestive) heart failure Code(s): I50.9 - Heart failure, unspecified Status: Acute Assessment and Plan: no evidence of hypervolemia, patient appears clinically compensated monitor volume status closely with IV fluid rehydration continue home Entresto and shannan
--- NOTE | 2022-05-05 17:01 | WPDGICN ---
Assessment and Plan Assessment and plan (1) Ileus: Code(s): K56.7 - Ileus, unspecified Status: Acute Assessment and Plan: clinically better, rectal tube and npo status improved, no more nausea will start CL diet for now (2) Colonic pseudoobstruction: Code(s): K59.81 - [place] syndrome Status: Acute Assessment and Plan: treated medically, he is having brown stool by rectal tube we can arrange colonoscopy as outpatient when acute process resolved (3) Kidney stone on left side: Code(s): N20.0 - Calculus of kidney Status: Acute Assessment and Plan: probably trigger of current gi issue (4) Abdominal pain: Code(s): R10.9 - Unspecified abdominal pain Status: Acute Assessment and Plan: improved he also will need egd as outpatient (5) Nausea: Code(s): R11.0 - Nausea Status: Acute GI Consult Note Consult date/time: 05/05/22 17:01 Reason for consult: ileus, abdominal pain, n/v HPI: Go Morrow is a 66 year old male with?history of coronary stenting of proximal LAD in 2019, kidney stones.? He came to the emergency room on 04/28 with severe left flank pain and had multiple left ureteral stones then taken to the OR on 04/29 and a left ureteral stent was placed, then with more abdominal distension, CT scan showed that the proximal coil of the stent had migrated into the ureter distal to the stone and he was taken back to surgery.? Laser therapy of the stone was performed and a new ureteral stent placed that is in the proper position.? Then developed more severe abdominal pain with nausea, XR suggested severe colonic dilatation, water-soluble contrast enema without distal colonic obstruction. Patient did not want NGT but rectal tube placed, he has been having brown stool and abdomen less distended, XR showed improvement of distension and ileus, he is feeling better without any more nausea and hungry. Interestingly he says that he has been having non specific abdominal discomfort for 2 month and his doctor was in the process to refer to see GI doctor for endoscopic evaluation. Review of Systems Constitutional: Constitutional: Denies chills Eyes: Eyes: Denies blurry vision ENT: Reports Normal hearing present Cardiovascular: Cardiovascular: Denies chest pain Respiratory: Respiratory: Denies cough Gastrointestinal: Gastrointestinal: Reports abdominal pain and Reports nausea Genitourinary: Genitourinary: Reports urinary frequency Musculoskeletal: Musculoskeletal: Reports back pain Integumentary/Breasts: Skin/Breast: Denies dry skin Neurologic: Denies Abnormal speech present Psychiatric: Psychiatric: Denies behavioral changes [facility] Past Medical History Medical History (Updated 05/05/22 @ 17:07 by Scottie Arias MD) Benign prostatic hyperplasia Calculus of kidney Chronic anemia Chronic back pain Congestive heart failure March 2019 showed mildly enlarged left ventricle, reduced left ventricular systolic function with ejection fraction estimated at 40 to 45%, moderately increased left ventricular wall thickness, grade 1 diastolic dysfunction, and hypokinetic segments to include the anteroseptal wall, apical septum, apical lateral wall, apical cap, mid anterior wall, and mid anterolateral wall. Coronary artery disease Cough due to WILL inhibitor Depression Eczema Essential hypertension Gallstones History of angina History of bladder infections Hyperlipidemia Ischemic cardiomyopathy Kidney stones Nausea Obesity Obstructive sleep apnea on CPAP Obstructive sleep apnea on CPAP Osteoarthritis Prediabetes ST elevation (STEMI) myocardial infarction ST elevation myocardial infarction (STEMI) of anterior wall (~03/2019) Status post drug-eluting stent to the proximal LAD. Urinary incontinence UTI (urinary tract infection) Surgical History Surgical History H/O hand
[2022-05-05] MEDS: DICLOFENAC SODIUM 1% 100 GM GEL (*BKC) 1 APPLIC TOPICAL ×2 (17:04→21:35)
[2022-05-05] MEDS: WARFARIN (*PBKC) 2 MG TABLET PO (17:05)
[2022-05-05 20:20] VITALS: BP 127/50; PULSE 84; RESP 18; TEMP 37.2; O2SAT 94
[2022-05-05] MEDS: ZOLPIDEM TARTRATE (*CRX) 5 MG TABLET 10 MG PO (21:39)
[2022-05-05 22:34] VITALS: PULSE 74; RESP 16; O2SAT 93
[2022-05-06] VITALS (7 sets, daily range): BP systolic 112–147; BP diastolic 54–61; PULSE 65–98; RESP 17–18; TEMP 36.7–37.4; O2SAT 92–96
[2022-05-06 05:21] LABS: INR 3.6; Prothrombin Time 34.8 Seconds (11.1-14.7)
[2022-05-06] MEDS: ISOSORBIDE MONONITRATE 30 MG TAB.ER.24H PO (09:21)
[2022-05-06] MEDS: IPRATROPIUM NASAL SPRAY 0.06% 15 ML BOTTLE 2 SPRAY NASAL (09:21)
[2022-05-06] MEDS: SPIRONOLACTONE 25 MG TABLET PO (09:21)
[2022-05-06] MEDS: SACUBITRIL/VALSARTAN 49-51 MG TABLET 1 TABLET PO ×2 (09:21→20:25)
[2022-05-06] MEDS: FINASTERIDE 5 MG TABLET PO (09:22)
[2022-05-06] MEDS: DICLOFENAC SODIUM 1% 100 GM GEL (*BKC) 1 APPLIC TOPICAL (09:22)
[2022-05-06] MEDS: METOPROLOL SUCCINATE EXT REL 12.5 MG TABCR 37.5 MG PO (09:22)
[2022-05-06] MEDS: ASPIRIN 81 MG ENTERIC TABLET PO (09:22)
--- NOTE | 2022-05-06 10:00 | PM.IMPN ---
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 Initial imaging showed ileus KUB on 05/03 showed diffusely dilated small bowel and colon which may represent ileus versus distal colonic obstruction refused NG, was made NPO for bowel rest Consult to General surgery thank you for your help Water-soluble enema on 05/03 revealed dilated small and large bowel with no mechanical obstruction, findings felt to be consistent with [place] syndrome, possibly due to surgical procedures Rectal tube remains in place per General surgery recommendations Consult to GI. Recommendations are appreciated KUB 05/05/22 with improving gaseous distension of small bowel and cololn. Repeat KUB 05/06/22 Nonspecific nonobstructive bowel gas pattern with multiple gas filled loops, but not dilated Increased diet to clear liquids per GI, advance per GI recommendations Pain medications added for further comfort (2) Left ureteral stone: Code(s): N20.1 - Calculus of ureter Status: Acute Assessment and Plan: CT on presentation showed multiple mid left ureteral stones largest 9 mm in diameter with mild left hydroureteronephrosis appreciate urology consultation patient underwent cystoscopy with left stent placement on 04/29. Tolerated the procedure well 05/03: Patient with onset of 10/[address] of the abdomen/pelvis showed left internal ureteral stent in abnormal position with proximal end coiled in the ureter at the level of the sacrum and distal to the stones. Repeat cystoscopy with left ureteral stent removal, left ureteroscopy with laser lithotripsy, and left ureteral stent replacement ureteral stent x-ray showed left internal ureteral stent in expected position outpatient follow-up with urology in 2-3 weeks for stent removal KUB indicated bilateral stones, left greater than right, with stones alongside the stent (3) Hydronephrosis: Code(s): N13.30 - Unspecified hydronephrosis Status: Acute Assessment and Plan: secondary to above see plan above (4) Acute kidney injury: Code(s): N17.9 - Acute kidney failure, unspecified Status: Acute Assessment and Plan: Resolved. creatinine was normal on admission at 1.1 with increase to 1.6 BUN/Cr as of 05/05/22 15/0.70 likely secondary to ureteral stone /hydronephrosis exacerbated by nephrotoxic agents and possibly component of dehydration renal ultrasound reveals moderate left hydronephrosis with bilateral kidney stone creatinine back to baseline monitor BMP closely (5) Obstructive sleep apnea on CPAP: Code(s): G47.33 - Obstructive sleep apnea (adult) (pediatric); Z99.89 - Dependence on other enabling machines and devices Status: Acute Assessment and Plan: continue CPAP titrated to home settings (6) Essential hypertension: Code(s): I10 - Essential (primary) hypertension Status: Acute Assessment and Plan: blood pressures are stable continue metoprolol succinate and spironolactone Current BP is 147/54 Could be slightly elevated due to increase pain Continue to trend Adjust therapy as indicated (7) Chronic anticoagulation: Code(s): Z79.01 - assisted (current) use of 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 Warfarin held on 05/01 given supratherapeutic INR INR today is 3.6 Most likely elevated due to NPO status Hold dose for today continue home warfarin Monitor PT/INR daily (8) Congestive heart failure: Qualifiers: Heart failure chronicity: acute on chronic Heart failure type: systol
--- NOTE | 2022-05-06 10:00 | P.PNIM_ITS ---
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 * Initial imaging showed ileus * KUB on 05/03 showed diffusely dilated small bowel and colon which may represent ileus versus distal colonic obstruction * refused NG, was made NPO for bowel rest * Consult to General surgery thank you for your help * Water-soluble enema on 05/03 revealed dilated small and large bowel with no mechanical obstruction, findings felt to be consistent with [place] syndrome, possibly due to surgical procedures * Rectal tube remains in place per General surgery recommendations * Consult to GI. Recommendations are appreciated * KUB 05/05/22 with improving gaseous distension of small bowel and cololn. * Repeat KUB 05/06/22 Nonspecific nonobstructive bowel gas pattern with multiple gas filled loops, but not dilated * Increased diet to clear liquids per GI, advance per GI recommendations * Pain medications added for further comfort (2) Left ureteral stone: Code(s): N20.1 - Calculus of ureter Status: Acute Assessment and Plan: * CT on presentation showed multiple mid left ureteral stones largest 9 mm in diameter with mild left hydroureteronephrosis * appreciate urology consultation * patient underwent cystoscopy with left stent placement on 04/29. Tolerated the procedure well * 05/03: Patient with onset of 10/10 abdominal pain. * Repeat CT of the abdomen/pelvis showed left internal ureteral stent in abnormal position with proximal end coiled in the ureter at the level of the sacrum and distal to the stones. * Repeat cystoscopy with left ureteral stent removal, left ureteroscopy with laser lithotripsy, and left ureteral stent replacement * ureteral stent x-ray showed left internal ureteral stent in expected position * outpatient follow-up with urology in 2-3 weeks for stent removal * KUB indicated bilateral stones, left greater than right, with stones alongside the stent (3) Hydronephrosis: Code(s): N13.30 - Unspecified hydronephrosis Status: Acute Assessment and Plan: secondary to above * see plan above (4) Acute kidney injury: Code(s): N17.9 - Acute kidney failure, unspecified Status: Acute Assessment and Plan: * Resolved. creatinine was normal on admission at 1.1 with increase to 1.6 * BUN/Cr as of 05/05/22 15/0.70 * likely secondary to ureteral stone /hydronephrosis exacerbated by nephrotoxic agents and possibly component of dehydration * renal ultrasound reveals moderate left hydronephrosis with bilateral kidney stone * creatinine back to baseline * monitor BMP closely (5) Obstructive sleep apnea on CPAP: Code(s): G47.33 - Obstructive sleep apnea (adult) (pediatric); Z99.89 - Dependence on other enabling machines and devices Status: Acute Assessment and Plan: continue CPAP titrated to home settings (6) Essential hypertension: Code(s): I10 - Essential (primary) hypertension Status: Acute Assessment and Plan: * blood pressures are stable * continue metoprolol succinate and spironolactone * Current BP is 147/54 * Could be slightly elevated due to increase pain * Continue to trend * Adjust therapy as indicated (7) Chronic
--- NOTE | 2022-05-06 15:25 | PCNWS ---
Weekly nutritional screen. Patient is tolerating current diet of clear liquids at this time. No weight loss reported. No nutritional needs at this time.
--- NOTE | 2022-05-06 16:40 | WPDGIPROGNO ---
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 Status: Acute Assessment and Plan: exam better, also reviewed KUB no ileus no nausea ok to remove rectal tube and monitor tolerating liquid diet (2) Ileus: Code(s): K56.7 - Ileus, unspecified Status: Acute (3) Nausea: Code(s): R11.0 - Nausea Status: Acute Assessment and Plan: resolved monitor (4) Abdominal pain: Code(s): R10.9 - Unspecified abdominal pain Status: Acute (5) Left ureteral stone: Code(s): N20.1 - Calculus of ureter Status: Acute Subjective Date/time seen: 05/06/22 16:40 Interval history: better, no nausea, only mild pain after liquid diet, good BM in rectal tube bag Review of Systems Review of Systems: All systems reviewed & are unremarkable except as noted in HPI and below Exam Narrative: General: obese, comfortable and walking in the johnson. Neuro: awake, alert and oriented x4, speech clear, no focal neuro deficits noted HEENMT: normocephalic, atraumatic, EOMI, sclerae anicteric Respiratory: clear to auscultation bilaterally, nonlabored breathing Cardio: regular rate, regular rhythm with S1-S2 Abdomen: Less distended abdomen, normoactive bowel sounds, diffusely tender to palpation without rebound, rectal tube in place with brown stool output Extremities: no edema, erythema, or tenderness to palpation Skin: no rashes or lesions, warm and dry Psych: appropriate mood and affect, judgment and insight intact Objective Data Vital Signs Vital Signs: Vital Signs - 24 hr 05/05/22 20:20 05/05/22 22:34 05/05/22 20:00 Temperature 98.9 F Pulse Rate 84 74 Respiratory Rate 18 16 Blood Pressure 127/50 L Pulse Oximetry 94 93 Oxygen Delivery CPAP Room Air 05/06/22 04:40 05/06/22 09:16 05/06/22 09:22 Temperature 98.5 F Pulse Rate 65 98 Respiratory Rate 18 Blood Pressure 147/54 H Pulse Oximetry 95 96 Oxygen Delivery Room Air 05/06/22 09:20 05/06/22 14:47 Temperature 99.4 F Pulse Rate 98 84 Respiratory Rate 18 18 Blood Pressure 118/61 Pulse Oximetry 96 92 Oxygen Delivery Room Air Intake/Output Intake/Output: Intake & Output 05/03/22 05/04/22 05/05/22 05/06/22 23:59 23:59 23:59 23:59 Intake Total 1340 3100 2100 360 Output Total 850 1850 1125 Balance 1340 2250 250 -765 Meds/Results Medications: Active Medications Generic Name Dose Route Start Last Admin Trade Name Freq PRN Reason Stop Dose Admin Acetaminophen 1,000 mg 05/06/22 08:31 Acetaminophen 500 Mg Tablet PO Q6H PRN Mild Pain (1-3) or Fever Hydrocodone Bitart/Acetaminophen 1 tab 05/06/22 08:31 Hydrocodone/Acetaminophen (*Crx) 5-325 Mg Tablet PO Q6H PRN Pain Rated 4-10 Aspirin 81 mg 04/29/22 09:00 05/06/22 09:22 Aspirin 81 Mg Enteric Tablet PO 81 mg QAM ADAN Administration Diclofenac Sodium 1 applic 04/29/22 09:00 05/06/22 12:45 Diclofenac Sodium 1% 100 Gm Gel (*Bkc) TOPICAL Not Given QID ADAN Finasteride 5 mg 04/29/22 09:00 05/06/22 09:22 Finasteride 5 Mg Tablet PO 5 mg DAILY ADAN Administration Sodium Chloride 1,000 mls @ 110 mls/hr 05/03/22 14:50 05/05/22 21:35 Normal Saline Iv IV CONT 110 mls/hr .Q9H6M ADAN Administration Ipratropium [place] 2 spray 04/29/22 09:00 05/06/22 09:21 Ipratropium Nasal [employer] 0.06% 15 Ml Bottle NASAL 2 spray BID ADAN Administration Isosorbide Mononitrate 30 mg 04/29/22 09:00 05/06/22 09:21 Isosorbide Mononitrate 30 Mg Tab.Er.24h PO 30 mg QAM ADAN Administration Metoprolol Succinate 37.5 mg 04/29/22 09:00 05/06/22 09:22 Metoprolol Succinate Ext Rel 12.5 Mg Tabcr PO 37.5 mg DAILY ADAN Administration Nitroglycerin 0.4 mg 04/29/22 01:13 Nitroglycerin Sl 0.4 Mg Tablet SUBLINGUAL Q5M PRN chest pain Coenzyme Q10 [Ultra 1 each 04/29/22 09:00 Coq10] 75 Mg
[2022-05-06] MEDS: SODIUM CHLORIDE 0.9% IV 1,000 ML 110 ML IV CONT (20:25)
[2022-05-06] MEDS: HYDROcodone/acetaminophen (*CRX) 5-325 MG TABLET 1 TAB PO (22:27)
[2022-05-07 05:14] VITALS: BP 131/71; PULSE 80; RESP 18; TEMP 36.6; O2SAT 96
[2022-05-07 05:47] LABS: Basophils Percent Auto 0.2 % (0.2-1.2); Eosinophils Absolute Auto 0.3 K/mm3 (0-0.3); Eosinophils Percent Auto 3.8 % (0-4.4); Hematocrit 39.9 % (42.0-52.0); Hemoglobin 12.9 g/dL (14.0-18.0); Immature Granulocyte Absolute 0.02 K/mm3 (0.00-0.031); Immature Granulocyte Percent A 0.2 % (0-0.5); Mean Corpuscular HGB Conc 32.3 g/dl (32-36); Mean Corpuscular Hemoglobin 27.6 pg (26-34); Mean Corpuscular Volume 85.3 fl (80-100); Mean Platelet Volume 9.9 fl (7.4-10.4); Monocytes Absolute Auto 0.8 K/mm3 (0.1-0.6); Monocytes Percent Auto 8.9 % (2.6-8.5); Neutrophils Absolute Auto 6.9 K/mm3 (1.3-6.7); Neutrophils Percent Auto 77.9 % (45.5-73.1); Platelet Count Result 176 k/mm3 (150-375); Red Blood Count 4.68 M/mm3 (4.6-6.20); Red Cell Distribution Width 14.5 % (11.5-14.5); White Blood Count 8.9 K/mm3 (4.5-10.0)
[2022-05-07] MEDS: HYDROcodone/acetaminophen (*CRX) 5-325 MG TABLET 1 TAB PO (05:52)
[2022-05-07 05:56] LABS: INR 4.3; Prothrombin Time 40.2 Seconds (11.1-14.7)
[2022-05-07 06:00] LABS: Alanine Aminotransferase 23 U/L (6-50); Albumin Level 3.3 g/dL (3.5-5.1); Alkaline Phosphatase 65 U/L (38-126); Anion Gap 5 mmol/L (8-16); Aspartate Amino Transferase 27 U/L (17-59); Bilirubin,Total 0.7 mg/dL (0.2-1.3); Blood Urea Nitrogen 11 mg/dL (9-20); Calcium 7.6 mg/dL (8.4-10.2); Carbon Dioxide 25 mmol/L (22-30); Chloride 110 mmol/L (98-107); Estimated CRCL calculation 105 ml/min; Estimated Glomerular Filt Rate > 60; Glucose 97 mg/dL (65-110); Sodium 140 mmol/L (137-145)
[2022-05-07 08:32] VITALS: O2SAT 95
--- NOTE | 2022-05-07 08:33 | P.PNIM_ITS ---
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 * Initial imaging showed ileus * KUB on 05/03 showed diffusely dilated small bowel and colon which may represent ileus versus distal colonic obstruction * refused NG, was made NPO for bowel rest, resolved * Consult to General surgery thank you for your help * Water-soluble enema on 05/03 revealed dilated small and large bowel with no mechanical obstruction, findings felt to be consistent with [place] syndrome, possibly due to surgical procedures * Rectal tube remains in place per General surgery recommendations * Consult to GI. Recommendations are appreciated * KUB 05/05/22 with improving gaseous distension of small bowel and cololn. * Repeat KUB 05/06/22 Nonspecific nonobstructive bowel gas pattern with multiple gas filled loops, but not dilated * Increased diet to dull liquids per GI, advance per GI recommendations * Pain medications added for further comfort (2) Left ureteral stone: Code(s): N20.1 - Calculus of ureter Status: Acute Assessment and Plan: * CT on presentation showed multiple mid left ureteral stones largest 9 mm in diameter with mild left hydroureteronephrosis * appreciate urology consultation * patient underwent cystoscopy with left stent placement on 04/29. Tolerated the procedure well * 05/02/[address] of the abdomen/pelvis showed left internal ureteral stent in abnormal position with proximal end coiled in the ureter at the level of the sacrum and distal to the stones. * Repeat cystoscopy with left ureteral stent removal, left ureteroscopy with laser lithotripsy, and left ureteral stent replacement * ureteral stent x-ray showed left internal ureteral stent in expected position * outpatient follow-up with urology in 2-3 weeks for stent removal * KUB 05/06/22 indicated bilateral stones, left greater than right, with stones alongside the stent (3) Hydronephrosis: Code(s): N13.30 - Unspecified hydronephrosis Status: Acute Assessment and Plan: secondary to above * see plan above (4) Acute kidney injury: Code(s): N17.9 - Acute kidney failure, unspecified Status: Acute Assessment and Plan: * Resolved. creatinine was normal on admission at 1.1 with increase to 1.6 * BUN/Cr currently 11/0.80 * likely secondary to ureteral stone /hydronephrosis exacerbated by nephrotoxic agents and possibly component of dehydration * renal ultrasound reveals moderate left hydronephrosis with bilateral kidney stone * creatinine back to baseline * monitor BMP closely (5) Obstructive sleep apnea on CPAP: Code(s): G47.33 - Obstructive sleep apnea (adult) (pediatric); Z99.89 - Dependence on other enabling machines and devices Status: Acute Assessment and Plan: continue CPAP titrated to home settings (6) Essential hypertension: Code(s): I10 - Essential (primary) hypertension Status: Acute Assessment and Plan: * blood pressures are stable * continue metoprolol succinate and spironolactone * Current BP is 131/71 * Could be slightly elevated due to increase pain * Continue to trend * Adjust therapy as indicated (7) Chronic anticoagulation: Code(s)
--- NOTE | 2022-05-07 08:33 | PM.IMPN ---
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 Recommendations are appreciated KUB 05/05/22 with improving gaseous distension of small bowel and cololn. Repeat KUB 05/06/22 Nonspecific nonobstructive bowel gas pattern with multiple gas filled loops, but not dilated Increased diet to dull liquids per GI, advance per GI recommendations Pain medications added for further comfort (2) Left ureteral stone: Code(s): N20.1 - Calculus of ureter Status: Acute Assessment and Plan: CT on presentation showed multiple mid left ureteral stones largest 9 mm in diameter with mild left hydroureteronephrosis appreciate urology consultation patient underwent cystoscopy with left stent placement on 04/29. Tolerated the procedure well 05/02/[address] of the abdomen/pelvis showed left internal ureteral stent in abnormal position with proximal end coiled in the ureter at the level of the sacrum and distal to the stones. Repeat cystoscopy with left ureteral stent removal, left ureteroscopy with laser lithotripsy, and left ureteral stent replacement ureteral stent x-ray showed left internal ureteral stent in expected position outpatient follow-up with urology in 2-3 weeks for stent removal KUB 05/06/22 indicated bilateral stones, left greater than right, with stones alongside the stent (3) Hydronephrosis: Code(s): N13.30 - Unspecified hydronephrosis Status: Acute Assessment and Plan: secondary to above see plan above (4) Acute kidney injury: Code(s): N17.9 - Acute kidney failure, unspecified Status: Acute Assessment and Plan: Resolved. creatinine was normal on admission at 1.1 with increase to 1.6 BUN/Cr currently 11/0.80 likely secondary to ureteral stone /hydronephrosis exacerbated by nephrotoxic agents and possibly component of dehydration renal ultrasound reveals moderate left hydronephrosis with bilateral kidney stone creatinine back to baseline monitor BMP closely (5) Obstructive sleep apnea on CPAP: Code(s): G47.33 - Obstructive sleep apnea (adult) (pediatric); Z99.89 - Dependence on other enabling machines and devices Status: Acute Assessment and Plan: continue CPAP titrated to home settings (6) Essential hypertension: Code(s): I10 - Essential (primary) hypertension Status: Acute Assessment and Plan: blood pressures are stable continue metoprolol succinate and spironolactone Current BP is 131/71 Could be slightly elevated due to increase pain Continue to trend Adjust therapy as indicated (7) Chronic anticoagulation: 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 Warfarin held on 05/01 given supratherapeutic INR INR today is 4.3 Most likely elevated due to NPO status Continue to hold warfarin for now Monitor PT/INR daily (8) Congestive heart failure: Qualifiers: Heart failure type: systolic Heart failure chronicity: acute on chronic Qualified Code(s): I50.23 - Acute on c
[2022-05-07] MEDS: POTASSIUM CHLORIDE INJ 40 MEQ in SODIUM CHLORIDE 0.9% IV 500 ML 130 MEQ IVPB (09:24)
[2022-05-07] MEDS: ASPIRIN 81 MG ENTERIC TABLET PO (09:26)
[2022-05-07] MEDS: ISOSORBIDE MONONITRATE 30 MG TAB.ER.24H PO (09:26)
[2022-05-07] MEDS: IPRATROPIUM NASAL SPRAY 0.06% 15 ML BOTTLE 2 SPRAY NASAL (09:26)
[2022-05-07] MEDS: SPIRONOLACTONE 25 MG TABLET PO (09:26)
[2022-05-07] MEDS: FINASTERIDE 5 MG TABLET PO (09:26)
[2022-05-07] MEDS: SACUBITRIL/VALSARTAN 49-51 MG TABLET 1 TABLET PO (09:26)
[2022-05-07 09:27] VITALS: PULSE 88
[2022-05-07] MEDS: METOPROLOL SUCCINATE EXT REL 12.5 MG TABCR 37.5 MG PO (09:27)
[2022-05-07] MEDS: DICLOFENAC SODIUM 1% 100 GM GEL (*BKC) 1 APPLIC TOPICAL (09:28)
[2022-05-07 09:30] VITALS: O2SAT 96
[2022-05-07] MEDS: POTASSIUM CHLORIDE 20 MEQ TABLET 40 MEQ PO (09:36)
--- NOTE | 2022-05-07 12:00 | PM.DS ---
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 Recommendations are appreciated KUB 05/05/22 with improving gaseous distension of small bowel and cololn. Repeat KUB 05/06/22 Nonspecific nonobstructive bowel gas pattern with multiple gas filled loops, but not dilated Increased diet to dull liquids per GI, advance per GI recommendations Pain medications added for further comfort (2) Left ureteral stone: Code(s): N20.1 - Calculus of ureter Status: Acute Assessment and Plan: CT on presentation showed multiple mid left ureteral stones largest 9 mm in diameter with mild left hydroureteronephrosis appreciate urology consultation patient underwent cystoscopy with left stent placement on 04/29. Tolerated the procedure well 05/02/[address] of the abdomen/pelvis showed left internal ureteral stent in abnormal position with proximal end coiled in the ureter at the level of the sacrum and distal to the stones. Repeat cystoscopy with left ureteral stent removal, left ureteroscopy with laser lithotripsy, and left ureteral stent replacement ureteral stent x-ray showed left internal ureteral stent in expected position outpatient follow-up with urology in 2-3 weeks for stent removal KUB 05/06/22 indicated bilateral stones, left greater than right, with stones alongside the stent (3) Hydronephrosis: Code(s): N13.30 - Unspecified hydronephrosis Status: Acute Assessment and Plan: secondary to above see plan above (4) Acute kidney injury: Code(s): N17.9 - Acute kidney failure, unspecified Status: Acute Assessment and Plan: Resolved. creatinine was normal on admission at 1.1 with increase to 1.6 BUN/Cr currently 11/0.80 likely secondary to ureteral stone /hydronephrosis exacerbated by nephrotoxic agents and possibly component of dehydration renal ultrasound reveals moderate left hydronephrosis with bilateral kidney stone creatinine back to baseline monitor BMP closely (5) Obstructive sleep apnea on CPAP: Code(s): G47.33 - Obstructive sleep apnea (adult) (pediatric); Z99.89 - Dependence on other enabling machines and devices Status: Acute Assessment and Plan: continue CPAP titrated to home settings (6) Essential hypertension: Code(s): I10 - Essential (primary) hypertension Status: Acute Assessment and Plan: blood pressures are stable continue metoprolol succinate and spironolactone Current BP is 131/71 Could be slightly elevated due to increase pain Continue to trend Adjust therapy as indicated (7) Chronic anticoagulation: Code(s): Z79.01 - long-term (current) use of 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 Warfarin held on 05/01 given supratherapeutic INR INR today is 4.3 Most likely elevated due to NPO status Continue to hold warfarin for now Monitor PT/INR daily (8) Congestive heart failure: Qualifiers: Heart fail
--- NOTE | 2022-05-07 12:00 | P.DS_ITS ---
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 * Initial imaging showed ileus * KUB on 05/03 showed diffusely dilated small bowel and colon which may represent ileus versus distal colonic obstruction * refused NG, was made NPO for bowel rest, resolved * Consult to General surgery thank you for your help * Water-soluble enema on 05/03 revealed dilated small and large bowel with no mechanical obstruction, findings felt to be consistent with [place] syndrome, possibly due to surgical procedures * Rectal tube remains in place per General surgery recommendations * Consult to GI. Recommendations are appreciated * KUB 05/05/22 with improving gaseous distension of small bowel and cololn. * Repeat KUB 05/06/22 Nonspecific nonobstructive bowel gas pattern with multiple gas filled loops, but not dilated * Increased diet to dull liquids per GI, advance per GI recommendations * Pain medications added for further comfort (2) Left ureteral stone: Code(s): N20.1 - Calculus of ureter Status: Acute Assessment and Plan: * CT on presentation showed multiple mid left ureteral stones largest 9 mm in diameter with mild left hydroureteronephrosis * appreciate urology consultation * patient underwent cystoscopy with left stent placement on 04/29. Tolerated the procedure well * 05/02/[address] of the abdomen/pelvis showed left internal ureteral stent in abnormal position with proximal end coiled in the ureter at the level of the sacrum and distal to the stones. * Repeat cystoscopy with left ureteral stent removal, left ureteroscopy with laser lithotripsy, and left ureteral stent replacement * ureteral stent x-ray showed left internal ureteral stent in expected position * outpatient follow-up with urology in 2-3 weeks for stent removal * KUB 05/06/22 indicated bilateral stones, left greater than right, with stones alongside the stent (3) Hydronephrosis: Code(s): N13.30 - Unspecified hydronephrosis Status: Acute Assessment and Plan: secondary to above * see plan above (4) Acute kidney injury: Code(s): N17.9 - Acute kidney failure, unspecified Status: Acute Assessment and Plan: * Resolved. creatinine was normal on admission at 1.1 with increase to 1.6 * BUN/Cr currently 11/0.80 * likely secondary to ureteral stone /hydronephrosis exacerbated by nephrotoxic agents and possibly component of dehydration * renal ultrasound reveals moderate left hydronephrosis with bilateral kidney stone * creatinine back to baseline * monitor BMP closely (5) Obstructive sleep apnea on CPAP: Code(s): G47.33 - Obstructive sleep apnea (adult) (pediatric); Z99.89 - Dependence on other enabling machines and devices Status: Acute Assessment and Plan: continue CPAP titrated to home settings (6) Essential hypertension: Code(s): I10 - Essential (primary) hypertension Status: Acute Assessment and Plan: * blood pressures are stable * continue metoprolol succinate and spironolactone * Current BP is 131/71 * Could be slightly elevated due to increase pain * Continue to trend * Adj
[2022-05-07 14:00] VITALS: BP 105/56; PULSE 89; RESP 18; TEMP 36.4; O2SAT 96
--- NOTE | 2022-05-07 14:40 | WPDGIPROGNO ---
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 Status: Acute Assessment and Plan: resolved and rectal tube removed he is eating and no more nausea, also had BM he can go home soon (2) Ileus: Code(s): K56.7 - Ileus, unspecified Status: Acute Assessment and Plan: resolved (3) Nausea: Code(s): R11.0 - Nausea Status: Acute Assessment and Plan: resolved monitor (4) Abdominal pain: Code(s): R10.9 - Unspecified abdominal pain Status: Acute (5) Left ureteral stone: Code(s): N20.1 - Calculus of ureter Status: Acute Subjective Date/time seen: 05/07/22 14:40 Interval history: rectal tube removed, less pain and doing better, tolerating diet Review of Systems Review of Systems: All systems reviewed & are unremarkable except as noted in HPI and below Exam Const: General: comfortable HENMT: Face/Nose/Sinus: Normal nares present Eyes: General: appearance normal, both eyes and all related structures Neck: Neck: supple Resp: Effort & Inspection: normal respiratory effort Cardio: Rate: regular rate GI: GI Palp: No Guarding due to palpation present (GI) Auscultation: normal bowel sounds Other: less distended Skin: General skin exam: normal color Neuro: Speech: normal speech Motor exam (neuro): 5/5 motor strength present throughout Extrem: General: normal to inspection Psych: Mental Status: mental status grossly normal Objective Data Vital Signs Vital Signs: Vital Signs - 24 hr 05/06/22 14:47 05/06/22 21:15 05/06/22 20:00 Temperature 99.4 F 98.0 F Pulse Rate 84 78 Respiratory Rate 18 17 Blood Pressure 118/61 112/61 Pulse Oximetry 92 95 Oxygen Delivery Room Air 05/07/22 05:14 05/06/22 22:10 05/07/22 09:27 Temperature 97.8 F Pulse Rate 80 78 88 Respiratory Rate 18 17 Blood Pressure 131/71 Pulse Oximetry 96 96 Oxygen Delivery CPAP 05/07/22 09:30 Temperature Pulse Rate Respiratory Rate Blood Pressure Pulse Oximetry 96 Oxygen Delivery Room Air Intake/Output Intake/Output: Intake & Output 05/04/22 05/05/22 05/06/22 05/07/22 23:59 23:59 23:59 23:59 Intake Total 3100 2100 2200 1100 Output Total 850 1850 1825 Balance 2250 489 997 0307 Meds/Results Medications: Active Medications Generic Name Dose Route Start Last Admin Trade Name Freq PRN Reason Stop Dose Admin Acetaminophen 1,000 mg 05/06/22 08:31 Acetaminophen 500 Mg Tablet PO Q6H PRN Mild Pain (1-3) or Fever Hydrocodone Bitart/Acetaminophen 1 tab 05/06/22 08:31 05/07/22 05:52 Hydrocodone/Acetaminophen (*Crx) 5-325 Mg Tablet PO 1 tab Q6H PRN Administration Pain Rated 4-10 Aspirin 81 mg 04/29/22 09:00 05/07/22 09:26 Aspirin 81 Mg Enteric Tablet PO 81 mg QAM ADAN Administration Diclofenac Sodium 1 applic 04/29/22 09:00 05/07/22 12:42 Diclofenac Sodium 1% 100 Gm Gel (*Bkc) TOPICAL Not Given QID [facility] Finasteride 5 mg 04/29/22 09:00 05/07/22 09:26 Finasteride 5 Mg Tablet PO 5 mg DAILY ADAN Administration Sodium Chloride 1,000 mls @ 110 mls/hr 05/03/22 14:50 05/06/22 20:25 Normal Saline Iv IV CONT 110 mls/hr .Q9H6M ADAN Administration Ipratropium [place] 2 spray 04/29/22 09:00 05/07/22 09:26 Ipratropium Nasal [place] 0.06% 15 Ml Bottle NASAL 2 spray BID ADAN Administration Isosorbide Mononitrate 30 mg 04/29/22 09:00 05/07/22 09:26 Isosorbide Mononitrate 30 Mg Tab.Er.24h PO 30 mg QAM ADAN Administration Metoprolol Succinate 37.5 mg 04/29/22 09:00 05/07/22 09:27 Metoprolol Succinate Ext Rel 12.5 Mg Tabcr PO 37.5 mg DAILY ADAN Administration Nitroglycerin 0.4 mg 04/29/22 01:13 Nitroglycerin Sl 0.4 Mg Tablet SUBLINGUAL Q5M PRN chest pain Coenzyme Q10 [Ultra 1 each 04/29/22 09:00 Coq10] 75 Mg Capsule XX 05/29/22 08:59 DAILY S
== END 2022-05-07 18:05 | disposition home or self-care (01) | DRG 660 ==
LOC: ANHED 21:44 → ANH3MED 22:25
PROVIDERS: Emergency Medicine; Physician Assistant; Urology; Admitting Provider Internal Medicine; Emergency Provider Emergency Medicine; PCP Family Medicine; Visit Provider Nurse Practitioner
PROC: 0T778DZ Dilation of Left Ureter with Intraluminal Device, Via Natural or Artificial Opening Endoscopic (ICD-10-PCS; CPT 52352; principal; 2022-04-29 16:30)
DX: N13.6 Pyonephrosis (principal); I50.42 Chronic combined systolic (congestive) and diastolic (congestive) heart failure; K59.81 Ogilvie syndrome; N17.9 Acute kidney failure, unspecified; K31.9 Disease of stomach and duodenum, unspecified; G47.33 Obstructive sleep apnea (adult) (pediatric); Z79.01 Long term (current) use of anticoagulants; I11.0 Hypertensive heart disease with heart failure; I25.5 Ischemic cardiomyopathy; I25.10 Atherosclerotic heart disease of native coronary artery without angina pectoris; I25.2 Old myocardial infarction; Z88.2 Allergy status to sulfonamides; Z95.5 Presence of coronary angioplasty implant and graft; Z79.82 Long term (current) use of aspirin; Z79.899 Other long term (current) drug therapy
CPT/HCPCS: 36415; 74018; 74176; 74177; 74270; 76775; 80048; 80053; 81001; 83605; 83690; 83735; 85025; 85027; 85610; 94002; 94003; 94660; 96361; 96365; 96367; 96375; 96376; 99285; A9270; C1769; C1894; C2617; G0378; J0131; J0690; J0696; J1170; J2250; J2270; J2405; J3010; J3480; J7030; J7040; J7120; Q9967

== ENCOUNTER 2022-05-21 10:13 | Outpatient (CLI) | payer MEDICARE, OTHER, SELFPAY ==
--- NOTE | 2022-05-21 10:20 | ECG_ITS ---
Measurements Intervals [place] Rate: 88 P: 17 VA: 178 QRS: -26 QRSD: 105 T: 38 QT: 348 QTc: 422 Interpretive Statements SINUS RHYTHM WITH OCCASIONAL VENTRICULAR PREMATURE COMPLEXES LOW QRS VOLTAGE IN PRECORDIAL LEADS [QRS DEFLECTION < 1.0 mV IN CHEST LEADS] CANNOT RULE OUT SEPTAL INFARCT COMPARED TO ECG 08/31/2020 12:45:38 NO SIGNIFICANT CHANGES Electronically Signed On 05-21-2022 16:09:29 CDT by Alon Caro M.D.
[2022-05-21 11:11] LABS: INR 1.3; Prothrombin Time 15.4 Seconds (11.1-14.7)
[2022-05-21 11:12] LABS: Partial Thromboplastin Time 28.1 SECONDS (22.3-36.8)
[2022-05-21 11:22] LABS: Anion Gap 5 mmol/L (8-16); Blood Urea Nitrogen 21 mg/dL (9-20); Calcium 8.6 mg/dL (8.4-10.2); Carbon Dioxide 32 mmol/L (22-30); Chloride 103 mmol/L (98-107); Estimated Glomerular Filt Rate > 60; Glucose 139 mg/dL (65-110); Potassium 4.5 mmol/L (3.4-5.0); Sodium 140 mmol/L (137-145)
== END 2022-05-21 10:14 | disposition home or self-care (01) ==
PROVIDERS: Anesthesiology; PCP Family Medicine; Visit Provider Urology
DX: N20.0 Calculus of kidney (principal); I10 Essential (primary) hypertension; Z79.899 Other long term (current) drug therapy; Z01.818 Encounter for other preprocedural examination; R94.31 Abnormal electrocardiogram [ECG] [EKG]
CPT/HCPCS: 36415; 80048; 85610; 85730; 87086; 87088; 93005

== ENCOUNTER 2022-05-24 00:27 | Day surgery (SDC) | payer MEDICARE, OTHER, SELFPAY ==
[2022-05-20 14:55] VITALS: BMI 38.8
--- NOTE | 2022-05-20 15:01 | PC.NURSE ---
Report to the Outpatient Waiting Room, entrance under the green pavilion located off [facility], at time _0730_ on date _[id number]_. Planned Procedure Time: _0930_. Time changes happen often and if your time is changed the preop area will call you the afternoon before. - You and your visitor will be asked to self-screen and do not enter if you have any COVID symptoms. - Only one visitor is requested with a max of two and NO children visitors are allowed at this time. - The patient visitor may be requested to leave or wait in car when not with patient due to distancing restrictions. - A mask is optional within the hospital at this time. Patients may have clear liquids (water, carbonated beverages, clear teas, apple juice) until 3 hours prior to surgery with a maximum of 20 ounces. - No food from midnight until time of surgery Take the following medications with a SIP of water the morning of surgery: _Metoprolol and Isosorbide DO NOT STOP ANY OF YOUR OTHER PRESCRIPTION MEDICATIONS PRIOR TO SURGERY ?EXCEPT THE FOLLOWING Medications to discontinue per physician ___Patient stopped warfarin on _[phone] Date to take last dose Please no make-up, nail welsh, hairspray, perfume, deodorant, or body powder the day of surgery. No jewelry (including any body piercings) or valuables the day of surgery, leave them at home. Please take a shower or bath the night before, or the morning of, surgery with an antibacterial soap. Wear comfortable, loose fitting clothing. - Jewelry must be removed prior to entering the operating room. Rings and piercings that are not removed may be cut off. - The hospital will not accept responsibility for valuables. - Please leave all valuables, including medications, at home the day of surgery. If you are going home after surgery, a licensed mobile lounge driver must drive you home. - NO public transportation without another adult if you receive anesthesia. - We recommend that an adult stay with you for 24 hours following discharge. - We also recommend that you do not drive, make important decision, drink alcoholic beverages, or take any drugs that were not prescribed by your health care provider for at least 24 hours after your discharge time. Follow any additional instructions given to you from your surgeon. If you or anyone in your household have experienced Covid symptoms in the past week, please notify your surgeon or the nurse liaison at the phone number below for possible testing. Telephone instructions given to __Patient____and asked if any additional questions and then verbalized understanding. Patient advised to call surgeon office or pre surgery nurse liaison [phone] if any additional questions.
--- NOTE | 2022-05-23 16:36 | WPDANESEPPF ---
Anes - Initial Pre Proc Eval Procedure: Operation Date: 05/24/22 09:30 Proposed Procedures p Right Extracorporeal Shock Wave Lithotripsy, - Jas Durán MD s Cystoscopy with Left Stent Removal - Jas Durán MD Date/Time: 05/23/22 16:36 Surgeon: Jas Durán MD Pre Op Diagnosis: right kidney calculus Patient Data Age: 66 Gender: M Height: 1.73 m Weight: 115.9 kg Allergies Allergy/AdvReac Type Severity Reaction Status Date / Time Sulfa (Sulfonamide Allergy Intermediate Rash Verified 05/20/22 14:52 Antibiotics) lisinopril AdvReac Intermediate Cough Verified 05/20/22 14:52 Home Medications Medication Instructions Recorded Confirmed Type atorvastatin 80 mg tablet 80 mg PO DAILY #30 tabs 03/23/19 05/20/22 Rx nitroglycerin 0.4 mg sublingual 0.4 mg sublingual DIRECTED PRN 03/23/19 05/20/22 Rx tablet chest pain #25 tabs acetaminophen 500 mg tablet 500 mg PO Q6H PRN Pain 05/21/19 05/20/22 History (Tylenol Extra Strength) ascorbic acid (vitamin C) 500 mg 500 mg PO DAILY 05/21/19 05/20/22 History tablet spironolactone 25 mg tablet 25 mg PO DAILY #30 tabs 07/02/19 05/20/22 Rx sacubitril 49 mg-valsartan 51 mg 1 tablet PO BID 10/30/21 05/20/22 History tablet (Entresto) warfarin 2 mg tablet 2 mg PO DAILY 10/30/21 05/20/22 History warfarin 3 mg tablet 3 mg PO .QSUWED 10/30/21 05/20/22 History zolpidem 10 mg tablet 10 mg PO .QHS PRN insomnia #30 tabs 10/30/21 05/20/22 Rx isosorbide mononitrate 30 mg 30 mg PO QAM #90 tabs 12/07/21 05/20/22 Rx tablet,extended release 24 hr aspirin 81 mg tablet,delayed 81 mg PO QAM #30 tabs 01/13/22 05/20/22 Rx release furosemide 40 mg tablet 40 mg PO BID 04/28/22 05/20/22 History metoprolol succinate 25 mg 37.5 mg PO DAILY 04/28/22 05/20/22 History tablet,extended release 24 hr hydrocodone 5 mg-acetaminophen 325 1 tablet PO Q6H PRN pain #30 tabs 04/29/22 05/20/22 Rx mg tablet Ultra CoQ10 100 mg PO DAILY 05/16/22 05/20/22 History finasteride 5 mg tablet 5 mg PO DAILY #90 tabs 05/23/22 Rx Patient hx anesthesia problems: none Family hx anesthesia problems: none Results Review: All pre-operative results and documents have been reviewed as part of the pre-operative evaluation. [facility] Past Medical History Medical History (Updated 05/24/22 @ 08:05 by Mike Louis MD) Benign prostatic hyperplasia Calculus of kidney Chronic anemia Chronic back pain Congestive heart failure 09/05 echo: ef 25% Coronary artery disease Cough due to WILL inhibitor Depression Eczema Essential hypertension Gallstones History of angina History of bladder infections Hyperlipidemia Ischemic cardiomyopathy Kidney stones Nausea Obesity Obstructive sleep apnea on CPAP Obstructive sleep apnea on CPAP Osteoarthritis Prediabetes ST elevation (STEMI) myocardial infarction ST elevation myocardial infarction (STEMI) of anterior wall (~03/2019) Status post drug-eluting stent to the proximal LAD. Urinary incontinence UTI (urinary tract infection) Surgical History Surgical History H/O hand surgery History of appendectomy History of coronary artery stent placement Hx of lithotripsy S/P trigger finger release Family History Family History Mother Hypertension Family history of malignant neoplasm of breast in first degree relative Family history of malignant neoplasm of ovary Father Pacemaker Social History Social History Social History: The patient is and lives in [place], [place] with his . He has no children. 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 He designates his , Concepción Nunes, as his surrogate decision maker and he wishes to be a full code. He Smoking status: Never smoker Second hand tobacco smo
--- NOTE | ~2022-05-24 | XR_ITS ---
EXAMINATION: XR abdomen/kub 1V INDICATION: Nephrolithiasis TECHNIQUE: Supine views of the abdomen were obtained on 2 radiographs. COMPARISON: 05/06/2022 FINDINGS: A left internal ureteral stent is in expected position. There are multiple stones adjacent to the proximal aspect of the stent at the level of the L4 vertebral body. Also seen are numerous sto hu in both kidneys measuring up to 10 mm on the right and 8 mm on the left. There are multiple persi stent gas-filled loops of bowel without significant change. IMPRESSION: 1. Left internal ureteral stent in expected position with multiple stones adjacent to the proximal as pect of the stent. 2. Bilateral nephrolithiasis. Reviewed, dictated and finalized at location B. IMPRESSION: 1. Left internal ureteral stent in expected position with multiple stones adjac ent to the proximal aspect of the stent. 2. Bilateral nephrolithiasis.
--- NOTE | 2022-05-24 05:34 | WPDHPUPDATE1 ---
History and Physical Update Update Date/Time: 05/24/22 05:34 History and Physical has been reviewed, including an updated exam of the patient. There are NO changes in the patient's condition. Risks, benefits, and alternatives have been discussed and questions answered. Patient agrees to proceed with procedure.
[2022-05-24 08:18] VITALS: BP 110/45; PULSE 83; RESP 14; TEMP 35.9; O2SAT 98
[2022-05-24] MEDS: LACTATED RINGERS 1,000 ML 30 ML IV CONT (08:21)
[2022-05-24 08:29] LABS: INR 1.2; Prothrombin Time 14.7 Seconds (11.1-14.7)
[2022-05-24 08:30] LABS: Partial Thromboplastin Time 27.6 SECONDS (22.3-36.8)
[2022-05-24] MEDS: ceFAZolin 2 GM/D5W 50 ML 2 GM/50 ML BAG IVPB (09:32)
--- NOTE | 2022-05-24 10:01 | W.PM.PROC2 ---
Procedure Note - Detailed Date of Procedure 05/24/22 Pre-op Diagnosis Bilateral kidney calculi, left ureteral stones Post-op Diagnosis Same Procedure Performed Left ureteral ESWL Surgeon Jas Durán MD Anesthesia General Description of Procedure on the morning of patient's planned right ESWL he had some new stones overlying left mid ureter. We opted to treat the stones leave his stent indwelling. He was taken to the operative suite where, under general LMA anesthesia, the focal point of the Lithotripter was placed at this lobe to 3 stones along the left mid ureter. A total of 3000 shocks were delivered at a power setting up to 6. Patient tolerated procedure well was taken recovery room good condition Drains No Packing No Pathology None sent Complications No immediate complications
[2022-05-24 10:30] VITALS: BP 114/77; PULSE 79; RESP 16; TEMP 36.3; O2SAT 100
[2022-05-24 10:45] VITALS: BP 111/79; PULSE 70; RESP 16; O2SAT 100
[2022-05-24 11:19] VITALS: BP 99/68; PULSE 67; RESP 14; O2SAT 99
[2022-05-24 11:35] VITALS: BP 112/68; PULSE 68; RESP 14; O2SAT 96
[2022-05-24 12:05] VITALS: BP 102/63; PULSE 69; RESP 16
== END 2022-05-24 12:28 | disposition home or self-care (01) ==
PROVIDERS: PCP Family Medicine; Visit Provider Urology
PROC: (CPT 50590; principal; 2022-05-24 09:30)
DX: N20.2 Calculus of kidney with calculus of ureter (principal); I11.0 Hypertensive heart disease with heart failure; I50.9 Heart failure, unspecified; I25.10 Atherosclerotic heart disease of native coronary artery without angina pectoris; D64.9 Anemia, unspecified; N40.0 Benign prostatic hyperplasia without lower urinary tract symptoms; F32.A Depression, unspecified; E78.5 Hyperlipidemia, unspecified; I25.5 Ischemic cardiomyopathy; G47.33 Obstructive sleep apnea (adult) (pediatric); I25.2 Old myocardial infarction; Z95.5 Presence of coronary angioplasty implant and graft; Z79.01 Long term (current) use of anticoagulants; Z79.82 Long term (current) use of aspirin; E66.9 Obesity, unspecified; Z68.38 Body mass index [BMI] 38.0-38.9, adult
CPT/HCPCS: 50590; 36415; 74018; 85610; 85730; J0131; J0690; J1100; J2250; J2405; J2704; J3010; J7120

== ENCOUNTER 2022-06-07 03:09 | Day surgery (SDC) | payer MEDICARE, OTHER, SELFPAY ==
[2022-05-16 12:02] VITALS: BMI 40.0
[2022-06-07 11:40] VITALS: BP 107/59; PULSE 85; RESP 16; TEMP 35.8; O2SAT 97; BMI 39.8
[2022-06-07] MEDS: LACTATED RINGERS 1,000 ML 150 ML IV CONT (12:27)
--- NOTE | 2022-06-07 12:31 | PM.HPGS ---
History of Present Illness History of Present Illness Consent: Risks, benefits, and alternatives have been discussed and questions answered. Patient agrees to proceed with procedure. Chief complaint: abdom.pain,nausea,ileus Narrative: Go Morrow is a 66 year old male h/o abominal pain with recent admission because of ileus and colonic pseudoobstruction, now he is better. Review of Systems Constitutional: Constitutional: Denies headache(s) and Denies weakness Eyes: Eyes: Denies blurry vision ENT: Reports Normal hearing present, Denies headache(s) and Denies neck pain Cardiovascular: Cardiovascular: Denies chest pain and Denies dyspnea Respiratory: Respiratory: Denies dyspnea Gastrointestinal: Gastrointestinal: Reports no additional gastrointestinal complaints Genitourinary: Genitourinary: Denies dysuria Musculoskeletal: Musculoskeletal: Denies neck pain Integumentary/Breasts: Skin/Breast: Denies dry skin Neurologic: Reports Normal hearing present, Denies headache(s) and Denies weakness Psychiatric: Psychiatric: Denies anxiety Endocrine: Endocrine: Denies change in body appearance Hematologic/Lymphatic: Hematologic/Lymphatic: Denies easy bleeding Allergic/Immunologic: Allergic/Immunologic: Denies urticaria PMFSH Past Medical History Medical History (Updated 06/07/22 @ 12:33 by Scottie Arias MD) Benign prostatic hyperplasia Calculus of kidney Chronic anemia Chronic back pain Colon cancer screening Congestive heart failure 09/05 echo: ef 25% Coronary artery disease Cough due to WILL inhibitor Depression Eczema Essential hypertension Gallstones History of angina History of bladder infections Hyperlipidemia Ischemic cardiomyopathy Kidney stones Nausea Obesity Obstructive sleep apnea on CPAP Obstructive sleep apnea on CPAP Osteoarthritis Prediabetes ST elevation (STEMI) myocardial infarction ST elevation myocardial infarction (STEMI) of anterior wall (~03/2019) Status post drug-eluting stent to the proximal LAD. Urinary incontinence UTI (urinary tract infection) Surgical History Surgical History H/O hand surgery History of appendectomy History of coronary artery stent placement Hx of lithotripsy S/P trigger finger release Family History Family History Mother Hypertension Family history of malignant neoplasm of breast in first degree relative Family history of malignant neoplasm of ovary Father Pacemaker Social History Social History Social History: The patient is and lives in [place], [place] with his . He has no children. 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 He designates his , Concepción Nunes, as his surrogate decision maker and he wishes to be a full code. He Smoking status: Never smoker Second hand tobacco smoke exposure: No Alcohol intake: never Substance use: never Substance use type: does not use Lack of Transportation: No Lack of Food: Never True Current Housing: I Have Housing Concerned About Future Housing: Decline to Answer Difficulty Paying Gas/Electric Bills: Decline to Answer Difficulty Paying for Meds: Decline to Answer Currently Unemployed: Decline to Answer Education: Decline to Answer Difficulty w/ Childcare or Family Care: Decline to Answer Living arrangements: with family Occupation/Education: occupation Gender identity (if verbalized by the patient): Male Sexual Orientation (if Verbalized by the Patient): Straight or Heterosexual Spiritual care concerns: No Agree to blood products: Yes Meds Home Medications and Allergies Home Medications Medication Instructions Recorded Confirmed Type atorvastatin 80 mg tablet 80 mg PO DAILY #30 tabs 03/23/19 06/07/22 Rx
--- NOTE | 2022-06-07 12:32 | WPDANESEPPF ---
Anes - Initial Pre Proc Eval Procedure: Operation Date: 06/07/22 13:00 Proposed Procedures p Esophagogastroduodenoscopy & Colonoscopy - Scottie Arias MD Date/Time: 06/07/22 12:32 Surgeon: Scottie Arias MD Pre Op Diagnosis: abdom.pain,nausea,ileus Patient Data Age: 66 Gender: M Height: 1.7 m Weight: 115.4 kg Last Vital Signs Temp 96.5 F L 06/07/22 11:40 Pulse 85 06/07/22 11:40 Resp 16 06/07/22 11:40 BP 107/59 L 06/07/22 11:40 Pulse Ox 97 06/07/22 11:40 O2 Del Method Room Air 06/07/22 11:40 Allergies Allergy/AdvReac Type Severity Reaction Status Date / Time Sulfa (Sulfonamide Allergy Intermediate Rash Verified 06/07/22 11:49 Antibiotics) lisinopril AdvReac Intermediate Cough Verified 06/07/22 11:49 Home Medications Medication Instructions Recorded Confirmed Type atorvastatin 80 mg tablet 80 mg PO DAILY #30 tabs 03/23/19 06/07/22 Rx nitroglycerin 0.4 mg sublingual 0.4 mg sublingual DIRECTED PRN 03/23/19 06/07/22 Rx tablet chest pain #25 tabs acetaminophen 500 mg tablet 500 mg PO Q6H PRN Pain 05/21/19 06/07/22 History (Tylenol Extra Strength) ascorbic acid (vitamin C) 500 mg 500 mg PO DAILY 05/21/19 06/07/22 History tablet spironolactone 25 mg tablet 25 mg PO DAILY #30 tabs 07/02/19 06/07/22 Rx sacubitril 49 mg-valsartan 51 mg 1 tablet PO BID 10/30/21 06/07/22 History tablet (Entresto) warfarin 2 mg tablet 2 mg PO DAILY 10/30/21 06/07/22 History warfarin 3 mg tablet 3 mg PO .QSUWED 10/30/21 06/07/22 History aspirin 81 mg tablet,delayed 81 mg PO QAM #30 tabs 01/13/22 06/07/22 Rx release furosemide 40 mg tablet 40 mg PO BID 04/28/22 06/07/22 History Ultra CoQ10 100 mg PO DAILY 05/16/22 06/07/22 History finasteride 5 mg tablet 5 mg PO DAILY #90 tabs 05/23/22 06/07/22 Rx hydrocodone 5 mg-acetaminophen 325 1 - 2 tablet PO Q6H PRN pain #20 05/24/22 06/07/22 Rx mg tablet tabs isosorbide mononitrate 30 mg 30 mg PO QAM #90 tabs 06/03/22 06/07/22 Rx tablet,extended release 24 hr metoprolol succinate 25 mg 37.5 mg PO DAILY #135 tabs 06/03/22 06/07/22 Rx tablet,extended release 24 hr zolpidem 10 mg tablet 10 mg PO .QHS PRN insomnia #30 tabs 06/03/22 06/07/22 Rx Patient hx anesthesia problems: none Family hx anesthesia problems: none Results Review: All pre-operative results and documents have been reviewed as part of the pre-operative evaluation. [facility] Past Medical History Medical History (Updated 06/07/22 @ 12:33 by Scottie Arias MD) Benign prostatic hyperplasia Calculus of kidney Chronic anemia Chronic back pain Colon cancer screening Congestive heart failure 09/05 echo: ef 25% Coronary artery disease Cough due to WILL inhibitor Depression Eczema Essential hypertension Gallstones History of angina History of bladder infections Hyperlipidemia Ischemic cardiomyopathy Kidney stones Nausea Obesity Obstructive sleep apnea on CPAP Obstructive sleep apnea on CPAP Osteoarthritis Prediabetes ST elevation (STEMI) myocardial infarction ST elevation myocardial infarction (STEMI) of anterior wall (~03/2019) Status post drug-eluting stent to the proximal LAD. Urinary incontinence UTI (urinary tract infection) Surgical History Surgical History H/O hand surgery History of appendectomy History of coronary artery stent placement Hx of lithotripsy S/P trigger finger release Family History Family History Mother Hypertension Family history of malignant neoplasm of breast in first degree relative Family history of malignant neoplasm of ovary Father Pacemaker Social History Social History Social History: The patient is and lives in [place], [place] with his . He has no children. 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 He
--- NOTE | 2022-06-07 12:57 | SUR.OPER ---
EGD START 1238, END 1241 COLONOSCOPY START 1246, END 1254
[2022-06-07 12:58] VITALS: BP 89/55; PULSE 72; RESP 12; O2SAT 100
[2022-06-07 13:08] VITALS: BP 91/61; PULSE 73; RESP 19; O2SAT 100
[2022-06-07 13:18] VITALS: BP 116/79; PULSE 74; RESP 16; O2SAT 100
== END 2022-06-07 13:37 | disposition home or self-care (01) ==
PROVIDERS: PCP Family Medicine; Visit Provider Internal Medicine Gastroenterology
PROC: 0DJ08ZZ Inspection of Upper Intestinal Tract, Via Natural or Artificial Opening Endoscopic (ICD-10-PCS; CPT 43235; principal; 2022-06-07 13:00)
DX: Z12.11 Encounter for screening for malignant neoplasm of colon (principal); K57.30 Diverticulosis of large intestine without perforation or abscess without bleeding; K64.8 Other hemorrhoids; K21.00 Gastro-esophageal reflux disease with esophagitis, without bleeding; K44.9 Diaphragmatic hernia without obstruction or gangrene; K29.70 Gastritis, unspecified, without bleeding; I25.5 Ischemic cardiomyopathy; N40.0 Benign prostatic hyperplasia without lower urinary tract symptoms; I11.0 Hypertensive heart disease with heart failure; I50.9 Heart failure, unspecified; E78.5 Hyperlipidemia, unspecified; G47.33 Obstructive sleep apnea (adult) (pediatric); I25.2 Old myocardial infarction; R73.03 Prediabetes; Z79.01 Long term (current) use of anticoagulants; Z79.891 Long term (current) use of opiate analgesic; Z95.5 Presence of coronary angioplasty implant and graft; E66.01 Morbid (severe) obesity due to excess calories; Z68.39 Body mass index [BMI] 39.0-39.9, adult
CPT/HCPCS: 43239; G0121; 88305; J2704; J7120

== ENCOUNTER 2022-06-13 12:54 | Outpatient (CLI) | payer MEDICARE, OTHER, SELFPAY ==
[2022-06-13 13:51] LABS: INR 1.4; Prothrombin Time 17.9 Seconds (11.1-14.7)
[2022-06-13 13:52] LABS: Partial Thromboplastin Time 31.6 SECONDS (22.3-36.8)
== END 2022-06-13 12:55 | disposition home or self-care (01) ==
LOC: ANHSURGERY 12:59
PROVIDERS: PCP Family Medicine; Visit Provider Urology
DX: Z01.812 Encounter for preprocedural laboratory examination (principal); N20.0 Calculus of kidney; I11.0 Hypertensive heart disease with heart failure; I50.9 Heart failure, unspecified; Z95.5 Presence of coronary angioplasty implant and graft
CPT/HCPCS: 36415; 85610; 85730; 87086

== ENCOUNTER 2022-06-21 03:37 | Day surgery (SDC) | payer MEDICARE, OTHER, SELFPAY ==
[2022-06-11 10:30] VITALS: BMI 38.4
--- NOTE | 2022-06-11 10:31 | PC.NURSE ---
Report to the Outpatient Waiting Room, entrance under the green pavilion located off [facility], at time 0730_ on date _06/21/22_. Planned Procedure Time: _0930_. Time changes happen often and if your time is changed the preop area will call you the afternoon before. - You and your visitor will be asked to self-screen and do not enter if you have any COVID symptoms. - A mask is optional within the hospital at this time. Patients may have clear liquids (water, carbonated beverages, clear teas, apple juice) until 3 hours prior to surgery with a maximum of 20 ounces. - No food from midnight until time of surgery - Infants may have breast milk until 4 hours before surgery, formula 6 hours prior to surgery. - Children will be allowed to drink immediately following surgery. If applicable, please bring a bottle or sippy cup to assist with drinking. Juice, water, soda, and popsicles are readily available. For infants on formula, please bring formula the day of surgery. Pacifiers are allowed. Take the following medications with a SIP of water the morning of surgery: ____ISOSORBIDE, METOPROLOL, OMEPRAZOLE, TYLENOL IF NEEDED DO NOT STOP ANY OF YOUR OTHER PRESCRIPTION MEDICATIONS PRIOR TO SURGERY ?EXCEPT THE FOLLOWING Medications to discontinue per physician VITAMINS AND SUPPLIMENTS STOP 06/18/22, PT INSTRUCTED BY OFFICE TO STOP WARFARIN AND ASPIRIN 1 WEEK PRIOR TO SURGERY Please no make-up, nail palestinian, hairspray, perfume, deodorant, or body powder the day of surgery. No jewelry (including any body piercings) or valuables the day of surgery, leave them at home. Please take a shower or bath the night before, or the morning of, surgery with an antibacterial soap. Wear comfortable, loose fitting clothing. Children are encouraged to wear pajamas. - Jewelry must be removed prior to entering the operating room. Rings and piercings that are not removed may be cut off. - The hospital will not accept responsibility for valuables. - Please leave all valuables, including medications, at home the day of surgery. If you are going home after surgery, a licensed steam train driver must drive you home. - NO public transportation without another adult if you receive anesthesia. - We recommend that an adult stay with you for 24 hours following discharge. - We also recommend that you do not drive, make important decision, drink alcoholic beverages, or take any drugs that were not prescribed by your health care provider for at least 24 hours after your discharge time. For Pediatric surgeries, we recommend two adults accompany the child home. Follow any additional instructions given to you from your surgeon. If you or anyone in your household have experienced Covid symptoms in the past week, please notify your surgeon or the nurse liaison at the phone number below for possible testing. Telephone instructions given to _PATIENT_and asked if any additional questions and then verbalized understanding. Patient advised to call surgeon office or pre surgery nurse liaison [phone] if any additional questions.
--- NOTE | 2022-06-13 07:28 | PM.HPGS ---
History of Present Illness History of Present Illness Consent: Risks, benefits, and alternatives have been discussed and questions answered. Patient agrees to proceed with procedure. Chief complaint: Rt Ureteral Kidney Stone Narrative: Go Morrow is a 66 year old male present multiple renal and ureteral calculi in the past. He recently underwent a fairly extensive procedure for large stones in his left ureter. He is left with residual bilateral renal stones and now elects for right ESWL, where his largest stone burden persist. He is aware the risk including, but not limited to, adverse cardiopulmonary events, perinephric hematoma, hematuria, need for additional procedures, Review of Systems Cardiovascular: Cardiovascular: Denies chest pain, Denies lightheadedness, Denies palpitations and Denies dyspnea Respiratory: Respiratory: Denies dyspnea Gastrointestinal: Gastrointestinal: Denies diarrhea, Denies nausea and Denies vomiting Genitourinary: Genitourinary: Denies hematuria and Denies dysuria Endocrine: Endocrine: Denies palpitations [facility] Past Medical History Medical History (Updated 06/07/22 @ 12:33 by Scottie Arias MD) Benign prostatic hyperplasia Calculus of kidney Chronic anemia Chronic back pain Colon cancer screening Congestive heart failure 09/05 echo: ef 25% Coronary artery disease Cough due to WILL inhibitor Depression Eczema Essential hypertension Gallstones History of angina History of bladder infections Hyperlipidemia Ischemic cardiomyopathy Kidney stones Nausea Obesity Obstructive sleep apnea on CPAP Obstructive sleep apnea on CPAP Osteoarthritis Prediabetes ST elevation (STEMI) myocardial infarction ST elevation myocardial infarction (STEMI) of anterior wall (~03/2019) Status post drug-eluting stent to the proximal LAD. Urinary incontinence UTI (urinary tract infection) Surgical History Surgical History H/O hand surgery History of appendectomy History of coronary artery stent placement Hx of lithotripsy S/P trigger finger release Family History Family History Mother Hypertension Family history of malignant neoplasm of breast in first degree relative Family history of malignant neoplasm of ovary Father Pacemaker Social History Social History Social History: The patient is and lives in [place], [place] with his . He has no children. 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 He designates his , Concepción Nunes, as his surrogate decision maker and he wishes to be a full code. He Smoking status: Never smoker Second hand tobacco smoke exposure: No Alcohol intake: never Substance use: never Substance use type: does not use Lack of Transportation: No Lack of Food: Never True Current Housing: I Have Housing Concerned About Future Housing: Decline to Answer Difficulty Paying Gas/Electric Bills: Decline to Answer Difficulty Paying for Meds: Decline to Answer Currently Unemployed: Decline to Answer Education: Decline to Answer Difficulty w/ Childcare or Family Care: Decline to Answer Living arrangements: with family Occupation/Education: occupation Gender identity (if verbalized by the patient): Male Sexual Orientation (if Verbalized by the Patient): Straight or Heterosexual Spiritual care concerns: No Agree to blood products: Yes Meds Home Medications and Allergies Home Medications Medication Instructions Recorded Confirmed Type atorvastatin 80 mg tablet 80 mg PO DAILY #30 tabs 03/23/19 06/11/22 Rx nitroglycerin 0.4 mg sublingual 0.4 mg sublingual DIRECTED PRN 03/23/19 06/11/22 Rx tablet chest pain #25 tabs acetaminophen 500 mg tablet 500 mg PO Q6H PRN Pain 05/21/19 06/11/22 Histo
--- NOTE | 2022-06-20 14:17 | WPDANESEPPF ---
Anes - Initial Pre Proc Eval Procedure: Operation Date: 06/21/22 09:30 Proposed Procedures p Right Extracorporeal Shock Wave Lithotripsy - Jas Durán MD s Cystoscopy with Left Stent Removal - Jas Durán MD Date/Time: 06/20/22 14:17 Surgeon: Jas Durán MD Pre Op Diagnosis: Rt Ureteral Kidney Stone Patient Data Age: 66 Gender: M Height: 1.75 m Weight: 118 kg Allergies Allergy/AdvReac Type Severity Reaction Status Date / Time Sulfa (Sulfonamide Allergy Intermediate Rash Verified 06/21/22 07:50 Antibiotics) lisinopril AdvReac Intermediate Cough Verified 06/21/22 07:50 Home Medications Medication Instructions Recorded Confirmed Type atorvastatin 80 mg tablet 80 mg PO DAILY #30 tabs 03/23/19 06/21/22 Rx nitroglycerin 0.4 mg sublingual 0.4 mg sublingual DIRECTED PRN 03/23/19 06/21/22 Rx tablet chest pain #25 tabs acetaminophen 500 mg tablet 500 mg PO Q6H PRN Pain 05/21/19 06/21/22 History (Tylenol Extra Strength) ascorbic acid (vitamin C) 500 mg 500 mg PO DAILY 05/21/19 06/21/22 History tablet spironolactone 25 mg tablet 25 mg PO DAILY #30 tabs 07/02/19 06/21/22 Rx sacubitril 49 mg-valsartan 51 mg 1 tablet PO BID 10/30/21 06/21/22 History tablet (Entresto) warfarin 2 mg tablet 2 mg PO DAILY 10/30/21 06/21/22 History warfarin 3 mg tablet 3 mg PO QMWF 10/30/21 06/21/22 History aspirin 81 mg tablet,delayed 81 mg PO QAM #30 tabs 01/13/22 06/21/22 Rx release furosemide 40 mg tablet 40 mg PO BID 04/28/22 06/21/22 History Ultra CoQ10 100 mg PO DAILY 05/16/22 06/21/22 History finasteride 5 mg tablet 5 mg PO DAILY #90 tabs 05/23/22 06/21/22 Rx hydrocodone 5 mg-acetaminophen 325 1 - 2 tablet PO Q6H PRN pain #20 05/24/22 06/21/22 Rx mg tablet tabs isosorbide mononitrate 30 mg 30 mg PO QAM #90 tabs 06/03/22 06/21/22 Rx tablet,extended release 24 hr metoprolol succinate 25 mg 37.5 mg PO DAILY #135 tabs 06/03/22 06/21/22 Rx tablet,extended release 24 hr zolpidem 10 mg tablet 10 mg PO .QHS PRN insomnia #30 tabs 06/03/22 06/21/22 Rx omeprazole 40 mg capsule,delayed 40 mg PO DAILY #30 caps 06/07/22 06/21/22 Rx release Patient hx anesthesia problems: none Family hx anesthesia problems: none Results Review: All pre-operative results and documents have been reviewed as part of the pre-operative evaluation. [facility] Past Medical History Medical History (Updated 06/07/22 @ 12:33 by Scottie Arias MD) Benign prostatic hyperplasia Calculus of kidney Chronic anemia Chronic back pain Colon cancer screening Congestive heart failure 09/05 echo: ef 25% Coronary artery disease Cough due to WILL inhibitor Depression Eczema Essential hypertension Gallstones History of angina History of bladder infections Hyperlipidemia Ischemic cardiomyopathy Kidney stones Nausea Obesity Obstructive sleep apnea on CPAP Obstructive sleep apnea on CPAP Osteoarthritis Prediabetes ST elevation (STEMI) myocardial infarction ST elevation myocardial infarction (STEMI) of anterior wall (~03/2019) Status post drug-eluting stent to the proximal LAD. Urinary incontinence UTI (urinary tract infection) Surgical History Surgical History H/O hand surgery History of appendectomy History of coronary artery stent placement Hx of lithotripsy S/P trigger finger release Family History Family History Mother Hypertension Family history of malignant neoplasm of breast in first degree relative Family history of malignant neoplasm of ovary Father Pacemaker Social History Social History Social History: The patient is and lives in [place], [place] with his . He has no children. 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 He designates his wi
[2022-06-21] VITALS (8 sets, daily range): BP systolic 107–134; BP diastolic 70–88; PULSE 70–78; RESP 12–20; TEMP 36.3–36.9; O2SAT 98–100
--- NOTE | ~2022-06-21 | XR_ITS ---
Supine and upright views of the abdomen Clinical history: Lithotripsy COMPARISON: 05/24/2022 Findings: Bowel gas pattern is nonspecific, with prominent air distention of transverse colon. No joana dence for obstruction or free air. Left ureteral stent is in place. Numerous bilateral renal stones a re similar to prior exam. No definite stone along the course of the ureteral stent. Osseous structure s are intact. Impression: Numerous bilateral renal stones again present. Left ureteral stent. No definite stone along the course of the stent. Reviewed, dictated and finalized at location M. Impression: Numerous bilateral renal stones again present. Left ureteral stent. No definite stone along the course of the stent.
--- NOTE | 2022-06-21 06:49 | WPDHPUPDATE1 ---
History and Physical Update Update Date/Time: 06/21/22 06:49 History and Physical has been reviewed, including an updated exam of the patient. There are NO changes in the patient's condition. Risks, benefits, and alternatives have been discussed and questions answered. Patient agrees to proceed with procedure.
[2022-06-21] MEDS: LACTATED RINGERS 1,000 ML 30 ML IV CONT (08:15)
[2022-06-21 09:14] LABS: INR 1.3; Prothrombin Time 16.6 Seconds (11.1-14.7)
--- NOTE | 2022-06-21 09:39 | SUR.PREOP ---
0815-PT AND AWARE SURGEON DELAYS SELF R/T EMERGENCY.
[2022-06-21] MEDS: ceFAZolin 2 GM/D5W 50 ML 2 GM/50 ML BAG IVPB (10:14)
[2022-06-21] MEDS: LIDOCAINE HCL 2% GEL UROJET 10 ML PKG MUCOUS MEM (10:32)
--- NOTE | 2022-06-21 10:33 | W.PM.PROC2 ---
Procedure Note - Detailed Date of Procedure 06/21/22 Pre-op Diagnosis Bilateral renal calculi Post-op Diagnosis Same Procedure Performed 1. Cystoscopy with left stent removal 2. Right ESWL Surgeon Jas Durán MD Anesthesia General Description of Procedure patient brought the op suite was prepped draped in routine sterile fashion while in supine lithotomy position after the uneventful induction of general LMA anesthetic. Cystoscopy is undertaken with a 16 F flexible cystoscope. There was no urethral stricture. Other than his indwelling left ureteral stent there was no abnormal bladder pathology, certainly no signs of neoplasm. Tip of the stent is grasped and it was removed with ease. The focal point of the Dornier a Lithotripter was in place that largest stones in his right kidney, the lower right lower pole. Total of 2500 shocks were delivered at power setting 4. There to be fragmentation stone. He tolerated procedure well was taken recovery good condition. Estimated Blood Loss 0 Drains No Packing No Pathology None sent Complications No immediate complications
[2022-06-21] MEDS: fentaNYL CITRATE INJ (*CRX) 100 MCG/2 ML VIAL 25 MCG IV PUSH ×3 (11:47→12:00)
[2022-06-21] MEDS: oxyCODONE HCL (*CRX) 5 MG TAB IR PO (12:34)
== END 2022-06-21 13:10 | disposition home or self-care (01) ==
PROVIDERS: PCP Family Medicine; Visit Provider Urology
PROC: (CPT 50590; principal; 2022-06-21 09:30)
PROC: (CPT 52310; 2022-06-21 09:30)
DX: N20.0 Calculus of kidney (principal); N40.0 Benign prostatic hyperplasia without lower urinary tract symptoms; I11.0 Hypertensive heart disease with heart failure; I50.9 Heart failure, unspecified; I25.10 Atherosclerotic heart disease of native coronary artery without angina pectoris; E78.5 Hyperlipidemia, unspecified; I25.5 Ischemic cardiomyopathy; G47.33 Obstructive sleep apnea (adult) (pediatric); I25.2 Old myocardial infarction; F32.A Depression, unspecified; E66.9 Obesity, unspecified; Z68.38 Body mass index [BMI] 38.0-38.9, adult; Z79.01 Long term (current) use of anticoagulants; Z79.82 Long term (current) use of aspirin; Z79.891 Long term (current) use of opiate analgesic; Z95.5 Presence of coronary angioplasty implant and graft
CPT/HCPCS: 50590; 52310; 36415; 74018; 85610; A9270; J0690; J1100; J2250; J2405; J2704; J3010; J7030; J7120

== ENCOUNTER 2022-07-04 13:51 | Outpatient (CLI) | payer MEDICARE, OTHER, SELFPAY ==
--- NOTE | ~2022-07-04 | XR_ITS ---
XR abdomen/kub 1V 07/04/2022 14:11 INDICATION: Flank pain TECHNIQUE: KUB COMPARISON: Comparison to multiple prior studies sequentially, with oldest reviewed study dated 05/05. FINDINGS: Bowel gas pattern is normal. There is no evidence of free air, mass, organomegaly, ascites or obstruction. There are right renal stones which are obscured by bowel content. Left kidney is obs cured by bowel content. The bones appear intact. IMPRESSION: 1: Right nephrolithiasis. Reviewed, dictated and finalized at location L. IMPRESSION: 1: Right nephrolithiasis.
== END 2022-07-04 13:52 | disposition home or self-care (01) ==
PROVIDERS: PCP Family Medicine; Visit Provider Urology
DX: N20.0 Calculus of kidney (principal)
CPT/HCPCS: 74018

== ENCOUNTER 2023-01-16 12:03 | Outpatient (CLI) | payer MEDICARE, OTHER, SELFPAY ==
--- NOTE | ~2023-01-16 | XR_ITS ---
Right wrist Technique: PA, oblique, lateral, and ulnar deviation views were obtained. Clinical History: Pain Findings: No acute fracture or dislocation is seen. Osseous alignment is anatomic. Joint spaces are p reserved. Soft tissues are unremarkable. Impression: Unremarkable right wrist radiographs. Reviewed, dictated and finalized at location . COMPOSITOR Impression: Unremarkable right wrist radiographs.
== END 2023-01-16 12:04 | disposition home or self-care (01) ==
PROVIDERS: PCP Family Medicine; Visit Provider Family Medicine
DX: M25.531 Pain in right wrist (principal)
CPT/HCPCS: 73110

== ENCOUNTER 2023-04-05 12:22 | Outpatient (CLI) | payer MEDICARE, OTHER, SELFPAY ==
--- NOTE | ~2023-04-05 | CT_ITS ---
Non-contrast Head CT History: Headache Technique: Axial non-contrast imaging of the brain was performed. Dose reduction technique was used on this scan by utilizing automated exposure control and iterative reconstruction technique. The dose -length product (DLP) was 605.33 mGy-cm. Findings: There is no evidence of intracranial hemorrhage, mass lesion, or acute infarct. Brain par enchyma appears normal. The ventricles and subarachnoid spaces are normal in size. The calvarium ap pears normal. The visualized paranasal sinuses and mastoid air cells are clear. Impression: No significant abnormality seen. Reviewed, dictated and finalized at location . EXAMINER Impression: No significant abnormality seen.
== END 2023-04-05 12:23 | disposition home or self-care (01) ==
PROVIDERS: PCP Family Medicine; Visit Provider Family Medicine
DX: R51.9 Headache, unspecified (principal); Z79.01 Long term (current) use of anticoagulants
CPT/HCPCS: 70450

== ENCOUNTER 2023-04-14 13:35 | Outpatient (CLI) | payer MEDICARE, OTHER, SELFPAY ==
--- NOTE | ~2023-04-14 | XR_ITS ---
EXAMINATION: XR abdomen/kub 1V INDICATION: Calculus of the kidney TECHNIQUE: Supine views of the abdomen were obtained on 2 radiographs. COMPARISON: 07/04/2022 FINDINGS: There are at least six stones of the right kidney, which appear to be stable since the comp arison examination, and measure up to 11 mm in the lower pole. There are several stones of the left k idney which measure up to 2.1 cm. Several identified in the left kidney on prior examinations appear to be obscured by bowel gas. No stones are identified along the expected locations of the ureters. Th ere is a calcified granuloma of the left lower lobe. There are phleboliths of the pelvis. Prostatic c alcifications are noted. IMPRESSION: 1. Bilateral nephrolithiasis. Reviewed, dictated and finalized at location B. INE II COREMAKER
== END 2023-04-14 13:36 | disposition home or self-care (01) ==
PROVIDERS: PCP Family Medicine; Visit Provider Urology
DX: N20.0 Calculus of kidney (principal); N20.1 Calculus of ureter
CPT/HCPCS: 74018

== ENCOUNTER 2023-04-17 13:02 | Outpatient (CLI) | payer MEDICARE, OTHER, SELFPAY ==
--- NOTE | ~2023-04-17 | CT_ITS ---
EXAMINATION: CT abdomen pelvis wo con DATE: 04/17/2023 13:29 INDICATION: Calculus of the kidney TECHNIQUE: Computed tomography (CT) of the abdomen and pelvis was performed without intravenous contr ast. The dose-length product (DLP) was 1592.93 mGy-cm. Automated exposure control and iterative recon struction technique were employed. COMPARISON: 05/02/2022 FINDINGS: There is mild atelectasis of the visualized lung bases. Cardiomegaly is noted. Myocardial t hinning and subendocardial fat deposition in the left ventricular apex and intraventricular septum ar e consistent with prior myocardial infarction. Punctate calcifications in an otherwise normal spleen likely represent healed granulomatous disease. The liver, pancreas, and adrenal glands are normal. Th ere are stones in the nondistended gallbladder. There are multiple nonobstructing stones of the left kidney which measure up to 11 mm and are without significant interval change. There are multiple nono bstructing stones of the right kidney which measure up to 12 mm and are not significantly changed. Th ere is 8 mm stone of the proximal right ureter with mild hydronephrosis. There are no stones of the l eft ureter or urinary bladder. No pathologically enlarged abdominal or pelvic lymph nodes are identif ied. No free intraperitoneal gas or evidence of bowel obstruction. Changes of appendectomy are noted. There are calcifications of the prostate. There is severe lumbar spondylosis at L5-S1. IMPRESSION: 1. 8 mm stone of the proximal right ureter causing mild hydronephrosis. 2. Bilateral nonobstructing nephrolithiasis. Reviewed, dictated and finalized at location F. X RAY EXAMINER OF AIRCRAFT
== END 2023-04-17 13:03 | disposition home or self-care (01) ==
LOC: ANHIMG 13:03
PROVIDERS: PCP Family Medicine; Visit Provider Urology
DX: N20.2 Calculus of kidney with calculus of ureter (principal)
CPT/HCPCS: 74176

== ENCOUNTER 2023-04-22 10:27 | Emergency (ER) | payer MEDICARE, OTHER, SELFPAY ==
--- NOTE | ~2023-04-22 | XR_ITS ---
EXAMINATION: XR chest 2V DATE: 04/22/2023 11:06 INDICATION: Productive cough. TECHNIQUE: Frontal and lateral views of the chest were obtained. COMPARISON: Chest 2 views 07/09/2021, CT abdomen and pelvis 12/16/2023 FINDINGS: Calcified left lung nodules and calcified left hilar lymph nodes are consistent with old gr anulomatous disease. No pleural effusion or pneumothorax. Cardiomegaly is noted. There is a left ches t pacer/defibrillator with lead in right ventricle. IMPRESSION: 1. Cardiomegaly. Reviewed, dictated and finalized at location E. UCTION SUPPORT DEVELOPER IMPRESSION: 1. Cardiomegaly.
--- NOTE | 2023-04-22 10:40 | ED.GENADULT ---
HPI - General Adult General Chief complaint: Upper Respiratory Infection Stated complaint: cough,bilateral side pain Source: patient, RN notes reviewed and old records reviewed Mode of arrival: ambulatory Limitations: no limitations History of Present Illness HPI narrative: 67-year-old male patient [facility] with complaint of cough, rhinorrhea, congestion this started 4 days ago. Patient states now having pain and bilateral ribs with deep breathing coughing. Patient states call primary care physician and was told to take [id number] medications. Patient states had fever 99. Patient denies any other symptoms. Related Data Home Medications Medication Instructions Recorded Confirmed acetaminophen 500 mg tablet 500 mg PO Q6H PRN Pain 05/21/19 04/22/23 (Tylenol Extra Strength) ascorbic acid (vitamin C) 500 mg 500 mg PO DAILY 05/21/19 04/22/23 tablet sacubitril 49 mg-valsartan 51 mg 1 tablet PO BID 10/30/21 04/22/23 tablet (Entresto) warfarin 2 mg tablet 2 mg PO DAILY 10/30/21 04/22/23 warfarin 3 mg tablet 3 mg PO QMWF 10/30/21 04/22/23 Ultra CoQ10 100 mg PO DAILY 05/16/22 04/22/23 ergocalciferol (vitamin D2) 1,250 1,250 mcg PO WEEKLY 08/15/22 04/22/23 mcg (50,000 unit) capsule (Vitamin D2) fexofenadine 60 mg tablet (Rosemarie 60 mg PO Q12H 08/15/22 04/22/23 Allergy) potassium chloride 10 mEq 10 meq PO DAILY 08/15/22 04/22/23 capsule,extended release ezetimibe 10 mg tablet 10 mg PO DAILY 10/16/22 04/22/23 Allergies Allergy/AdvReac Type Severity Reaction Status Date / Time Sulfa (Sulfonamide Allergy Intermediate Rash Verified 04/22/23 10:46 Antibiotics) lisinopril AdvReac Intermediate Cough Verified 04/22/23 10:46 WILL Inhibitors AdvReac Cough Verified 04/22/23 10:47 Review of Systems Constitutional: Constitutional: Reports no additional constitutional complaints, Denies body ache(s), Denies chills, Denies fatigue, Denies fever(s) and Denies headache(s) Eyes: Eyes: Reports no additional eye complaints and Denies blurry vision ENT: Reports system reviewed and no additional complaints, except as documented, Denies vertigo, Denies dizziness, Denies ear discharge, Denies otalgia, Denies facial pain, Denies headache(s), Reports nasal congestion, Reports nasal discharge, Denies sinus pain, Denies sinus pressure and Denies sore throat Cardiovascular: Cardiovascular: Reports no additional cardiovascular complaints, Denies chest pain, Denies chest pain at rest, Denies rapid heart rate and Reports dyspnea Respiratory: Respiratory: Reports no additional respiratory complaints, Reports chest congestion, Reports cough, Reports pain on inspiration, Reports pain with cough and Reports dyspnea Gastrointestinal: Gastrointestinal: Denies abdominal pain, Denies diarrhea, Denies nausea and Denies vomiting Integumentary/Breasts: Skin/Breast: Denies rash Neurologic: Reports system reviewed and no additional complaints, except as documented, Denies vertigo, Denies dizziness and Denies headache(s) Endocrine: Endocrine: Denies fatigue PMFSH Past Medical History Medical History Benign prostatic hyperplasia Bowel obstruction Calculus of kidney Chronic anemia Chronic back pain Colon cancer screening Congestive heart failure 09/05 echo: ef 25% Coronary artery disease Cough due to WILL inhibitor Depression Eczema Essential hypertension Gallstones History of angina History of bladder infections Hyperlipidemia Ischemic cardiomyopathy Kidney stones Nausea Obesity Obstructive sleep apnea on CPAP Obstructive sleep apnea on CPAP Osteoarthritis Prediabetes ST elevation (STEMI) myocardial infarction ST elevation myocardial infarction (STEMI) of anterior wall (~03/2019) Status post drug-eluting stent to the proximal LAD. Urinary incontinence UTI (urinary tract infection) Surgical History Surgical History (Reviewed 04/22/23 @ 10:59 by Olya Rush
[2023-04-22 10:43] VITALS: BP 99/61; PULSE 93; RESP 24; TEMP 37.1; O2SAT 97
== END 2023-04-22 11:35 | disposition short-term general hospital (02) ==
PROVIDERS: Emergency Provider Registered Nurse; PCP Family Medicine
DX: B34.9 Viral infection, unspecified (principal); R06.00 Dyspnea, unspecified; R07.81 Pleurodynia; Z20.822 Contact with and (suspected) exposure to COVID-19; N40.0 Benign prostatic hyperplasia without lower urinary tract symptoms; I11.0 Hypertensive heart disease with heart failure; I50.9 Heart failure, unspecified; I25.110 Atherosclerotic heart disease of native coronary artery with unstable angina pectoris; E78.5 Hyperlipidemia, unspecified; G47.33 Obstructive sleep apnea (adult) (pediatric); R73.03 Prediabetes; I25.2 Old myocardial infarction; Z95.5 Presence of coronary angioplasty implant and graft
CPT/HCPCS: 71046; 87426; 87804; 99213; G0463

== ENCOUNTER 2023-04-28 09:04 | Emergency (ER) | payer MEDICARE, OTHER, SELFPAY ==
[2023-04-28] VITALS (8 sets, daily range): BP systolic 108–111; BP diastolic 55–64; PULSE 76–89; RESP 16–26; TEMP 36.5; O2SAT 98–100
--- NOTE | ~2023-04-28 | XR_ITS ---
Clinical Indication: Shortness of breath PA and lateral views of the chest: Comparison: 04/22/2023 Findings: The lungs are clear, without evidence of focal consolidation or pleural effusion. Cardiome diastinal silhouette is stable, with pacemaker device. Stable small calcified hilar lymph nodes. Bone s and soft tissues are unremarkable. Impression: No acute abnormality. Reviewed, dictated and finalized at location . Impression: No acute abnormality.
--- NOTE | 2023-04-28 09:05 | ECG_ITS ---
Measurements Intervals [place] Rate: 87 P: 19 NC: 194 QRS: -33 QRSD: 106 T: 60 QT: 389 QTc: 469 Interpretive Statements SINUS RHYTHM LEFT AXIS DEVIATION LOW QRS VOLTAGE IN PRECORDIAL LEADS CANNOT RULE OUT SEPTAL INFARCT, AGE INDETERMINATE CONSIDER INFERIOR INFARCT, AGE INDETERMINATE BORDERLINE ST-T WAVE ABNORMALITY- ANTEROLAT/HIGH LAT LEADS BASELINE WANDER- AVF, V1-V6 ABNORMAL ECG COMPARED TO ECG 05/21/2022 11:37:17 LEFT-AXIS DEVIATION NOW PRESENT Electronically Signed On 04-28-2023 9:25:53 CDT by Regulo Rios D.O.
[2023-04-28 09:35] LABS: Basophils Percent Auto 0.3 % (0.2-1.2); Eosinophils Absolute Auto 0.5 K/mm3 (0-0.3); Eosinophils Percent Auto 5.5 % (0-4.4); Hematocrit 41.6 % (42.0-52.0); Hemoglobin 12.8 g/dL (14.0-18.0); Immature Granulocyte Absolute 0.04 K/mm3 (0.00-0.031); Immature Granulocyte Percent A 0.5 % (0-0.5); Lymphocytes Percent Auto 12.5 % (18.3-44.2); Mean Corpuscular HGB Conc 30.8 g/dl (32-36); Mean Corpuscular Hemoglobin 26.7 pg (26-34); Mean Corpuscular Volume 86.8 fl (80-100); Mean Platelet Volume 9.5 fl (7.4-10.4); Monocytes Absolute Auto 0.6 K/mm3 (0.1-0.6); Monocytes Percent Auto 6.4 % (2.6-8.5); Neutrophils Absolute Auto 6.6 K/mm3 (1.3-6.7); Neutrophils Percent Auto 74.8 % (45.5-73.1); Platelet Count Result 233 k/mm3 (150-375); Red Blood Count 4.79 M/mm3 (4.6-6.20); Red Cell Distribution Width 14.3 % (11.5-14.5); White Blood Count 8.8 K/mm3 (4.5-10.0)
[2023-04-28 09:47] LABS: Anion Gap 5 mmol/L (8-16); Blood Urea Nitrogen 24 mg/dL (9-20); Carbon Dioxide 29 mmol/L (22-30); Chloride 103 mmol/L (98-107); Estimated CRCL calculation 65 ml/min; Potassium 3.7 mmol/L (3.4-5.0); Sodium 137 mmol/L (137-145)
[2023-04-28 09:48] LABS: Alanine Aminotransferase 32 U/L (6-50); Alkaline Phosphatase 88 U/L (38-126); Aspartate Amino Transferase 28 U/L (17-59); Bilirubin,Total 0.5 mg/dL (0.2-1.3); Calcium 8.8 mg/dL (8.4-10.2); Estimated Glomerular Filt Rate 55; Glucose 94 mg/dL (65-110)
[2023-04-28] MEDS: ALBUTEROL SULFATE NEB 2.5 MG/3 ML INH 15 MG INHALATION (10:13)
[2023-04-28] MEDS: IPRATROPIUM BR 0.02% INH SOLN 0.5 MG/2.5 ML VIAL 1.5 MG INHALATION (10:14)
--- NOTE | 2023-04-28 13:08 | ED.SOB ---
HPI - SOB/Dyspnea General Chief Complaint: Shortness of Breath/Dyspnea Stated Complaint: SOB, CP Time Seen by Provider: 04/28/23 09:21 History of Present Illness HPI Narrative: Patient is a 67-year-old male who presents ER with cough and shortness of breath. Ongoing for 1 week. Initially had fevers and chills but they have gone away. He now does has wet productive cough that he cannot get better. Denies orthopnea. No loss of consciousness. No hemoptysis. Related Data Home Medications Medication Instructions Recorded Confirmed acetaminophen 500 mg tablet 500 mg PO Q6H PRN Pain 05/21/19 04/22/23 (Tylenol Extra Strength) ascorbic acid (vitamin C) 500 mg 500 mg PO DAILY 05/21/19 04/22/23 tablet sacubitril 49 mg-valsartan 51 mg 1 tablet PO BID 10/30/21 04/22/23 tablet (Entresto) warfarin 2 mg tablet 2 mg PO DAILY 10/30/21 04/22/23 warfarin 3 mg tablet 3 mg PO QMWF 10/30/21 04/22/23 Ultra CoQ10 100 mg PO DAILY 05/16/22 04/22/23 ergocalciferol (vitamin D2) 1,250 1,250 mcg PO WEEKLY 08/15/22 04/22/23 mcg (50,000 unit) capsule (Vitamin D2) fexofenadine 60 mg tablet (Rosemarie 60 mg PO Q12H 08/15/22 04/22/23 Allergy) potassium chloride 10 mEq 10 meq PO DAILY 08/15/22 04/22/23 capsule,extended release ezetimibe 10 mg tablet 10 mg PO DAILY 10/16/22 04/22/23 Allergies Allergy/AdvReac Type Severity Reaction Status Date / Time Sulfa (Sulfonamide Allergy Intermediate Rash Verified 04/28/23 09:15 Antibiotics) lisinopril AdvReac Intermediate Cough Verified 04/28/23 09:15 WILL Inhibitors AdvReac Cough Verified 04/28/23 09:15 Review of Systems Review of Systems: All systems reviewed & are unremarkable except as noted in HPI and below Constitutional: Constitutional: Reports chills, Reports fatigue and Reports fever(s) ENT: Reports system reviewed and no additional complaints, except as documented Cardiovascular: Cardiovascular: Reports no additional cardiovascular complaints Respiratory: Respiratory: Reports cough, Reports dyspnea and Reports wheezing Gastrointestinal: Gastrointestinal: Reports no additional gastrointestinal complaints Genitourinary: Genitourinary: Reports no additional male genitourinary complaints [facility] Past Medical History Medical History Benign prostatic hyperplasia Bowel obstruction Calculus of kidney Chronic anemia Chronic back pain Colon cancer screening Congestive heart failure 09/05 echo: ef 25% Coronary artery disease Cough due to WILL inhibitor Depression Eczema Essential hypertension Gallstones History of angina History of bladder infections Hyperlipidemia Ischemic cardiomyopathy Kidney stones Nausea Obesity Obstructive sleep apnea on CPAP Obstructive sleep apnea on CPAP Osteoarthritis Prediabetes ST elevation (STEMI) myocardial infarction ST elevation myocardial infarction (STEMI) of anterior wall (~03/2019) Status post drug-eluting stent to the proximal LAD. Urinary incontinence UTI (urinary tract infection) Surgical History Surgical History H/O hand surgery History of appendectomy History of coronary artery stent placement History of renal stent Hx of lithotripsy S/P trigger finger release Family History Family History Mother Hypertension Family history of malignant neoplasm of breast in first degree relative Family history of malignant neoplasm of ovary Father Pacemaker Social History Social History Social History: The patient is and lives in [place], [place] with his . He has no children. 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 He designates his , Concepción Nunes, as his surrogate decision maker and he wishes to be a full code. He Smok
== END 2023-04-28 13:22 | disposition home or self-care (01) ==
PROVIDERS: Emergency Provider Emergency Medicine; PCP Family Medicine
DX: J40 Bronchitis, not specified as acute or chronic (principal); I50.9 Heart failure, unspecified; I11.0 Hypertensive heart disease with heart failure; I25.10 Atherosclerotic heart disease of native coronary artery without angina pectoris; I25.5 Ischemic cardiomyopathy; I25.2 Old myocardial infarction; E78.5 Hyperlipidemia, unspecified; N40.0 Benign prostatic hyperplasia without lower urinary tract symptoms; D64.9 Anemia, unspecified; G47.33 Obstructive sleep apnea (adult) (pediatric); M19.90 Unspecified osteoarthritis, unspecified site; R73.03 Prediabetes; R32 Unspecified urinary incontinence; Z95.5 Presence of coronary angioplasty implant and graft; Z87.440 Personal history of urinary (tract) infections; Z87.442 Personal history of urinary calculi; R94.31 Abnormal electrocardiogram [ECG] [EKG]
CPT/HCPCS: 36415; 71046; 80053; 85025; 93005; 94640; 99284

== ENCOUNTER 2023-05-02 10:51 | Outpatient (CLI) | payer MEDICARE, OTHER, SELFPAY ==
[2023-05-02 11:46] LABS: INR 3.1; Prothrombin Time 34.1 Seconds (11.1-14.7)
[2023-05-02 11:47] LABS: Partial Thromboplastin Time 39.8 Seconds (22.3-36.8)
== END 2023-05-02 10:52 | disposition home or self-care (01) ==
PROVIDERS: PCP Family Medicine; Visit Provider Urology
DX: N20.1 Calculus of ureter (principal); N20.0 Calculus of kidney; Z01.818 Encounter for other preprocedural examination
CPT/HCPCS: 36415; 85610; 85730; 87086

== ENCOUNTER 2023-05-15 01:28 | Day surgery (SDC) | payer MEDICARE, OTHER, SELFPAY ==
--- NOTE | 2023-05-01 13:19 | PC.NURSE ---
Report to the Outpatient Waiting Room, entrance under the green pavilion located off [facility], at time _0930 on date _05/09/23 . Planned Procedure Time: _1130 . Time changes happen often and if your time is changed the preop area will call you the afternoon before. - You and your visitor will be asked to self-screen and do not enter if you have any COVID symptoms. - A mask is optional within the hospital at this time. Patients may have clear liquids (water, carbonated beverages, clear teas, apple juice) until 3 hours prior to surgery (8:30 AM)with a maximum of 20 ounces. - No food from midnight until time of surgery - Infants may have breast milk until 4 hours before surgery, infant formula 6 hours prior to surgery. - Children will be allowed to drink immediately following surgery. If applicable, please bring a bottle or sippy cup to assist with drinking. Juice, water, soda, and popsicles are readily available. For infants on formula, please bring formula the day of surgery. Pacifiers are allowed. Take the following medications with a SIP of water the morning of surgery: __INHALER IF NEEDED,ISOSORBIDE,METOPROLOL DO NOT STOP ANY OF YOUR OTHER PRESCRIPTION MEDICATIONS PRIOR TO SURGERY ?EXCEPT THE FOLLOWING Medications to discontinue per physician ___PT STATES HOLD WARFARIN AND ASPIRIN 5 DAYS PRE OP PER DR DAVEY LAST DOSE 05/03/23___HOLD ALL VITAMINS AND SUPPLEMENTS 3 DAYS PREOP.LAST DOSE 05/05/23 Please no make-up, nail estonian, hairspray, perfume, deodorant, or body powder the day of surgery. No jewelry (including any body piercings) or valuables the day of surgery, leave them at home. Please take a shower or bath the night before, or the morning of, surgery with an antibacterial soap. Wear comfortable, loose fitting clothing. Children are encouraged to wear pajamas. - Jewelry must be removed prior to entering the operating room. Rings and piercings that are not removed may be cut off. - The hospital will not accept responsibility for valuables. - Please leave all valuables, including medications, at home the day of surgery. If you are going home after surgery, a licensed star route mail driver must drive you home. - NO public transportation without another adult if you receive anesthesia. - We recommend that an adult stay with you for 24 hours following discharge. - We also recommend that you do not drive, make important decision, drink alcoholic beverages, or take any drugs that were not prescribed by your health care provider for at least 24 hours after your discharge time. Follow any additional instructions given to you from your surgeon. If you or anyone in your household have experienced Covid symptoms in the past week, please notify your surgeon or the nurse liaison at the phone number below for possible testing. Telephone instructions given to ___PATIENT and asked if any additional questions and then verbalized understanding. Patient advised to call surgeon office or pre surgery nurse liaison [phone] if any additional questions.
[2023-05-01 13:32] VITALS: BMI 41.1
--- NOTE | 2023-05-08 08:40 | PC.NURSE ---
PT RESCHEDULED R/T RESP ILLNESS. FEELING MUCH BETTER NOW. NEW DATE/TIME GIVEN, PT RELAYS UNDERSTANDING. ADDITIONS MADE TO MED LIST. Report to the Outpatient Waiting Room, entrance under the green pavilion located off [facility], at time __11:30AM on date ___05/15/23____. Planned Procedure Time: __1:30PM . Time changes happen often and if your time is changed the preop area will call you the afternoon before. - You and your visitor will be asked to self-screen and do not enter if you have any COVID symptoms. - A mask is optional within the hospital at this time. Patients may have clear liquids (water, carbonated beverages, clear teas, apple juice) until 3 hours prior to surgery with a maximum of 20 ounces. - No food from midnight until time of surgery. Take the following medications with a SIP of water the morning of surgery: __CEFDINIR, ISORSORBIDE, METOPROLOL, PREDNISONE, ALBUTEROL INHALER DO NOT STOP ANY OF YOUR OTHER PRESCRIPTION MEDICATIONS PRIOR TO SURGERY ?EXCEPT THE FOLLOWING Medications to discontinue per physician ___HOLD COUMADIN & ALL VITAMINS/SUPPLEMENTS 5 DAYS PRE-OP PER DR DAVEY (PER PATIENT) Date to take last dose 05/09/23 Please no make-up, nail khmer, hairspray, perfume, deodorant, or body powder the day of surgery. No jewelry (including any body piercings) or valuables the day of surgery, leave them at home. Please take a shower or bath the night before, or the morning of, surgery with an antibacterial soap. Wear comfortable, loose fitting clothing. Children are encouraged to wear pajamas. - Jewelry must be removed prior to entering the operating room. Rings and piercings that are not removed may be cut off. - The hospital will not accept responsibility for valuables. - Please leave all valuables, including medications, at home the day of surgery. If you are going home after surgery, a licensed feedmobile driver must drive you home. - NO public transportation without another adult if you receive anesthesia. - We recommend that an adult stay with you for 24 hours following discharge. - We also recommend that you do not drive, make important decision, drink alcoholic beverages, or take any drugs that were not prescribed by your health care provider for at least 24 hours after your discharge time. For Pediatric surgeries, we recommend two adults accompany the child home. Follow any additional instructions given to you from your surgeon. If you or anyone in your household have experienced Covid symptoms in the past week, please notify your surgeon or the nurse liaison at the phone number below for possible testing. Telephone instructions given to ___PATIENT and asked if any additional questions and then verbalized understanding. Patient advised to call surgeon office or pre surgery nurse liaison [phone] if any additional questions.
--- NOTE | 2023-05-13 07:22 | PM.HPGS ---
History of Present Illness History of Present Illness Consent: Risks, benefits, and alternatives have been discussed and questions answered. Patient agrees to proceed with procedure. Chief complaint: left renal stones Narrative: Go Morrow is a 67 year old male who was known to be a recurrent stone former. Recent imaging demonstrates stones in his left kidney up to 2 cm. After discussion of options he is elected for cystoscopy with left ureteral stent placement and left ESWL. We discussed alternative options including percutaneous nephrolithotomy and ureteroscopy with laser lithotripsy. He has opted for the extracorporeal route of treatment. He is aware of the risks including, not limited to, need for additional procedures, hematuria and perinephric hematoma. Review of Systems Cardiovascular: Cardiovascular: Denies chest pain, Denies lightheadedness, Denies palpitations and Denies dyspnea Respiratory: Respiratory: Denies dyspnea Gastrointestinal: Gastrointestinal: Denies diarrhea, Denies nausea and Denies vomiting Genitourinary: Genitourinary: Denies hematuria and Denies dysuria Endocrine: Endocrine: Denies palpitations [facility] Past Medical History Medical History Benign prostatic hyperplasia Bowel obstruction Calculus of kidney Chronic anemia Chronic back pain Colon cancer screening Congestive heart failure 09/05 echo: ef 25% Coronary artery disease Cough due to WILL inhibitor Depression Eczema Essential hypertension Gallstones History of angina History of bladder infections Hyperlipidemia Ischemic cardiomyopathy Kidney stones Nausea Obesity Obstructive sleep apnea on CPAP Obstructive sleep apnea on CPAP Osteoarthritis Prediabetes ST elevation (STEMI) myocardial infarction ST elevation myocardial infarction (STEMI) of anterior wall (~03/2019) Status post drug-eluting stent to the proximal LAD. Urinary incontinence UTI (urinary tract infection) Surgical History Surgical History H/O hand surgery History of appendectomy History of coronary artery stent placement History of renal stent Hx of lithotripsy S/P trigger finger release Family History Family History Mother Hypertension Family history of malignant neoplasm of breast in first degree relative Family history of malignant neoplasm of ovary Father Pacemaker Social History Social History Social History: The patient is and lives in [place], [place] with his . He has no children. 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 He designates his , Concepción Nunes, as his surrogate decision maker and he wishes to be a full code. He Smoking status: Never smoker Second hand tobacco smoke exposure: No Alcohol intake: never Substance use: never Substance use type: does not use Lack of Transportation: No Lack of Food: Never True Current Housing: I Have Housing Concerned About Future Housing: Decline to Answer Difficulty Paying Gas/Electric Bills: Decline to Answer Difficulty Paying for Meds: Decline to Answer Currently Unemployed: Decline to Answer Education: Decline to Answer Difficulty w/ Childcare or Family Care: Decline to Answer Living arrangements: with family Occupation/Education: occupation Gender identity (if verbalized by the patient): Male Sexual Orientation (if Verbalized by the Patient): Straight or Heterosexual Spiritual care concerns: No Agree to blood products: Yes Meds Home Medications and Allergies Home Medications Medication Instructions Recorded Confirmed Type atorvastatin 80 mg tablet 80 mg PO DAILY #30 tabs 03/23/19 05/08/23 Rx nitroglycerin 0.4 mg sublin
[2023-05-15] VITALS (7 sets, daily range): BP systolic 98–145; BP diastolic 57–92; PULSE 74–103; RESP 14–20; TEMP 36.2–36.5; O2SAT 92–99
--- NOTE | ~2023-05-15 | XR_ITS ---
EXAMINATION: XR abdomen/kub 1V INDICATION: Nephrolithiasis TECHNIQUE: Supine views of the abdomen were obtained on three radiographs. COMPARISON: 04/14/2023; CT, 04/17/2023 FINDINGS: There are multiple stones of the left kidney which measure 4 mm in the mid kidney upper prem e and up to 17 mm in aggregate in the left kidney lower pole. Stones of the right kidney measures 7 m m in the mid and lower kidney, respectively. Additional bilateral stones detected on the comparison C T are obscured by bowel contents. There is mildly dilated small bowel in the left midabdomen IMPRESSION: 1. Bilateral nephrolithiasis.. Mildly dilated small bowel in the left midabdomen, likely ileus. Reviewed, dictated and finalized at location F. IMPRESSION: 1. Bilateral nephrolithiasis.. Mildly dilated small bowel in the left midabdome n, likely ileus.
--- NOTE | 2023-05-15 06:01 | WPDHPUPDATE1 ---
History and Physical Update Update Date/Time: 05/15/23 06:01 History and Physical has been reviewed, including an updated exam of the patient. There are NO changes in the patient's condition. Risks, benefits, and alternatives have been discussed and questions answered. Patient agrees to proceed with procedure.
[2023-05-15] MEDS: LACTATED RINGERS 1,000 ML 30 ML IV CONT (11:50)
--- NOTE | 2023-05-15 12:09 | WPDANESEPP ---
Anes - Eval Pre Procedure Procedure: Operation Date: 05/15/23 13:30 Proposed Procedures p Left Extracorporeal Shock Wave Lithotripsy, - Jas Durán MD s Cystoscopy, Left Stent Placement - Jas Durán MD Date/Time: 05/15/23 12:09 Pre Op Diagnosis: left renal stones Patient Data Age: 67 Gender: M Height: 1.73 m Weight: 125 kg Allergies Allergy/AdvReac Type Severity Reaction Status Date / Time Sulfa (Sulfonamide Allergy Intermediate Rash Verified 05/15/23 12:02 Antibiotics) lisinopril AdvReac Intermediate Cough Verified 05/15/23 12:02 WILL Inhibitors AdvReac Cough Verified 05/15/23 12:02 Home Medications Medication Instructions Recorded Confirmed Type atorvastatin 80 mg tablet 80 mg PO DAILY #30 tabs 03/23/19 05/15/23 Rx nitroglycerin 0.4 mg sublingual 0.4 mg sublingual DIRECTED PRN 03/23/19 05/15/23 Rx tablet chest pain #25 tabs acetaminophen 500 mg tablet 500 mg PO Q6H PRN Pain 05/21/19 05/15/23 History (Tylenol Extra Strength) ascorbic acid (vitamin C) 500 mg 500 mg PO DAILY 05/21/19 05/15/23 History tablet spironolactone 25 mg tablet 25 mg PO DAILY #30 tabs 07/02/19 05/15/23 Rx sacubitril 49 mg-valsartan 51 mg 1 tablet PO BID 10/30/21 05/15/23 History tablet (Entresto) warfarin 2 mg tablet 2 mg PO DAILY 10/30/21 05/15/23 History warfarin 3 mg tablet 3 mg PO 2XW 10/30/21 05/15/23 History Ultra CoQ10 100 mg PO DAILY 05/16/22 05/15/23 History finasteride 5 mg tablet 5 mg PO DAILY #90 tabs 05/23/22 05/15/23 Rx furosemide 40 mg tablet 40 mg PO BID #60 tabs 07/19/22 05/15/23 Rx ergocalciferol (vitamin D2) 1,250 1,250 mcg PO WEEKLY 08/15/22 05/15/23 History mcg (50,000 unit) capsule (Vitamin D2) fexofenadine 60 mg tablet (Rosemarie 60 mg PO Q12H 08/15/22 05/15/23 History Allergy) potassium chloride 10 mEq 10 meq PO DAILY 08/15/22 05/15/23 History capsule,extended release ezetimibe 10 mg tablet 10 mg PO DAILY 10/16/22 05/15/23 History diclofenac sodium 1 % topical gel See Rx Instructions .Route 11/12/22 05/15/23 Rx .COMPLEX #100 grams isosorbide mononitrate 30 mg 30 mg PO QAM #90 tabs 11/27/22 05/15/23 Rx tablet,extended release 24 hr omeprazole 40 mg capsule,delayed 40 mg PO DAILY #30 caps 12/02/22 05/15/23 Rx release aspirin 81 mg tablet,delayed 81 mg PO QAM #30 tabs 12/26/22 05/15/23 Rx release ferrous sulfate 325 mg (65 mg 325 mg PO DAILY 05/01/23 05/15/23 History iron) tablet metoprolol succinate 25 mg 25 mg PO DAILY 05/01/23 05/15/23 History tablet,extended release 24 hr cefdinir 300 mg capsule 300 mg PO Q12H 10 days #20 caps 05/07/23 05/15/23 Rx prednisone 10 mg tablet See Rx Instructions .Route 05/07/23 05/15/23 Rx .COMPLEX 10 days #30 tabs empagliflozin 10 mg tablet 10 mg PO DAILY 05/08/23 05/15/23 History (Jardiance) zolpidem 10 mg tablet 10 mg PO .QHS PRN insomnia #30 tabs 05/12/23 05/15/23 Rx albuterol sulfate 90 mcg/actuation 2 puff inhalation QID PRN 05/14/23 05/15/23 Rx aerosol inhaler shortness of breath or wheezing #8 grams amoxicillin 875 mg-potassium 1 tablet PO BID 10 days #20 tabs 05/14/23 05/15/23 Rx clavulanate 125 mg tablet fluticasone propionate 230 2 puff inhalation BID #12 grams 05/14/23 05/15/23 Rx mcg-salmeterol 21 mcg/actuation HFA inhaler (Advair HFA) prednisone 10 mg tablet See Rx Instructions .Route 05/14/23 05/15/23 Rx .COMPLEX 10 days #30 tabs Laboratory Tests 05/15/23 11:48 PT Pending INR Pending APTT Pending Patient hx anesthesia problems: none Family hx anesthesia problems: none Results Review: All pre-operative results and documents have been reviewed as part of the pre-operative evaluation. [facility] Past Medical History Medical History Benign prostatic hyperplasia Bowel obstruction Calculus of kidney Chronic anemia Chronic back pain Colon cancer screening Congestive heart fail
--- NOTE | 2023-05-15 12:15 | P.PNAN_ITS ---
Anes - Eval Final PreProcedure Day of Procedure 05/15/23 12:15 Patient weight: morbidly obese Heart: regular rate and rhythm Lungs: decreased breath sounds Airway: Mallampati scale class II Neurological: alert and oriented Last oral intake: >/= 8 hours ASA classification: III Emergent: no Anesthetic plan: proceed Anesthesia type and monitoring: general LMA and standard monitoring Results Review: All pre-operative results and documents have been reviewed as part of the pre- operative evaluation. Informed Consent: The patient's anesthetic plan and its attendant risks and benefits were discussed with the patient/family/POA. Questions were solicited and answers provided to the satisfaction of the patient/family/POA.
[2023-05-15 12:17] LABS: INR 1.1; Partial Thromboplastin Time 24.7 Seconds (22.3-36.8); Prothrombin Time 15.1 Seconds (11.1-14.7)
[2023-05-15] MEDS: ceFAZolin 3 GM/D5W 100 ML 100 ML IVPB (12:31)
[2023-05-15] MEDS: LIDOCAINE HCL 2% GEL UROJET 10 ML PKG MUCOUS MEM (12:50)
--- NOTE | 2023-05-15 13:13 | W.PM.PROC2 ---
Procedure Note - Detailed Date of Procedure 05/15/23 Pre-op Diagnosis Bilateral renal stones Post-op Diagnosis Same Procedure Performed Cystoscopy, left retrograde pyelography, left ureteral stent placement, left ESWL Surgeon Jas Durán MD Anesthesia General Description of Procedure patient is brought to the suite where he is prepped and draped in routine sterile fashion while in dorsal lithotomy position after the uneventful induction of a general LMA anesthetic. We performed fluoroscopy and or reasonably certain about identifying the larger stone in his left lower pole calyx. I did perform flexible cystoscopy in 1st injecting contrast through a [place] catheter to clearly outlined the stone we intended to treat ( 2 cm left renal calculus). I then placed a 4.8 F variable length stent with proximal coil in the renal pelvis distal coil in the bladder. The focal point of the Lithotripter was not placed at the stone where 2500 shocks were delivered at power setting of 4. Patient tolerated procedure well was taken recovery room in good condition. Drains Yes Packing Yes Pathology None sent Complications No immediate complications Condition Stable Disposition PACU
[2023-05-15] MEDS: oxyCODONE HCL (*CRX) 5 MG TAB IR PO (14:58)
== END 2023-05-15 15:06 | disposition home or self-care (01) ==
PROVIDERS: PCP Family Medicine; Visit Provider Urology
PROC: (CPT 50590; principal; 2023-05-15 13:30)
PROC: (CPT 52352; 2023-05-15 13:30)
DX: N20.0 Calculus of kidney (principal); N40.0 Benign prostatic hyperplasia without lower urinary tract symptoms; D64.9 Anemia, unspecified; G89.29 Other chronic pain; M54.9 Dorsalgia, unspecified; I11.0 Hypertensive heart disease with heart failure; I50.9 Heart failure, unspecified; I25.10 Atherosclerotic heart disease of native coronary artery without angina pectoris; F32.A Depression, unspecified; E78.5 Hyperlipidemia, unspecified; I25.5 Ischemic cardiomyopathy; G47.33 Obstructive sleep apnea (adult) (pediatric); Z99.89 Dependence on other enabling machines and devices; R73.03 Prediabetes; I25.2 Old myocardial infarction; R32 Unspecified urinary incontinence; E66.01 Morbid (severe) obesity due to excess calories; Z68.41 Body mass index [BMI] 40.0-44.9, adult; Z79.01 Long term (current) use of anticoagulants; Z79.82 Long term (current) use of aspirin; Z79.51 Long term (current) use of inhaled steroids; Z79.891 Long term (current) use of opiate analgesic; Z79.52 Long term (current) use of systemic steroids; Z79.84 Long term (current) use of oral hypoglycemic drugs; Z98.890 Other specified postprocedural states; Z95.5 Presence of coronary angioplasty implant and graft; Z96.0 Presence of urogenital implants; Z86.79 Personal history of other diseases of the circulatory system; Z80.3 Family history of malignant neoplasm of breast; Z80.41 Family history of malignant neoplasm of ovary; Z82.49 Family history of ischemic heart disease and other diseases of the circulatory system
CPT/HCPCS: 50590; 52332; 36415; 74018; 85610; 85730; A9270; C1758; C1769; C2617; J0690; J1100; J2250; J2405; J2704; J3010; J7120; Q9966

== ENCOUNTER 2023-06-01 13:16 | Outpatient (CLI) | payer MEDICARE, OTHER, SELFPAY ==
--- NOTE | ~2023-06-01 | XR_ITS ---
EXAMINATION: XR abdomen/kub 1V DATE: 06/01/2023 13:40 INDICATION: Calculus of kidney. TECHNIQUE: A supine view of the abdomen on 2 radiographs was obtained. COMPARISON: Abdomen radiographs 05/15/2023, CT abdomen and pelvis 04/17/2023 FINDINGS: There are dilated loops of small bowel. There is a pacer wire in right ventricle. There is a left internal ureteral stent in expected position. There are multiple stones in each kidney measuri ng up to 10 mm on the right. IMPRESSION: 1. Bilateral kidney stones. 2. Left internal ureteral stent in expected position. 3. Dilated small bowel, likely adynamic ileus. Reviewed, dictated and finalized at location E.
== END 2023-06-01 13:17 | disposition home or self-care (01) ==
LOC: ANHIMG 13:19
PROVIDERS: PCP Family Medicine; Visit Provider Urology
DX: N20.0 Calculus of kidney (principal); Z96.0 Presence of urogenital implants
CPT/HCPCS: 74018

== ENCOUNTER 2023-06-20 15:15 | Emergency (ER) | payer MEDICARE, OTHER, SELFPAY ==
--- NOTE | 2023-06-20 15:19 | ED.MALEGU ---
HPI - Male Genitourinary General Chief complaint: Urogenital-Male Stated complaint: Urinary Problems Time Seen by Provider: 06/20/23 15:19 Source: patient Mode of arrival: ambulatory Limitations: no limitations History of Present Illness HPI Narrative: Patient is a 67-year-old male who presents with 1 week of right flank pain and blood in urine. Patient reports blood in underwear when he wakes up. Patient had stent placed in April and removed June 01. Patient also had 2 kidney stone operations last year. Patient does take hydrocodone for pain regularly. Denies any burning with urination, urgency or frequency. Denies any fever, chills, nausea, vomiting, diarrhea. Called his [employer] outside sales representative and had BMP drawn. Patient has not contacted his urologist or primary care. Related Data Home Medications Medication Instructions Recorded Confirmed acetaminophen 500 mg tablet 500 mg PO Q6H PRN Pain 05/21/19 06/20/23 (Tylenol Extra Strength) ascorbic acid (vitamin C) 500 mg 500 mg PO DAILY 05/21/19 06/20/23 tablet sacubitril 49 mg-valsartan 51 mg 1 tablet PO BID 10/30/21 06/20/23 tablet (Entresto) warfarin 2 mg tablet 2 mg PO DAILY 10/30/21 06/20/23 Ultra CoQ10 100 mg PO DAILY 05/16/22 06/20/23 ergocalciferol (vitamin D2) 1,250 1,250 mcg PO WEEKLY 08/15/22 06/20/23 mcg (50,000 unit) capsule (Vitamin D2) fexofenadine 60 mg tablet (Rosemarie 60 mg PO Q12H 08/15/22 06/20/23 Allergy) potassium chloride 10 mEq 10 meq PO DAILY 08/15/22 06/20/23 capsule,extended release ezetimibe 10 mg tablet 10 mg PO DAILY 10/16/22 06/20/23 ferrous sulfate 325 mg (65 mg 325 mg PO DAILY 05/01/23 06/20/23 iron) tablet empagliflozin 10 mg tablet 10 mg PO DAILY 05/08/23 06/20/23 (Jardiance) Allergies Allergy/AdvReac Type Severity Reaction Status Date / Time WILL Inhibitors AdvReac Intermediate Cough Verified 06/20/23 15:23 lisinopril AdvReac Intermediate Cough Verified 06/20/23 15:23 Sulfa (Sulfonamide AdvReac Mild Rash Verified 06/20/23 15:23 Antibiotics) Review of Systems Review of Systems: All systems reviewed & are unremarkable except as noted in HPI and below Constitutional: Constitutional: Denies chills, Denies fever(s), Denies headache(s), Denies malaise and Denies weakness Eyes: Eyes: Denies change in vision, Denies eye discharge and Denies irritation ENT: Denies otalgia, Denies headache(s), Denies nasal congestion, Denies nasal discharge, Denies sinus pain and Denies sore throat Cardiovascular: Cardiovascular: Denies chest pain, Denies edema, Denies palpitations and Denies dyspnea Respiratory: Respiratory: Denies cough and Denies dyspnea Gastrointestinal: Gastrointestinal: Denies abdominal pain, Denies diarrhea, Denies nausea and Denies vomiting Genitourinary: Genitourinary: Reports hematuria, Denies dysuria, Reports flank pain and Denies urinary urgency Musculoskeletal: Musculoskeletal: Denies back pain and Denies numbness Integumentary/Breasts: Skin/Breast: Denies pruritus and Denies rash Neurologic: Denies headache(s), Denies numbness and Denies weakness Psychiatric: Psychiatric: Reports no additional psychiatric complaints Endocrine: Endocrine: Denies palpitations PMFSH Past Medical History Medical History Benign prostatic hyperplasia Bowel obstruction Calculus of kidney Chronic anemia Chronic back pain Colon cancer screening Congestive heart failure 09/05 echo: ef 25% Coronary artery disease Cough due to WILL inhibitor Depression Eczema Essential hypertension Gallstones History of angina History of bladder infections Hyperlipidemia Ischemic cardiomyopathy Kidney stones Nausea Obesity Obstructive sleep apnea on CPAP Obstructive sleep apnea on CPAP Osteoarthritis Prediabetes ST elevation (STEMI) myocardial infarction ST elevation myocardial infarction (STEMI) of anterior wall (~03/2019) Status post drug-eluting stent to the proximal
[2023-06-20 15:25] VITALS: BP 90/43; PULSE 91; RESP 16; TEMP 36.1; O2SAT 98
== END 2023-06-20 15:50 | disposition short-term general hospital (02) ==
PROVIDERS: Emergency Provider Nurse Practitioner Family; PCP Family Medicine
DX: R10.9 Unspecified abdominal pain (principal); R31.9 Hematuria, unspecified; I25.110 Atherosclerotic heart disease of native coronary artery with unstable angina pectoris; N40.0 Benign prostatic hyperplasia without lower urinary tract symptoms; G47.33 Obstructive sleep apnea (adult) (pediatric); Z95.5 Presence of coronary angioplasty implant and graft; I11.0 Hypertensive heart disease with heart failure; I50.9 Heart failure, unspecified; E78.5 Hyperlipidemia, unspecified; I25.2 Old myocardial infarction; R73.03 Prediabetes; M19.90 Unspecified osteoarthritis, unspecified site; Z96.0 Presence of urogenital implants; Z79.01 Long term (current) use of anticoagulants
CPT/HCPCS: 81003; 87077; 87086; 87088; 87186; 99213; G0463

== ENCOUNTER 2023-06-20 16:21 | Emergency (ER) | payer MEDICARE, OTHER, SELFPAY ==
--- NOTE | ~2023-06-20 | XR_ITS ---
EXAMINATION: XR abdomen/kub 1V DATE: 06/20/2023 21:13 INDICATION: Kidney stone. Right-sided pain. TECHNIQUE: A supine view of the abdomen on 2 radiographs was obtained. COMPARISON: CT abdomen pelvis 06/20/2023 FINDINGS: There are no dilated loops of small bowel, consistent with adynamic ileus. There are stones in the kidneys measuring up to 8 mm on the right. IMPRESSION: 1. Bilateral kidney stones. 2. Dilated small bowel, consistent with adynamic ileus. Reviewed, dictated and finalized at location E.
--- NOTE | ~2023-06-20 | CT_ITS ---
EXAMINATION: CT abdomen pelvis wo con DATE: 06/20/2023 19:05 INDICATION: Right flank pain. TECHNIQUE: Computed tomography (CT) of the abdomen and pelvis was performed without intravenous contr ast. Automated exposure control and iterative reconstruction technique were employed. The dose-length product was 1471.97 mGy-cm. COMPARISON: CT abdomen and pelvis 04/17/2023 FINDINGS: The visualized portions of the lung bases demonstrate mild atelectasis. There is a 5 mm nod ule in left lower lobe, likely benign. A calcified left lung nodule is consistent with old granulomat ous disease. There is an old infarct involving left ventricular apex of the heart and the anterior an d septal sims. There is left atrial and left ventricular enlargement of the heart. There is a pacer/ defibrillator wire in right ventricle. No pericardial effusion. The liver and spleen are normal. The liver is normal. Calcifications in the spleen are consistent with old granulomatous disease. There ar e gallstones in the gallbladder, which is normal in size. The pancreas and adrenal glands are normal. There are multiple stones in right kidney measuring up to 7 mm. There are multiple stones in left ki dney measuring up to 8 mm. There is mild right hydronephrosis and hydroureter. There are 2 stones in the proximal right ureter measuring up to 9 mm. There are no dilated loops of bowel. There are change s of appendectomy. There are no pathologically enlarged lymph nodes. There is no free intraperitoneal fluid. There is mild thoracic spondylosis and severe lumbar spondylosis. IMPRESSION: 1. Two stones measuring up to 9 mm in proximal right ureter with mild right hydronephrosis and proxim al hydroureter. 2. Bilateral nonobstructing kidney stones. Reviewed, dictated and finalized at location E. IMPRESSION: 1. Two stones measuring up to 9 mm in proximal right ureter with mild right hyd ronephrosis and proximal hydroureter. 2. Bilateral nonobstructing kidney stones.
[2023-06-20 16:24] VITALS: BP 103/57; PULSE 91; RESP 20; TEMP 36.6; O2SAT 97
[2023-06-20 17:45] LABS: Basophils Percent Auto 0.4 % (0.2-1.2); Eosinophils Absolute Auto 0.4 K/mm3 (0-0.3); Eosinophils Percent Auto 3.7 % (0-4.4); Hematocrit 41.1 % (42.0-52.0); Hemoglobin 13.2 g/dL (14.0-18.0); Immature Granulocyte Absolute 0.05 K/mm3 (0.00-0.031); Immature Granulocyte Percent A 0.4 % (0-0.5); Lymphocytes Absolute Auto 1.16 K/mm3 (0.9-3.2); Lymphocytes Percent Auto 10.3 % (18.3-44.2); Mean Corpuscular HGB Conc 32.1 g/dl (32-36); Mean Corpuscular Hemoglobin 27.7 pg (26-34); Mean Corpuscular Volume 86.2 fl (80-100); Mean Platelet Volume 9.7 fl (7.4-10.4); Monocytes Absolute Auto 1.1 K/mm3 (0.1-0.6); Monocytes Percent Auto 9.5 % (2.6-8.5); Neutrophils Absolute Auto 8.5 K/mm3 (1.3-6.7); Neutrophils Percent Auto 75.7 % (45.5-73.1); Platelet Count Result 223 k/mm3 (150-375); Red Blood Count 4.77 M/mm3 (4.6-6.20); Red Cell Distribution Width 15.6 % (11.5-14.5); White Blood Count 11.3 K/mm3 (4.5-10.0)
[2023-06-20 17:51] LABS: Appearance Urine Cloudy (Clear); Bacteria Urine Rare /hpf; Bilirubin Urine Negative (Negative); Blood Urine 1+ (Negative); Color Urine Yellow (Yellow); Glucose Urine UA 1+ mg/dL (Negative); Ketones Urine Negative (Negative); Leukocyte Esterase Ur 3+ LEU/UL (Negative); Nitrate Urine Negative (Negative); Non Pathogenic Casts 0-2; Protein Urine Negative (Negative); Specific Grav Ur 1.013 (1.001-1.035); Squamous Epithelial Cell Urine None Seen /hpf (Few); Urobilinogen Urine 0.2 mg/dL (<2.0); WBC Urine >100 /hpf (0-3); pH Urine 5.5 (5.0-9.0)
[2023-06-20 17:56] LABS: Alanine Aminotransferase 38 U/L (6-50); Albumin Level 4.4 g/dL (3.5-5.1); Alkaline Phosphatase 86 U/L (38-126); Anion Gap 8 mmol/L (4-12); Aspartate Amino Transferase 31 U/L (17-59); Bilirubin,Total 0.9 mg/dL (0.2-1.3); Blood Urea Nitrogen 32 mg/dL (9-20); Calcium 9.1 mg/dL (8.4-10.2); Carbon Dioxide 25 mmol/L (22-30); Chloride 101 mmol/L (98-107); Estimated CRCL calculation 64 ml/min; Estimated Glomerular Filt Rate 55; Glucose 112 mg/dL (65-110); Potassium 4.3 mmol/L (3.4-5.0); Sodium 134 mmol/L (137-145)
[2023-06-20 17:57] LABS: Add Urine Microscopic? YES
[2023-06-20 18:41] VITALS: BP 102/50; PULSE 79; RESP 20; O2SAT 97
--- NOTE | 2023-06-20 18:51 | ED.GENADULT ---
HPI - General Adult General Chief complaint: Abdominal Pain Stated complaint: right flank pain Time Seen by Provider: 06/20/23 18:50 Source: patient Mode of arrival: ambulatory Limitations: no limitations History of Present Illness HPI narrative: 67 YEARS OLD WHITE MALE CAME TO THE ED WITH RIGHT FLANK PAIN STARTED 1 WEEK AGO, PATIENT NOTICED BLOOD IN THE URINE LATELY WITH FREQUENT URINATION. PATIENT WITH PAIN RADIATING TO THE RIGHT LOWER PATIENT DENIES ANY FEVER OR VOMITING Related Data Home Medications Medication Instructions Recorded Confirmed acetaminophen 500 mg tablet 500 mg PO Q6H PRN Pain 05/21/19 06/20/23 (Tylenol Extra Strength) ascorbic acid (vitamin C) 500 mg 500 mg PO DAILY 05/21/19 06/20/23 tablet sacubitril 49 mg-valsartan 51 mg 1 tablet PO BID 10/30/21 06/20/23 tablet (Entresto) warfarin 2 mg tablet 2 mg PO DAILY 10/30/21 06/20/23 Ultra CoQ10 100 mg PO DAILY 05/16/22 06/20/23 ergocalciferol (vitamin D2) 1,250 1,250 mcg PO WEEKLY 08/15/22 06/20/23 mcg (50,000 unit) capsule (Vitamin D2) fexofenadine 60 mg tablet (Rosemarie 60 mg PO Q12H 08/15/22 06/20/23 Allergy) potassium chloride 10 mEq 10 meq PO DAILY 08/15/22 06/20/23 capsule,extended release ezetimibe 10 mg tablet 10 mg PO DAILY 10/16/22 06/20/23 ferrous sulfate 325 mg (65 mg 325 mg PO DAILY 05/01/23 06/20/23 iron) tablet empagliflozin 10 mg tablet 10 mg PO DAILY 05/08/23 06/20/23 (Jardiance) hydrocodone 5 mg-acetaminophen 325 1 tablet PO PRN PRN Pain (Scale 06/20/23 06/20/23 mg tablet Score 7-10) Allergies Allergy/AdvReac Type Severity Reaction Status Date / Time hydromorphone [From Dilaudid] Allergy Hives Verified 06/20/23 20:10 WILL Inhibitors AdvReac Intermediate Cough Verified 06/20/23 15:23 lisinopril AdvReac Intermediate Cough Verified 06/20/23 15:23 Sulfa (Sulfonamide AdvReac Mild Rash Verified 06/20/23 15:23 Antibiotics) Review of Systems Review of Systems: All systems reviewed & are unremarkable except as noted in HPI and below PMFSH Past Medical History Medical History Benign prostatic hyperplasia Bowel obstruction Calculus of kidney Chronic anemia Chronic back pain Colon cancer screening Congestive heart failure 09/05 echo: ef 25% Coronary artery disease Cough due to WILL inhibitor Depression Eczema Essential hypertension Gallstones History of angina History of bladder infections Hyperlipidemia Ischemic cardiomyopathy Kidney stones Nausea Obesity Obstructive sleep apnea on CPAP Obstructive sleep apnea on CPAP Osteoarthritis Prediabetes ST elevation (STEMI) myocardial infarction ST elevation myocardial infarction (STEMI) of anterior wall (~03/2019) Status post drug-eluting stent to the proximal LAD. Urinary incontinence UTI (urinary tract infection) Surgical History Surgical History H/O hand surgery History of appendectomy History of coronary artery stent placement History of renal stent Hx of lithotripsy S/P trigger finger release Family History Family History Mother Hypertension Family history of malignant neoplasm of breast in first degree relative Family history of malignant neoplasm of ovary Father Pacemaker Social History Social History Social History: The patient is and lives in [place], [place] with his . He has no children. 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 He designates his , Concepción Nunes, as his surrogate decision maker and he wishes to be a full code. He Smoking status: Never smoker Second hand tobacco smoke exposure: No Alcohol intake: never Substance use: never Substance use type: does not use Lack of Transportation: No Lack of Food: Never True Current Stephon
[2023-06-20] MEDS: SODIUM CHLORIDE 0.9% IV 1,000 ML 999 ML IV CONT (19:34)
[2023-06-20] MEDS: ONDANSETRON INJ 4 MG/2 ML VIAL IV PUSH (19:35)
[2023-06-20] MEDS: HYDROmorphone HCL INJ (*CRX) 1 MG/ML SYR 0.5 MG IV PUSH (19:35)
[2023-06-20] MEDS: TAMSULOSIN HCL 0.4 MG CAPSULE PO (19:36)
[2023-06-20] MEDS: diphenhydrAMINE HCl INJ 50 MG/ML VIAL IV PUSH (19:49)
--- NOTE | 2023-06-20 19:50 | PC.NURSE ---
After administering Dilaudid, patient reports burning and itching in left arm. Patient reports no SOB, chest pain, difficulty swallowing. EDP made aware and gives VORB for 50 mg Benadryl IVP. Flomax not administered yet due to change in condition.
--- NOTE | 2023-06-20 20:05 | PC.NURSE ---
Hives have resolved. Patient reports no burning. Flomax administered.
[2023-06-20 20:15] VITALS: BP 96/62; PULSE 72; RESP 15; O2SAT 98
[2023-06-20 21:45] VITALS: BP 95/52; PULSE 78; RESP 20; TEMP 36.5; O2SAT 100
== END 2023-06-20 21:56 | disposition home or self-care (01) ==
PROVIDERS: Emergency Provider Emergency Medicine; PCP Family Medicine
DX: N39.0 Urinary tract infection, site not specified (principal); N13.2 Hydronephrosis with renal and ureteral calculous obstruction; N40.0 Benign prostatic hyperplasia without lower urinary tract symptoms; I50.9 Heart failure, unspecified; I25.10 Atherosclerotic heart disease of native coronary artery without angina pectoris; I11.0 Hypertensive heart disease with heart failure; I25.2 Old myocardial infarction; I25.5 Ischemic cardiomyopathy; E78.5 Hyperlipidemia, unspecified; D64.9 Anemia, unspecified; R73.03 Prediabetes; G47.33 Obstructive sleep apnea (adult) (pediatric); Z95.5 Presence of coronary angioplasty implant and graft; Z87.442 Personal history of urinary calculi; Z79.01 Long term (current) use of anticoagulants; Z79.84 Long term (current) use of oral hypoglycemic drugs; Z79.82 Long term (current) use of aspirin
CPT/HCPCS: 36415; 74018; 74176; 80053; 81001; 85025; 96361; 96365; 96375; 99284; A9270; J0696; J1170; J1200; J2405; J7030

== ENCOUNTER 2023-06-21 02:42 | Inpatient (IN) | payer MEDICARE, OTHER, SELFPAY ==
[2023-06-21] VITALS (23 sets, daily range): BP systolic 91–116; BP diastolic 40–71; PULSE 75–98; RESP 12–28; TEMP 36.1–36.7; O2SAT 91–100; BMI 42.2
--- NOTE | ~2023-06-21 | XR_ITS ---
EXAMINATION: XR retrograde pyelo w/stent RT DATE: 06/21/2023 8:50 CDT INDICATION: STONE, RIGHT RETROGRADE STENT PLACEMENT . TECHNIQUE: 7 fluoroscopic images of the pelvis and right abdomen were obtained during right retrograd e pyelography with stent placement, performed by Dr. Hernandez. I was not present during the procedure . Fluoroscopy exposure time was 22.6 seconds. Air Kerma 19.3 mGy. DAP [id number] mGym2. COMPARISON: CT abdomen pelvis 06/20/2023 FINDINGS/IMPRESSION: Fluoroscopic documentation of right retrograde pyelography with stent placement. Please refer to the operative note for complete procedural details . Reviewed, dictated and finalized at location K.
--- NOTE | ~2023-06-21 | XR_ITS ---
EXAMINATION: XR abdomen/kub 1V DATE: 06/22/2023 08:55 INDICATION: Right ureteral calculi. TECHNIQUE: A supine view of the abdomen on 2 radiographs was obtained. COMPARISON: CT abdomen and pelvis 06/20/2023 FINDINGS: There are gas-filled dilated loops of small bowel. There is a right internal ureteral stent in expected position. There are multiple stones in each kidney measuring up to 10 mm on the right. IMPRESSION: 1. Bilateral kidney stones. 2. Right internal ureteral stent in expected position. 3. Dilated small bowel, likely adynamic ileus. Reviewed, dictated and finalized at location A.
[2023-06-21] MEDS: SODIUM CHLORIDE 0.9% IV 1,000 ML 999 ML IV CONT ×2 (03:08→03:58)
[2023-06-21] MEDS: MORPHINE SULFATE (*CRX) 4 MG/ML INJ IV PUSH (03:09)
[2023-06-21] MEDS: ONDANSETRON INJ 4 MG/2 ML VIAL IV PUSH ×2 (03:09→12:25)
[2023-06-21 03:11] LABS: Basophils Percent Auto 0.2 % (0.2-1.2); Eosinophils Absolute Auto 0.4 K/mm3 (0-0.3); Hematocrit 35.3 % (42.0-52.0); Hemoglobin 11.2 g/dL (14.0-18.0); Immature Granulocyte Absolute 0.04 K/mm3 (0.00-0.031); Immature Granulocyte Percent A 0.3 % (0-0.5); Lymphocytes Absolute Auto 1.12 K/mm3 (0.9-3.2); Lymphocytes Percent Auto 9.7 % (18.3-44.2); Mean Corpuscular HGB Conc 31.7 g/dl (32-36); Mean Corpuscular Hemoglobin 27.7 pg (26-34); Mean Corpuscular Volume 87.4 fl (80-100); Mean Platelet Volume 9.9 fl (7.4-10.4); Monocytes Absolute Auto 1.2 K/mm3 (0.1-0.6); Monocytes Percent Auto 10.2 % (2.6-8.5); Neutrophils Absolute Auto 8.9 K/mm3 (1.3-6.7); Neutrophils Percent Auto 76.6 % (45.5-73.1); Platelet Count Result 178 k/mm3 (150-375); Red Blood Count 4.04 M/mm3 (4.6-6.20); Red Cell Distribution Width 15.5 % (11.5-14.5); White Blood Count 11.6 K/mm3 (4.5-10.0)
--- NOTE | 2023-06-21 03:18 | ED.GENADULT ---
HPI - General Adult General Chief complaint: Urogenital-Male Stated complaint: flank pain Time Seen by Provider: 06/21/23 02:51 History of Present Illness HPI narrative: Patient 67-year-old gentleman who presents emergency department with chief complaint flank pain the patient was seen in the emergency department earlier diagnosed with kidney stones patient was found to have 2 9 mm stone in the proximal right ureter. The patient was discharged home to follow-up with Dr. Gavin HOLMAN but returns with worsening pain. Related Data Home Medications Medication Instructions Recorded Confirmed acetaminophen 500 mg tablet 500 mg PO Q6H PRN Pain 05/21/19 06/20/23 (Tylenol Extra Strength) ascorbic acid (vitamin C) 500 mg 500 mg PO DAILY 05/21/19 06/20/23 tablet sacubitril 49 mg-valsartan 51 mg 1 tablet PO BID 10/30/21 06/20/23 tablet (Entresto) warfarin 2 mg tablet 2 mg PO DAILY 10/30/21 06/20/23 Ultra CoQ10 100 mg PO DAILY 05/16/22 06/20/23 ergocalciferol (vitamin D2) 1,250 1,250 mcg PO WEEKLY 08/15/22 06/20/23 mcg (50,000 unit) capsule (Vitamin D2) fexofenadine 60 mg tablet (Rosemarie 60 mg PO Q12H 08/15/22 06/20/23 Allergy) potassium chloride 10 mEq 10 meq PO DAILY 08/15/22 06/20/23 capsule,extended release ezetimibe 10 mg tablet 10 mg PO DAILY 10/16/22 06/20/23 ferrous sulfate 325 mg (65 mg 325 mg PO DAILY 05/01/23 06/20/23 iron) tablet empagliflozin 10 mg tablet 10 mg PO DAILY 05/08/23 06/20/23 (Jardiance) hydrocodone 5 mg-acetaminophen 325 1 tablet PO PRN PRN Pain (Scale 06/20/23 06/20/23 mg tablet Score 7-10) Allergies Allergy/AdvReac Type Severity Reaction Status Date / Time hydromorphone [From Dilaudid] Allergy Hives Verified 06/20/23 20:10 WILL Inhibitors AdvReac Intermediate Cough Verified 06/20/23 15:23 lisinopril AdvReac Intermediate Cough Verified 06/20/23 15:23 Sulfa (Sulfonamide AdvReac Mild Rash Verified 06/20/23 15:23 Antibiotics) Review of Systems Review of Systems: A 10 system review of systems was completed on the patient and is negative except for what is stated in the HPI. Nursing and ancillary documentation was reviewed. [facility] Past Medical History Medical History Benign prostatic hyperplasia Bowel obstruction Calculus of kidney Chronic anemia Chronic back pain Colon cancer screening Congestive heart failure 09/05 echo: ef 25% Coronary artery disease Cough due to WILL inhibitor Depression Eczema Essential hypertension Gallstones History of angina History of bladder infections Hyperlipidemia Ischemic cardiomyopathy Kidney stones Nausea Obesity Obstructive sleep apnea on CPAP Obstructive sleep apnea on CPAP Osteoarthritis Prediabetes ST elevation (STEMI) myocardial infarction ST elevation myocardial infarction (STEMI) of anterior wall (~03/2019) Status post drug-eluting stent to the proximal LAD. Urinary incontinence UTI (urinary tract infection) Surgical History Surgical History H/O hand surgery History of appendectomy History of coronary artery stent placement History of renal stent Hx of lithotripsy S/P trigger finger release Family History Family History Mother Hypertension Family history of malignant neoplasm of breast in first degree relative Family history of malignant neoplasm of ovary Father Pacemaker Social History Social History Social History: The patient is and lives in [place], [place] with his . He has no children. 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 He designates his , Concepción Nunes, as his surrogate decision maker and he wishes to be a full code. He Smoking status: Never smoker Second hand to
[2023-06-21 03:43] LABS: Anion Gap 3 mmol/L (4-12); Blood Urea Nitrogen 32 mg/dL (9-20); Carbon Dioxide 26 mmol/L (22-30); Chloride 103 mmol/L (98-107); Estimated CRCL calculation 56 ml/min; Potassium 3.9 mmol/L (3.4-5.0); Sodium 132 mmol/L (137-145)
[2023-06-21 03:44] LABS: Alanine Aminotransferase 31 U/L (6-50); Albumin Level 3.4 g/dL (3.5-5.1); Alkaline Phosphatase 64 U/L (38-126); Aspartate Amino Transferase 26 U/L (17-59); Bilirubin,Total 0.7 mg/dL (0.2-1.3); Calcium 8.2 mg/dL (8.4-10.2); Estimated Glomerular Filt Rate 47; Glucose 131 mg/dL (65-110)
[2023-06-21] MEDS: SODIUM CHLORIDE 0.9% IV 1,000 ML 125 ML IV CONT ×2 (05:19→15:55)
[2023-06-21 06:34] LABS: INR 1.6; Prothrombin Time 20.4 Seconds (11.1-14.7)
--- NOTE | 2023-06-21 08:05 | PM.IMHP ---
H&P: HPI History of Present Illness Date/Time: 06/21/23 08:05 Chief Complaint: Flank pain Narrative: This is a 67-year-old male with past medical history BPH, kidney stones, CHF, coronary artery disease, hypertension, hyperlipidemia, sleep apnea, VT, depression who presents to the hospital for evaluation of flank pain x1 week. He started noticing blood in the urine and increase in urinary frequency prompting him to come back to hospital for further evaluation. Patient denies any fever, chills, nausea, vomiting, diarrhea, chest pain, shortness a breath. He endorses right flank pain and abdominal pain which she rates as 10/10. Workup the hospital included CT of the abdomen and pelvis which showed 2 stones measuring to 9 mm in proximal right ureter with mild right hydronephrosis and proximal hydroureter, bilateral nonobstructing kidney stones also seen. Abdominal x-ray showed bilateral kidney stones, dilated small bowel consistent with adynamic ileus. Initial labs showed a white blood cell count of 11.3, hemoglobin 13.2, sodium 134, EGFR 55, liver enzymes were normal. A UA was also obtained which shows 1+ glucose, 1+ urine blood, 3+ leukocytes, 6-10 urine RBC, greater 100 urine WBC, rare bacteria present. A urine culture was obtained and is pending. Patient had 2 L of normal saline, morphine, Zofran while in the ED. Urology was consulted and took patient for a right retrograde pyelogram, cystoscopy, with right ureter stent placement. He is voiding pink tinged urine. Patient was started on Rocephin for UTI coverage while awaiting urine culture. Of note, patient recently had a cystoscopy with left retrograde pyelography, left ureteral stent placement on 05/15/[address] Durán. He had the stent removed on 06/21/2022. He also has history of kidney stone operations last year x2 which dated back to 04/29/2022. Most of his issues were in the left ureter on these past operations. Review of Systems Review of Systems: All systems reviewed & are unremarkable except as noted in HPI and below Constitutional: Constitutional: Reports as per HPI and Reports no additional constitutional complaints Eyes: Eyes: Reports as per HPI and Reports no additional eye complaints ENT: Reports system reviewed and no additional complaints, except as documented and Reports as per HPI Cardiovascular: Cardiovascular: Reports as per HPI and Reports no additional cardiovascular complaints Respiratory: Respiratory: Reports as per HPI and Reports no additional respiratory complaints Gastrointestinal: Gastrointestinal: Reports as per HPI and Reports no additional gastrointestinal complaints Genitourinary: Genitourinary: Reports no additional male genitourinary complaints and Reports as per HPI Musculoskeletal: Musculoskeletal: Reports no additional musculoskeletal complaints and Reports as per HPI Integumentary/Breasts: Skin/Breast: Reports system reviewed and no additional complaints, except as docu and Reports as per HPI Neurologic: Reports system reviewed and no additional complaints, except as documented and Reports as per HPI Psychiatric: Psychiatric: Reports no additional psychiatric complaints and Reports as per HPI PMFSH Past Medical History Medical History Benign prostatic hyperplasia Bowel obstruction Calculus of kidney Chronic anemia Chronic back pain Colon cancer screening Congestive heart failure 09/05 echo: ef 25% Coronary artery disease Cough due to WILL inhibitor Depression Eczema Essential hypertension Gallstones History of angina History of bladder infections Hyperlipidemia Ischemic cardiomyopathy Kidney stones Nausea Obesity Obstructive sleep apnea on CPAP Obstructive sleep apnea on CPAP Osteoarthritis Prediabetes ST elevation (STEMI) myocardial infarction ST elevation myocardial infarction (STEMI) of anterior wall (~03/2019) Status post drug-eluting stent to the proximal LAD.
--- NOTE | 2023-06-21 08:21 | WPDANESEPPF ---
Anes - Initial Pre Proc Eval Procedure: Operation Date: 06/21/23 09:00 Proposed Procedures p Cysto, With Right Stent Placement(Right) - Indio Hernandez MD Date/Time: 06/21/23 08:21 Surgeon: Willi Greene MD Pre Op Diagnosis: ureterolithiasis, uti Patient Data Age: 67 Gender: M Height: 1.73 m Weight: 126 kg Last Vital Signs Temp 36.1 C L 06/21/23 05:27 Pulse 98 06/21/23 05:27 Resp 19 06/21/23 05:27 BP 98/58 L 06/21/23 05:27 Pulse Ox 96 06/21/23 05:27 O2 Del Method Room Air 06/21/23 05:15 Allergies Allergy/AdvReac Type Severity Reaction Status Date / Time hydromorphone [From Dilaudid] Allergy Hives Verified 06/20/23 20:10 WILL Inhibitors AdvReac Intermediate Cough Verified 06/20/23 15:23 lisinopril AdvReac Intermediate Cough Verified 06/20/23 15:23 Sulfa (Sulfonamide AdvReac Mild Rash Verified 06/20/23 15:23 Antibiotics) Home Medications Medication Instructions Recorded Confirmed Type atorvastatin 80 mg tablet 80 mg PO DAILY #30 tabs 03/23/19 06/21/23 Rx nitroglycerin 0.4 mg sublingual 0.4 mg sublingual DIRECTED PRN 03/23/19 06/21/23 Rx tablet chest pain #25 tabs ascorbic acid (vitamin C) 500 mg 500 mg PO DAILY 05/21/19 06/21/23 History tablet spironolactone 25 mg tablet 25 mg PO DAILY #30 tabs 07/02/19 06/21/23 Rx sacubitril 49 mg-valsartan 51 mg 1 tablet PO BID 10/30/21 06/21/23 History tablet (Entresto) warfarin 2 mg tablet 2 mg PO DAILY 10/30/21 06/21/23 History Ultra CoQ10 100 mg PO DAILY 05/16/22 06/21/23 History furosemide 40 mg tablet 40 mg PO BID #60 tabs 07/19/22 06/21/23 Rx fexofenadine 60 mg tablet (Rosemarie 60 mg PO DAILY 08/15/22 06/21/23 History Allergy) potassium chloride 10 mEq 10 meq PO 3XW 08/15/22 06/21/23 History capsule,extended release ezetimibe 10 mg tablet 10 mg PO DAILY 10/16/22 06/21/23 History aspirin 81 mg tablet,delayed 81 mg PO QAM #30 tabs 12/26/22 06/21/23 Rx release ferrous sulfate 325 mg (65 mg 325 mg PO DAILY 05/01/23 06/21/23 History iron) tablet zolpidem 10 mg tablet 10 mg PO .QHS PRN insomnia #30 tabs 05/12/23 06/21/23 Rx albuterol sulfate 90 mcg/actuation 2 puff inhalation QID PRN 05/14/23 06/21/23 Rx aerosol inhaler shortness of breath or wheezing #8 grams fluticasone propionate 230 2 puff inhalation BID #12 grams 05/14/23 06/21/23 Rx mcg-salmeterol 21 mcg/actuation HFA inhaler (Advair HFA) finasteride 5 mg tablet 5 mg PO DAILY #90 tabs 05/19/23 06/21/23 Rx isosorbide mononitrate 30 mg 30 mg PO QAM #90 tabs 05/26/23 06/21/23 Rx tablet,extended release 24 hr omeprazole 40 mg capsule,delayed 40 mg PO DAILY #30 caps 05/29/23 06/21/23 Rx release diclofenac sodium 1 % topical gel See Rx Instructions .Route 06/15/23 06/21/23 Rx .COMPLEX #100 grams hydrocodone 5 mg-acetaminophen 325 1 tablet PO PRN PRN Pain (Scale 06/20/23 06/21/23 History mg tablet Score 7-10) tamsulosin 0.4 mg capsule (Flomax) 0.4 mg PO DAILY #10 caps 06/20/23 06/21/23 Rx metoprolol succinate 25 mg 25 mg PO BID 06/21/23 06/21/23 History tablet,extended release 24 hr warfarin 1 mg tablet 1 mg PO WEEKLY 06/21/23 06/21/23 History Laboratory Tests 06/21/23 06/21/23 03:05 06:13 WBC 11.6 H K/mm3 (4.5-10.0) RBC 4.04 L M/mm3 (4.6-6.20) Hgb 11.2 L g/dL (14.0-18.0) Hct 35.3 L % (42.0-52.0) MCV 87.4 fl (80-100) MCH 27.7 pg (26-34) MCHC 31.7 L g/dl (32-36) RDW 15.5 H % (11.5-14.5) Plt Count 178 k/mm3 (150-375) MPV 9.9 fl (7.4-10.4) Immature Gran % (Auto) 0.3 % (0-0.5) Neut % (Auto) 76.6 H % (45.5-73.1) Lymph % (Auto) 9.7 L % (18.3-44.2) Eaton % (Auto) 10.2 H % (2.6-8.5) Eos % (Auto) 3.0 % (0-4.4) Baso % (Auto) 0.2 % (0.2-1.2) Lymph # (Auto) 1.12 K/mm3 (0.9-3.2) Eaton # (Auto) 1.2 H K/mm3 (0.1-0.6) Eos # (Auto) 0.4 H K/mm3 (0-0.3) Baso # (Au
[2023-06-21] MEDS: FLUTICASONE/SALMETEROL 230-21 MCG INHALER 1 PUFF 2 PUFF INHALATION ×2 (08:22→19:59)
--- NOTE | 2023-06-21 08:23 | PC.NURSE ---
To OR per [Irma ], IV [ ]. Report given to [Irma and aFisal ].
--- NOTE | 2023-06-21 08:33 | WPDURCON ---
Assessment and Plan Assessment and plan (1) Ureterolithiasis: Code(s): N20.1 - Calculus of ureter Status: Acute Assessment and Plan: Given urinary tract infection will proceed with cysto right retrograde right ureteral stent placement. Stones we managed at a later point time Dr. Durán who he is followed with regularly recently. (2) Acute UTI: Code(s): N39.0 - Urinary tract infection, site not specified Status: Acute Assessment and Plan: Await cultures and treat appropriately. Urology Consult Note HPI Date Seen: 06/21/23 Time Seen: 08:33 Requesting Physician: Willi Greene MD Primary Care Provider: Sarahi Roth MD Consult Narrative Reason for consult: Obstructing right ureteral calculi with UTI Narrative: Go Morrow is a 67 year old male who presented to the emergency room twice within 24 hours. He was found to have 2 9 mm right ureteral stones with some hydronephrosis. His urinalysis does have leukocytes and bacteria present. Denies any fever. He is a repeated stone former and just recently had a procedure by . Patient being admitted for pain control and further management. Review of Systems Review of Systems: All systems reviewed & are unremarkable except as noted in HPI and below PMFSH Past Medical History Medical History Benign prostatic hyperplasia Bowel obstruction Calculus of kidney Chronic anemia Chronic back pain Colon cancer screening Congestive heart failure 09/05 echo: ef 25% Coronary artery disease Cough due to WILL inhibitor Depression Eczema Essential hypertension Gallstones History of angina History of bladder infections Hyperlipidemia Ischemic cardiomyopathy Kidney stones Nausea Obesity Obstructive sleep apnea on CPAP Obstructive sleep apnea on CPAP Osteoarthritis Prediabetes ST elevation (STEMI) myocardial infarction ST elevation myocardial infarction (STEMI) of anterior wall (~03/2019) Status post drug-eluting stent to the proximal LAD. Urinary incontinence UTI (urinary tract infection) Surgical History Surgical History H/O hand surgery History of appendectomy History of coronary artery stent placement History of renal stent Hx of lithotripsy S/P trigger finger release Family History Family History Mother Hypertension Family history of malignant neoplasm of breast in first degree relative Family history of malignant neoplasm of ovary Father Pacemaker Social History Social History Social History: The patient is and lives in [place], [place] with his . He has no children. 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 He designates his , Concepción Nunes, as his surrogate decision maker and he wishes to be a full code. He Smoking status: Never smoker Second hand tobacco smoke exposure: No Alcohol intake: never Substance use: never Substance use type: does not use Do You Feel Safe in your Home?: Yes Lack of Transportation: No Lack of Food: Never True Current Housing: I Have Housing Concerned About Future Housing: Decline to Answer Difficulty Paying Gas/Electric Bills: Decline to Answer Difficulty Paying for Meds: Decline to Answer Currently Unemployed: Decline to Answer Education: Decline to Answer Difficulty w/ Childcare or Family Care: Decline to Answer Living arrangements: with family Occupation/Education: occupation Gender identity (if verbalized by the patient): Male Sexual Orientation (if Verbalized by the Patient): Straight or Heterosexual Spiritual care concerns: No Agree to blood products: Yes Meds Home Medications and Allergies Home Medications
--- NOTE | 2023-06-21 08:36 | WPDHPUPDATE1 ---
History and Physical Update Update Date/Time: 06/21/23 08:36 History and Physical has been reviewed, including an updated exam of the patient. There are NO changes in the patient's condition. Risks, benefits, and alternatives have been discussed and questions answered. Patient agrees to proceed with procedure. Proceed with cystoscopy, right retrograde pyelogram, right ureteral stent placement
[2023-06-21] MEDS: LIDOCAINE HCL 2% GEL UROJET 10 ML PKG MUCOUS MEM (08:41)
[2023-06-21] MEDS: ceFAZolin SODIUM 1 GM VIAL 3 GM IV PUSH (08:50)
--- NOTE | 2023-06-21 09:06 | W.PM.PROC2 ---
Procedure Note - Detailed Date of Procedure 06/21/23 Pre-op Diagnosis Obstructing right ureteral calculi with hydronephrosis and UTI Post-op Diagnosis Same Procedure Performed Cystoscopy, right retrograde pyelogram, right ureteroscopy, right ureteral stent placement 4.8 [place] contour Surgeon Indio Hernandez MD Anesthesia General Description of Procedure Patient is taken the operative suite correctly identified. Once anesthesia was obtained was placed in dorsal lithotomy position and prepped and draped usual sterile fashion. Twenty-two Gibraltarian scope was inserted the bladder. There were no urethral strictures. Prostate with some mild lateral lobe hypertrophy. Upon entering the bladder the urine is somewhat turbid in nature. Both ureteral orifices normal anatomic position. The bladder was flushed clear. The right ureteral orifice was cannulated with a ureteral catheter. Pyelogram could not make contrast past the mid ureter. A Sensor wire and both angled Glidewire could not be manipulated past the obstructing stones. I thus placed a ureteral scope gently into the orifice. He does have somewhat of a tortuous distal ureter was able to visualize the stones and manipulate the angled Glidewire past it. Given his urinalysis we decided to not proceed with any further intervention at this time. At this point a ureteral catheter was passed up into the kidney and contrast was injected for confirmation. 4.8 [place] contour stent was then placed with the proximal end coiled in the renal pelvis and the distal in the bladder. Bladder was drained. 2% viscous lidocaine was inserted into the urethra. Patient is taken recovery stable condition. Stone will be and managed as an outpatient most likely requiring repeat ureteroscopy with laser. this completes dictation. Please send a copy of op note to my office. Estimated Blood Loss 0 Urine Output 400 Drains Yes Packing No Pathology None sent Complications No immediate complications Condition Stable Disposition PACU
[2023-06-21] MEDS: LACTATED RINGERS 1,000 ML 30 ML IV CONT (09:11)
--- NOTE | 2023-06-21 09:48 | PC.NURSE ---
Returned from OR per [ ]. Report received from [Irma ].
[2023-06-21] MEDS: HYDROcodone/acetaminophen (*CRX) 5-325 MG TABLET 1 TAB PO (10:06)
[2023-06-21] MEDS: DOCUSATE SODIUM 100 MG CAPSULE PO ×2 (10:12→16:28)
[2023-06-21] MEDS: MORPHINE SULFATE (*CRX) 2 MG/ML INJ IV PUSH (11:11)
[2023-06-21] MEDS: HYDROcodone/acetaminophen (*CRX) 5-325 MG TABLET PO ×3 (14:19→21:19)
[2023-06-21] MEDS: PANTOPRAZOLE 40 MG TABLET PO (16:28)
[2023-06-21] MEDS: WARFARIN (*PBKC) 2 MG TABLET PO (16:31)
[2023-06-21] MEDS: SACUBITRIL/VALSARTAN 49-51 MG TABLET 1 TABLET PO (21:19)
[2023-06-21] MEDS: METOPROLOL SUCCINATE EXT REL 12.5 MG TABCR PO (21:19)
[2023-06-21] MEDS: WATER FOR IRRIGATION, STERILE 1,000 ML BOTTLE 1000 ML (22:30)
[2023-06-22] VITALS (11 sets, daily range): BP systolic 88–110; BP diastolic 49–66; PULSE 75–107; RESP 14–20; TEMP 35.6–36.5; O2SAT 93–97
[2023-06-22] MEDS: HYDROcodone/acetaminophen (*CRX) 5-325 MG TABLET PO ×3 (05:02→21:27)
[2023-06-22 05:31] LABS: Basophils Percent Auto 0.3 % (0.2-1.2); Eosinophils Absolute Auto 0.3 K/mm3 (0-0.3); Eosinophils Percent Auto 3.8 % (0-4.4); Hematocrit 37.4 % (42.0-52.0); Hemoglobin 11.5 g/dL (14.0-18.0); Immature Granulocyte Absolute 0.04 K/mm3 (0.00-0.031); Immature Granulocyte Percent A 0.4 % (0-0.5); Lymphocytes Percent Auto 6.7 % (18.3-44.2); Mean Corpuscular HGB Conc 30.7 g/dl (32-36); Mean Corpuscular Hemoglobin 27.4 pg (26-34); Mean Platelet Volume 9.8 fl (7.4-10.4); Monocytes Absolute Auto 0.8 K/mm3 (0.1-0.6); Monocytes Percent Auto 8.9 % (2.6-8.5); Neutrophils Absolute Auto 7.1 K/mm3 (1.3-6.7); Neutrophils Percent Auto 79.9 % (45.5-73.1); Platelet Count Result 162 k/mm3 (150-375); Red Cell Distribution Width 15.8 % (11.5-14.5)
[2023-06-22 05:42] LABS: Alanine Aminotransferase 26 U/L (6-50); Albumin Level 3.5 g/dL (3.5-5.1); Alkaline Phosphatase 68 U/L (38-126); Anion Gap 3 mmol/L (4-12); Aspartate Amino Transferase 25 U/L (17-59); Bilirubin,Total 0.8 mg/dL (0.2-1.3); Blood Urea Nitrogen 14 mg/dL (9-20); Calcium 8.2 mg/dL (8.4-10.2); Carbon Dioxide 21 mmol/L (22-30); Chloride 110 mmol/L (98-107); Estimated CRCL calculation 93 ml/min; Estimated Glomerular Filt Rate > 60; Glucose 112 mg/dL (65-110); Potassium 4.1 mmol/L (3.4-5.0); Sodium 134 mmol/L (137-145)
[2023-06-22 05:56] LABS: INR 2.1
[2023-06-22] MEDS: FLUTICASONE/SALMETEROL 230-21 MCG INHALER 1 PUFF 2 PUFF INHALATION ×2 (07:08→20:40)
--- NOTE | 2023-06-22 08:24 | PC.NURSE ---
Pt was picked up for procedure and off the unit
[2023-06-22] MEDS: ASCORBIC ACID 500 MG TABLET PO (11:27)
[2023-06-22] MEDS: DOCUSATE SODIUM 100 MG CAPSULE PO ×2 (11:27→17:22)
[2023-06-22] MEDS: PANTOPRAZOLE 40 MG TABLET PO ×2 (11:28→17:22)
[2023-06-22] MEDS: LORATADINE 10 MG TABLET PO (11:28)
[2023-06-22] MEDS: ISOSORBIDE MONONITRATE 30 MG TAB.ER.24H PO (11:28)
[2023-06-22] MEDS: METOPROLOL SUCCINATE EXT REL 25 MG TABCR PO (11:28)
[2023-06-22] MEDS: SACUBITRIL/VALSARTAN 49-51 MG TABLET 1 TABLET PO ×2 (11:30→21:26)
[2023-06-22] MEDS: TAMSULOSIN HCL 0.4 MG CAPSULE PO (11:30)
[2023-06-22] MEDS: FERROUS SULFATE 325 MG TABLET DR BY MOUTH (11:30)
[2023-06-22] MEDS: FINASTERIDE 5 MG TABLET PO (11:30)
[2023-06-22] MEDS: ASPIRIN 81 MG ENTERIC TABLET PO (11:30)
[2023-06-22] MEDS: ATORVASTATIN 40 MG TABLET 80 MG PO (11:30)
[2023-06-22] MEDS: DICLOFENAC SODIUM 1% 100 GM GEL (*BKC) 1 APPLIC TOPICAL (11:38)
--- NOTE | 2023-06-22 11:46 | P.PNIM_ITS ---
Progress Note: A&P Assessment and Plan (1) Ureterolithiasis: Code(s): N20.1 - Calculus of ureter Status: Acute Assessment and Plan: 06/21/23: * CT of the abdomen and pelvis contrast showed 2 stones measuring up to 9 mm and proximal right ureter with mild right hydronephrosis and proximal hydroureter, bilateral nonobstructing kidney stones also seen * Abdomen x-ray showed bilateral kidney stone, dilated small bowel consistent adynamic ileus * Urology consulted * Retrograde pyelogram with cystoscopy and stent placement to right ureter completed today with Urology * Creatinine 1.5 this morning we will hold off on the Lasix for now and will reassess labs in the morning 06/22/23: * Urology following * Patient is postop day from cystoscopy with stent placement to right ureter * Creatinine is back to baseline * Patient is voiding (2) Acute UTI: Code(s): N39.0 - Urinary tract infection, site not specified Status: Acute Assessment and Plan: 06/21/23: * UA showing 1+ glucose, 1+ urine blood, 3+ leukocytes, 6-10 urine RBC, greater 100 urine WBC, rare bacteria * Urine culture is obtained and is pending * We will start patient on Rocephin 06/22/23: * Urine culture showing Gram-negative bacilli on preliminary read * Blood culture showing no growth * Continue Rocephin * If urine culture comes back with final read and sensitivities tomorrow he may be able to discharge home with follow-up with Urology (3) Acute flank pain: Code(s): R10.9 - Unspecified abdominal pain Status: Acute Assessment and Plan: 06/21/23: * Flank pain likely due to obstructing kidney stone * Continue pain control with morphine and [place] 06/22/23: * No change to current treatment plan (4) Congestive heart failure: Qualifiers: Heart failure chronicity: acute on chronic Heart failure type: systolic Qualified Code(s): I50.23 - Acute on chronic systolic (congestive) heart failure Code(s): I50.9 - Heart failure, unspecified Status: Chronic Assessment and Plan: 06/21/23: * Continue Entresto, metoprolol, imdur * Continue to hold Lasix 06/22/23: * No change to current treatment plan (5) Essential hypertension: Code(s): I10 - Essential (primary) hypertension Status: Chronic Assessment and Plan: 06/21/23: * Blood pressure ranging 94/52 to 101/71 * Continue Entresto, metoprolol, imdur * Continue to hold Lasix 06/22/23: * No change to current treatment plan (6) Hyperlipidemia: Qualifiers: Hyperlipidemia type: unspecified Qualified Code(s): E78.5 - Hyperlipidemia, unspecified Code(s): E78.5 - Hyperlipidemia, unspecified Status: Chronic Assessment and Plan: 06/21/23: * Continue aspirin and atorvastatin 06/22/23: * No change to current treatment plan (7) Obesity: Qualifiers: Body mass index: BMI 39.0-39.9 Obesity classification: adult class 2 (BMI 35 - 39.9) Obesity type: due to excess calories Serious obesity comorbidity presence: unspecified whether serious comorbidity present Qualified Code(s): E66.09 - Other obesity due to excess calories; Z68.39 - Body mass index [BMI] 39.0-39.9, adult Code(s): E66.9 - Obesity, unspecified Status: Chronic Assessment and Plan: 06/21/23: * 126 kg, BMI 42.2 Time Spent With Patient Time with patient: Greater than 35 minutes Subjective Date/time seen: 06/22/23 11:46 Interval history: 06/21/23: This is a 67-year-old mal
--- NOTE | 2023-06-22 11:46 | PM.IMPN ---
Progress Note: A&P Assessment and Plan (1) Ureterolithiasis: Code(s): N20.1 - Calculus of ureter Status: Acute Assessment and Plan: 06/21/23: CT of the abdomen and pelvis contrast showed 2 stones measuring up to 9 mm and proximal right ureter with mild right hydronephrosis and proximal hydroureter, bilateral nonobstructing kidney stones also seen Abdomen x-ray showed bilateral kidney stone, dilated small bowel consistent adynamic ileus Urology consulted Retrograde pyelogram with cystoscopy and stent placement to right ureter completed today with Urology Creatinine 1.5 this morning we will hold off on the Lasix for now and will reassess labs in the morning 06/22/23: Urology following Patient is postop day from cystoscopy with stent placement to right ureter Creatinine is back to baseline Patient is voiding (2) Acute UTI: Code(s): N39.0 - Urinary tract infection, site not specified Status: Acute Assessment and Plan: 06/21/23: UA showing 1+ glucose, 1+ urine blood, 3+ leukocytes, 6-10 urine RBC, greater 100 urine WBC, rare bacteria Urine culture is obtained and is pending We will start patient on Rocephin 06/22/23: Urine culture showing Gram-negative bacilli on preliminary read Blood culture showing no growth Continue Rocephin If urine culture comes back with final read and sensitivities tomorrow he may be able to discharge home with follow-up with Urology (3) Acute flank pain: Code(s): R10.9 - Unspecified abdominal pain Status: Acute Assessment and Plan: 06/21/23: Flank pain likely due to obstructing kidney stone Continue pain control with morphine and [place] 06/22/23: No change to current treatment plan (4) Congestive heart failure: Qualifiers: Heart failure chronicity: acute on chronic Heart failure type: systolic Qualified Code(s): I50.23 - Acute on chronic systolic (congestive) heart failure Code(s): I50.9 - Heart failure, unspecified Status: Chronic Assessment and Plan: 06/21/23: Continue Entresto, metoprolol, imdur Continue to hold Lasix 06/22/23: No change to current treatment plan (5) Essential hypertension: Code(s): I10 - Essential (primary) hypertension Status: Chronic Assessment and Plan: 06/21/23: Blood pressure ranging 94/52 to 101/71 Continue Entresto, metoprolol, imdur Continue to hold Lasix 06/22/23: No change to current treatment plan (6) Hyperlipidemia: Qualifiers: Hyperlipidemia type: unspecified Qualified Code(s): E78.5 - Hyperlipidemia, unspecified Code(s): E78.5 - Hyperlipidemia, unspecified Status: Chronic Assessment and Plan: 06/21/23: Continue aspirin and atorvastatin 06/22/23: No change to current treatment plan (7) Obesity: Qualifiers: Body mass index: BMI 39.0-39.9 Obesity classification: adult class 2 (BMI 35 - 39.9) Obesity type: due to excess calories Serious obesity comorbidity presence: unspecified whether serious comorbidity present Qualified Code(s): E66.09 - Other obesity due to excess calories; Z68.39 - Body mass index [BMI] 39.0-39.9, adult Code(s): E66.9 - Obesity, unspecified Status: Chronic Assessment and Plan: 06/21/23: 126 kg, BMI 42.2 Time Spent With Patient Time with patient: Greater than 35 minutes Subjective Date/time seen: 06/22/23 11:46 Interval history: 06/21/23: This is a 67-year-old male with past medical history BPH, kidney stones, CHF, coronary artery disease, hypertension, hyperlipidemia, sleep apnea, MD, depression who presents to the hospital for evaluation of flank pain x1 week.? He started noticing blood in the urine and increase in urinary frequency prompting him to come back to hospital for further evaluation.? Patient denies any fever, chills, nausea, vomiting, diarrhea, chest pain, shortness a breath.? He endorses right flank pain and abdominal pain which she ra
[2023-06-22] MEDS: SODIUM CHLORIDE 0.9% IV 1,000 ML 125 ML IV CONT ×2 (12:13)
--- NOTE | 2023-06-22 13:26 | WPDUROPN2 ---
Progress Note: A&P Assessment and Plan (1) Ureterolithiasis: Code(s): N20.1 - Calculus of ureter Status: Acute Assessment and Plan: Post right ureteral stent placement. Will need to get over acute urinary tract infection. Stones are not visible on KUB. Will likely need a ureteroscopy with laser of stone Once over acute episode of urinary tract infection (2) Acute UTI: Code(s): N39.0 - Urinary tract infection, site not specified Status: Acute Assessment and Plan: await urine culture and sensitivities. Will be treated appropriately with oral antibiotics Subjective Subjective Date/Time Seen: 06/22/23 13:26 Post Op day: 1 ( cysto right retrograde right ureteral stent placement) Principal diagnosis: obstructing right ureteral calculi with UTI Interval history: doing well after stent placement. However his urine culture preliminary is positive for Gram-negative bacilli. Sensitivities are pending. Review of Systems Review of Systems: All systems reviewed & are unremarkable except as noted in HPI and below Exam Const: General: cooperative, comfortable and no acute distress Resp: Effort & Inspection: normal respiratory effort Cardio: Rate: regular rate Rhythm: regular rhythm Objective Data Vital Signs Vital Signs: Vital Signs - 24 hr 06/21/23 15:32 06/21/23 17:46 06/21/23 20:01 Temperature 36.5 C Pulse Rate 89 83 Respiratory Rate 22 H 18 Blood Pressure 91/55 L 116/40 L Pulse Oximetry 96 Oxygen Delivery 06/21/23 20:01 06/21/23 20:00 06/21/23 20:00 Temperature 36.5 C Pulse Rate 84 Respiratory Rate 17 Blood Pressure 109/61 Pulse Oximetry 93 96 93 Oxygen Delivery Room Air Room Air 06/21/23 22:45 06/21/23 23:50 06/22/23 03:01 Temperature 36.1 C L Pulse Rate 78 107 H Respiratory Rate 25 H 12 15 Blood Pressure 103/47 L Pulse Oximetry 93 94 Oxygen Delivery Autopap Autopap 06/22/23 04:00 06/22/23 07:10 06/22/23 07:10 Temperature 36.1 C L Pulse Rate 87 84 84 Respiratory Rate 14 18 18 Blood Pressure 108/49 L Pulse Oximetry 97 94 Oxygen Delivery Room Air 06/22/23 08:00 06/22/23 11:28 Temperature 36.3 C L Pulse Rate 96 92 Respiratory Rate 20 Blood Pressure 97/62 L Pulse Oximetry 93 Oxygen Delivery Intake/Output Intake/Output: Intake & Output 06/19/23 06/20/23 06/21/23 06/22/23 23:59 23:59 23:59 23:59 Intake Total 3705 2110 Output Total 1575 1150 Balance 2130 960 Meds/Results Medications: Active Medications Generic Name Dose Route Start Last Admin Trade Name Freq PRN Reason Stop Dose Admin Acetaminophen 650 mg 06/21/23 08:33 Acetaminophen 325 Mg Tablet PO Q4H PRN Mild Pain (1-3) or Fever Hydrocodone Bitart/Acetaminophen 1 - 2 tab 06/21/23 10:29 06/22/23 13:00 Hydrocodone/Acetaminophen (*Crx) 5-325 Mg Tablet PO 2 tab PRN PRN Administration Pain (Scale Score 7-10) Albuterol 2 puff 06/21/23 05:43 Albuterol Sulfate (*Sp) Aerosol 1 Puff INHALATION QID PRN shortness of breath or wheezing Ascorbic Acid 500 mg 06/21/23 09:00 06/22/23 11:27 Ascorbic Acid 500 Mg Tablet PO 500 mg DAILY ADAN Administration Aspirin 81 mg 06/21/23 09:00 06/22/23 11:30 Aspirin 81 Mg Enteric Tablet PO 81 mg QAM ADAN Administration Atorvastatin Calcium 80 mg 06/21/23 09:00 06/22/23 11:30 Atorvastatin 40 Mg Tablet PO 80 mg DAILY ADAN Administration Bisacodyl 10 mg 06/21/23 08:33 Bisacodyl 10 Mg Suppository RECTAL ONCE PRN Constipation Bisacodyl 5 mg 06/21/23 08:33 Bisacodyl 5 Mg Tablet Ec PO DAILY PRN Constipation Diclofenac Sodium 1 applic 06/21/23 09:00 06/22/23 13:02 Diclofenac Sodium 1% 100 Gm Gel (*Bkc) TOPICAL Not Given QID ADAN Diphenhydramine HCl 25 mg 06/21/23 10:28 Diphenhydramine Hcl Cap 25 Mg Capsule PO Q6H PRN Itching Docusate Sodium 100 mg 06/21/23 0
[2023-06-22] MEDS: ONDANSETRON INJ 4 MG/2 ML VIAL IV PUSH (14:46)
--- NOTE | 2023-06-22 15:00 | WPDANESPN ---
Anes - Prog Note Post-Op Date/Time: 06/22/23 15:00 Cardiovascular status: normal Respiratory status: normal Airway patency: baseline Mental status: baseline Post-Op hydration status: normal Vital Signs: Last Vital Signs Temp 36.3 C L 06/22/23 08:00 Pulse 92 06/22/23 11:28 Resp 20 06/22/23 08:00 BP 97/62 L 06/22/23 08:00 Pulse Ox 93 06/22/23 08:00 O2 Del Method Room Air 06/22/23 08:00 O2 Flow Rate 8 06/21/23 09:25 Pain Score (VAS): Patient asleep. No nonverbal signs of pain present at this time. I/O: Intake & Output 06/21/23 06/22/23 06/22/23 23:59 07:59 15:59 Intake Total 5453 940 0316 Output Total 200 1150 Balance 1165 -400 1410 Laboratory Tests 06/22/23 05:20 06/22/23 05:20 06/22/23 05:20 WBC 9.0 RBC 4.20 L Hgb 11.5 L Hct 37.4 L MCV 89.0 MCH 27.4 MCHC 30.7 L RDW 15.8 H Plt Count 162 MPV 9.8 Immature Gran % (Auto) 0.4 Neut % (Auto) 79.9 H Lymph % (Auto) 6.7 L Wilkes % (Auto) 8.9 H Eos % (Auto) 3.8 Baso % (Auto) 0.3 Lymph # (Auto) 0.60 L Wilkes # (Auto) 0.8 H Eos # (Auto) 0.3 Baso # (Auto) 0.0 Abs Immat Gran (auto) 0.04 H Absolute Neuts (auto) 7.1 H Absolute Nucleated RBC 0.000 Nucleated RBC % 0.0 PT 25.0 H D INR 2.1 Sodium 134 L Potassium 4.1 Chloride 110 H Carbon Dioxide 21 L Anion Gap 3 L BUN 14 D Creatinine 0.90 Estim Creat Clear Calc 93 Estimated GFR > 60 Glucose 112 H Calcium 8.2 L Total Bilirubin 0.8 AST 25 ALT 26 Alkaline Phosphatase 68 Total Protein 6.0 L Albumin 3.5 Microbiology 06/21/23 12:47 Blood Blood Culture - Preliminary 06/21/23 12:55 Blood Blood Culture - Preliminary Post-procedural complaints: none Patient Feedback: Patient satisfied with anesthetic care.
[2023-06-22] MEDS: METOPROLOL SUCCINATE EXT REL 12.5 MG TABCR PO (21:26)
[2023-06-23 04:00] VITALS: BP 103/68; PULSE 78; RESP 20; TEMP 36.6; O2SAT 94
--- NOTE | 2023-06-23 06:07 | WPDUROPN2 ---
Progress Note: A&P Assessment and Plan (1) Ureterolithiasis: Code(s): N20.1 - Calculus of ureter Status: Acute Assessment and Plan: Agree with plans for discharge today if blood cultures remain negative. Kidney stones are relatively refractory to ESWL due to stone density and body habitus. Will plan staged urteroscopy/laser lithotripsy. Subjective Subjective Date/Time Seen: 06/23/23 06:07 Interval history: Comfortable, tolerating stent Review of Systems Cardiovascular: Cardiovascular: Denies chest pain, Denies lightheadedness, Denies palpitations and Denies dyspnea Respiratory: Respiratory: Denies dyspnea Gastrointestinal: Gastrointestinal: Denies diarrhea, Denies nausea and Denies vomiting Genitourinary: Genitourinary: Denies hematuria and Denies dysuria Endocrine: Endocrine: Denies palpitations Exam Const: General: no acute distress Resp: Effort & Inspection: normal respiratory effort GI: Inspection: non-distended GI Palp: No abdominal tenderness and No Guarding due to palpation present (GI) Auscultation: normal bowel sounds Objective Data Vital Signs Vital Signs: Vital Signs - 24 hr 06/22/23 07:10 06/22/23 07:10 06/22/23 08:00 Temperature 97.3 F L Pulse Rate 84 84 96 Respiratory Rate 18 18 20 Blood Pressure 97/62 L Pulse Oximetry 94 93 Oxygen Delivery Room Air 06/22/23 11:28 06/22/23 08:00 06/22/23 12:00 Temperature 97.6 F Pulse Rate 92 92 Respiratory Rate 18 Blood Pressure 110/60 Pulse Oximetry 95 Oxygen Delivery Room Air 06/22/23 16:00 06/22/23 20:40 06/22/23 20:00 Temperature 96.0 F L 97.1 F L Pulse Rate 87 82 Respiratory Rate 18 20 Blood Pressure 88/52 L 91/61 L Pulse Oximetry 94 95 93 Oxygen Delivery Room Air 06/22/23 20:00 06/22/23 23:22 06/23/23 04:00 Temperature 97.7 F 97.8 F Pulse Rate 75 78 Respiratory Rate 20 20 Blood Pressure 98/66 L 103/68 Pulse Oximetry 94 94 Oxygen Delivery Room Air Intake/Output Intake/Output: Intake & Output 06/20/23 06/21/23 06/22/23 06/23/23 23:59 23:59 23:59 23:59 Intake Total 3705 2990 350 Output Total 1575 2350 400 Balance 2130 640 -50 Meds/Results Medications: Active Medications Generic Name Dose Route Start Last Admin Trade Name Freq PRN Reason Stop Dose Admin Acetaminophen 650 mg 06/21/23 08:33 Acetaminophen 325 Mg Tablet PO Q4H PRN Mild Pain (1-3) or Fever Hydrocodone Bitart/Acetaminophen 1 - 2 tab 06/21/23 10:29 06/22/23 21:27 Hydrocodone/Acetaminophen (*Crx) 5-325 Mg Tablet PO 2 tab PRN PRN Administration Pain (Scale Score 7-10) Albuterol 2 puff 06/21/23 05:43 Albuterol Sulfate (*Sp) Aerosol 1 Puff INHALATION QID PRN shortness of breath or wheezing Ascorbic Acid 500 mg 06/21/23 09:00 06/22/23 11:27 Ascorbic Acid 500 Mg Tablet PO 500 mg DAILY ADAN Administration Aspirin 81 mg 06/21/23 09:00 06/22/23 11:30 Aspirin 81 Mg Enteric Tablet PO 81 mg QAM ADAN Administration Atorvastatin Calcium 80 mg 06/21/23 09:00 06/22/23 11:30 Atorvastatin 40 Mg Tablet PO 80 mg DAILY ADAN Administration Bisacodyl 10 mg 06/21/23 08:33 Bisacodyl 10 Mg Suppository RECTAL ONCE PRN Constipation Bisacodyl 5 mg 06/21/23 08:33 Bisacodyl 5 Mg Tablet Ec PO DAILY PRN Constipation Diclofenac Sodium 1 applic 06/21/23 09:00 06/22/23 21:27 Diclofenac Sodium 1% 100 Gm Gel (*Bkc) TOPICAL Not Given QID [facility] Diphenhydramine HCl 25 mg 06/21/23 10:28 Diphenhydramine Hcl Cap 25 Mg Capsule PO Q6H PRN Itching Docusate Sodium 100 mg 06/21/23 09:00 06/22/23 17:22 Docusate Sodium 100 Mg Capsule PO 100 mg BID ADAN Administration Ferrous Sulfate 325 mg 06/21/23 09:00 06/22/23 11:30 Ferrous Sulfate [address] BY MOUTH 325 mg DAILY ADAN Administration Finasteride 5 mg 06/21/23 09:00 06/22/23 11:30 Finasteride 5 Mg Tabl
[2023-06-23 06:16] LABS: Basophils Percent Auto 0.5 % (0.2-1.2); Eosinophils Absolute Auto 0.5 K/mm3 (0-0.3); Eosinophils Percent Auto 7.3 % (0-4.4); Hematocrit 41.3 % (42.0-52.0); Hemoglobin 11.5 g/dL (14.0-18.0); Immature Granulocyte Absolute 0.02 K/mm3 (0.00-0.031); Immature Granulocyte Percent A 0.3 % (0-0.5); Lymphocytes Absolute Auto 0.92 K/mm3 (0.9-3.2); Mean Corpuscular HGB Conc 27.8 g/dl (32-36); Mean Corpuscular Hemoglobin 27.5 pg (26-34); Mean Corpuscular Volume 98.8 fl (80-100); Monocytes Absolute Auto 0.9 K/mm3 (0.1-0.6); Monocytes Percent Auto 13.1 % (2.6-8.5); Neutrophils Absolute Auto 4.2 K/mm3 (1.3-6.7); Neutrophils Percent Auto 64.8 % (45.5-73.1); Platelet Count Result 147 k/mm3 (150-375); Red Blood Count 4.18 M/mm3 (4.6-6.20); Red Cell Distribution Width 15.9 % (11.5-14.5); White Blood Count 6.6 K/mm3 (4.5-10.0)
[2023-06-23 06:26] LABS: Alanine Aminotransferase 21 U/L (6-50); Albumin Level 3.4 g/dL (3.5-5.1); Alkaline Phosphatase 62 U/L (38-126); Anion Gap 6 mmol/L (4-12); Aspartate Amino Transferase 22 U/L (17-59); Bilirubin,Total 0.6 mg/dL (0.2-1.3); Blood Urea Nitrogen 14 mg/dL (9-20); Calcium 8.4 mg/dL (8.4-10.2); Carbon Dioxide 19 mmol/L (22-30); Chloride 112 mmol/L (98-107); Estimated CRCL calculation 84 ml/min; Estimated Glomerular Filt Rate > 60; Glucose 107 mg/dL (65-110); Potassium 4.1 mmol/L (3.4-5.0); Sodium 137 mmol/L (137-145)
[2023-06-23 06:34] LABS: INR 1.9; Prothrombin Time 23.2 Seconds (11.1-14.7)
[2023-06-23 08:00] VITALS: BP 104/59; PULSE 96; RESP 24; TEMP 36.5; O2SAT 94
[2023-06-23] MEDS: SACUBITRIL/VALSARTAN 49-51 MG TABLET 1 TABLET PO (08:39)
[2023-06-23] MEDS: FLUTICASONE/SALMETEROL 230-21 MCG INHALER 1 PUFF 2 PUFF INHALATION (08:39)
[2023-06-23] MEDS: ASPIRIN 81 MG ENTERIC TABLET PO (08:39)
[2023-06-23] MEDS: FINASTERIDE 5 MG TABLET PO (08:39)
[2023-06-23 08:40] VITALS: PULSE 92; RESP 20
[2023-06-23] MEDS: ASCORBIC ACID 500 MG TABLET PO (08:40)
[2023-06-23] MEDS: TAMSULOSIN HCL 0.4 MG CAPSULE PO (08:40)
[2023-06-23] MEDS: ISOSORBIDE MONONITRATE 30 MG TAB.ER.24H PO (08:40)
[2023-06-23] MEDS: LORATADINE 10 MG TABLET PO (08:40)
[2023-06-23] MEDS: DOCUSATE SODIUM 100 MG CAPSULE PO (08:40)
[2023-06-23] MEDS: ATORVASTATIN 40 MG TABLET 80 MG PO (08:40)
[2023-06-23 08:41] VITALS: O2SAT 96
--- NOTE | 2023-06-23 08:41 | PM.DS ---
DS: Admitting Diagnosis Discharge Date 06/23/23 Admitting Diagnosis Ureterolithiasis Acute UTI Acute flank pain CHF Essential hypertension Hyperlipidemia Obesity DS: Discharge Diagnosis Discharge Diagnosis (1) Ureterolithiasis: Code(s): N20.1 - Calculus of ureter Status: Acute (2) Acute UTI: Code(s): N39.0 - Urinary tract infection, site not specified Status: Acute (3) Acute flank pain: Code(s): R10.9 - Unspecified abdominal pain Status: Acute (4) Congestive heart failure: Qualifiers: Heart failure chronicity: acute on chronic Heart failure type: systolic Qualified Code(s): I50.23 - Acute on chronic systolic (congestive) heart failure Code(s): I50.9 - Heart failure, unspecified Status: Chronic (5) Essential hypertension: Code(s): I10 - Essential (primary) hypertension Status: Chronic (6) Hyperlipidemia: Qualifiers: Hyperlipidemia type: unspecified Qualified Code(s): E78.5 - Hyperlipidemia, unspecified Code(s): E78.5 - Hyperlipidemia, unspecified Status: Chronic (7) Obesity: Qualifiers: Body mass index: BMI 39.0-39.9 Obesity classification: adult class 2 (BMI 35 - 39.9) Obesity type: due to excess calories Serious obesity comorbidity presence: unspecified whether serious comorbidity present Qualified Code(s): E66.09 - Other obesity due to excess calories; Z68.39 - Body mass index [BMI] 39.0-39.9, adult Code(s): E66.9 - Obesity, unspecified Status: Chronic DS: Summary Hospital Course Reason for hospitalization: Ureterolithiasis Acute UTI Acute flank pain CHF Essential hypertension Hyperlipidemia Obesity Hospital Course: 06/21/23: This is a 67-year-old male with past medical history BPH, kidney stones, CHF, coronary artery disease, hypertension, hyperlipidemia, sleep apnea, [place], depression who presents to the hospital for evaluation of flank pain x1 week.? He started noticing blood in the urine and increase in urinary frequency prompting him to come back to hospital for further evaluation.? Patient denies any fever, chills, nausea, vomiting, diarrhea, chest pain, shortness a breath.? He endorses right flank pain and abdominal pain which she rates as 10/10.? Workup the hospital included CT of the abdomen and pelvis which showed 2 stones measuring to 9 mm in proximal right ureter with mild right hydronephrosis and proximal hydroureter, bilateral nonobstructing kidney stones also seen.? Abdominal x-ray showed bilateral kidney stones, dilated small bowel consistent with adynamic ileus.? Initial labs showed a white blood cell count of 11.3, hemoglobin 13.2, sodium 134, EGFR 55, liver enzymes were normal.? A UA was also obtained which shows 1+ glucose, 1+ urine blood, 3+ leukocytes, 6-10 urine RBC, greater 100 urine WBC, rare bacteria present.? A urine culture was obtained and is pending.? Patient had 2 L of normal saline, morphine, Zofran while in the ED. Urology was consulted and took patient for a right retrograde pyelogram, cystoscopy, with right ureter stent placement.? He is voiding pink tinged urine.? Patient was started on Rocephin for UTI coverage while awaiting urine culture. Of note, patient recently had a cystoscopy with left retrograde pyelography, left ureteral stent placement on 05/15/[address] Durán.? He had the stent removed on 06/21/2022.? He also has history of kidney stone operations last year x2 which dated back to 04/29/2022.? Most of his issues were in the left ureter on these past operations. 06/22/23: Patient reports 8/10 pain in his abdomen with associated nausea.? Labs today showed normal white blood cell count of 9.0, hemoglobin 11.5, sodium 134, bicarb 21, creatinine is now down to 0.9, EGFR is greater than 60, liver enzymes are normal.? Urine culture showing Gram-negative bacilli isolated on preliminary read.? Blood cultures are showing no growth on preliminary read.? We will continue
[2023-06-23] MEDS: SULFAMETHOXAZOLE/TRIMETHOPRIM 800/160 MG DS TABLET 1 TAB PO (08:43)
[2023-06-23] MEDS: METOPROLOL SUCCINATE EXT REL 25 MG TABCR PO (08:43)
[2023-06-23] MEDS: FERROUS SULFATE 325 MG TABLET DR BY MOUTH (08:43)
[2023-06-23] MEDS: PANTOPRAZOLE 40 MG TABLET PO (08:46)
--- NOTE | 2023-06-27 11:33 | PC.NURSE ---
Blood cx are negative.
== END 2023-06-23 10:32 | disposition home or self-care (01) | DRG 659 ==
LOC: ANHED 04:41 → ANH3MEDSUR 04:53
PROVIDERS: Urology; Admitting Provider Internal Medicine; Emergency Provider Emergency Medicine; PCP Family Medicine; Visit Provider Nurse Practitioner Acute Care
PROC: 0T768DZ Dilation of Right Ureter with Intraluminal Device, Via Natural or Artificial Opening Endoscopic (ICD-10-PCS; CPT 52352; principal; 2023-06-21 09:00)
DX: N13.2 Hydronephrosis with renal and ureteral calculous obstruction (principal); I50.23 Acute on chronic systolic (congestive) heart failure; K56.0 Paralytic ileus; Z68.41 Body mass index [BMI] 40.0-44.9, adult; N39.0 Urinary tract infection, site not specified; B96.4 Proteus (mirabilis) (morganii) as the cause of diseases classified elsewhere; E78.5 Hyperlipidemia, unspecified; E66.09 Other obesity due to excess calories; F32.A Depression, unspecified; G47.33 Obstructive sleep apnea (adult) (pediatric); I25.10 Atherosclerotic heart disease of native coronary artery without angina pectoris; I25.5 Ischemic cardiomyopathy; I25.2 Old myocardial infarction; I11.0 Hypertensive heart disease with heart failure; N40.0 Benign prostatic hyperplasia without lower urinary tract symptoms; Z79.01 Long term (current) use of anticoagulants; Z87.442 Personal history of urinary calculi; Z99.89 Dependence on other enabling machines and devices; Z90.49 Acquired absence of other specified parts of digestive tract; Z95.5 Presence of coronary angioplasty implant and graft
CPT/HCPCS: 36415; 74018; 74176; 74420; 80053; 81001; 81003; 85025; 85610; 87040; 87077; 87086; 87088; 87186; 94640; 96361; 96365; 96374; 96375; 99213; 99284; 99285; A9270; C1758; C1769; C2617; G0378; G0463; J0690; J0696; J1170; J1200; J2270; J2405; J7030; J7120; Q9966

== ENCOUNTER 2023-07-17 00:58 | Day surgery (SDC) | payer MEDICARE, OTHER, SELFPAY ==
[2023-07-03 08:37] VITALS: BMI 40.2
--- NOTE | 2023-07-03 09:02 | PC.NURSE ---
Report to the Outpatient Waiting Room, entrance under the green pavilion located off [facility], at time __7:45AM on date ___07/17/23____. Planned Procedure Time: __9:45AM . Time changes happen often and if your time is changed the preop area will call you the afternoon before. - You and your visitor will be asked to self-screen and do not enter if you have any COVID symptoms. - A mask is optional within the hospital at this time. Patients may have clear liquids (water, carbonated beverages, clear teas, apple juice) until 3 hours prior to surgery with a maximum of 20 ounces. - No food from midnight until time of surgery. Take the following medications with a SIP of water the morning of surgery: ____ADVAIR INHALER, ISOSORBIDE, METOPROLOL. MAY USE ALBUTEROL INHALER AND HYDROCODONE NEEDED. DO NOT STOP ANY OF YOUR OTHER PRESCRIPTION MEDICATIONS PRIOR TO SURGERY ?EXCEPT THE FOLLOWING Medications to discontinue per physician ___HOLD ASPIRIN & COUMADIN PER DR DAVEY-PATIENT CHECKING WITH OFFICE TO CONFIRM. HOLD ALL VITAMINS/SUPPLEMENTS 7 DAYS PRE-OP PER DR DAVEY/PER PATIENT- LAST DOSE 07/09/23 Please no make-up, nail indonesian, hairspray, perfume, deodorant, or body powder the day of surgery. No jewelry (including any body piercings) or valuables the day of surgery, leave them at home. Please take a shower or bath the night before, or the morning of, surgery with an antibacterial soap. Wear comfortable, loose fitting clothing. Children are encouraged to wear pajamas. - Jewelry must be removed prior to entering the operating room. Rings and piercings that are not removed may be cut off. - The hospital will not accept responsibility for valuables. - Please leave all valuables, including medications, at home the day of surgery. If you are going home after surgery, a licensed coach tour driver must drive you home. - NO public transportation without another adult if you receive anesthesia. - We recommend that an adult stay with you for 24 hours following discharge. - We also recommend that you do not drive, make important decision, drink alcoholic beverages, or take any drugs that were not prescribed by your health care provider for at least 24 hours after your discharge time. For Pediatric surgeries, we recommend two adults accompany the child home. Follow any additional instructions given to you from your surgeon. If you or anyone in your household have experienced Covid symptoms in the past week, please notify your surgeon or the nurse liaison at the phone number below for possible testing. Telephone instructions given to ___PATIENT and asked if any additional questions and then verbalized understanding. Patient advised to call surgeon office or pre surgery nurse liaison [phone] if any additional questions.
--- NOTE | 2023-07-15 07:06 | PM.HPGS ---
History of Present Illness History of Present Illness Consent: Risks, benefits, and alternatives have been discussed and questions answered. Patient agrees to proceed with procedure. Chief complaint: Mult Right Renal Stones Narrative: Go Morrow is a 67 year old male is well known to me with a long history of recurrent urolithiasis. Recently undergone right ESWL but stones have been refractory to fracturing. After discussion of options he now elects for cystoscopy with right ureteroscopy and endoscopic stone manipulation. He is aware of the risks including, but not limited to, adverse cardiopulmonary events, hematuria, need for additional procedures. Review of Systems Cardiovascular: Cardiovascular: Denies chest pain, Denies lightheadedness, Denies palpitations and Denies dyspnea Respiratory: Respiratory: Denies dyspnea Gastrointestinal: Gastrointestinal: Denies diarrhea, Denies nausea and Denies vomiting Genitourinary: Genitourinary: Denies hematuria and Denies dysuria Endocrine: Endocrine: Denies palpitations [facility] Past Medical History Medical History Benign prostatic hyperplasia Bowel obstruction Calculus of kidney Chronic anemia Chronic back pain Colon cancer screening Congestive heart failure 09/05 echo: ef 25% Coronary artery disease Cough due to WILL inhibitor Depression Eczema Essential hypertension Gallstones History of angina History of bladder infections Hyperlipidemia Ischemic cardiomyopathy Kidney stones Nausea Obesity Obstructive sleep apnea on CPAP Obstructive sleep apnea on CPAP Osteoarthritis Prediabetes ST elevation (STEMI) myocardial infarction ST elevation myocardial infarction (STEMI) of anterior wall (~03/2019) Status post drug-eluting stent to the proximal LAD. Urinary incontinence UTI (urinary tract infection) Surgical History Surgical History H/O hand surgery History of appendectomy History of coronary artery stent placement History of renal stent Hx of lithotripsy S/P trigger finger release Family History Family History Mother Hypertension Family history of malignant neoplasm of breast in first degree relative Family history of malignant neoplasm of ovary Father Pacemaker Social History Social History Social History: The patient is and lives in [place], [place] with his . He has no children. 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 He designates his , Concepción Nunes, as his surrogate decision maker and he wishes to be a full code. He Smoking status: Never smoker Second hand tobacco smoke exposure: No Alcohol intake: never Substance use: never Substance use type: does not use Do You Feel Safe in your Home?: Yes Lack of Transportation: No Lack of Food: Never True Current Housing: I Have Housing Concerned About Future Housing: Decline to Answer Difficulty Paying Gas/Electric Bills: Decline to Answer Difficulty Paying for Meds: Decline to Answer Currently Unemployed: Decline to Answer Education: Decline to Answer Difficulty w/ Childcare or Family Care: Decline to Answer Living arrangements: with family Additional living arrangements comments: Occupation/Education: occupation Gender identity (if verbalized by the patient): Male Sexual Orientation (if Verbalized by the Patient): Straight or Heterosexual Spiritual care concerns: No Agree to blood products: Yes Meds Home Medications and Allergies Home Medications Medication Instructions Recorded Confirmed Type atorvastatin 80 mg tablet 80 mg PO DAILY #30 tabs 03/23/19 07/03/23 Rx nitroglycerin 0.4 mg sublingual 0.4 mg sublingual DIRECTED PRN 03/23/19 07/03/23 Rx tablet emily
[2023-07-17] VITALS (8 sets, daily range): BP systolic 98–117; BP diastolic 51–74; PULSE 71–81; RESP 14–18; TEMP 36.2–36.3; O2SAT 93–100
--- NOTE | ~2023-07-17 | XR_ITS ---
EXAMINATION: XR retrograde pyelo w/stent RT DATE: 07/17/2023 09:56 INDICATION: Right kidney stones. TECHNIQUE: 53 intraoperative fluoroscopic views of the abdomen and pelvis were obtained. I was not pr esent. Fluoroscopy exposure time was 80 seconds. COMPARISON: CT abdomen and pelvis 06/20/2023 FINDINGS: The right internal ureteral stent was removed. There are stones in the right kidney. A righ t-sided retrograde pyelogram was performed. IMPRESSION: 1. Right kidney stones. Reviewed, dictated and finalized at location A. IMPRESSION: 1. Right kidney stones.
--- NOTE | 2023-07-17 06:20 | WPDHPUPDATE1 ---
History and Physical Update Update Date/Time: 07/17/23 06:20 History and Physical has been reviewed, including an updated exam of the patient. There are NO changes in the patient's condition. Risks, benefits, and alternatives have been discussed and questions answered. Patient agrees to proceed with procedure.
[2023-07-17] MEDS: LACTATED RINGERS 1,000 ML 30 ML IV CONT ×2 (07:00→10:35)
[2023-07-17 07:39] LABS: INR 2.4; Prothrombin Time 28.1 Seconds (11.1-14.7)
[2023-07-17 07:41] LABS: Partial Thromboplastin Time 42.7 Seconds (22.3-36.8)
--- NOTE | 2023-07-17 07:56 | SUR.PREOP ---
INR ptt PT ARE ELEVATED. DR DAVEY AWARE. OK TO PROCEED.
--- NOTE | 2023-07-17 08:05 | WPDANESEPPF ---
Anes - Initial Pre Proc Eval Procedure: Operation Date: 07/17/23 09:00 Proposed Procedures p Cystoscopy, Right Ureteroscopy, Right Stone Extraction, Possible Right Retrograde Pyelogram, Right Stent Replacement, Holmium Laser Lithotripsy - Jas Durán MD Date/Time: 07/17/23 08:05 Surgeon: Jas Durán MD Pre Op Diagnosis: Mult Right Renal Stones Patient Data Age: 67 Gender: M Height: 1.73 m Weight: 121.1 kg Last Vital Signs Temp 36.2 C L 07/17/23 07:00 Pulse 81 07/17/23 07:00 Resp 14 07/17/23 07:00 BP 99/51 L 07/17/23 07:00 Pulse Ox 99 07/17/23 07:00 O2 Del Method Room Air 07/17/23 07:00 Allergies Allergy/AdvReac Type Severity Reaction Status Date / Time hydromorphone [From Dilaudid] Allergy Hives Verified 07/17/23 07:50 WILL Inhibitors AdvReac Intermediate Cough Verified 07/17/23 07:50 lisinopril AdvReac Intermediate Cough Verified 07/17/23 07:50 Sulfa (Sulfonamide AdvReac Mild Rash Verified 07/17/23 07:50 Antibiotics) Home Medications Medication Instructions Recorded Confirmed Type atorvastatin 80 mg tablet 80 mg PO DAILY #30 tabs 03/23/19 07/03/23 Rx nitroglycerin 0.4 mg sublingual 0.4 mg sublingual DIRECTED PRN 03/23/19 07/03/23 Rx tablet chest pain #25 tabs ascorbic acid (vitamin C) 500 mg 500 mg PO DAILY 05/21/19 07/03/23 History tablet sacubitril 49 mg-valsartan 51 mg 1 tablet PO BID 10/30/21 07/03/23 History tablet (Entresto) warfarin 2 mg tablet See Rx Instructions .Route .COMPLEX 10/30/21 07/17/23 History Ultra CoQ10 100 mg PO DAILY 05/16/22 07/03/23 History furosemide 40 mg tablet 40 mg PO BID #60 tabs 07/19/22 07/03/23 Rx fexofenadine 60 mg tablet (Rosemarie 60 mg PO DAILY 08/15/22 07/03/23 History Allergy) potassium chloride 10 mEq 10 meq PO 3XW 08/15/22 07/03/23 History capsule,extended release ezetimibe 10 mg tablet 10 mg PO DAILY 10/16/22 07/03/23 History aspirin 81 mg tablet,delayed 81 mg PO QAM #30 tabs 12/26/22 07/03/23 Rx release ferrous sulfate 325 mg (65 mg 325 mg PO DAILY 05/01/23 07/03/23 History iron) tablet zolpidem 10 mg tablet 10 mg PO .QHS PRN insomnia #30 tabs 05/12/23 07/03/23 Rx albuterol sulfate 90 mcg/actuation 2 puff inhalation QID PRN 05/14/23 07/03/23 Rx aerosol inhaler shortness of breath or wheezing #8 grams fluticasone propionate 230 2 puff inhalation BID #12 grams 05/14/23 07/03/23 Rx mcg-salmeterol 21 mcg/actuation HFA inhaler (Advair HFA) finasteride 5 mg tablet 5 mg PO DAILY #90 tabs 05/19/23 07/03/23 Rx isosorbide mononitrate 30 mg 30 mg PO QAM #90 tabs 05/26/23 07/17/23 Rx tablet,extended release 24 hr omeprazole 40 mg capsule,delayed 40 mg PO DAILY #30 caps 05/29/23 07/03/23 Rx release diclofenac sodium 1 % topical gel See Rx Instructions .Route 06/15/23 07/03/23 Rx .COMPLEX #100 grams tamsulosin 0.4 mg capsule (Flomax) 0.4 mg PO DAILY #10 caps 06/20/23 07/03/23 Rx metoprolol succinate 25 mg See Rx Instructions .Route .COMPLEX 06/21/23 07/17/23 History tablet,extended release 24 hr warfarin 1 mg tablet See Rx Instructions .Route .COMPLEX 06/21/23 07/03/23 History hydrocodone 5 mg-acetaminophen 325 1 tablet PO Q6H #20 tabs 06/30/23 07/03/23 Rx mg tablet ondansetron HCl 4 mg tablet 4 mg PO Q4H PRN nausea and 06/30/23 07/03/23 Rx vomiting #20 tabs spironolactone 25 mg tablet 25 mg PO QAM 07/03/23 07/03/23 History Laboratory Tests 07/17/23 06:45 PT 28.1 H Seconds (11.1-14.7) INR 2.4 APTT 42.7 H Seconds (22.3-36.8) Patient hx anesthesia problems: none Family hx anesthesia problems: none Results Review: All pre-operative results and documents have been reviewed as part of the pre-operative evaluation. [facility] Past Medical History Medical History Benign prostatic hyperplasia Bowel obstruction Calculus of kidney Chronic anemia Chronic back pain Colon cancer screening Congestiv
[2023-07-17] MEDS: ceFAZolin 3 GM/D5W 100 ML 100 ML IVPB (08:56)
[2023-07-17] MEDS: LIDOCAINE HCL 2% GEL UROJET 10 ML PKG MUCOUS MEM (09:17)
--- NOTE | 2023-07-17 10:12 | W.PM.PROC2 ---
Procedure Note - Detailed Date of Procedure 07/17/23 Pre-op Diagnosis Mult Right Renal Stones Post-op Diagnosis Same Procedure Performed Cystoscopy, right ureteroscopy with laser lithotripsy, stone extraction, retrograde pyelogram and stent replacement Surgeon Jas Durán MD Anesthesia General Description of Procedure patient is brought to the operative suite where he is prepped draped in routine sterile fashion while in dorsal lithotomy position after the uneventful induction of a general anesthetic. Nineteen F rigid cystoscope was placed in his bladder in the tip of the indwelling stent is brought to the external urethral meatus. A 0.035 in glidewire was advanced into the right renal pelvis. The distal ureter was dilated with an 8 F 10 F dilator and a 11 F/ 13 F ureteral access sheath was placed. Ureteroscopy was undertaken with a 7.5 F flexible ureteral scope. Retrograde pyelography was performed to ensure careful inspection of all calices. He has a collection of stones in the upper pole calyx and another in the lower pole. There are no identifiable ureteral stones. Using a 200 micron Alex laser fiber a dusting procedure was performed on these collection of stones. All fragments appeared to be less than 3 mm. Any larger fragments removed with a 1.9 F disposable stone basket. A 4.8 F ureteral stent was replaced. The patient tolerated the procedure well was taken recovery room good condition Drains Yes Packing No Pathology Yes Complications No immediate complications
[2023-07-17] MEDS: KETOROLAC 30 MG/ML VIAL (*BKC) IV PUSH (10:13)
[2023-07-17] MEDS: fentaNYL CITRATE INJ (*CRX) 100 MCG/2 ML VIAL 25 MCG IV PUSH ×8 (10:31→11:32)
[2023-07-17] MEDS: ACETAMINOPHEN 325 MG TABLET 650 MG PO (11:25)
== END 2023-07-17 12:00 | disposition home or self-care (01) ==
PROVIDERS: Anesthesiology; PCP Family Medicine; Visit Provider Urology
PROC: (CPT 52352; principal; 2023-07-17 09:00)
DX: N20.0 Calculus of kidney (principal); N40.0 Benign prostatic hyperplasia without lower urinary tract symptoms; K56.609 Unspecified intestinal obstruction, unspecified as to partial versus complete obstruction; D64.9 Anemia, unspecified; G89.29 Other chronic pain; M54.9 Dorsalgia, unspecified; I25.10 Atherosclerotic heart disease of native coronary artery without angina pectoris; I11.0 Hypertensive heart disease with heart failure; I50.9 Heart failure, unspecified; F32.A Depression, unspecified; E78.5 Hyperlipidemia, unspecified; I25.9 Chronic ischemic heart disease, unspecified; G47.33 Obstructive sleep apnea (adult) (pediatric); R73.03 Prediabetes; I25.2 Old myocardial infarction; R32 Unspecified urinary incontinence; E66.01 Morbid (severe) obesity due to excess calories; Z68.41 Body mass index [BMI] 40.0-44.9, adult; Z79.01 Long term (current) use of anticoagulants; Z79.82 Long term (current) use of aspirin; Z79.51 Long term (current) use of inhaled steroids; Z79.891 Long term (current) use of opiate analgesic; Z99.89 Dependence on other enabling machines and devices; Z98.890 Other specified postprocedural states; Z96.0 Presence of urogenital implants; Z95.5 Presence of coronary angioplasty implant and graft; Z80.3 Family history of malignant neoplasm of breast; Z80.41 Family history of malignant neoplasm of ovary; Z82.49 Family history of ischemic heart disease and other diseases of the circulatory system
CPT/HCPCS: 52356; 36415; 74420; 82365; 85610; 85730; 88300; A9270; C1769; C1894; C2617; J0690; J1100; J1885; J2250; J2405; J2704; J3010; J7120; Q9966

== ENCOUNTER 2023-07-25 08:08 | Outpatient (CLI) | payer MEDICARE, OTHER, SELFPAY ==
--- NOTE | ~2023-07-25 | XR_ITS ---
XR abdomen/kub 1V 07/25/2023 08:24 Indication: Kidney stones. Abdomen pain. Procedure: KUB Comparison: Comparison to multiple prior studies sequentially, with oldest reviewed study dated 05/14. Findings: Bowel gas pattern is nonspecific. Moderate gas is present in the small bowel and colon whic h may reflect ileus. There is right internal ureteral stent in expected position. There are bilateral renal stones. There are pacemaker leads. Impression: 1: Nonspecific bowel gas pattern, suspicious for ileus. 2: Bilateral nephrolithiasis. Right internal ureteral stent in expected position. Reviewed, dictated and finalized at location B. Impression: 1: Nonspecific bowel gas pattern, suspicious for ileus. 2: Bilateral nephrolithiasis. Right internal ureteral stent in expected positi on.
== END 2023-07-25 08:09 | disposition home or self-care (01) ==
LOC: ANHIMG 08:10
PROVIDERS: PCP Family Medicine; Visit Provider Urology
DX: N20.0 Calculus of kidney (principal)
CPT/HCPCS: 74018

== ENCOUNTER 2023-08-04 13:52 | Outpatient (CLI) | payer MEDICARE, OTHER, SELFPAY ==
--- NOTE | ~2023-08-04 | XR_ITS ---
3 VIEWS LUMBAR SPINE Ordering provider: Sarahi Roth MD History: . M54.50 - Low back pain, FALL X2 WKS AGO, GENERAL PAIN . Comparison: None. FINDINGS: VERTEBRAL BODIES: No visible fracture or subluxation. DISK SPACES: Narrowing of the disc L5-S1. Slight narrowing of the disc L3-L4. Facet joint disease at the level of L4-L5 and L5-S1. SOFT TISSUES: Normal. IMPRESSION: No acute osseous abnormality lumbar spine. Reviewed, dictated and finalized at location A.
--- NOTE | ~2023-08-04 | XR_ITS ---
XR hip RT 2V w AP pelvis 08/04/2023 14:23 INDICATION: Right hip pain PROCEDURE: AP pelvis and 2 views right hip COMPARISON: No prior studies FINDINGS: Fracture, dislocation or subluxation is not identified. Pelvic rings are intact. The soft t issues appear within normal limits. No foreign bodies are identified. IMPRESSION: 1: NO ACUTE BONE OR JOINT ABNORMALITY IDENTIFIED. Reviewed, dictated and finalized at location B.
== END 2023-08-04 13:53 | disposition home or self-care (01) ==
LOC: ANHIMG 13:53
PROVIDERS: PCP Family Medicine; Visit Provider Family Medicine
DX: M25.551 Pain in right hip (principal); M54.50 Low back pain, unspecified
CPT/HCPCS: 72110; 73502

== ENCOUNTER 2023-09-04 12:42 | Outpatient (CLI) | payer MEDICARE, OTHER, SELFPAY ==
--- NOTE | ~2023-09-04 | XR_ITS ---
XR abdomen/kub 1V 09/04/2023 13:01 Indication: Bilateral renal stones Procedure: KUB Comparison: Comparison to multiple prior studies sequentially, with oldest reviewed study dated 05/31. Findings: There are bilateral renal stones which are partially obscured by bowel content. Bowel gas p attern is nonspecific, although no definite obstruction is seen. Cardiomegaly. There are prostate neelam cifications. There is a pacemaker lead in the right ventricle. Impression: 1: Bilateral nephrolithiasis. Kidneys partially obscured by bowel content. Reviewed, dictated and finalized at location B. Impression: 1: Bilateral nephrolithiasis. Kidneys partially obscured by bowel content.
== END 2023-09-04 12:43 | disposition home or self-care (01) ==
PROVIDERS: PCP Family Medicine; Visit Provider Urology
DX: N20.0 Calculus of kidney (principal)
CPT/HCPCS: 74018

== ENCOUNTER 2023-10-07 13:48 | Outpatient (CLI) | payer MEDICARE, OTHER, SELFPAY ==
--- NOTE | ~2023-10-07 | XR_ITS ---
XR abdomen obstructive series Ordering provider: Sarahi Roth MD History: . abdominal pain, BLOATING, DISTENTION . Comparison: September 04, 2023 FINDINGS: BOWEL: Distended large bowel. Follow-up to exclude early obstruction advised. Nonobstructive bowel ga s pattern. ORGANOMEGALY: None. SIGNIFICANT PATHOLOGIC CALCIFICATIONS: Left renal stones with possible stones in the right kidney. Pr ostatic calcifications. OTHER: No free air is seen under the diaphragm. IMPRESSION: NO ACUTE ABDOMINAL FINDINGS. Bilateral renal stones. Reviewed, dictated and finalized at location A.
== END 2023-10-07 13:49 | disposition home or self-care (01) ==
PROVIDERS: PCP Family Medicine; Visit Provider Family Medicine
DX: R10.9 Unspecified abdominal pain (principal); N20.0 Calculus of kidney
CPT/HCPCS: 74019

== ENCOUNTER 2023-10-15 14:09 | Outpatient (CLI) | payer MEDICARE, OTHER, SELFPAY ==
--- NOTE | ~2023-10-15 | CT_ITS ---
EXAMINATION: CT abdomen pelvis w con DATE: 10/15/2023 14:46 INDICATION: Unspecified abdominal pain. TECHNIQUE: Computed tomography (CT) of the abdomen and pelvis was performed with 100 mL Omnipaque 350 intravenous contrast. Automated exposure control and iterative reconstruction technique were employe d. The dose-length product was 1463.86 mGy-cm. COMPARISON: CT abdomen and pelvis 06/20/2023 FINDINGS: The visualized portions of the lung bases and show minimal atelectasis in left lower lobe. A calcified left lung nodule and calcified left hilar lymph nodes are consistent with old granulomato us disease. No pleural effusion. The heart is normal. 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 There is a pacer wires in right ventricle. No pericardial effusion. The liver and gallbladder are normal. The spleen, pancreas, and adrenal glands are normal. There are seven stones in right kidney measuring up to 8 mm. There is a 9 mm stone in right ureter wh ere it crosses the iliac vessels. There are cysts in the kidneys measuring up to 17 mm on the left. T here are greater than 10 stones in left kidney measuring up to 11 mm. There is diverticulosis of the colon without evidence of diverticulitis. There are changes of appendectomy. There are no pathologica lly enlarged lymph nodes. There is no ascites. There is severe lumbar spondylosis. IMPRESSION: 1. 9 mm stone in mid right ureter. No hydronephrosis. 2. Bilateral nonobstructing kidney stones. Reviewed, dictated and finalized at location A.
== END 2023-10-15 14:10 | disposition home or self-care (01) ==
PROVIDERS: PCP Family Medicine; Visit Provider Family Medicine
DX: N20.2 Calculus of kidney with calculus of ureter (principal)
CPT/HCPCS: 74177; Q9967

== ENCOUNTER 2023-10-21 08:49 | Outpatient (CLI) | payer MEDICARE, OTHER, SELFPAY ==
[2023-10-21 09:48] LABS: INR 1.9; Partial Thromboplastin Time 34.6 Seconds (22.3-36.8); Prothrombin Time 21.9 Seconds (11.1-14.7)
== END 2023-10-21 08:50 | disposition home or self-care (01) ==
PROVIDERS: Anesthesiology; PCP Family Medicine; Visit Provider Urology
DX: Z01.818 Encounter for other preprocedural examination (principal); Z79.01 Long term (current) use of anticoagulants
CPT/HCPCS: 36415; 85610; 85730

== ENCOUNTER 2023-10-23 02:55 | Day surgery (SDC) | payer MEDICARE, OTHER, SELFPAY ==
[2023-10-17 14:54] VITALS: BMI 40.8
--- NOTE | 2023-10-17 15:13 | PC.NURSE ---
Report to the Outpatient Waiting Room, entrance under the green pavilion located off [facility], at time _11:15am_on date 10/23/23 . Planned Procedure Time: ___1:15pm .? Time changes happen often and if your time is changed the preop area will call you the afternoon before. - You and your visitor will be asked to self-screen and do not enter if you have any COVID symptoms. Please call surgeon if you need to reschedule. - A mask is optional within the hospital at this time. Patients may have clear liquids (water, carbonated beverages, clear teas, apple juice) until 3 hours prior to surgery ( 10:15am) with a maximum of 20 ounces. - No food from midnight until time of surgery and no smoking Take only the following medications with a SIP of water on the morning of surgery: ___Metoprolol. May take Hydrocodone or Tylenol as needed for pain. DO NOT STOP ANY OF YOUR OTHER PRESCRIPTION MEDICATIONS PRIOR TO SURGERY EXCEPT THE FOLLOWING Medications to discontinue per physician Pt is to HOLD ASA & Coumadin per Dr Durán Instructions, Pt to call today to get instructions. _ Date to take last dose___per Dr Durán. Pt to hold all vitamins, supplements, Probiotics, and herbs for 3 days prior to surgery per Anesthesia. Date to take last dose is 10/19/23 Please no make-up, nail malay, hairspray, perfume, deodorant, or body powder the day of surgery.? No jewelry (including any body piercings) or valuables the day of surgery, leave them at home.? Please take a shower or bath the night before, or the morning of, surgery with an antibacterial soap.? Wear comfortable, loose fitting clothing.? Children are encouraged to wear pajamas. - Jewelry must be removed prior to entering the operating room.? Rings and piercings that are not removed may be cut off. - The hospital will not accept responsibility for valuables.? - Please leave all valuables, including medications, at home the day of surgery. If you are going home after surgery, a licensed milk wagon driver must drive you home.? - NO public transportation without another adult if you receive anesthesia. - We recommend that an adult stay with you for 24 hours following discharge. - We also recommend that you do not drive, make important decision, drink alcoholic beverages, or take any drugs that were not prescribed by your health care provider for at least 24 hours after your discharge time. Follow any additional instructions given to you from your surgeon. Telephone instructions given to __patient__and asked if any additional questions and then verbalized understanding. Patient advised to call surgeon office or pre surgery nurse liaison [phone] if any additional questions.
[2023-10-23] VITALS (8 sets, daily range): BP systolic 93–116; BP diastolic 62–70; PULSE 63–71; RESP 12–18; TEMP 36.2–36.7; O2SAT 91–100; BMI 41.9
--- NOTE | ~2023-10-23 | XR_ITS ---
EXAMINATION: XR stent kub - surgery DATE: 10/23/2023 10:35 INDICATION: Right internal ureteral stent placement TECHNIQUE: Fluoroscopic images from a right internal ureteral stent placement are submitted for matty jaimes 68 seconds of fluoroscopy time. 5 fluoroscopic images FINDINGS: There is a right double-J internal ureteral stent projecting in expected position, with proximal [place] loop at the level of the renal pelvis and distal loop in the pelvis within the bladder lumen. IMPRESSION: 1. Right internal ureteral stent placement. Please refer to real-time procedural findings for taty colon. Reviewed, dictated and finalized at location B. IMPRESSION: 1. Right internal ureteral stent placement. Please refer to real-time procedu ral findings for details.
--- NOTE | 2023-10-23 01:01 | WPDHPUPDATE1 ---
History and Physical Update Update Date/Time: 10/23/23 01:01 History and Physical has been reviewed, including an updated exam of the patient. There are NO changes in the patient's condition. Risks, benefits, and alternatives have been discussed and questions answered. Patient agrees to proceed with procedure.
[2023-10-23] MEDS: LACTATED RINGERS 1,000 ML 30 ML IV CONT (08:30)
[2023-10-23 08:49] LABS: INR 1.8; Prothrombin Time 20.8 Seconds (11.1-14.7)
--- NOTE | 2023-10-23 08:53 | WPDANESEPPF ---
Anes - Initial Pre Proc Eval Procedure: Operation Date: 10/23/23 09:30 Proposed Procedures p Cystoscopy, Right Ureteroscopy, Possible Right Retrograde Pyelogram, Possible Right Stone Extraction, Possible Right Stent Placement, Possible Holmium Laser Procedure - Jas Durán MD Date/Time: 10/23/23 08:53 Surgeon: Jas Durán MD Pre Op Diagnosis: ureteral stone Patient Data Age: 67 Gender: M Height: 1.73 m Weight: 122 kg Allergies Allergy/AdvReac Type Severity Reaction Status Date / Time hydromorphone [From Dilaudid] Allergy Intermediate Hives Verified 10/17/23 14:44 WILL Inhibitors AdvReac Intermediate Cough Verified 10/17/23 14:44 lisinopril AdvReac Intermediate Cough Verified 10/17/23 14:44 Sulfa (Sulfonamide AdvReac Mild Rash Verified 10/17/23 14:44 Antibiotics) Home Medications Medication Instructions Recorded Confirmed Type atorvastatin 80 mg tablet 80 mg PO DAILY #30 tabs 03/23/19 10/17/23 Rx nitroglycerin 0.4 mg sublingual 0.4 mg sublingual DIRECTED PRN 03/23/19 10/17/23 Rx tablet chest pain #25 tabs ascorbic acid (vitamin C) 500 mg 500 mg PO DAILY 05/21/19 10/17/23 History tablet sacubitril 49 mg-valsartan 51 mg 1 tablet PO BID 10/30/21 10/17/23 History tablet (Entresto) warfarin 2 mg tablet See Rx Instructions .Route .COMPLEX 10/30/21 10/17/23 History Ultra CoQ10 100 mg PO DAILY 05/16/22 10/17/23 History furosemide 40 mg tablet 40 mg PO BID #60 tabs 07/19/22 10/17/23 Rx fexofenadine 60 mg tablet (Rosemarie 60 mg PO DAILY 08/15/22 10/17/23 History Allergy) potassium chloride 10 mEq 10 meq PO 3XW 08/15/22 10/17/23 History capsule,extended release ezetimibe 10 mg tablet 10 mg PO DAILY 10/16/22 10/17/23 History aspirin 81 mg tablet,delayed 81 mg PO QAM #30 tabs 12/26/22 10/17/23 Rx release ferrous sulfate 325 mg (65 mg 325 mg PO DAILY 05/01/23 10/17/23 History iron) tablet zolpidem 10 mg tablet 10 mg PO .QHS PRN insomnia #30 tabs 05/12/23 10/17/23 Rx finasteride 5 mg tablet 5 mg PO DAILY #90 tabs 05/19/23 10/17/23 Rx isosorbide mononitrate 30 mg 30 mg PO QAM #90 tabs 05/26/23 10/17/23 Rx tablet,extended release 24 hr diclofenac sodium 1 % topical gel See Rx Instructions .Route 06/15/23 10/17/23 Rx .COMPLEX #100 grams metoprolol succinate 25 mg See Rx Instructions .Route .COMPLEX 06/21/23 10/17/23 History tablet,extended release 24 hr warfarin 1 mg tablet See Rx Instructions .Route .COMPLEX 06/21/23 10/17/23 History ondansetron HCl 4 mg tablet 4 mg PO Q4H PRN nausea and 06/30/23 10/17/23 Rx vomiting #20 tabs spironolactone 25 mg tablet 25 mg PO QAM 07/03/23 10/17/23 History docusate sodium 100 mg capsule 100 mg PO BID #100 caps 08/04/23 10/17/23 Rx (Colace) inulin 2 gram chewable tablet 1 g PO BID #100 tabs 08/04/23 10/17/23 Rx (Fiber Gummies) hydrocodone 5 mg-acetaminophen 325 1 tablet PO Q6H #30 tabs 10/06/23 10/17/23 Rx mg tablet omeprazole 40 mg capsule,delayed 40 mg PO DAILY #30 caps 10/16/23 10/17/23 Rx release Laboratory Tests 10/23/23 07:59 PT 20.8 H Seconds (11.1-14.7) INR 1.8 Patient hx anesthesia problems: none Family hx anesthesia problems: none Results Review: All pre-operative results and documents have been reviewed as part of the pre-operative evaluation. [facility] Past Medical History Medical History Benign prostatic hyperplasia Bowel obstruction Calculus of kidney Chronic anemia Chronic back pain Colon cancer screening Colon, diverticulosis Congestive heart failure 09/05 echo: ef 25% Constipation Coronary artery disease Cough due to WILL inhibitor Depression Eczema Essential hypertension Gallstones GERD (gastroesophageal reflux disease) History of angina History of bladder infections Hyperlipidemia Ischemic cardiomyopathy Kidney stones Nausea Obesity Obstructive sleep apnea on CPAP Obstructive sleep apnea on CPAP Osteoa
--- NOTE | 2023-10-23 09:17 | PM.HPGS ---
History of Present Illness History of Present Illness Consent: Risks, benefits, and alternatives have been discussed and questions answered. Patient agrees to proceed with procedure. Chief complaint: ureteral stone Narrative: Go Morrow is a 67 year old male his recurrent stone former, recently developed a and somewhat atypical intermittent right flank and abdominal pain. CT imaging by his primary care physician showed an obstructing 9 mm mid ureteral calculus on the right. His stones were difficult to visualize on plain imaging so we have opted for ureteroscopy with laser lithotripsy, stone extraction possible stent placement Review of Systems Review of Systems: All systems reviewed & are unremarkable except as noted in HPI and below PMFSH Past Medical History Medical History Benign prostatic hyperplasia Bowel obstruction Calculus of kidney Chronic anemia Chronic back pain Colon cancer screening Colon, diverticulosis Congestive heart failure 09/05 echo: ef 25% Constipation Coronary artery disease Cough due to WILL inhibitor Depression Eczema Essential hypertension Gallstones GERD (gastroesophageal reflux disease) History of angina History of bladder infections Hyperlipidemia Ischemic cardiomyopathy Kidney stones Nausea Obesity Obstructive sleep apnea on CPAP Obstructive sleep apnea on CPAP Osteoarthritis Prediabetes ST elevation (STEMI) myocardial infarction ST elevation myocardial infarction (STEMI) of anterior wall (~03/2019) Status post drug-eluting stent to the proximal LAD. Urinary incontinence UTI (urinary tract infection) Surgical History Surgical History H/O hand surgery History of appendectomy History of coronary artery stent placement History of renal stent Hx of lithotripsy S/P trigger finger release Family History Family History Mother Hypertension Family history of malignant neoplasm of breast in first degree relative Family history of malignant neoplasm of ovary Father Pacemaker Social History Social History Social History: The patient is and lives in [place], [place] with his . He has no children. 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 He designates his , Concepción Nunes, as his surrogate decision maker and he wishes to be a full code. He Smoking status: Never smoker Second hand tobacco smoke exposure: No Alcohol intake: never Substance use: never Substance use type: does not use Do You Feel Safe in your Home?: Yes Lack of Transportation: No Lack of Food: Never True Current Housing: I Have Housing Concerned About Future Housing: Decline to Answer Difficulty Paying Gas/Electric Bills: Decline to Answer Difficulty Paying for Meds: Decline to Answer Currently Unemployed: Decline to Answer Education: Decline to Answer Difficulty w/ Childcare or Family Care: Decline to Answer Living arrangements: with family Additional living arrangements comments: Occupation/Education: occupation Gender identity (if verbalized by the patient): Male Sexual Orientation (if Verbalized by the Patient): Straight or Heterosexual Spiritual care concerns: No Agree to blood products: Yes Meds Home Medications and Allergies Home Medications Medication Instructions Recorded Confirmed Type atorvastatin 80 mg tablet 80 mg PO DAILY #30 tabs 03/23/19 10/17/23 Rx nitroglycerin 0.4 mg sublingual 0.4 mg sublingual DIRECTED PRN 03/23/19 10/17/23 Rx tablet chest pain #25 tabs ascorbic acid (vitamin C) 500 mg 500 mg PO DAILY 05/21/19 10/17/23 History tablet sacubitril 49 mg-valsartan 51 mg 1 tablet PO BID 10/30/21 10/17/23 History tablet (Entre
[2023-10-23] MEDS: ceFAZolin 3 GM/D5W 100 ML 100 ML IVPB (09:26)
[2023-10-23] MEDS: LIDOCAINE HCL 2% GEL UROJET 10 ML PKG MUCOUS MEM (09:49)
--- NOTE | 2023-10-23 10:28 | W.PM.PROC2 ---
Procedure Note - Detailed Date of Procedure 10/23/23 Pre-op Diagnosis Right ureteral stone Post-op Diagnosis Same Procedure Performed Cystoscopy, right ureteroscopy with laser lithotripsy, extraction large role mid ureteral stone, right ureteral stent placement Surgeon Jas Durán MD Anesthesia General Description of Procedure patient brought to the operative suite where he was prepped draped in routine sterile fashion while in dorsal lithotomy position after the uneventful induction of a general LMA anesthetic. Cystoscopy undertaken with a 19 F rigid cystoscope. He has moderate lateral lobe hyperplasia of the prostate with a very small median lobe. Bladder slightly trabeculated. There was no intravesical foreign body or neoplasm. He has a single orthotopic ureteral orifice bilaterally. A 0.035 in glidewire was advanced in the right renal pelvis under fluoroscopy. The distal ureter was dilated with an 8 F 10 F dilator and a 11 F /13 F ureteral access sheath was placed. Ureteroscopy undertaken with a 7.5 F flexible ureteral scope. He has a very large right mid ureteral stone. Using a 200 micron Alex laser with ureteral settings I fractured the stone into small pieces and removed all pieces with a 1.9 F disposable stone basket. I placed 4.8 F variable length ureteral stent with the proximal coil in the renal pelvis and distal coil bladder. Scopes wires removed he was taken recovery room good condition Drains Yes Packing No Pathology Yes Complications No immediate complications Condition Stable
[2023-10-23] MEDS: ONDANSETRON INJ 4 MG/2 ML VIAL IV PUSH (10:55)
[2023-10-23] MEDS: fentaNYL CITRATE INJ (*CRX) 100 MCG/2 ML VIAL 25 MCG IV PUSH ×3 (11:01→11:18)
[2023-10-23] MEDS: oxyCODONE HCL (*CRX) 5 MG TAB IR PO (11:50)
--- NOTE | 2023-10-23 12:37 | SUR.PHASEII ---
1230 MEETS ANESTHESIA DISCHARGE CRITERIA. DRESSED & WAITING FOR A RIDE HOME.
== END 2023-10-23 12:40 | disposition home or self-care (01) ==
PROVIDERS: Anesthesiology; PCP Family Medicine; Visit Provider Urology
PROC: (CPT 52352; principal; 2023-10-23 09:30)
DX: N20.1 Calculus of ureter (principal); N40.0 Benign prostatic hyperplasia without lower urinary tract symptoms; D64.9 Anemia, unspecified; I11.0 Hypertensive heart disease with heart failure; I50.9 Heart failure, unspecified; I25.10 Atherosclerotic heart disease of native coronary artery without angina pectoris; F32.A Depression, unspecified; K21.9 Gastro-esophageal reflux disease without esophagitis; E78.5 Hyperlipidemia, unspecified; I25.5 Ischemic cardiomyopathy; G47.33 Obstructive sleep apnea (adult) (pediatric); I25.2 Old myocardial infarction; R73.03 Prediabetes; E66.01 Morbid (severe) obesity due to excess calories; Z68.41 Body mass index [BMI] 40.0-44.9, adult; Z79.01 Long term (current) use of anticoagulants; Z79.82 Long term (current) use of aspirin; Z95.5 Presence of coronary angioplasty implant and graft
CPT/HCPCS: 52356; 36415; 82365; 85610; 88300; A9270; C1769; C1894; C2617; J0690; J1100; J2405; J2704; J3010; J7120

== ENCOUNTER 2024-01-09 11:30 | Outpatient (CLI) | payer MEDICARE, OTHER, SELFPAY ==
--- NOTE | ~2024-01-09 | XR_ITS ---
EXAMINATION: XR abdomen/kub 1V DATE: 01/09/2024 12:03 INDICATION: Bilateral kidney stones. TECHNIQUE: A supine view of the abdomen on 2 radiographs was obtained. COMPARISON: Abdomen radiographs 10/07/2023, CT abdomen and pelvis 10/15/23 FINDINGS: There are dilated loops of small bowel. The colon is normal in caliber. There is a moderate volume of stool in the colon. The kidneys are obscured by bowel. There is a 6 mm stone in right kidn ey. There are multiple stones in left kidney measuring up to 7 mm. There is a pacer wire in the heart . IMPRESSION: 1. Bilateral kidney stones. 2. Dilated small bowel, consistent with adynamic ileus versus small bowel obstruction. Reviewed, dictated and finalized at location A. 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 Bilateral kidney stones. 2. Dilated small bowel, consistent with adynamic ileus versus small bowel obstr uction.
== END 2024-01-09 11:31 | disposition home or self-care (01) ==
PROVIDERS: PCP Family Medicine; Visit Provider Urology
DX: N20.0 Calculus of kidney (principal)
CPT/HCPCS: 74018

== ENCOUNTER 2024-04-21 13:12 | Emergency (ER) | payer MEDICARE, OTHER, SELFPAY ==
[2024-04-21 13:27] VITALS: BP 92/54; PULSE 83; RESP 18; TEMP 36.3; O2SAT 100
[2024-04-21 13:50] LABS: EDUAAPPEAR Cloudy; EDUABILI Negative (Negative); EDUABLOOD 2+ (Negative); EDUACOLOR1 Dark; EDUAGLUCOSE Negative (Negative); EDUAKETONE Negative (Negative); EDUALEUKO 3+ (Negative); EDUANITRATE Positive (Negative); EDUAPROTEIN Negative (Negative); EDUAUROBILI 0.2
--- NOTE | 2024-04-21 14:06 | ED.GENADULT ---
HPI - General Adult General Chief complaint: Urogenital-Male Stated complaint: blood in urine Source: patient Mode of arrival: ambulatory Limitations: no limitations History of Present Illness HPI narrative: Patient presents for evaluation of urinary symptoms. Symptom onset approximately 2-3 days ago. Reports mild dysuria and hematuria with bilateral low back pain. He has a history of urinary tract infections and this feels similar. No fever, chills, urinary hesitancy, decreased force of urinary stream, frequency, or incomplete emptying. He indicates he does take finasteride for BPH and is also anticoagulated with Coumadin. He had his INR checked approximately 30 minutes ago. He has an upcoming appointment with Urology. He tried calling them to see if he can get a sooner appointment but there is not one available. Related Data Home Medications ?Medication ?Instructions ?Recorded ?Confirmed ?Last Taken ?Type ascorbic acid (vitamin C) 500 mg 500 mg PO DAILY 05/21/19 03/12/24 3 Days Ago History tablet ~10/20/23 sacubitril 49 mg-valsartan 51 mg 1 tablet PO BID 10/30/21 03/12/24 10/22/23 History tablet (Entresto) warfarin 2 mg tablet See Rx Instructions .Route .COMPLEX 10/30/21 03/12/24 10/22/23 History Ultra CoQ10 100 mg PO DAILY 05/16/22 03/12/24 3 Days Ago History ~10/20/23 fexofenadine 60 mg tablet (Rosemarie 60 mg PO DAILY 08/15/22 03/12/24 3 Days Ago History Allergy) ~10/20/23 potassium chloride 10 mEq 10 meq PO 3XW 08/15/22 03/12/24 10/20/23 History capsule,extended release ezetimibe 10 mg tablet 10 mg PO DAILY 10/16/22 03/12/24 10/22/23 History ferrous sulfate 325 mg (65 mg 325 mg PO DAILY 05/01/23 03/12/24 3 Days Ago History iron) tablet ~10/20/23 warfarin 1 mg tablet See Rx Instructions .Route .COMPLEX 06/21/23 03/12/24 10/22/23 History spironolactone 25 mg tablet 25 mg PO QAM 07/03/23 03/12/24 10/22/23 History Allergies Allergy/AdvReac Type Severity Reaction Status Date / Time hydromorphone (From Dilaudid) Allergy Intermediate Hives Verified 04/21/24 13:32 adhesive tape Allergy Mild Rash Verified 04/21/24 13:32 Sulfa (Sulfonamide Allergy Mild Rash Verified 04/21/24 13:32 Antibiotics) WILL Inhibitors AdvReac Intermediate Cough Verified 04/21/24 13:32 lisinopril AdvReac Intermediate Cough Verified 04/21/24 13:32 Review of Systems Review of Systems: CONSTITUTIONAL: Denies fever, chills, or sweats. EYES: Denies visual changes, redness, or discharge. ENT: Denies rhinorrhea, congestion, sore throat, or otalgia. CARDIOVASCULAR: Denies chest pain, palpitations, or edema. RESPIRATORY: Denies cough or dyspnea. GASTROINTESTINAL: Denies abdominal pain, nausea, vomiting, or diarrhea. GENITOURINARY: reports mild dysuria with hematuria. SKIN: Denies rash or itching. MUSCULOSKELETAL: Reports bilateral low back pain. Denies joint pain, or myalgia. NEUROLOGIC: Denies headache, numbness, dizziness, or weakness. PSYCHIATRIC: Denies anxiety or depression. [facility] Past Medical History Medical History Bloating Irritable bowel syndrome with constipation Colon, diverticulosis Constipation GERD (gastroesophageal reflux disease) Bowel obstruction Colon cancer screening Nausea Prediabetes Depression Obstructive sleep apnea on CPAP Cough due to WILL inhibitor Ischemic cardiomyopathy Chronic anemia Benign prostatic hyperplasia Essential hypertension ST elevation myocardial infarction (STEMI) of anterior wall (~03/2019) Status post drug-eluting stent to the proximal LAD. Coronary artery disease Congestive heart failure 09/05 echo: ef 25% Osteoarthritis Calculus of kidney Eczema UTI (urinary tract infection) History of angina Gallstones Urinary incontinence Obesity Hyperlipidemia Obstructive sleep apnea on CPAP History of bladder infections Chronic back pain Kidney stones ST elevation (STEMI) myocardial infarction Surgical History Surgical History History of renal stent History of coronary artery stent placement Hx of lithotripsy S/P trigger finger release History of appendectomy H/O hand surgery Family History Family History Mother Hypertension Family history of malignant neoplasm of breast in first degree relative Family history of malignant neoplasm of ovary Father Pacemaker Social History Social History Social History: The patient is and lives in [place], [place] with his . He has no children. 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 He designates his , Concepción Nunes, as his surrogate decision maker and he wishes to be a full code. He Smoking status: Never smoker Second hand tobacco smoke exposure: No Alcohol intake: never Substance use: never Substance use type: does not use Do You Feel Safe in your Home?: Yes Lack of Transportation: No Lack of Food: Never True Current Housing: I Have Housing Concerned About Future Housing: Decline to Answer Difficulty Paying Gas/Electric Bills: Decline to Answer Difficulty Paying for Meds: Decline to Answer Currently Unemployed: Decline to Answer Education: Decline to Answer Difficulty w/ Childcare or Family Care: Decline to Answer Living arrangements: with family Additional living arrangements comments: Occupation/Education: occupation Gender identity (if verbalized by the patient): Male Sexual Orientation (if Verbalized by the Patient): Straight or Heterosexual Spiritual care concerns: No Agree to blood products: Yes Exam Narrative: GENERAL: Well-appearing, well-nourished, and in no acute distress. HEAD: Normocephalic, atraumatic. EYES: PERRLA and EOMI. ENT: Nares clear, no rhinorrhea or epistaxis. Mucous membranes moist. Oropharynx without tonsillar hypertrophy exudate or other lesions. Bilateral TMs pearly stock nonbulging NECK: Supple. No adenopathy or masses. No carotid bruits or JVD CHEST: Clear to auscultation. No respiratory distress. No wheezes rales or rhonchi HEART: Regular rate and rhythm. No murmur heard. Normal peripheral pulses. ABDOMEN: Soft, nontender, nondistended, normal active bowel sounds. BACK: No CVA tenderness EXTREMITIES: Normal range of motion. No edema. SKIN: Warm, dry, no rash. NEURO: No focal deficits. Alert and oriented x3. PSYCH: Normal mood and affect. Course Course Emergency Course: This is a 68-year-old male who presented for evaluation of urinary symptoms. He has nitrite positive urine. He has no unilateral flank pain to suggest kidney stone. BPH likely contributory to recurrent infections. I recommended he call his urologist for a follow-up appointment. Will discharge with Cipro. I did advise that this could interact with his Coumadin and cause alterations in coagulation times. None the less, this would be first-line therapy for complicated urinary tract infection. I recommended he call his primary care provider to determine when they would like to check his INR again. He assures me he has taken Cipro in the past and done well with it. He appears quite well clinically. He will follow-up with his urologist and primary care doctor. He was advised to go to the hospital in the event that he has worsening hematuria, bleeding at other anatomical sites, or worsening symptoms. He is in agreement with plan of care. Level of Care: Express Care Visit Vital Signs Vital signs: Vital Signs Temperature 36.3 C L 04/21/24 13:27 Pulse Rate 83 04/21/24 13:27 Respiratory Rate 18 04/21/24 13:27 Blood Pressure 92/54 L 04/21/24 13:27 Pulse Oximetry 100 04/21/24 13:27 Oxygen Delivery Room Air 04/21/24 13:27 Temperature 36.3 C L 04/21/24 13:27 Pulse Rate 83 04/21/24 13:27 Respiratory Rate 18 04/21/24 13:27 Blood Pressure 92/54 L 04/21/24 13:27 Pulse Oximetry 100 04/21/24 13:27 Oxygen Delivery Room Air 04/21/24 13:27 Medical Decision Making Vital Signs Vital Signs: Vital Signs Temperature 36.3 C L 04/21/24 13:27 Pulse Rate 83 04/21/24 13:27 Respiratory Rate 18 04/21/24 13:27 Blood Pressure 92/54 L 04/21/24 13:27 Pulse Oximetry 100 04/21/24 13:27 Oxygen Delivery Room Air 04/21/24 13:27 Temperature 36.3 C L 04/21/24 13:27 Pulse Rate 83 04/21/24 13:27 Respiratory Rate 18 04/21/24 13:27 Blood Pressure 92/54 L 04/21/24 13:27 Pulse Oximetry 100 04/21/24 13:27 Oxygen Delivery Room Air 04/21/24 13:27 Lab Data Labs: Lab Results 04/21/24 Range/Units 13:47 POC Urine Color Dark POC Urine Clarity Cloudy POC Urine pH 6.0 POC Ur Specif [place] 1.020 POC Urine Protein Negative (Negative) POC Ur Glucose (UA) Negative (Negative) POC Urine Ketones Negative (Negative) POC Urine Blood 2+ (Negative) POC Urine Nitrite Positive (Negative) POC Urine Bilirubin Negative (Negative) POC Urine Urobilinogen 0.2 POC U Leukocyte Esteras 3+ (Negative) Discharge Plan Discharge Clinical Impression: Acute UTI Patient Disposition: Home, Self-Care Condition: Stable Instructions: Antibiotic Form, Urinary Tract Infection in Men (ED) Additional Instructions: THE ANTIBIOTIC YOU ARE RECEIVING TODAY MAY IMPACT YOUR COAGULATION STUDIES THEY PERTAIN TO COUMADIN USE PLEASE CALL YOUR PRIMARY CARE PROVIDER TO DETERMINE IF THEY WOULD LIKE TO CHANGE WHEN YOU HAVE YOUR NEXT PTT/INR CHECKED IF YOU HAVE PERSISTENT BLOOD IN THE URINE OR HAVE BLEEDING ELSEWHERE, PLEASE GO IMMEDIATELY TO THE EMERGENCY DEPARTMENT Patient Language: Jamaican Prescriptions: New ciprofloxacin HCl [Cipro] 500 mg tablet 500 mg PO Q12H Qty: 14 0RF No Action ascorbic acid (vitamin C) 500 mg tablet 500 mg PO DAILY warfarin 2 mg tablet See Rx Instructions .ROUTE .COMPLEX Rx Instructions: 2 mg Every day except friday. ON TUESDAYS 1 1MG TAB + 2MG =3MG TOTAL Entresto 49-51 mg tablet 1 tablet PO BID ezetimibe 10 mg tablet 10 mg PO DAILY omeprazole 40 mg capsule,delayed release(DR/EC) 40 mg PO DAILY Qty: 30 12RF Linzess 72 mcg capsule 72 mcg PO QAM Qty: 30 5RF furosemide 40 mg tablet 80 mg PO BID Qty: 120 0RF hydrocodone-acetaminophen 5-325 mg tablet 1 - 2 tablet PO Q6H PRN (Reason: pain) Qty: 20 0RF potassium chloride 10 mEq capsule, extended release 10 meq PO 3XW Rx Instructions: -- fexofenadine [Rosemarie Allergy] 60 mg tablet 60 mg PO DAILY Fiber Gummies 2 gram tablet,chewable 1 g PO BID Qty: 100 3RF ferrous sulfate 325 mg (65 mg iron) tablet 325 mg PO DAILY atorvastatin 80 mg tablet 80 mg PO DAILY Qty: 30 3RF nitroglycerin 0.4 mg tablet, sublingual 0.4 mg SUBLINGUAL DIRECTED PRN (Reason: chest pain) Qty: 25 3RF Rx Instructions: 1 tablet sublingual Q 5 minutes x3 doses p.r.n. chest pain If no relief call 911 Ultra CoQ10 100 mg PO DAILY warfarin 1 mg Tablet See Rx Instructions .ROUTE .COMPLEX Rx Instructions: Friday TAKES 1MG TAB + 2MG =3MG spironolactone 25 mg tablet 25 mg PO QAM aspirin 81 mg tablet,delayed release (DR/EC) 81 mg PO QAM Qty: 30 11RF finasteride 5 mg tablet 5 mg PO DAILY Qty: 90 3RF docusate sodium [Colace] 100 mg capsule 100 mg PO BID Qty: 100 4RF metoprolol succinate 25 mg tablet extended release 24 hr See Rx Instructions .ROUTE .COMPLEX Qty: 180 3RF Rx Instructions: TAKE 1 TAB IN AM AND 1/2 TAB AT HS isosorbide mononitrate 30 mg tablet extended release 24 hr 30 mg PO QAM Qty: 90 1RF ondansetron HCl 4 mg tablet 4 mg PO Q4H PRN (Reason: nausea and vomiting) Qty: 20 0RF diclofenac sodium 1 % gel See Rx Instructions .ROUTE .COMPLEX Qty: 100 3RF Dose Instruction: APPLY 2 GRAMS TOPICALLY TO RIGHT ELBOW FOUR TIMES DAILY Rx Instructions: APPLY 2 GRAMS TOPICALLY TO RIGHT ELBOW FOUR TIMES DAILY zolpidem 10 mg tablet 10 mg PO .QHS PRN (Reason: insomnia) Qty: 30 2RF Follow-up/Referrals: Sarahi Roth MD [Primary Care Provider] - Time of Disposition: 13:50
--- OUTSIDE RECORDS SUMMARY | 2024-04-21 14:38 | XMS_ITS | Patient Health Summary ---
Author Organization [facility] Address [address] [place] [address] Care Team Providers Care Scoring Machine Operator Name Role Phone Sarahi Roth MD Primary Care Provider [phone] Note from [facility],non-owned Affiliates and Associated Physician Practices is amultiple site organization consisting of ambulatory clinics and hospital sitesin [place], [place], [place] and [place]. This disclosure is being madepursuant to the Care Everywhere program and may not contain all information available regarding this patient. Last updated 17.[facility] Allergies * Evelio Inhibitors(Cough) -Low Criticality * Advair Diskus(Other) -Low Criticality * Dapagliflozin(Other) -Low Criticality * Sulfa Drugs(Rash) -Medium Criticality Medications * Be aware that medications may not be up to date on this document. Alwaysverify current medications with the patient. * ascorbic acid (VITAMIN C) 500 MG tablet Take 1 (one) tablet by mouth once daily * finasteride (PROSCAR) 5 MG tablet(Started 08/23/2018) Take 1 (one) tablet by mouth once daily 1 refill left * nitroGLYCERIN (NITROSTAT) 0.4 MG tablet(Started 03/23/2019) Dissolve 1 (one) tablet under the tongue every 5 minutes as needed * metoprolol succinate XL 24hr (TOPROL XL) 25 MG tablet(Started 03/23/2019) Take 1 (one) tablet by mouth once daily * atorvastatin (LIPITOR) 80 MG tablet(Started 03/23/2019) Take 1 (one) tablet by mouth at bedtime * ASPIRIN LOW DOSE 81 MG(Started 03/23/2019) Take 1 (one) tablet by mouth once * Ergocalciferol (VITAMIN D2) 50 MCG (2000 UT) Take 1 tablet by mouth once daily * fexofenadine (GLORY) 180 MG tablet Take 1 (one) tablet by mouth once daily * zolpidem (AMBIEN) 10 MG tablet(Started 02/15/2020) Take 1 (one) tablet by mouth nightly as needed INSOMNIA * spironolactone (ALDACTONE) 25 MG tablet(Started 08/03/2019) Take 1 (one) tablet by mouth once daily * ENTRESTO 24-26 MG tablet(Started 01/27/2020) Take 1 (one) tablet by mouth once daily * isosorbide mononitrate CR 24hr (IMDUR) 30 MG tablet(Started 01/23/2020) Take 1 (one) tablet by mouth once daily * furosemide (LASIX) 80 MG tablet(Started 10/26/2019) Take 1 (one) tablet by mouth once daily * warfarin (COUMADIN) 2 MG tablet(Started 04/04/2021) Take 1 (one) tablet by mouth once daily * CPAP Use 1 Dose as directed * acetaminophen (TYLENOL) 500 MG tablet Take 1 (one) tablet by mouth every 4 hours as needed for Fever or Pain Maximum allowable Acetaminophen amount = 4 Grams (4000 mg) / 24 hours. * HYDROcodone-acetaminophen (Siren) 5-325 MG tablet(Started 06/22/2022) Take 1 (one) tablet by mouth once daily * potassium chloride ER 10 MEQ tablet(Started 05/15/2022) Take 1 (one) tablet by mouth once daily * omeprazole (PriLOSEC) 40 MG capsule(Started 06/07/2022) Take 1 (one) capsule by mouth once daily * diclofenac sodium (Voltaren) 1 % gel(Started 03/22/2022) Apply 2 (two) g to affected area as directed * Coenzyme Q10 (Ubidecarenone) POWD Take 1 Dose by mouth once daily * clotrimazole-betamethasone (Lotrisone) 1-0.05 % cream(Started 04/03/2023) Apply to affected area 2 times daily * albuterol HFA (Proventil; Ventolin; Proair) 108 (90 Base) MCG/ACT inhaler (Started 06/06/2023) Inhale 2 (two) puffs by mouth every 4 hours as needed * docusate sodium (Colace) 100 MG capsule(Started 09/28/2023) Take 1 (one) capsule by mouth 2 times daily * ezetimibe (Zetia) 10 MG tablet(Started 08/15/2023) Take 1 (one) tablet by mouth once daily * ferrous sulfate EC 325 (65 Fe) MG tablet Take 1 (one) tablet by mouth 3 times daily with meals * Fiber Select Gummies CHEW(Started 09/06/2023) Take 2 (two) tablets by mouth once daily * Advair HFA 230-21 MCG/ACT(Started 06/19/2023) Inhale 2 (two) puffs by mouth 2 times daily * ondansetron (Zofran) 4 MG tablet(Started 06/30/2023) Take 1 (one) tablet by mouth every 4 hours as needed FOR NAUSEA AND VOMITING Active Problems Problem Noted Date Diagnosed Date LVH (left ventricular hypert rophy) due to hypertensive disease, without heart failure 01/13/2018 AIDAN (obstructive sleep apnea) 01/13/2018 Bilateral lower extremity edema 12/08/2017 CALHOUN (dyspnea on exertion) 12/08/2017 Hypertension 12/08/2017 Mixed hyperlipidemia 12/08/2017 Mixed conductive and sensorineural hearing loss 01/26/2015 Sensorineural hearing loss 01/26/2015 Premature beats 04/12/2014 Resolved Problems Problem Noted Date Diagnosed Date Resolved Date Impacted cerumen of both ears 11/30/2015 06/02/2017 Immunizations * INFLUENZA VACCINE(Given 11/15/2019) * Pneumococcal Pcv13 Conj(Given 11/23/2019) Social History Tobacco Use Types Packs/Day Years Used Date Smoking Tobacco: Never Smokeless Tobacco: Never Tobacco Cessation:Counseling Given: Not Answered Alcohol Use Standard Drinks/Week Comments No 0 (1 standard drink = 0.6 oz pur e alcohol) Sex and Gender Information Value Date Recorded Sex Assigned at Not on file Gender Identity Not on file Sexual Orientation Not on file Last Filed Vital Signs Vital Sign Reading Time Taken Comments Blood Pressure 93/65 10/14/2023 11:45 AM CDT Pulse 80 10/14/2023 11:45 AM CDT Temperature 37 C (98.6 F) 06/07/2021 1:09 PM CDT Respiratory Rate 14 11/30/2015 1:56 PM CDT Oxygen Saturation - - Inhaled Oxygen Concentration - - Weight 125.6 kg (277 lb) 10/14/2023 11:45 AM CDT Height 175.3 cm (5' 9 ) 10/14/2023 11:45 AM CDT Body Mass Index 40.91 10/14/2023 11:45 AM CDT Procedures * PROC CERUMEN REMOVAL(Performed 10/14/2023) Performed for Excessive cerumen in both ear canals, Ear itching * DE EAR MICROSCOPY EXAMINATION(Performed 04/03/2023) Performed for Excessive cerumen in both ear canals, Sensorineural hearing loss (SNHL) of both ears,Otorrhea of right ear, Ear itching * PROC CERUMEN REMOVAL(Performed 07/18/2022) Performed for Excessive cerumen in both ear canals * AUDIOLOGY/TYMPANOMETRY ORDER(Performed 08/23/2021) * DE REMOVE CERUMEN IMPACTED W INSTR JOHANNA(Performed 04/01/2019) Performed for Sensorineural hearing loss, unilateral, Bilateral impacted cerumen * DE REMOVE CERUMEN IMPACTED W INSTR JOHANNA(Performed 10/15/2018) Performed for Bilateral impacted cerumen * DE REMOVE CERUMEN IMPACTED W INSTR JOHANNA(Performed 04/03/2018) Performed for Bilateral impacted cerumen * DERMATOPATHOLOGY(Performed 03/10/2015) Results * PROC CERUMEN REMOVAL (10/14/2023 12:34 PM CDT) Narrative Ehsan Portillo MD - 10/14/2023 12:34 PM CDT Ehsan Portillo MD 10/14/2023 12:35 PM Indication: Excessive Cerumen Impaction Procedure: Micro-otoscopy - DE REMOVE CERUMEN IMPACTED W INSTR: [[id number] JOHANNA] Procedure Note: Verbal consent for the procedure was obtained. Patient was placed under the ear microscope and bilateral ear(s) examined. All cerumen and excess hair was removed using a combination of cerumen loops, suction,and alligator forceps. Normal Findings: After the cerumen was removed, the ear canal was normal and the tympanic membrane on the left had normal landmarks and mobility. The right had normal landmarks and mobility. Abnormalities: minimal wax, much improved skin, no flaking or cracking Ehsan Portillo MD Ehsan Portillo MD PROCEDURE/MINOR SURG ICAL ORDERABLES * DE EAR MICROSCOPY EXAMINATION (04/03/2023 12:37 PM SPONGE PACKER) Narrative Ehsan Portillo MD - 04/03/2023 12:37 PM SPONGE PACKER Ehsan Portillo MD 04/03/2023 1:23 PM Procedure Note Microscopic exam of the ear(s) Verbal consent obtained. Procedure in detail: The binocular operating microscope and and ear speculum were used to exam the ear(s). Instrumentation including suction, alligator forceps, throat ear instruments were used to remove wax or debris from the ear canal or the surface of the TM or middle ear space. Findings: Mild excoriation to the skin in the lateral part of the left ear canal medial part of the ear canal and TM is normal. Left ear has some tenderness to the lateral part of the ear canal otherwise normal. Condition: Stable. The patient tolerated this procedure with minimal to no discomfort. Complications: None I was present for the entirety of the procedure. Ehsan Portillo MD PROCEDURE/MINOR SURG ICAL ORDERABLES * PROC CERUMEN REMOVAL (07/18/2022 2:57 PM CDT) Narrative David Dewey - 07/18/2022 2:57 PM CDT David Dewey 07/18/2022 3:17 PM Indication: Excessive Cerumen Impaction Procedure: Micro-otoscopy - DE REMOVE CERUMEN IMPACTED W INSTR: [[id number]] Procedure Note: Verbal consent for the procedure was obtained. Patient was placed under the ear microscope and bilateral ear(s) examined. All cerumen and excess hair was removed using a combination of cerumen loops, suction,and alligator forceps. Normal Findings: After the cerumen was removed, the ear canal was normal and the tympanic membrane on the left had normal landmarks and mobility. The right had normal landmarks and mobility. Abnormalities: Minimal-moderate amount of wax in the lateral aspect of the canal bilaterally. Ehsan Portillo MD Ehsan Portillo MD PROCEDURE/MINOR SURG ICAL ORDERABLES * AUDIOLOGY/TYMPANOMETRY ORDER (08/23/2021 11:44 AM CDT) Bre Morris [facility] AUDIOLOGY SERVICES ORDERABLES * DE REMOVE CERUMEN IMPACTED W INSTR JOHANNA (04/01/2019 2:07 PM SPONGE PACKER) Ehsan Almaguer MD - 04/01/2019 2:07 PM SPONGE PACKER Ehsan Portillo MD 04/01/2019 2:07 PM See procedure note in the progress note from this date Ehsan Portillo MD PROCEDURE/MINOR SURG ICAL ORDERABLES * DE REMOVE CERUMEN IMPACTED W INSTR JOHANNA (10/15/2018 2:15 PM CDT) Narrative Puder, Monika D - 10/15/2018 2:15 PM CDT Puder, Monika D 10/15/2018 4:10 PM See procedure note in the progress note from this date. Ehsan Portillo MD PROCEDURE/MINOR SURG ICAL ORDERABLES * DE REMOVE CERUMEN IMPACTED W INSTR JOHANNA (04/03/2018 12:36 PM SPONGE PACKER) Narrative Puder, Monika D - 04/03/2018 12:36 PM SPONGE PACKER Puder, Monika D 04/03/2018 12:36 PM See procedure note in the progress note from this date. Ehsan Portillo MD PROCEDURE/MINOR SURG ICAL ORDERABLES * PATHOLOGY TISSUE FOR DERMATOLOGY (03/10/2015 12:00 AM SPONGE PACKER) Result CASE: [id number] PATIENT: ANIBLA MENDES PATHOLOGIC DIAGNOSIS: Superior glabella: FRAGMENTS OF EPIDERMIS (see microscopic description) CLINICAL DATA: R/O BCC, nevus, ISK. Check margins. GROSS DESCRIPTION: Received is one formalin filled container labeled with the patients name and designated superior glabella. The specimen consists of a shave biopsy measuring [id number]. The margin is inked green. Jar 0. MICROSCOPIC DESCRIPTION: There are fragments of squamous epithelium without evidence of epithelial dysplasia or malignancy. There is minimal dermis present for evaluation. Additional deeper sections were obtained and reviewed. Electronically signed out by Marta Miranda M.D. 03/14/2015 1:02:37PM [facility] DERMAT[facility] Comment: Performed at: Dermatopathology Laboratory [facility] - Department of Dermatology [address] [place] [address] 5th [place] [address] Phone number: [phone] FAX: [phone] 03/10/2015 03/13/2015 Kunal Conde MD LAB - PATHOLOGY/CYTO LOGY ORDERABLES [facility] [address] [place] [address], [facility] [phone] Care Teams Scoring Machine Operator Relationship Specialty Start Date End Date Sarahi Roth MD [address] [place] [address] PCP - General 06/07/21
--- OUTSIDE RECORDS SUMMARY | 2024-04-21 14:38 | XMS_ITS | Referral Summary ---
Author Organization [facility] Address [address] [place] [address] Care Team Providers Care It Help Desk Manager Name Role Phone Sarahi Roth MD Primary Care Provider [phone] Source Comments [facility],non-owned Affiliates and Associated Physician Practices is amultiple site organization consisting of ambulatory clinics and hospital sitesin [place] and [place]. This disclosure is being madepursuant to the Care Everywhere program and may not contain all information available regarding this patient. Last updated 17.[facility] Allergies Active Allergy Reactions Criticality Noted Date Comments Evelio Inhibitors Cough Low 07/13/2019 Advair Diskus Other Low 04/03/2021 Dapagliflozin Other Low 05/07/2021 Fungal infection Sulfa Drugs Rash Medium 01/26/2015 Medications * Be aware that medications may not be up to date on this document. Alwaysverify current medications with the patient. Medication Sig Dispensed Refills Start Date End Date Status ascorbic acid (VITAMIN C) 500 MG tablet Take 1 (one) tablet by mouth once daily Active finasteride (PROSCAR) 5 MG tablet Take 1 (one) tablet by mouth once daily 1 08/23/2018 Active nitroGLYCERIN (NITROSTAT) 0.4 MG tablet Dissolve 1 (one) tablet under the tongue every 5 minutes as needed 03/23/2019 Active metoprolol succinate XL 24hr (TOPROL XL) 25 MG tablet Take 1 (one) tablet by mouth once daily 03/23/2019 Active atorvastatin (LIPITOR) 80 MG tablet Take 1 (one) tablet by mouth at bedtime 03/23/2019 Active ASPIRIN LOW DOSE 81 MG Take 1 (one) tablet by mouth once 03/23/2019 Active Ergocalciferol (VITAMIN D2) 50 MCG (1999 UT) Take 1 tablet by mouth once daily Active fexofenadine (GLORY) 180 MG tablet Take 1 (one) tablet by mouth once daily Active zolpidem (AMBIEN) 10 MG tablet Take 1 (one) tablet by mouth nightly as needed INSOMNIA 02/15/2020 Active spironolactone (ALDACTONE) 25 MG tablet Take 1 (one) tablet by mouth once daily 08/03/2019 Active ENTRESTO 24-26 MG tablet Take 1 (one) tablet by mouth once daily 01/27/2020 Active isosorbide mononitrate CR 24hr (IMDUR) 30 MG tablet Take 1 (one) tablet by mouth once daily 01/23/2020 Active furosemide (LASIX) 80 MG tablet Take 1 (one) tablet by mouth once daily 10/26/2019 Active warfarin (COUMADIN) 2 MG tablet Take 1 (one) tablet by mouth once daily 04/04/2021 Active CPAP Use 1 Dose as directed Active acetaminophen (TYLENOL) 500 MG tablet Take 1 (one) tablet by mouth every 4 hours as needed for Fever or Pain Maximum allowable Acetaminophen amount = 4 Grams (4000 mg) / 24 hours. Active HYDROcodone-acetami nophen (Sharon) 5-325 MG tablet Take 1 (one) tablet by mouth once daily 06/22/2022 Active potassium chloride ER 10 MEQ tablet Take 1 (one) tablet by mouth once daily 05/15/2022 Active omeprazole (PriLOSEC) 40 MG capsule Take 1 (one) capsule by mouth once daily 06/07/2022 Active diclofenac sodium (Voltaren) 1 % gel Apply 2 (two) g to affected area as directed 03/22/2022 Active Coenzyme Q10 (Ubidecarenone) POWD Take 1 Dose by mouth once daily Active clotrimazole-betame thasone (Lotrisone) 1-0.05 % cream Apply to affected area 2 times daily 15 g 04/03/2023 Active albuterol HFA (Proventil; Ventolin; Proair) 108 (90 Base) MCG/ACT inhaler Inhale 2 (two) puffs by mouth every 4 hours as needed 06/06/2023 Active docusate sodium (Colace) 100 MG capsule Take 1 (one) capsule by mouth 2 times daily 09/28/2023 Active ezetimibe (Zetia) 10 MG tablet Take 1 (one) tablet by mouth once daily 08/15/2023 Active ferrous sulfate EC 325 (65 Fe) MG tablet Take 1 (one) tablet by mouth 3 times daily with meals Active Fiber Select Gummies CHEW Take 2 (two) tablets by mouth once daily 09/06/2023 Active Advair HFA 230-21 MCG/ACT Inhale 2 (two) puffs by mouth 2 times daily 06/19/2023 Active ondansetron (Zofran) 4 MG tablet Take 1 (one) tablet by mouth every 4 hours as needed FOR NAUSEA AND VOMITING 06/30/2023 Active Active Problems Problem Noted Date Diagnosed Date LVH (left ventricular hypert rophy) due to hypertensive disease, without heart failure 01/13/2018 AIDAN (obstructive sleep apnea) 01/13/2018 Bilateral lower extremity edema 12/08/2017 Overview (10/15/2018): Last Assessment & Plan: This could be a side effect from Norvasc. Maybe next visit after switching from Norvasc to losartan 25 mg daily. Patient does have grade 1 diastolic dysfunction however systolic function is normal. CALHOUN (dyspnea on exertion) 12/08/2017 Overview (10/15/2018): Last Assessment & Plan: At this time we will arrange for Lexiscan nuclear stress test to rule out ischemia. Hypertension 12/08/2017 Overview (10/15/2018): Hypertension Last Assessment & Plan: Blood pressure is controlled. Continue current treatment Mixed hyperlipidemia 12/08/2017 Overview (10/15/2018): Last Assessment & Plan: Continue simvastatin. Mixed conductive and sensorineural hearing loss 01/26/2015 Sensorineural hearing loss 01/26/2015 Premature beats 04/12/2014 Overview (10/15/2018): Premature beats Last Assessment & Plan: Frequent premature ventricular contractions. Normal LV systolic function on echocardiogram. Will obtain a stress test to rule out ischemia. Resolved Problems Problem Noted Date Diagnosed Date Resolved Date Impacted cerumen of both ears 11/30/2015 06/02/2017 Immunizations Name Administration Dates Next Due INFLUENZA VACCINE 11/15/2019 Pneumococcal Pcv13 Conj 11/23/2019 Social History Tobacco Use Types Packs/Day Years [...] Mass Index 40.91 10/14/2023 11:45 AM CDT Plan of Treatment Upcoming Encounters Date Type Department Care Team (Late st Contact Info) Description 10/12/2024 11:00 AM CDT Office Visit [facility] [facility], [place] [address] Ehsan Portillo MD [address] [place] [address] [place] [address] Care Teams It Help Desk Manager Relationship Specialty Start Date End Date Sraahi Roth MD [address] [place], [place] [id number] PCP - General 06/07/21
--- OUTSIDE RECORDS SUMMARY | 2024-04-21 14:38 | XMS_ITS | Referral Summary ---
Author Organization [facility] [address] Address [address] [place] [address] Care Team Providers Care Pattern Mechanic Name Role Phone Marion Randall MD Unavailable [phone] Sarahi Roth MD Primary Care Provider [phone] Encounters Date Type Department Care Team Description 04/21/2024 Telephone [place] [id number] [facility] [address] [place] [address] [place] [address] Roger Butler MD 03/29/2024 Anticoagulation Telephone Call [address] [place] [address] [place] [address] Roger Butler MD salvage determiner (current) use of anticoagulants (Primary Dx) 03/11/2024 Anticoagulation Telephone Call [address] [place] [address] [place] [address] Roger Butler MD salvage determiner (current) use of anticoagulants (Primary Dx) 03/09/2024 Telephone [place] [id number] [facility] [address]th [place] [address] [place] [address] Roger Butler MD 03/03/[address] [place] [address] [place] [address] Layton Lee MD 02/20/2024 Orders Only [address] [place] [address] [place] [address] Roger Butler MD [facility] (current) use of anticoagulants (Primary Dx) 02/12/2024 Anticoagulation Telephone Call [facility] Cardiology [facility] Office [address] [place] [address] Roger Butler MD [facility] (current) use of anticoagulants (Primary Dx) 02/06/2024 Orders Only [facility] Cardiology [facility] Building [address] [place] [address] Layton Lee MD from Last 3 Months Allergies Active Allergy Reactions Criticality Noted Date Comments Evelio Inhibitors Cough Low 08/31/2019 Dapagliflozin Other (See comments) Low 05/07/2021 Fungal infection Fungal infection Fluticasone Propion-Salmeterol Other (See comments) Low 04/03/2021 Lisinopril Cough Low 07/13/2019 Sulfa (Sulfonamide Antibiotics) Rash Medium Medications finasteride (PROSCAR) 5 mg tablet Take 1 tablet (5 mg total) by mouth every morning Active ascorbic acid (VITAMIN C) 500 mg tablet,chewable Take 1 tablet/chew tab (500 mg total) by mouth daily as needed Active nitroglycerin (NITROSTAT) 0.[address] 1 tablet (0.4 mg total) under the tongue every 5 (five) minutes as needed 0 Active UNABLE TO FIND CPAP Activ e acetaminophen (TYLENOL) 500 mg tablet Take 2 tablets (1,000 mg total) by mouth every 6 (six) hours as needed for pain Active ubidecarenone (ULTRA COQ10 ORAL) Take 1 tablet by mouth daily Active metoprolol XL (TOPROL-XL) 25 mg extended release tablet TAKE 1 AND 1/2 TABLETS BY MOUTH DAILY 135 tablet 1 1 Active aspirin 81 mg enteric coated tablet TAKE 1 TABLET BY MOUTH EVERY MORNING 90 tablet 2 1 Active isosorbide mononitrate ER (IMDUR) 30 mg 24 hr tablet Take 0.5 tablets (15 mg total) by mouth every morning 90 tablet 3 1 Active fexofenadine (GLORY) 180 mg tablet Active zolpidem (AMBIEN) 10 mg tablet Take 1 tablet (10 mg total) by mouth nightly as needed 2 Active diclofenac sodium (VOLTAREN) 1 % gel APPLY 2 GRAMS TOPICALLY TO RIGHT ELBOW FOUR TIMES DAILY 3 Active omeprazole (PriLOSEC) 40 mg capsule 3 Active HYDROcodone-acetam inophen (NORCO) 7.5-325 mg per tablet Take by mouth every 6 (six) hours as needed 3 Active ergocalciferol, vitamin D2, 10 mcg (400 unit) tablet Take by mouth Three times a week Active ferrous sulfate 325 mg (65 mg of elemental iron) tabletIndications: Iron Deficiency Anemia Take 1 tablet (65 mg of elemental iron total) by mouth 3 (three) times a day with meals Active atorvastatin (LIPITOR) 80 mg tabletIndications: Mixed hyperlipidemia TAKE 1 TABLET(80 MG) BY MOUTH DAILY 90 tablet 3 4 Active potassium chloride ER 10 mEq CR tablet TAKE 1 TABLET BY MOUTH FRIDAY, FRIDAY, FRIDAY ONLY DOSE DECREASED 05/31/2022 38 tablet 3 4 Active furosemide (LASIX) 40 mg tablet Take 1.5 tablets (60 mg total) by mouth 2 (two) times a day 270 tablet 3 4 Active spironolactone (ALDACTONE) 25 mg tablet TAKE 1 TABLET(25 MG) BY MOUTH DAILY 90 tablet 3 4 Active ezetimibe (ZETIA) 10 mg tabletIndications: Mixed hyperlipidemia TAKE 1 TABLET(10 MG) BY MOUTH DAILY 90 tablet 1 4 Active Entresto 49-51 mg tablet TAKE 1 TABLET BY MOUTH TWICE DAILY 180 tablet 3 4 Active warfarin (COUMADIN) 2 mg tablet TAKE 2 TABLETS(4 MG) BY MOUTH DAILY 180 tablet 3 4 Active Active Problems Problem Noted Date Diagnosed Date Peripheral vascular disease 01/21/2022 Left ventricular thrombus 10/01/2021 salvage determiner (current) use of anticoagulants 2021 Prediabetes 03/07/2020 Presence of stent in coronary artery 10/11/2019 Cardiomyopathy, ischemic 09/10/2019 Overview (09/10/2019): Added automatically from request for surgery [id number] Assessment & Plan (09/18/2019 10:56 AM CDT): S/p ICD implant, OK for home, post ICD activity restrictions Assessment & Plan (09/17/2019 2:17 PM CDT): S/p ICD implant Post procedure monitoring CXR, device interrogation in AM Activity restrictions L upper extremity Metabolic syndrome 08/31/2019 Assessment & Plan (09/17/2019 2:18 PM CDT): Noted, last A1c below threshold for dm diagnosis Chronic combined systolic and diastolic heart fa ilure 07/13/2019 Assessment & Plan (09/17/2019 2:18 PM CDT): Resume home regimen Pleural effusion 06/04/2019 Coronary artery disease invo lving [place] coronary artery of [place] heart without angina pectoris 05/24/2019 Dry cough 05/24/2019 Acute on chronic combined sy stolic and diastolic congestive heart failure 05/24/2019 AIDAN (obstructive sleep apnea) 01/13/2018 CALHOUN (dyspnea on exertion) 12/08/2017 Assessment & Plan (12/08/2017 8:33 AM CDT): At this time we will arrange for Lexiscan nuclear stress test to rule out ischemia. Hypertension 12/08/2017 Overview (12/08/2017): Hypertension Assessment & Plan (09/17/2019 2:18 PM CDT): Home meds- resume Assessment & Plan (12/08/2017 8:34 AM CDT): Blood pressure is controlled. Continue current treatment Bilateral lower extremity edema 12/08/2017 Assessment & Plan (12/08/2017 8:42 AM CDT): This could be a side effect from Norvasc. Maybe next visit after switching from Norvasc to losartan 25 mg daily. Patient does have grade 1 diastolic dysfunction however systolic function is normal. Mixed hyperlipidemia 12/08/2017 Assessment & Plan (12/08/2017 8:35 AM CDT): Continue simvastatin. Mixed conductive and sensorineural hearing loss 01/26/2015 Premature beats 04/12/2014 Overview (05/24/2016): Premature beats Assessment & Plan (12/08/2017 8:33 AM CDT): Frequent premature ventricular contractions. Normal LV systolic function on echocardiogram. Will obtain a stress test to rule out ischemia. Resolved Problems Problem Noted Date Diagnosed Date Resolved Date LVH (left ventricular hypert rophy) due to hypertensive disease, without heart failure 01/13/2018 05/24/2019 Social History Tobacco Use Types Packs/Day Years Used Date Smoking Tobacco: Never Smokeless Tobacco: Never Tobacco Cessation:Counseling Given: Not Answered Alcohol Use Standard Drinks/Week Comments No 0 (1 standard drink = 0.6 oz pur e alcohol) Sex and Gender Information Value Date Recorded Sex Assigned at Not on file Legal Sex Male 1:17 AM SAP TRAINER Gender Identity Not on file Sexual Orientation Not on file Last Filed Vital Signs Vital Sign Reading Time Taken Comments Blood Pressure 94/59 11/18/2023 1:35 PM CDT Pulse 83 11/18/2023 1:35 PM CDT Temperature 36.1 C (96.9 F) 07/30/2022 2:30 PM CDT Respiratory Rate 18 09/18/2019 8:55 AM CDT Oxygen Saturation 95% 11/18/2023 1:35 PM CDT Inhaled Oxygen Concentration - - Weight 125 kg (275 lb 9.6 oz) 11/18/2023 1:35 PM CDT Height 170.2 cm (5' 7 ) 11/18/2023 1:35 PM CDT Body Mass Index 43.17 11/18/2023 1:35 PM CDT Plan of Treatment Not on file Medical Devices Implanted Type Area Programming Engineer Device Identifier Shelf Expiration Date Model / Serial / Lot [employer] Chanel D150 Dynagen Enduralife Easyview Hf Perspectiv 5.37x7.36cm 1 [facility] - [id number] - [id number] Implanted:Qty: 1 on 09/17/2019 by Layton Lee MD at [facility] ICD Left: Chest Wall [employer] Chanel 07/29/2021 D150 / [id number] / Description:ICD GENERATOR [employer] Chanel 0672 Cavalier 4-Front 59cm Active Fixation Lead Icd - [id number] - [id number] Implanted:Qty: 1 on 09/17/2019 by Layton Lee MD at [facility] Lead Right: Heart [employer] Chanel 08/30/2021 0672 / [id number] / Description:RV LEAD Procedures Procedure Name Priority Date/Time Associated Diagnosis Comments PROTIME-INR Routine 03/26/2024 1:56 PM SAP TRAINER salvage determiner (current) use of anticoagulants PROTIME-INR Routine 03/10/2024 1:21 PM SAP TRAINER salvage determiner (current) use of anticoagulants PROTIME-INR Routine 02/09/2024 1:19 PM SAP TRAINER Left ventricular thrombus [facility] (current) use of anticoagulants DEVICE CHECK - REMOTE Routine 02/06/2024 2:51 AM SAP TRAINER from Last 3 Months Results * (ABNORMAL) Protime-INR (03/26/2024 1:56 PM SAP TRAINER) INR 2.8(H) [email or web address] [email or web address] Comment: Reference Range 0.9-1.1 Moderate-intensity Warfarin Therapy 2.0-3.0 Higher-intensity Warfarin Therapy 3.0-4.0 PT 28.4(H) 9.0 - 11.5 sec LIQUITYPaco Weinberg Comment: For additional information, please refer to http://education.Edfa3ly/faq/MVR359 (This link is being provided for informational/ educational purposes only.) Blood 03/26/2024 1:56 PM SAP TRAINER 03/26/2024 1:57 PM SAP TRAINER us Roger Butler MD LAB BLOOD ORDERABLES F inal Result [facility] [address] [place] [address] * (ABNORMAL) Protime-INR (03/10/2024 1:21 PM SAP TRAINER) INR 2.9(H) [facility] Weinberg Comment: Reference Range 0.9-1.1 Moderate-intensity Warfarin Therapy 2.0-3.0 Higher-intensity Warfarin Therapy 3.0-4.0 PT 28.6(H) 9.0 - 11.5 sec [facility] We[facility] Comment: For additional information, please refer to http://POPVOX.Edfa3ly/faq/ZLW559 (This link is being provided for informational/ educational purposes only.) Blood 03/10/2024 1:21 PM SAP TRAINER 03/10/2024 1:22 PM SAP TRAINER Roger Butler MD LAB BLOOD ORDERABLES F inal Result Performing Organization Address [facility] de Phone Number [facility] [address] [place] [address] * (ABNORMAL) Protime-INR (02/09/2024 1:19 PM SAP TRAINER) INR 2.5(H) [facility] We[facility] Comment: Reference Range 0.9-1.1 Moderate-intensity Warfarin Therapy 2.0-3.0 Higher-intensity Warfarin Therapy 3.0-4.0 PT 25.0(H) 9.0 - 11.5 sec [facility] We[facility] Comment: For additional information, please refer to http://POPVOX.Edfa3ly/faq/HUU747 (This link is being provided for informational/ educational purposes only.) Blood 02/09/2024 1:19 PM SAP TRAINER 02/09/2024 1:20 PM SAP TRAINER us Roger Butler MD LAB BLOOD ORDERABLES F inal Result Performing Organization Address [facility] Co de Phone Number [facility] [address] [place] [address] * DEVICE CHECK - REMOTE (02/06/2024 2:51 AM SAP TRAINER) Anatomical Region Laterality Modality Other 02/06/2024 2:51 AM SAP TRAINER Narrative 02/12/2024 5:22 PM SAP TRAINER Interpretation Summary: Battery and Leads (BL) Normal parameters noted on battery and lead(s) --- 12 years remaining (this is an estimate based on prior usage) Presenting Rhythm (AZ) Ventricular Sensing (VS) --- rate 70 Arrhythmic events (AE) Nonsustained VT event(s) identified --- One NS-SVT episode. Duration: 4 seconds. Rate: 185 Anticoagulation (AC) Anticoagulation is not clinically indicated Patient is not on anticoagulant therapy Transmission Information (TI) Device Summary Report Procedure Note Layton Lee MD - 02/12/2024 Interpretation Summary: Battery and Leads (BL) Normal parameters noted on battery and lead(s) --- 12 years remaining(this is an estimate based on prior usage) Presenting Rhythm (AZ) Ventricular Sensing (VS) --- rate 70 Arrhythmic events (AE) Nonsustained VT event(s) identified --- One NS-SVT episode. Duration: 4seconds. Rate: 185 Anticoagulation (AC) Anticoagulation is not clinically indicated Patient is not on anticoagulant therapy Transmission Information (TI) Device Summary Report Layton Lee MD [facility] PRO CEDURES Final Result from Last [address] [place] [address] [place] [address] BLUE ACCESS [facility] OPEN [place] [address] [employer] [facility] Advance Directives For more information, please contact: [phone] * Full Code (Latest Code Status on File) Date Activated Date Inactivated Comments 09/17/2019 9:04 AM 09/18/2019 3:36 PM Care Teams Pattern Mechanic Relationship Specialty Start Date End Date Sarahi Roth MD [address] [place] [address] PCP - General Family Medicine 04/03/21 Marion Randall MD [address] [place] [address] Consulting Physician Interventional Cardiology 07/15/19
--- OUTSIDE RECORDS SUMMARY | 2024-04-21 14:38 | XMS_ITS | Encounter Summary ---
Author Organization [facility] Address [address] [place] [address] Phone Care Team Providers Care Nub Card Tender Name Role Phone Marion Randall MD Unavailable [phone] Sarahi Roth MD Primary Care Provider [phone] Encounter Details Date Type Department Care Team (Late st Contact Info) Description 04/21/2024 Telephone [facility] Cardiology [address] [facility] 8th [place] [address] [place] [address] Roger Butler MD [address] [facility] [address] [place] [address] Social History Tobacco Use Types Packs/Day Years Used Date Smoking Tobacco: Never Smokeless Tobacco: Never Alcohol Use Standard Drinks/Week Comments No 0 (1 standard drink = 0.6 oz pur e alcohol) Sex and Gender Information Value Date Recorded Sex Assigned at Not on file Legal Sex Male 1:17 AM SIGNALS COLLECTION TECHNICIAN Gender Identity Not on file Sexual Orientation Not on file documented as of this encounter Miscellaneous Notes * Telephone Encounter - Misa Neal - 04/21/2024 2:33 PM CST Luke Pt went to urgent care in [place], [place] with [facility], pt has a UTI and was given [id number] mg taken every 12 hours, for 7 days, pt is wanting to know if this is ok to take, pt was told it could mess with his coumadin. Please call. ALS COLLECTION TECHNICIAN documented in this encounter Plan of Treatment Not on file documented as of this encounter Visit Diagnoses Not on filedocumented in this encounter Care Teams Nub Card Tender Relationship Specialty Start Date End Date Sarahi Roth MD [address] [facility] [address] [address] PCP - General Family Medicine 04/03/21 Marion Randall MD [address] [facility] [address] [place] [address] Consulting Physician Interventional Cardiology 07/15/19 documented as of this encounter
--- OUTSIDE RECORDS SUMMARY | 2024-04-21 14:38 | XMS_ITS | Clinical Summary ---
Author Organization [facility] Address [address] [place] [address] Care Team Providers Care Catering Cook Name Role Phone Sarahi Roth MD Primary Care Provider [phone] Source Comments [facility],non-owned Affiliates and Associated Physician Practices is amultiple site organization consisting of ambulatory clinics and hospital sitesin [place], [place], [place] and [place]. This disclosure is being madepursuant to the Care Everywhere program and may not contain all information available regarding this patient. Last updated 17.[facility] [place] Allergies Active Allergy Reactions Criticality Noted Date [...] mg) / 24 hours. Active HYDROcodone-acetami nophen (Mullen) 5-325 MG tablet Take 1 (one) tablet [...] INFLUENZA VACCINE 11/15/2019 Pneumococcal Pcv13 Conj 11/23/2019 Family History Medical History Relation Name Comments Anxiety Disorder Father Depression Father Mental Illness Father Anxiety Disorder Mother Cancer Mother Depression Mother Relation Name Status Comments Father Mother Social History Tobacco Use Types Packs/Day Years [...] Office Visit [facility] - ENT [address] [place] [address] Ehsan Portillo MD [address] [place] [address] [place] [address] Health Maintenance Due Date Last Done Comments COLOGUARD (AGES 45-75) - COL ON CA SCREENING 1957 COLON MONITORING 1957 COLONOSCOPY - COLON CA SCREENING 1957 CT COLONOGRAPHY - COLON CA SCREENING 1957 Colorectal Cancer Screening 1957 FIT - COLON CA SCREENING 1957 FLEX SIG - COLON CA SCREENING 1957 MEDICARE AWV 12 MONTHS 1957 HEPATITIS C SCREENING 12/03/1975 DTAP/TDAP/TD VACCINES (1 - Tdap) 1976 ZOSTER VACCINE (1 of 2) 12/08/2007 Respiratory Syncytial Virus (RSV) Vaccine Pt: or over 60 yrs (1 - Risk 60-74 years 1-dose series) 2017 SCREENING FOR DIABETES 04/02/2018 PNEUMOCOCCAL VACCINE 50+ (2 of 2 - PPSV23) 11/22/2020 11/23/2019 COVID-19 VACCINE (1 - 2023-2 5 season) 2023 INFLUENZA VACCINE (#1) 2023 11/15/2019 DEPRESSION SCREENING 02/18/2024 HEPATITIS B VACCINE Aged Out No longe r eligible based on patient's age to complete this topic HIB VACCINE Aged Out No longer eligi ble based on patient's age to complete this topic HPV VACCINE Aged Out No longer eligi ble based on patient's age to complete this topic MENINGOCOCCAL (Group B) VACCINE Aged Out No longer eligible based on patient's age to complete this topic MENINGOCOCCAL VACCINE Aged Out No nando sandra eligible based on patient's age to complete this topic Care Teams Catering Cook Relationship Specialty Start Date End Date Sarahi Roth MD [address] [place], [place] [id number] PCP - General 06/07/21
--- OUTSIDE RECORDS SUMMARY | 2024-04-21 14:38 | XMS_ITS | Clinical Summary ---
Author Organization [facility] [address] Address [address] [place] [address] Care Team Providers Care Salon Shampoo Assistant Name Role Phone Marion Randall MD Unavailable [phone] Sarahi Roth MD Primary Care Provider [phone] Allergies Active Allergy Reactions Criticality Noted Date [...] vascular disease 01/21/2022 Left ventricular thrombus 10/01/2021 USP (current) use of anticoagulants 2021 Prediabetes 03/07/2020 Presence of stent in coronary artery 10/11/2019 Cardiomyopathy, ischemic 09/10/2019 Overview (09/10/2019): Added automatically from request for surgery [id number] Assessment & Plan (09/18/2019 10:56 AM CDT): [...] effusion 06/04/2019 Coronary artery disease invo lving [place] coronary artery of [place] heart without angina pectoris 05/24/2019 Dry cough [...] hypertensive disease, without heart failure 01/13/2018 05/24/2019 Encounters Date Type Department Care Team Description 04/21/[address]th [place] [address] [place] [address] Roger Butler MD 03/29/2024 Anticoagulation Telephone Call [address] [place] [address] [place] [address] Roger Butler MD balance bridge assembler (current) use of anticoagulants (Primary Dx) 03/11/2024 Anticoagulation Telephone Call [address] [place] [address] [place] [address] Roger Butler MD USP (current) use of anticoagulants (Primary Dx) 03/09/[address] [place] [address] [place] [address] Roger Butler MD 03/03/[address] [place] [address] Layton Lee MD 02/20/2024 Orders Only [place] [address] [facility] 8th [place] [address] [place] [address] Roger Butler MD balance bridge assembler (current) use of anticoagulants (Primary Dx) 02/12/2024 Anticoagulation Telephone Call [facility] Cardiology [address] [facility] [address] [place] [address] Roger Butler MD USP (current) use of anticoagulants (Primary Dx) 02/06/2024 Orders Only [facility] Cardiology [address] [facility] [address] [place] [address] Layton Lee MD from Last 3 Months Surgical History Surgery Date Site/Laterality Comments APPENDECTOMY KIDNEY STONE SURGERY CARPAL TUNNEL RELEASE TRIGGER FINGER RELEASE CARDIAC CATHETERIZATION 03/21/2019 CORONARY ANGIOPLASTY 03/21/2019 Medical History Medical History Date Comments Hypertension Hypertension Hx Other Medical Sleep Apnea, CP AP Hyperlipidemia Obesity Pneumonia Sleep apnea Chronic bronchitis (HCC) Enlarged prostate Kidney stones H/O bladder infections Arrhythmia Urinary incontinence Back pain Coronary artery disease LVH (left ventricular hypert rophy) due to hypertensive disease, without heart failure 01/13/2018 Pre-diabetes Family History Medical History Relation Name Comments Heart disease Father pacemaker Father Breast cancer Mother Ovarian cancer Mother Family histor y of malignant neoplasm - (Added by TW Conv) Hypertension Other Family history of hypertension - (Added by TW Conv) Anesthesia problems Neg Hx Relation Name Status Comments Father Alive Mother (Age 63) Other Social History Tobacco Use Types Packs/Day Years Used Date Smoking Tobacco: Never Smokeless Tobacco: Never Tobacco Cessation:Counseling Given: Not Answered Alcohol Use Standard Drinks/Week Comments No 0 (1 standard drink = 0.6 oz pur e alcohol) Sex and Gender Information Value Date Recorded Sex Assigned at Not on file Legal Sex Male 1:17 AM CONCRETE ENGINEER Gender Identity Not on file Sexual Orientation Not on file Obstetrics History Last Filed Vital Signs Vital Sign Reading [...] 11/18/2023 1:35 PM CDT Plan of Treatment Health Maintenance Due Date Last Done Comments Colon Cancer Screening-Colonoscopy 1955 Depression Screening 1957 Hepatitis C Screening 1957 Prostate Cancer Screening-PSA 1957 Hepatitis B Screening 12/08/1975 Zoster Vaccine (1 of 2) 12/08/2007 Pneumococcal vaccine 65+ (2 of 2 - PPSV23) 01/18/2020 11/23/2019 Fall Risk Assessment 09/17/2020 09/18/2019 Well Visit 65+ 2022 Influenza Vaccine (#1) 2023 11/15/2019, 2017 DTaP/Tdap/Td Vaccine (3 - Td or Tdap) 10/30/2028, 06/03/2008 Medical Devices Implanted Type Area Air Traffic Control Equipment Repairer Device Identifier Shelf Expiration Date Model / Serial / Lot [employer] D150 Dynagen Enduralife Easyview Hf Perspectiv 5.37x7.36cm 1 Chamber - [id number] - [id number] Implanted:Qty: 1 on 09/17/2019 by Layton Lee MD at [facility] ICD Left: Chest Wall [employer] 07/29/2021 [id number] / [id number] / Description:ICD GENERATOR [employer] [address] [place] 4-Front 59cm Active Fixation Lead Icd - [id number] - [id number] Implanted:Qty: 1 on 09/17/2019 by Layton Lee MD at [facility] Lead Right: Heart [employer] 08/30/2021 [id number] / [id number] / Description:RV LEAD Procedures Procedure Name Priority Date/Time Associated Diagnosis Comments PROTIME-INR Routine 03/26/2024 1:56 PM CONCRETE ENGINEER USP (current) use of anticoagulants PROTIME-INR Routine 03/10/2024 1:21 PM CONCRETE ENGINEER USP (current) use of anticoagulants PROTIME-INR Routine 02/09/2024 1:19 PM CONCRETE ENGINEER Left ventricular thrombus USP (current) use of anticoagulants DEVICE CHECK - REMOTE Routine 02/06/2024 2:51 AM CONCRETE ENGINEER from Last 3 Months Results * (ABNORMAL) Protime-INR (03/26/2024 1:56 PM CONCRETE ENGINEER) INR 2.8(H) [facility] Comment: Reference Range 0.9-1.1 Moderate-intensity Warfarin Therapy 2.0-3.0 Higher-intensity Warfarin Therapy 3.0-4.0 PT 28.4(H) 9.0 - 11.5 sec [facility]S lisa Weinberg Comment: For additional information, please refer to [email or web address]/faq/EBX136 (This link is being provided for informational/ educational purposes only.) Blood 03/26/2024 1:56 PM CONCRETE ENGINEER 03/26/2024 1:57 PM CONCRETE ENGINEER Roger Butler MD LAB BLOOD ORDERABLES F inal Result [facility] [address] [place] [address] * (ABNORMAL) Protime-INR (03/10/2024 1:21 PM CONCRETE ENGINEER) INR 2.9(H) [facility] Comment: Reference Range 0.9-1.1 Moderate-intensity Warfarin Therapy 2.0-3.0 Higher-intensity Warfarin Therapy 3.0-4.0 PT 28.6(H) 9.0 - 11.5 sec [facility]-S lisa Weinberg Comment: For additional information, please refer to http://[email or web address]/faq/WCW617 (This link is being provided for informational/ educational purposes only.) Blood 03/10/2024 1:21 PM CONCRETE ENGINEER 03/10/2024 1:22 PM CONCRETE ENGINEER Roger Butler MD LAB BLOOD ORDERABLES F inal Result Performing Organization Address [facility] de Phone Number [facility] [address] [place] [address] * (ABNORMAL) Protime-INR (02/09/2024 1:19 PM CONCRETE ENGINEER) INR 2.5(H) [facility] Comment: Reference Range 0.9-1.1 Moderate-intensity Warfarin Therapy 2.0-3.0 Higher-intensity Warfarin Therapy 3.0-4.0 PT 25.0(H) 9.0 - 11.5 sec [facility] Comment: For additional information, please refer to http://education.JetSuite/faq/HYF936 (This link is being provided for informational/ educational purposes only.) Blood 02/09/2024 1:19 PM CONCRETE ENGINEER 02/09/2024 1:20 PM CONCRETE ENGINEER Roger Butler MD LAB BLOOD ORDERABLES F inal Result Performing Organization Address [facility] de Phone Number [facility] [address] [place] [address] * DEVICE CHECK - REMOTE (02/06/2024 2:51 AM CONCRETE ENGINEER) Anatomical Region Laterality Modality Other 02/06/2024 2:51 AM CONCRETE ENGINEER Narrative 02/12/2024 5:22 PM CONCRETE ENGINEER Interpretation Summary: Battery and Leads (BL) Normal parameters noted on battery and lead(s) --- 12 years remaining (this is an estimate based on prior usage) Presenting Rhythm (TN) Ventricular Sensing (VS) --- rate 70 Arrhythmic [...] estimate based on prior usage) Presenting Rhythm (TN) Ventricular Sensing (VS) --- rate 70 Arrhythmic events (AE) Nonsustained VT event(s) identified --- One NS-SVT episode. Duration: 4seconds. Rate: 185 Anticoagulation (AC) Anticoagulation is not clinically indicated Patient is not on anticoagulant therapy Transmission Information (TI) Device Summary Report Layton Lee MD [facility] PRO CEDURES Final Result from Last 3 Months Insurance MEDICARE [facility] Electronic Payment and Services (EPS) [facility] Address: [facility] [address] [place] [address] [place] [address] [facility]ICARE [facility] Advance Directives For more information, please contact: [phone] * Full Code (Latest Code Status on File) Date Activated Date Inactivated Comments 09/17/2019 9:04 AM 09/18/2019 3:36 PM Care Teams Salon Shampoo Assistant Relationship Specialty Start Date End Date Sarahi Roth MD [address] [id number] PCP - General Family Medicine 04/03/21 Marion Randall MD [address] [facility] [place] [address] Consulting Physician Interventional Cardiology 07/15/19
--- OUTSIDE RECORDS SUMMARY | 2024-04-21 14:38 | XMS_ITS | Encounter Summary ---
Author Organization [facility] Address [address] [place] [address] Phone Care Team Providers Care Payroll And Benefits Coordinator Name Role Phone Marion Randall MD Unavailable [phone] Sarahi Roth MD Primary Care Provider [phone] Encounter Details Date Type Department Care Team (Late st Contact Info) Description 10/19/2023 Anticoagulation - Ot her Visit (DOAC) [facility] Cardiology [address] [facility] [address] 8th [place] [address] [place] [address] Roger Butler MD [address] [facility] [address] [place] [address] Social History Tobacco Use Types Packs/Day Years Used Date Smoking Tobacco: Never Smokeless Tobacco: Never Alcohol Use Standard Drinks/Week Comments No 0 (1 standard drink = 0.6 oz pur e alcohol) Sex and Gender Information Value Date Recorded Sex Assigned at Not on file Legal Sex Male 1:17 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
== END 2024-04-21 13:54 | disposition home or self-care (01) ==
PROVIDERS: Emergency Provider Nurse Practitioner; PCP Family Medicine
DX: N39.0 Urinary tract infection, site not specified (principal); B96.20 Unspecified Escherichia coli [E. coli] as the cause of diseases classified elsewhere; I11.0 Hypertensive heart disease with heart failure; I50.9 Heart failure, unspecified; K21.9 Gastro-esophageal reflux disease without esophagitis; G47.33 Obstructive sleep apnea (adult) (pediatric); N40.0 Benign prostatic hyperplasia without lower urinary tract symptoms; I25.10 Atherosclerotic heart disease of native coronary artery without angina pectoris; E78.5 Hyperlipidemia, unspecified; R73.03 Prediabetes; E66.9 Obesity, unspecified; Z68.41 Body mass index [BMI] 40.0-44.9, adult; M19.90 Unspecified osteoarthritis, unspecified site; I25.2 Old myocardial infarction; Z95.5 Presence of coronary angioplasty implant and graft; I25.5 Ischemic cardiomyopathy
CPT/HCPCS: 81003; 87077; 87086; 87186; 99213; G0463

== ENCOUNTER 2024-05-06 09:21 | Outpatient (CLI) | payer MEDICARE, OTHER, SELFPAY ==
--- NOTE | ~2024-05-06 | US_ITS ---
US arterial ankle brachial ind INDICATION: Peripheral vascular disease TECHNIQUE: Segmental pressures and plethysmographic and Doppler waveforms of the brachial and lower e xtremity arteries were obtained. COMPARISON: None. FINDINGS: Right and left brachial artery pressures of 97 mm Hg and 94 mm Hg, respectively, are concordant (norm al difference <= 30 mmHg). There is biphasic flow in the posterior tibial and dorsalis pedis arteries bilaterally. The right ankle-brachial index (ISAC) is 1.29 (normal >= 0.9-1.0). The right great toe-brachial index (TBI) is 0.36 (normal >= 0.60). The left ISAC is 1.28. The left TBI is 0.66. IMPRESSION: 1. Normal ankle-brachial indices. 2: Diminished bilateral toe brachial indices, moderate on the right and mild on the left. Reviewed, dictated and finalized at location B. IMPRESSION: 1. Normal ankle-brachial indices. 2: Diminished bilateral toe brachial indices, moderate on the right and mild o n the left.
--- OUTSIDE RECORDS SUMMARY | 2024-05-06 09:45 | XMS_ITS | Referral Summary ---
Author Organization [facility] [address] Address [address] [place] [address] Care Team Providers Care Manager Distribution Center Name Role Phone Marion Randall MD Unavailable [phone] Sarahi Roth MD Primary Care Provider [phone] Encounters Date Type Department Care Team Description 05/05/2024 Telephone [facility] Endocrinology Metabolism and Lipid [address] [facility] Advanced Medicine 5th [place] [address] [place] [address] Le Delarosa RN Dwo 05/05/2024 Orders Only [facility] Endocrinology Metabolism and Lipid [address] [facility] 13th [place] [address] [place] [address] Val Harper RMA Type 2 diabetes mellitus without complication, without long-term current use of insulin (HCC) (Primary Dx) 04/28/2024 Telephone [facility] Scheduling [address] [place] [address] Alexa Araya MD Prior Auth 04/28/2024 Results Follow-Up [facility] Endocrinology Metabolism and Lipid [address] [facility] 13th [place] [address] [place] [address] Alexa Araya MD 04/28/2024 10:20 AM CDT Office Visit [facility] Endocrinology Metabolism and Lipid [address] [facility] 13th [place] [address] [place] [address] Alexa Araya MD Type 2 diabetes mellitus without complication, without long-term current use of insulin (HCC) (Primary Dx); Mixed hyperlipidemia; Metabolic syndrome 04/22/2024 Anticoagulation Telephone Call [place] [address] [facility] 8th [place] [address] [place] [address] Roger Butler MD longterm (current) use of anticoagulants (Primary Dx) 04/21/[address] 8th [place] [address] [place] [address] Roger Butler MD 03/29/2024 Anticoagulation Telephone Call [address] 8th [place] [address] [place] [address] Roger Butler MD longterm (current) use of anticoagulants (Primary Dx) 03/11/2024 Anticoagulation Telephone Call [address] 8th [place] [address] [place] [address] Roger Butler MD longterm (current) use of anticoagulants (Primary Dx) 03/09/[address] 8th [place] [address] [place] [address] Roger Butler MD 03/03/[address]th [place] [address] [place] [address] Layton Lee MD 02/20/2024 Orders Only [address] 8th [place] [address] [place] [address] Roger Butler MD salvage determiner (current) use of anticoagulants (Primary Dx) 02/12/2024 Anticoagulation Telephone Call [address] [place] [address] Roger Butler MD longterm (current) use of anticoagulants (Primary Dx) 02/06/2024 Orders Only [address] [place] [address] Layton Lee MD from Last 3 Months [...] MOUTH DAILY 180 tablet 3 4 Active cephalexin (KEFLEX) 500 mg capsule Take 1 capsule (500 mg total) by mouth every 12 (twelve) hours 4 Active OneTouch Verio test strips stripIndications:T ype 2 diabetes mellitus without complication, without long-term current use of insulin ([facility]) Use to check blood sugar once daily 50 strip 11 5 Active OneTouch Verio Flex meter miscIndications:Ty pe 2 diabetes mellitus without complication, without long-term current use of insulin ([facility]) Use to check blood sugar daily 1 each 5 Active tirzepatide (Mounjaro) 2.5 mg/0.5 mL pen injector injectionIndicatio ns:Type 2 diabetes mellitus without complication, without long-term current use of insulin ([facility]) Inject 0.5 mL (2.5 mg total) under the skin once a week For 4 weeks, then increase dose to 5mg weekly 2 mL 5 Active tirzepatide (Mounjaro) 5 mg/0.5 mL pen injector injectionIndicatio ns:Type 2 diabetes mellitus without complication, without long-term current use of insulin (HCC) Inject 0.5 mL (5 mg total) under the skin once a week 2 mL 11 5 Active lancets miscIndications:Ty pe 2 diabetes mellitus without complication, without long-term current use of insulin (HCC) Check blood sugar four times a day or as directed 1 each 11 5 Active Active Problems Problem Noted Date Diagnosed Date Type 2 diabetes mellitus wit hout complication, without long-term current use of insulin 04/28/2024 Peripheral vascular disease 01/21/2022 Left ventricular thrombus 10/01/2021 longterm (current) use of anticoagulants 2021 Prediabetes 03/07/2020 Presence of stent in coronary artery 10/11/2019 Cardiomyopathy, ischemic 09/10/2019 Overview (09/10/2019): Added automatically from request for surgery [id number] Assessment & Plan (09/18/2019 10:56 AM CDT): [...] effusion 06/04/2019 Coronary artery disease invo lving [place] coronary artery of [place] heart without angina pectoris 05/24/2019 Dry cough [...] on file Legal Sex Male 1:17 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 Gender Identity Not on file Sexual Orientation Not on file Last Filed Vital Signs Vital Sign Reading Time Taken Comments Blood Pressure 114/57 04/28/2024 9:52 AM CDT Pulse 78 04/28/2024 9:52 AM CDT Temperature 36.4 C (97.6 F) 04/28/2024 9:52 AM CDT Respiratory Rate 18 09/18/2019 8:55 AM CDT Oxygen Saturation 95% 11/18/2023 1:35 PM CDT Inhaled Oxygen Concentration - - Weight 128.4 kg (283 lb) 04/28/2024 9:52 AM CDT Height 170.2 cm (5' 7 ) 04/28/2024 9:52 AM CDT Body Mass Index 44.32 04/28/2024 9:52 AM CDT Plan of Treatment Not on file Medical Devices Implanted Type Area Photographer Portrait Device Identifier Shelf Expiration Date Model / Serial / Lot [employer] D150 Dynagen Enduralife Easyview Hf Perspectiv 5.37x7.36cm 1 Chamber - [id number] - [id number] Implanted:Qty: 1 on 09/17/2019 by Layton Lee MD at [facility] ICD Left: Chest Wall [employer] 07/29/2021 D150 / [id number] / Description:ICD GENERATOR [employer] 0672 [place] 4-Front 59cm Active Fixation Lead Icd - [id number] - [id number] Implanted:Qty: 1 on 09/17/2019 by Layton Lee MD at [facility] Lead Right: Heart [employer] 08/30/2021 0672 / [id number] / Description:RV LEAD Procedures Procedure Name Priority Date/Time Associated Diagnosis Comments HEMOGLOBIN A1C Routine 04/23/2024 1:56 PM DISASTER RECOVERY COORDINATOR Prediabetes LIPID PANEL Routine 04/23/2024 1:56 PM DISASTER RECOVERY COORDINATOR Mixed hyperlipidemia PROTIME-INR Routine 04/21/2024 1:08 PM DISASTER RECOVERY COORDINATOR longterm (current) use of anticoagulants PROTIME-INR Routine 03/26/2024 1:56 PM DISASTER RECOVERY COORDINATOR longterm (current) use of anticoagulants PROTIME-INR Routine 03/10/2024 1:21 PM DISASTER RECOVERY COORDINATOR salvage determiner (current) use of anticoagulants PROTIME-INR Routine 02/09/2024 1:19 PM DISASTER RECOVERY COORDINATOR Left ventricular thrombus salvage determiner (current) use of anticoagulants DEVICE CHECK - REMOTE Routine 02/06/2024 2:51 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 BASIC METABOLIC PANEL Routine 12/08/2023 1:07 PM CDT Primary hypertension from Last 3 Months or Most Recently Relevant to Health Maintenance Results * (ABNORMAL) Hemoglobin A1c (04/23/2024 1:56 PM DISASTER RECOVERY COORDINATOR) Hgb A1C 6.8(H) <5.7 % of total Hgb [facility] Comment: For someone without known diabetes, a hemoglobin A1c value of 6.5% or greater indicates that they may have diabetes and this should be confirmed with a follow-up test. For someone with known diabetes, a value <7% indicates that their diabetes is well controlled and a value greater than or equal to 7% indicates suboptimal control. A1c targets should be individualized based on duration of diabetes, age, comorbid conditions, and other considerations. Currently, no consensus exists regarding use of hemoglobin A1c for diagnosis of diabetes for children. Blood 04/23/2024 1:56 PM DISASTER RECOVERY COORDINATOR 04/23/2024 1:57 PM DISASTER RECOVERY COORDINATOR us Alexa Araya MD LAB BLOOD ORDERABLES Final Resu lt [facility] [address] [place] [address] * Lipid panel (04/23/2024 1:56 PM DISASTER RECOVERY COORDINATOR) Cholesterol 118 <200 mg/dL [facility] HDL 40 > OR = 40 mg/dL [facility] Triglycerides 111 <150 mg/dL [facility] LDL 59 mg/dL (calc) [facility] Comment: Reference range: <100 Desirable range <100 mg/dL for primary prevention; <70 mg/dL for patients with CHD or diabetic patients with > or = 2 CHD risk factors. LDL-C is now calculated using the Dante-Valdez calculation, which is a validated novel method providing better accuracy than the Friedewald equation in the estimation of LDL-C. Dante SS et al. KATIE. 2013;310(19): 5007-0935 (http://Nutrisystem.InvestGlass/faq/WHZ232) Chol/HDL ratio 3.0 <5.0 (calc) [facility] Non-HDL, (LDL+VLDL) 78 <130 mg/dL (calc) [facility] Comment: For patients with diabetes plus 1 major ASCVD risk factor, treating to a non-HDL-C goal of <100 mg/dL (LDL-C of <70 mg/dL) is considered a therapeutic option. Blood 04/23/2024 1:56 PM DISASTER RECOVERY COORDINATOR 04/23/2024 1:57 PM DISASTER RECOVERY COORDINATOR us Alexa Araya MD LAB BLOOD ORDERABLES Final Resu lt Performing Organization Address [facility]/ZIP Co de Phone Number [facility] [address] [place] [address] * (ABNORMAL) Protime-INR (04/21/2024 1:08 PM DISASTER RECOVERY COORDINATOR) INR 2.6(H) [facility] Comment: Reference Range 0.9-1.1 Moderate-intensity Warfarin Therapy 2.0-3.0 Higher-intensity Warfarin Therapy 3.0-4.0 PT 26.5(H) 9.0 - 11.5 sec [facility] Comment: For additional information, please refer to http://Nutrisystem.SteadyFare/faq/PSZ394 (This link is being provided for informational/ educational purposes only.) Blood 04/21/2024 1:08 PM DISASTER RECOVERY COORDINATOR 04/21/2024 1:08 PM DISASTER RECOVERY COORDINATOR Roger Butler MD LAB BLOOD ORDERABLES F inal Result [facility] [address] [place] [address] * (ABNORMAL) Protime-INR (03/26/2024 1:56 PM DISASTER RECOVERY COORDINATOR) INR 2.8(H) [facility] Comment: Reference Range 0.9-1.1 Moderate-intensity Warfarin Therapy 2.0-3.0 Higher-intensity Warfarin Therapy 3.0-4.0 PT 28.4(H) 9.0 - 11.5 sec [facility] Comment: For additional information, please refer to http://Nutrisystem.SteadyFare/faq/GYC796 (This link is being provided for informational/ educational purposes only.) Blood 03/26/2024 1:56 PM DISASTER RECOVERY COORDINATOR 03/26/2024 1:57 PM DISASTER RECOVERY COORDINATOR Roger Butler MD LAB BLOOD ORDERABLES F inal Result Performing Organization Address [facility] de Phone Number [facility] [address] [place] [address] * (ABNORMAL) Protime-INR (03/10/2024 1:21 PM DISASTER RECOVERY COORDINATOR) INR 2.9(H) [facility] Comment: Reference Range 0.9-1.1 Moderate-intensity Warfarin Therapy 2.0-3.0 Higher-intensity Warfarin Therapy 3.0-4.0 PT 28.6(H) 9.0 - 11.5 sec [facility] Comment: For additional information, please refer to http://Nutrisystem.SteadyFare/faq/YYH963 (This link is being provided for informational/ educational purposes only.) Blood 03/10/2024 1:21 PM DISASTER RECOVERY COORDINATOR 03/10/2024 1:22 PM DISASTER RECOVERY COORDINATOR Roger Butler MD LAB BLOOD ORDERABLES F inal Result Performing Organization Address [facility] Co de Phone Number [facility] [address] [place] [address] * (ABNORMAL) Protime-INR (02/09/2024 1:19 PM DISASTER RECOVERY COORDINATOR) INR 2.5(H) [facility] Comment: Reference Range 0.9-1.1 Moderate-intensity Warfarin Therapy 2.0-3.0 Higher-intensity Warfarin Therapy 3.0-4.0 PT 25.0(H) 9.0 - 11.5 sec [facility] Comment: For additional information, please refer to http://education.SteadyFare/faq/FYB167 (This link is being provided for informational/ educational purposes only.) Blood 02/09/2024 1:19 PM DISASTER RECOVERY COORDINATOR 02/09/2024 1:20 PM DISASTER RECOVERY COORDINATOR us Roger Butler MD LAB BLOOD ORDERABLES F inal Result [facility] [address] [place] [address] * DEVICE CHECK - REMOTE (02/06/2024 2:51 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) Anatomical Region Laterality Modality Other 02/06/2024 2:51 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 Narrative 02/12/2024 5:22 PM DISASTER RECOVERY COORDINATOR Interpretation Summary: Battery and Leads (BL) Normal parameters noted on battery and lead(s) --- 12 years remaining (this is an estimate based on prior usage) Presenting Rhythm (NV) Ventricular Sensing (VS) --- rate 70 Arrhythmic [...] estimate based on prior usage) Presenting Rhythm (NV) Ventricular Sensing (VS) --- rate 70 Arrhythmic events (AE) Nonsustained VT event(s) identified --- One NS-SVT episode. Duration: 4seconds. Rate: 185 Anticoagulation (AC) Anticoagulation is not clinically indicated Patient is not on anticoagulant therapy Transmission Information (TI) Device Summary Report us Layton Lee MD [facility] PRO CEDURES Final Result * (ABNORMAL) Basic metabolic panel (12/08/2023 1:07 PM CDT) Glucose 120(H) 65 - 99 mg/dL [facility] Comment: Fasting reference interval For someone without known diabetes, a glucose value between 100 and 125 mg/dL is consistent with prediabetes and should be confirmed with a follow-up test. BUN 31(H) 7 - 25 mg/dL [facility] Creatinine 1.26 0.70 - 1.35 mg/dL [facility] eGFR 63 > OR = 60 mL/min/1.7 3m2 [facility] BUN/creat ratio 25(H) 6 - 22 (calc) [facility] Sodium 138 135 - 146 mmol/L [facility] Potassium, pl 4.2 3.5 - 5.3 mmol/L [facility] Chloride 103 98 - 110 mmol/L [facility] CO2 27 20 - 32 mmol/L [facility] Calcium 9.1 8.6 - 10.3 mg/dL [facility] Blood 12/08/2023 1:07 PM CDT 12/08/2023 1:07 PM CDT us Roger Butler MD LAB BLOOD ORDERABLES F inal Result [facility] [address] [place] [address] from Last 3 Months or Most Recently Relevant to Health Maintenance Insurance MEDICARE [facility] OPEN ACCESS MEDICARE [facility] Advance Directives For more information, please contact: [phone] * Full Code (Latest Code Status on File) Date Activated Date Inactivated Comments 09/17/2019 9:04 AM 09/18/2019 3:36 PM Care Teams Manager Distribution Center Relationship Specialty Start Date End Date Sarahi Roth MD [address] [place] [address] PCP - General Family Medicine 04/03/21 Marion Randall MD [address] [place] [address] Consulting Physician Interventional Cardiology 07/15/19
--- OUTSIDE RECORDS SUMMARY | 2024-05-06 09:45 | XMS_ITS | Encounter Summary ---
Author Organization [facility] Address [address] [place] [address] Phone Care Team Providers Care Regional Account Director Name Role Phone Marion Randall MD Unavailable [phone] Sarahi Roth MD Primary Care Provider [phone] Encounter Details Date Type Department Care Team (Late st Contact Info) Description 04/28/2024 Results Follow-Up [facility] Endocrinology Metabolism and Lipid [address] [facility] Medicine 13th [place] [address] [place] [address] Alexa Araya MD [address] [facility] [address] [place], [place] [address] Social History Tobacco Use Types Packs/Day Years Used Date Smoking Tobacco: Never Smokeless Tobacco: Never Alcohol Use Standard Drinks/Week Comments No 0 (1 standard drink = 0.6 oz pur e alcohol) Sex and Gender Information Value Date Recorded Sex Assigned at Not on file 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
--- OUTSIDE RECORDS SUMMARY | 2024-05-06 09:45 | XMS_ITS | Encounter Summary ---
Author Organization [facility] Address [address] [place] [address] Phone Care Team Providers Care Eviscerator Name Role Phone Marion Randall MD Unavailable [phone] Sarahi Roth MD Primary Care Provider [phone] Encounter Details Date Type Department Care Team (Late st Contact Info) Description 10/19/2023 Anticoagulation - Ot her Visit (DOAC) 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
--- OUTSIDE RECORDS SUMMARY | 2024-05-06 09:45 | XMS_ITS | Encounter Summary ---
Author Organization [facility] Address [address] [place] [address] Phone Care Team Providers Care Manager Mass Name Role Phone Marion Randall MD Unavailable [phone] Sarahi Roth MD Primary Care Provider [phone] Encounter Details Date Type Department Care Team (Late st Contact Info) Description 05/05/2024 Orders Only [facility] Endocrinology Metabolism and Lipid [address] [facility] Advanced Medicine 13th [place] [address] [place] [address] Val Harper RMA Type 2 diabetes mellitus without complication, without long-term current use of insulin (HCC) (Primary Dx) Social History Tobacco Use Types Packs/Day Years Used Date Smoking Tobacco: Never Smokeless Tobacco: Never Alcohol Use Standard Drinks/Week Comments No 0 (1 standard drink = 0.6 oz pur e alcohol) Sex and Gender Information Value Date Recorded Sex Assigned at Not on file 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 Gender Identity Not on file Sexual Orientation Not on file documented as of this encounter Ordered Prescriptions Prescription Sig Dispense Quantity Refills Last Filled Start Date End Date lancets miscIndications:Ty pe 2 diabetes mellitus without complication, without long-term current use of insulin (HCC) Check blood sugar four times a day or as directed 1 each 11 05/05/2024 documented in this encounter Plan of Treatment Not on file documented as of this encounter Visit Diagnoses Diagnosis Type 2 diabetes mellitus without complication, without long-term current use of insulin (HCC)- Primary documented in this encounter Care Teams Manager Mass Relationship Specialty Start Date End Date Sarahi Roth MD [address] [facility] [address] [place] [address] PCP - General Family Medicine 04/03/21 Marion Randall MD [address] [facility] [address] [place] [address] Consulting Physician Interventional Cardiology 07/15/19 documented as of this encounter
--- OUTSIDE RECORDS SUMMARY | 2024-05-06 09:45 | XMS_ITS | Clinical Summary ---
Author Organization [facility] [place] [address] Address [address] [place] [address] Care Team Providers Care Baker Head Name Role Phone Marion Randall MD Unavailable [phone] Sarahi Roth MD Primary Care Provider [phone] Allergies Active Allergy Reactions Criticality Noted Date [...] without long-term current use of insulin (HCC) Use to check blood sugar once daily 50 strip 11 5 Active OneTouch Verio Flex meter miscIndications:Ty pe 2 diabetes mellitus without complication, without long-term current use of insulin (HCC) Use to check blood sugar daily 1 each 5 Active tirzepatide (Mounjaro) 2.5 mg/0.5 mL pen injector injectionIndicatio ns:Type 2 diabetes mellitus without complication, without long-term current use of insulin (HCC) Inject 0.5 mL (2.5 mg total) under [...] a day or as directed 1 each 5 Active Active Problems Problem Noted Date Diagnosed Date Type 2 diabetes mellitus wit hout complication, without long-term current use of insulin 04/28/2024 Peripheral vascular disease 01/21/2022 Left ventricular thrombus 10/01/2021 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 5th [place] [address] [place] [id number] Le Delarosa RN Dwo 05/05/2024 Orders Only [facility] Endocrinology Metabolism and Lipid [address] [facility] 13th [place] [address] [place] [address] Val Harper RMA Type 2 diabetes mellitus without complication, without long-term current use of insulin (HCC) (Primary Dx) 04/28/2024 10:20 AM CDT Office Visit [facility] Endocrinology Metabolism and Lipid Critical access [facility] 13 [place] [address] [place] [address] Alexa Araya MD Type 2 diabetes mellitus without complication, without long-term current use of insulin (HCC) (Primary Dx); Mixed hyperlipidemia; Metabolic syndrome 04/28/2024 Telephone [facility] Scheduling [address] [place] [address] Alexa Araya MD Prior Auth 04/28/2024 Results Follow-Up [facility] Endocrinology Metabolism and Lipid Critical access hospital1 [address] [place] [address] [place] [address] Alexa Araya MD 04/22/2024 Anticoagulation Telephone Call [facility] Cardiology [address] [place] [address] 8th [place] [address] [place] [phone] Roger Butler MD retirement (current) use of anticoagulants (Primary Dx) 04/21/2024 Telephone [facility] Cardiology [address] [place] [address] 8th [place] [address] [place] [address] Roger Butler MD 03/29/2024 Anticoagulation Telephone Call [facility] [address] [place] [address] 8th [place] [address] [place] [address] Roger Butler MD retirement (current) use of anticoagulants (Primary Dx) 03/11/2024 Anticoagulation Telephone Call [address]th [place] [address] [place] [address] Roger Butler MD 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 (Primary Dx) 03/09/[address] 8th [place] [address] [place] [address] Roger Butler MD 03/03/[address] [place] [address] [place] [address] Layton Lee MD 02/20/2024 Orders Only [address] [place] [address] [place] [address] Roger Butler MD 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 (Primary Dx) 02/12/2024 Anticoagulation Telephone Call [address] [place] [address] Roger Butler MD 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 (Primary Dx) 02/06/2024 Orders Only [address] [place] [address] Layton Lee MD from Last 3 Months [...] on file 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 Gender Identity Not on file Sexual Orientation [...] 04/28/2024 9:52 AM CDT Plan of Treatment Health Maintenance Due Date Last Done Comments Albumin Creatinine Ratio, Urine 1957 Colon Cancer Screening-Colonoscopy 1957 Depression Screening 1957 Hepatitis C Screening 1957 Prostate Cancer Screening-PSA 1957 Dilated Eye Exam 1957 Foot Exam 1957 Hepatitis B Screening 12/08/1975 Zoster Vaccine (1 of 2) 12/08/2007 Pneumococcal vaccine 65+ (2 of 2 - PPSV23) 01/18/2020 11/23/2019 Fall Risk Assessment 09/17/2020 09/18/2019 Well Visit 65+ 2022 Influenza Vaccine (#1) 2023 11/15/2019, 2017 Hemoglobin A1C 10/24/2024 04/23/2024, 06/, 01/21/2022, Additional history exists eGFR 2024 12/08/2023, 11/17, 11/18/2023, Additional history exists Lipid Panel 04/23/2025 04/23/2024, 07/20, 01/21/2022, Additional history exists DTaP/Tdap/Td Vaccine (3 - Td or Tdap) 10/30/2028 10/30/2018, 06/03/2008 Medical Devices Implanted Type Area Varnish Maker Helper Device Identifier Shelf Expiration Date Model / Serial / Lot [employer] D150 Dynagen Enduralife Easyview Hf Perspectiv 5.37x7.36cm 1 Chamber - [id number] - [id number] Implanted:Qty: 1 on 09/17/2019 by Layton Lee MD at [facility] ICD Left: Chest Wall [employer] 07/29/2021 D150 / [id number] / Description:ICD GENERATOR Extension [employer] 0672 [place] 4-Front 59cm Active Fixation Lead Icd - [id number] - [id number] Implanted:Qty: 1 on 09/17/2019 by Layton Lee MD at 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 PROTIME-INR Routine 03/10/2024 1:21 PM TENT FINISHER retirement (current) use of anticoagulants PROTIME-INR Routine 02/09/2024 1:19 PM TENT FINISHER Left ventricular thrombus 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 Blood 04/23/2024 1:56 PM TENT FINISHER 04/23/2024 1:57 PM TENT FINISHER us Alexa Araya MD LAB BLOOD ORDERABLES Final Resu lt [facility] [address] [place] [address] * Lipid panel (04/23/2024 1:56 PM TENT FINISHER) Cholesterol 118 <200 mg/dL [facility] [...] factors. LDL-C is now calculated using the Carmela calculation, which is a validated novel method providing better accuracy than the Friedewald equation in the estimation of LDL-C. Dante TENORIO et al. KATIE. 2013;310(19): 7229-5076 (http://education.TR[employer].Nanosys/faq/UCO693) Chol/HDL ratio 3.0 <5.0 (calc) [facility] Non-HDL, (LDL+VLDL) 78 <130 mg/dL (calc) [facility] Comment: For patients with diabetes plus 1 major ASCVD risk factor, treating to a non-HDL-C goal of <100 mg/dL (LDL-C of <70 mg/dL) is considered a therapeutic option. Blood 04/23/2024 1:56 PM TENT FINISHER 04/23/2024 1:57 PM TENT FINISHER Alexa Araya MD LAB BLOOD ORDERABLES Final Resu lt Performing Organization Address [facility] Co de Phone Number [facility] [address] [facility] [place] [address] * (ABNORMAL) Protime-INR (04/21/2024 1:08 PM TENT FINISHER) INR 2.6(H) [facility] Comment: Reference Range 0.9-1.1 Moderate-intensity Warfarin Therapy 2.0-3.0 Higher-intensity Warfarin Therapy 3.0-4.0 PT 26.5(H) 9.0 - 11.5 sec [facility] Comment: For additional information, please refer to http://education.DropGifts/faq/DJZ304 (This link is being provided for informational/ educational purposes only.) Blood 04/21/2024 1:08 PM TENT FINISHER 04/21/2024 1:08 PM TENT FINISHER Roger Butler MD LAB BLOOD ORDERABLES F inal Result [facility] [address] [place] [address] * (ABNORMAL) Protime-INR (03/26/2024 1:56 PM TENT FINISHER) INR 2.8(H) [facility] Comment: Reference Range 0.9-1.1 Moderate-intensity Warfarin Therapy 2.0-3.0 Higher-intensity Warfarin Therapy 3.0-4.0 PT 28.4(H) 9.0 - 11.5 sec [facility] Comment: For additional information, please refer to http://Quandoo.DropGifts/faq/HWN973 (This link is being provided for informational/ educational purposes only.) Blood 03/26/2024 1:56 PM TENT FINISHER 03/26/2024 1:57 PM TENT FINISHER Roger Butler MD LAB BLOOD ORDERABLES F inal Result Performing Organization Address [facility] de Phone Number [facility] [address] [place] [address] * (ABNORMAL) Protime-INR (03/10/2024 1:21 PM TENT FINISHER) INR 2.9(H) [facility] Comment: Reference Range 0.9-1.1 Moderate-intensity Warfarin Therapy 2.0-3.0 Higher-intensity Warfarin Therapy 3.0-4.0 PT 28.6(H) 9.0 - 11.5 sec [facility] Comment: For additional information, please refer to http://Quandoo.DropGifts/faq/MGK181 (This link is being provided for informational/ educational purposes only.) Blood 03/10/2024 1:21 PM TENT FINISHER 03/10/2024 1:22 PM TENT FINISHER Roger Butler MD LAB BLOOD ORDERABLES F inal Result Performing Organization Address [facility] de Phone Number [facility] [address] [place] [address] * (ABNORMAL) Protime-INR (02/09/2024 1:19 PM TENT FINISHER) INR 2.5(H) [facility] Comment: Reference Range 0.9-1.1 Moderate-intensity Warfarin Therapy 2.0-3.0 Higher-intensity Warfarin Therapy 3.0-4.0 PT 25.0(H) 9.0 - 11.5 sec [facility] Comment: For additional information, please refer to http://education.DropGifts/faq/HBV385 (This link is being provided for informational/ educational purposes only.) Blood 02/09/2024 1:19 PM TENT FINISHER 02/09/2024 1:20 PM TENT FINISHER Roger Butler MD LAB BLOOD ORDERABLES F inal Result [facility] [address] [place] [address] * DEVICE CHECK - REMOTE (02/06/2024 2:51 AM TENT FINISHER) Anatomical Region Laterality Modality Other 02/06/2024 2:51 AM TENT FINISHER Narrative 02/12/2024 5:22 PM TENT FINISHER Interpretation Summary: Battery and Leads (BL) Normal parameters noted on battery and lead(s) --- 12 years remaining (this is an estimate based on prior usage) Presenting Rhythm (VA) Ventricular Sensing (VS) --- rate 70 Arrhythmic [...] estimate based on prior usage) Presenting Rhythm (VA) Ventricular Sensing (VS) --- rate 70 Arrhythmic [...] 1:07 PM CDT 12/08/2023 1:07 PM CDT Roger Butler MD LAB BLOOD ORDERABLES F inal Result [facility] [address] [place] [address] from Last 3 Months or Most Recently Relevant to Health Maintenance Insurance MEDICARE [facility] [place] [address] [facility] [employer] OPEN ACCESS MEDICARE [employer] [facility] Advance Directives For more information, please contact: [phone] * Full Code (Latest Code Status on File) Date Activated Date Inactivated Comments 09/17/2019 9:04 AM 09/18/2019 3:36 PM Care Teams Baker Head Relationship Specialty Start Date End Date Sarahi Roth MD [address] [address] PCP - General Family Medicine 04/03/21 Marion Randall MD [address] [address] Consulting Physician Interventional Cardiology 07/15/19
--- OUTSIDE RECORDS SUMMARY | 2024-05-06 09:45 | XMS_ITS | Encounter Summary ---
Author Organization [facility] Address [address] [place] [address] Phone Care Team Providers Care Keyseating Machine Set Up Operator Name Role Phone Marion Randall MD Unavailable [phone] Sarahi Roth MD Primary Care Provider [phone] Reason for Visit * Reason Onset Date Comments Dwo 05/05/2024 Encounter Details Date Type Department Care Team (Late st Contact Info) Description 05/05/2024 Telephone [facility] Endocrinology Metabolism and Lipid [address] [facility] 5th [place] [address] [place] [address] Le Delarosa, RN Dwo Social History Tobacco Use Types Packs/Day Years Used Date Smoking Tobacco: Never Smokeless Tobacco: Never Alcohol Use Standard Drinks/Week Comments No 0 (1 standard drink = 0.6 oz pur e alcohol) Sex and Gender Information Value Date Recorded Sex Assigned at Not on file 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 Gender Identity Not on file Sexual Orientation Not on file documented as of this encounter Miscellaneous Notes * Telephone Encounter - Le Delarosa RN - 05/05/2024 4:59 PM CDT Fasamsong ABDIRASHID to marisa see media documented in this encounter Plan of Treatment Not on file documented as of this encounter Visit Diagnoses Not on filedocumented in this encounter Care Teams Keyseating Machine Set Up Operator Relationship Specialty Start Date End Date Sarahi Roth MD [address] [facility] [address] [address] PCP - General Family Medicine 04/03/21 Marion Randall MD [address] [facility] [address] [address] Consulting Physician Interventional Cardiology 07/15/19 documented as of this encounter
--- OUTSIDE RECORDS SUMMARY | 2024-05-06 09:45 | XMS_ITS | Clinical Summary ---
Author Organization [facility] Address [address] [facility] [place] [address] Care Team Providers Care Sifter Operator Name Role Phone Saraih Roth MD Primary Care Provider [phone] Source Comments [facility],non-owned Affiliates and Associated Physician Practices is amultiple site organization consisting of ambulatory clinics and hospital sitesin [place], [place], [place] and [place]. This disclosure is being madepursuant to the Care Everywhere program and may not contain all information available regarding this patient. Last updated 17.[facility] [employer] Allergies Active Allergy Reactions Criticality Noted Date [...] mg) / 24 hours. Active HYDROcodone-acetami nophen ([place]) 5-325 MG tablet Take 1 (one) tablet [...] Office Visit [facility] [address] [place] [address] Ehsan Portillo MD [address] [place] [address] [place] [address] Health Maintenance Due Date Last Done Comments [...] to complete this topic MENINGOCOCCAL (Group B) VACC INE SHARED DECISION-MAKING Aged Out No longer eligibl e based on patient's age to complete this topic MENINGOCOCCAL GROUPS A/C/Y/W VACCINE Aged Out No longer eligible b ased on patient's age to complete this topic Care Teams Sifter Operator Relationship Specialty Start Date End Date Sarahi Roth MD [address] [place] [address] PCP - General 06/07/21
== END 2024-05-06 09:22 | disposition home or self-care (01) ==
PROVIDERS: PCP Family Medicine; Visit Provider Family Medicine
DX: I73.9 Peripheral vascular disease, unspecified (principal)
CPT/HCPCS: 93922

== ENCOUNTER 2024-05-07 10:05 | Outpatient (CLI) | payer MEDICARE, OTHER, SELFPAY ==
--- NOTE | ~2024-05-07 | XR_ITS ---
XR abdomen/kub 1V Ordering provider: Jas Durán History: . Bi lateral kidney stone . Comparison: None. FINDINGS: BOWEL: Slightly distended bowel loops with gases. Clinical correlation advised. ORGANOMEGALY: None. SIGNIFICANT PATHOLOGIC CALCIFICATIONS: Highly suggestive left kidney stones. OTHER: No free air is seen under the diaphragm. Degenerative changes of the spine. Pubic symphysitis. IMPRESSION: Dilated small bowel loops. Clinical correlation advised. Highly suggestive left kidney stones. Noncon trast CT is better for evaluation. Reviewed, dictated and finalized at location A. IMPRESSION: Dilated small bowel loops. Clinical correlation advised. Highly suggestive left kidney stones. Noncontrast CT is better for evaluation.
--- OUTSIDE RECORDS SUMMARY | 2024-05-07 11:08 | XMS_ITS | Referral Summary ---
Author Organization [facility] [address] Address [address] [place] [address] Care Team Providers Care Order Entry Specialist Name Role Phone Marion Randall MD Unavailable [phone] Sarahi Roth MD Primary Care Provider [phone] Encounters Date Type Department Care Team Description 05/05/2024 Telephone [facility] Endocrinology Metabolism and Lipid [address] [facility] Advanced Medicine 5th [place] [address] [place] [address] Le Delarosa RN Dwo 05/05/2024 Orders Only [facility] Endocrinology Metabolism and Lipid [address] [facility] Medicine 13th [place] [address] [place] [address] Val Harper RMA Type 2 diabetes mellitus without complication, without long-term current use of insulin (HCC) (Primary Dx) 04/28/2024 Telephone [facility] Scheduling [address] [place] [address] Alexa Araya MD Prior Auth 04/28/2024 Results Follow-Up [facility] Endocrinology Metabolism and Lipid [address] [facility] Medicine 13th [place] [address] [place] [address] Alexa Araya MD 04/28/2024 10:20 AM CDT Office Visit [facility] Endocrinology Metabolism and Lipid [address] [facility] Medicine 13th [place] [address] [place] [address] Alexa Araya MD Type 2 diabetes mellitus without complication, without long-term current use of insulin (HCC) (Primary Dx); Mixed hyperlipidemia; Metabolic syndrome 04/22/2024 Anticoagulation Telephone Call [address]th [place] [address] [place] [address] Roger Butler MD [facility] (current) use of anticoagulants (Primary Dx) 04/21/[address]th [place] [address] [place] [address] Roger Butler MD 03/29/2024 Anticoagulation Telephone Call [address] 8th [place] [address] [place] [address] Roger Butler MD [facility] (current) use of anticoagulants (Primary Dx) 03/11/2024 Anticoagulation Telephone Call [address] [place] [address] [place] [address] Roger Butler MD [facility] (current) use of anticoagulants (Primary Dx) 03/09/[address] [place] [address] [place] [address] Roger Butler MD 03/03/[address] [place] [address] [place] [address] Layton Lee MD 02/20/2024 Orders Only [address] [place] [address] [place] [address] 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 Butler 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 (current) use of anticoagulants (Primary Dx) 02/12/2024 Anticoagulation Telephone Call [facility] [address] [facility] Medical Office Building [address] [place] [address] Roger Butler MD [facility] (current) use of anticoagulants (Primary Dx) from Last 3 Months Allergies Active Allergy [...] complication, without long-term current use of insulin ([facility]) Check blood sugar four times a day or as directed 1 each 5 Active Active Problems Problem Noted Date Diagnosed Date Type 2 diabetes mellitus wit hout complication, without long-term current use of insulin 04/28/2024 Peripheral vascular disease 01/21/2022 Left ventricular thrombus 10/01/2021 [employer] (current) use of anticoagulants 2021 Prediabetes 03/07/2020 Presence of stent in coronary artery 10/11/2019 Cardiomyopathy, ischemic 09/10/2019 Overview (09/10/2019): Added automatically from request for surgery [id number] Assessment & Plan (09/18/2019 10:56 AM CDT): [...] effusion 06/04/2019 Coronary artery disease invo lving [place] coronary artery of [place] heart without angina pectoris 05/24/2019 Dry cough [...] on file Legal Sex Male 1:17 AM 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 Gender Identity Not on file Sexual Orientation [...] on file Medical Devices Implanted Type Area Central Supply Clerk Device Identifier Shelf Expiration Date Model / Serial / Lot [employer] Chanel D150 Dynagen Enduralife Easyview Hf Perspectiv 5.37x7.36cm 1 Chamber - [id number] - [id number] Implanted:Qty: 1 on 09/17/2019 by Layton Lee MD at [facility] ICD Left: Chest Wall [employer] Chanel 07/29/2021 D150 / [id number] / Description:ICD GENERATOR [employer] 0672 Calvert 4-Front 59cm Active Fixation Lead Icd - [id number] - [id number] Implanted:Qty: 1 on 09/17/2019 by Layton Lee MD at [facility] Lead Right: Heart [employer] Damballa 08/30/2021 0672 / [id number] / Description:RV LEAD Procedures Procedure Name Priority Date/Time Associated Diagnosis Comments HEMOGLOBIN A1C Routine 04/23/2024 1:56 PM 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 Prediabetes LIPID PANEL Routine 04/23/2024 1:56 PM 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 Mixed hyperlipidemia PROTIME-INR Routine 04/21/2024 1:08 PM 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 [facility] (current) use of anticoagulants PROTIME-INR Routine 03/26/2024 1:56 PM 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 [facility] (current) use of anticoagulants PROTIME-INR Routine 03/10/2024 1:21 PM 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 superintendent [employer] (current) use of anticoagulants PROTIME-INR Routine 02/09/2024 1:19 PM 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 Left ventricular thrombus [facility] (current) use of anticoagulants BASIC METABOLIC PANEL Routine 12/08/2023 1:07 PM CDT Primary hypertension from Last 3 Months or Most Recently Relevant to Health Maintenance Results * (ABNORMAL) Hemoglobin A1c (04/23/2024 1:56 PM 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) Hgb A1C 6.8(H) <5.7 % of total Hgb [facility] Comment: For someone without known [...] diabetes for children. Blood 04/23/2024 1:56 PM 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 04/23/2024 1:57 PM 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 us Alexa Araya MD LAB BLOOD ORDERABLES Final Resu lt [facility] [address] [place] [address] * Lipid panel (04/23/2024 1:56 PM 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) Pathologist [facility] Cholesterol 118 <200 mg/dL [facility] [...] factors. LDL-C is now calculated using the Dante-José Miguel calculation, which is a validated novel method providing better accuracy than the Friedewald equation in the estimation of LDL-C. Dante TENORIO et al. KATIE. 2013;310(19): 0554-0305 (http://education.Maktoob.Fly6/faq/NLK018) Chol/HDL ratio 3.0 <5.0 (calc) [facility] Non-HDL, (LDL+VLDL) 78 <130 mg/dL (calc) [facility] Comment: For patients with diabetes plus 1 major ASCVD risk factor, treating to a non-HDL-C goal of <100 mg/dL (LDL-C of <70 mg/dL) is considered a therapeutic option. Blood 04/23/2024 1:56 PM 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 04/23/2024 1:57 PM 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 Alexa Araya MD LAB BLOOD ORDERABLES Final Resu lt [facility] [address] [place] [address] * (ABNORMAL) Protime-INR (04/21/2024 1:08 PM 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) INR 2.6(H) [facility] Comment: Reference Range 0.9-1.1 Moderate-intensity Warfarin Therapy 2.0-3.0 Higher-intensity Warfarin Therapy 3.0-4.0 PT 26.5(H) 9.0 - 11.5 sec [facility] Comment: For additional information, please refer to http://education.[employer]/faq/AIB414 (This link is being provided for informational/ educational purposes only.) Blood 04/21/2024 1:08 PM 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 04/21/2024 1:08 PM 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 Roger Butler MD LAB BLOOD ORDERABLES F inal Result [facility] [address] [place] [address] * (ABNORMAL) Protime-INR (03/26/2024 1:56 PM 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) INR 2.8(H) [facility] Comment: Reference Range 0.9-1.1 Moderate-intensity Warfarin Therapy 2.0-3.0 Higher-intensity Warfarin Therapy 3.0-4.0 PT 28.4(H) 9.0 - 11.5 sec [facility] Comment: For additional information, please refer to http://[employer]/faq/ZEZ831 (This link is being provided for informational/ educational purposes only.) Blood 03/26/2024 1:56 PM 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 03/26/2024 1:57 PM 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 Roger Butler MD LAB BLOOD ORDERABLES F inal Result Performing Organization Address [facility] de Phone Number [facility] [address] [place] [address] * (ABNORMAL) Protime-INR (03/10/2024 1:21 PM 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) INR 2.9(H) [facility] Comment: Reference Range 0.9-1.1 Moderate-intensity Warfarin Therapy 2.0-3.0 Higher-intensity Warfarin Therapy 3.0-4.0 PT 28.6(H) 9.0 - 11.5 sec [facility] Comment: For additional information, please refer to http://Plixi/faq/PEQ770 (This link is being provided for informational/ educational purposes only.) Blood 03/10/2024 1:21 PM 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 03/10/2024 1:22 PM 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 Roger Butler MD LAB BLOOD ORDERABLES F inal Result Performing Organization Address [facility] de Phone Number [facility] [address] [place] [address] * (ABNORMAL) Protime-INR (02/09/2024 1:19 PM 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) INR 2.5(H) [facility] Comment: Reference Range 0.9-1.1 Moderate-intensity Warfarin Therapy 2.0-3.0 Higher-intensity Warfarin Therapy 3.0-4.0 PT 25.0(H) 9.0 - 11.5 sec [facility] Comment: For additional information, please refer to http://[employer].Tiempy.Fly6/faq/ZOU575 (This link is being provided for informational/ educational purposes only.) Blood 02/09/2024 1:19 PM 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 02/09/2024 1:20 PM 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 Roger Butler MD LAB BLOOD ORDERABLES F inal Result Performing Organization Address City/[facility]/ZIP Co de Phone Number [facility] [address] [place] [address] * (ABNORMAL) Basic metabolic panel (12/08/2023 1:07 PM CDT) Pathologist [facility] Glucose 120(H) 65 - 99 mg/dL [facility] [...] ORDERABLES F inal Result Performing Organization Address City/[facility]/ZIP Co de Phone Number [facility] [address] [address] from Last 3 Months or Most Recently Relevant to Health Maintenance Insurance MEDICARE [facility] CIGNA OPEN ACCESS MEDICARE [facility] Advance Directives For more information, please contact: [phone] * Full Code (Latest Code Status on File) Date Activated Date Inactivated Comments 09/17/2019 9:04 AM 09/18/2019 3:36 PM Care Teams Order Entry Specialist Relationship Specialty Start Date End Date Sarahi Roth MD [address] [facility] [address] [address] PCP - General Family Medicine 04/03/21 Marion Randall MD [address] [facility] [address] [address] Consulting Physician Interventional Cardiology 07/15/19
--- OUTSIDE RECORDS SUMMARY | 2024-05-07 11:08 | XMS_ITS | Encounter Summary ---
Author Organization [facility] Address [address] [place] [address] Phone Care Team Providers Care Psych Arnp Name Role Phone Marion Randall MD Unavailable [phone] Sarahi Roth MD Primary Care Provider [phone] Encounter Details Date Type Department Care Team (Late st Contact Info) Description 10/19/2023 Anticoagulation - Ot her Visit (DOAC) [facility] Cardiology [address] [facility] Advanced Medicine 8th [place] [address] [place] [address] Roger Butler MD [address] [facility] [address] [place] [address] Social History Tobacco Use Types Packs/Day Years Used Date Smoking Tobacco: Never Smokeless Tobacco: Never Alcohol Use Standard Drinks/Week Comments No 0 (1 standard drink = 0.6 oz pur e alcohol) Sex and Gender Information Value Date Recorded Sex Assigned at Not on file Legal Sex Male 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
--- OUTSIDE RECORDS SUMMARY | 2024-05-07 11:08 | XMS_ITS | Encounter Summary ---
Author Organization [facility] Address [address] [place] [address] Phone Care Team Providers Care Certified Lactation Educator Name Role Phone Marion aRndall MD Unavailable [phone] Sarahi Roth MD Primary Care Provider [phone] Encounter Details Date Type Department Care Team (Late st Contact Info) Description 04/28/2024 Results Follow-Up [facility] Endocrinology Metabolism and Lipid [address] [facility] Medicine 13th [place] [address] [place] [address] Alexa Araya MD [address] [facility] [address] [place], [place] [id number] Social History Tobacco Use Types Packs/Day Years Used Date Smoking Tobacco: Never Smokeless Tobacco: Never Alcohol Use Standard Drinks/Week Comments No 0 (1 standard drink = 0.6 oz pur e alcohol) Sex and Gender Information Value Date Recorded Sex Assigned at Not on file 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
--- OUTSIDE RECORDS SUMMARY | 2024-05-07 11:08 | XMS_ITS | Clinical Summary ---
Author Organization [facility] Address [address] [facility] [place] [address] Care Team Providers Care Senior Java Developer Name Role Phone Sarahi Roth MD Primary Care Provider [phone] Source Comments [facility],non-owned Affiliates and Associated Physician Practices is amultiple site organization consisting of ambulatory clinics and hospital sitesin [place], [place], [place] and [place]. This disclosure is being madepursuant to the Care Everywhere program and may not contain all information available regarding this patient. Last updated 17.[facility] [employer] Allergies Active Allergy Reactions Criticality Noted Date [...] mg) / 24 hours. Active HYDROcodone-acetami nophen (Diller) 5-325 MG tablet Take 1 (one) tablet [...] Office Visit [facility] [address] [place] [address] Ehsan Portillo MD [address] [place] [address] [place] [address] Health Maintenance Due Date Last Done Comments [...] age to complete this topic Care Teams Senior Java Developer Relationship Specialty Start Date End Date Sarahi Roth MD [address] [place] [address] PCP - General 06/07/21
--- OUTSIDE RECORDS SUMMARY | 2024-05-07 11:08 | XMS_ITS | Clinical Summary ---
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 2021 Prediabetes 03/07/2020 Presence of stent in coronary artery 10/11/2019 Cardiomyopathy, ischemic 09/10/2019 Overview (09/10/2019): Added automatically from request for surgery [id number] Assessment & Plan (09/18/2019 10:56 AM CDT): [...] effusion 06/04/2019 Coronary artery disease invo lving wilton coronary artery of wilton heart without angina pectoris 05/24/2019 Dry cough [...] Type Department Care Team Description 05/05/2024 Telephone [facility] Endocrinology Metabolism and Lipid [address] [facility] 5th [place] [address] [place] [id number] Le Delarosa RN Dwo 05/05/2024 Orders Only [facility] Endocrinology Metabolism and Lipid [address] [facility] 13th [place] [address] [place] [address] Val Harper RMA Type 2 diabetes mellitus without complication, without long-term current use of insulin (HCC) (Primary Dx) 04/28/2024 10:20 AM CDT Office Visit [facility] Endocrinology Metabolism and Lipid [facility] [facility] 13 [place] [address] [place] [address] Alexa Araya MD Type 2 diabetes mellitus without complication, without long-term current use of insulin (HCC) (Primary Dx); Mixed hyperlipidemia; Metabolic syndrome 04/28/2024 Telephone [facility] Scheduling [address] [place] [address] Alexa Araya MD Prior Auth 04/28/2024 Results Follow-Up [facility] Endocrinology Metabolism and Lipid [facility] [address] [place] [address] [place] [address] Alexa Araya MD 04/22/2024 Anticoagulation Telephone Call [facility] Cardiology [address] [place] [address] 8th [place] [address] [place] [phone] Roger Butler MD alf (current) use of anticoagulants (Primary Dx) 04/21/2024 Telephone [facility] Cardiology [address] [place] [address] 8th [place] [address] [place] [address] Roger Butler MD 03/29/2024 Anticoagulation Telephone Call [facility] Cardiology [address] [place] [address] 8th [place] [address] [place] [address] Roger Butler MD alf (current) use of anticoagulants (Primary Dx) 03/11/2024 Anticoagulation Telephone Call [address] 8th [place] [address] [place] [address] Roger Butler MD 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 accountant (current) use of anticoagulants (Primary Dx) 03/09/[address] 8th [place] [address] [place] [address] Roger Butler MD 03/03/[address] 8th [place] [address] [place] [phone] Layton Lee MD 02/20/2024 Orders Only [address] 8th [place] [address] [place] [address] Roger Butler MD 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 accountant (current) use of anticoagulants (Primary Dx) 02/12/2024 Anticoagulation Telephone Call [place] [address] [facility] [address] [place] [address] Roger Butler MD 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 accountant (current) use of anticoagulants (Primary Dx) from Last 3 Months Surgical History Surgery [...] on file Legal Sex Male 1:17 AM SECOND MILLER Gender Identity Not on file Sexual Orientation [...] 2023 11/15/2019, 2017 Hemoglobin A1C 10/24/2024 04/23/2024, 07/20, 01/21/2022, Additional history exists eGFR 2024 12/08/2023, 11/17, 11/18/2023, Additional history exists Lipid Panel 04/23/2025 04/23/2024, 07/20, 01/21/2022, Additional history exists DTaP/Tdap/Td Vaccine (3 - Td or Tdap) 10/30/2028 10/30/2018, 06/03/2008 Medical Devices Implanted Type Area Fertilizer Applicator Device Identifier Shelf Expiration Date Model / Serial / Lot [employer] D150 Dynagen Enduralife Easyview Hf Perspectiv 5.37x7.36cm 1 Chamber - [id number] - [id number] Implanted:Qty: 1 on 09/17/2019 by Layton Lee MD at [facility] ICD Left: Chest Wall [employer] 07/29/2021 D150 / [id number] / Description:ICD GENERATOR [employer] [address] [place] 4-Front 59cm Active Fixation Lead Icd - [id number] - [id number] Implanted:Qty: 1 on 09/17/2019 by Layton Lee MD at [facility] Lead Right: Heart [employer] 08/30/2021 0672 / [id number] / Description:RV LEAD Procedures Procedure Name Priority Date/Time Associated Diagnosis Comments HEMOGLOBIN A1C Routine 04/23/2024 1:56 PM SECOND MILLER Prediabetes LIPID PANEL Routine 04/23/2024 1:56 PM SECOND MILLER Mixed hyperlipidemia PROTIME-INR Routine 04/21/2024 1:08 PM SECOND MILLER alf (current) use of anticoagulants PROTIME-INR Routine 03/26/2024 1:56 PM SECOND MILLER alf (current) use of anticoagulants PROTIME-INR Routine 03/10/2024 1:21 PM SECOND MILLER 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 Blood 04/23/2024 1:56 PM SECOND MILLER 04/23/2024 1:57 PM SECOND MILLER us Alexa Araya MD LAB BLOOD ORDERABLES Final Resu lt [facility] [address] [place] [address] * Lipid panel (04/23/2024 1:56 PM SECOND MILLER) Cholesterol 118 <200 mg/dL [facility] [...] LDL-C. Dante TENORIO et al. KATIE. 2013;310(19): 1506-7091 (http://education.daPulse.Associated Content/faq/FAI828) Chol/HDL ratio 3.0 <5.0 (calc) [facility] Non-HDL, (LDL+VLDL) 78 <130 mg/dL (calc) [facility] Comment: For patients with diabetes plus 1 major ASCVD risk factor, treating to a non-HDL-C goal of <100 mg/dL (LDL-C of <70 mg/dL) is considered a therapeutic option. Blood 04/23/2024 1:56 PM SECOND MILLER 04/23/2024 1:57 PM SECOND MILLER us Alexa Araya MD LAB BLOOD ORDERABLES Final Resu lt [facility] [address] [facility] [place] [address] * (ABNORMAL) Protime-INR (04/21/2024 1:08 PM SECOND MILLER) INR 2.6(H) [facility] Comment: Reference Range 0.9-1.1 Moderate-intensity Warfarin Therapy 2.0-3.0 Higher-intensity Warfarin Therapy 3.0-4.0 PT 26.5(H) 9.0 - 11.5 sec [facility] Comment: For additional information, please refer to http://[employer]/faq/KJK473 (This link is being provided for informational/ educational purposes only.) Blood 04/21/2024 1:08 PM SECOND MILLER 04/21/2024 1:08 PM SECOND MILLER Roger Butler MD LAB BLOOD ORDERABLES F inal Result [facility] [address] [place] [address] * (ABNORMAL) Protime-INR (03/26/2024 1:56 PM SECOND MILLER) INR 2.8(H) [facility] Comment: Reference Range 0.9-1.1 Moderate-intensity Warfarin Therapy 2.0-3.0 Higher-intensity Warfarin Therapy 3.0-4.0 PT 28.4(H) 9.0 - 11.5 sec [facility] Comment: For additional information, please refer to http://[employer]/faq/WCL781 (This link is being provided for informational/ educational purposes only.) Blood 03/26/2024 1:56 PM SECOND MILLER 03/26/2024 1:57 PM SECOND MILLER Roger Butler MD LAB BLOOD ORDERABLES F inal Result Performing Organization Address [facility] de Phone Number [facility] [address] [place] [address] * (ABNORMAL) Protime-INR (03/10/2024 1:21 PM SECOND MILLER) INR 2.9(H) [facility] Comment: Reference Range 0.9-1.1 Moderate-intensity Warfarin Therapy 2.0-3.0 Higher-intensity Warfarin Therapy 3.0-4.0 PT 28.6(H) 9.0 - 11.5 sec [facility] Comment: For additional information, please refer to http://[employer]/faq/PZW856 (This link is being provided for informational/ educational purposes only.) Blood 03/10/2024 1:21 PM SECOND MILLER 03/10/2024 1:22 PM SECOND MILLER Roger Butler MD LAB BLOOD ORDERABLES F inal Result Performing Organization Address [facility] de Phone Number [facility] [address] [place] [address] * (ABNORMAL) Protime-INR (02/09/2024 1:19 PM SECOND MILLER) INR 2.5(H) [facility] Comment: Reference Range 0.9-1.1 Moderate-intensity Warfarin Therapy 2.0-3.0 Higher-intensity Warfarin Therapy 3.0-4.0 PT 25.0(H) 9.0 - 11.5 sec [facility] Comment: For additional information, please refer to http://[employer]/faq/SGE097 (This link is being provided for informational/ educational purposes only.) Blood 02/09/2024 1:19 PM SECOND MILLER 02/09/2024 1:20 PM SECOND MILLER Roger Butler MD LAB BLOOD ORDERABLES F inal Result [facility] [address] [place] [address] * (ABNORMAL) Basic metabolic panel (12/08/2023 1:07 PM CDT) Pathologist [facility] Glucose 120(H) 65 - 99 mg/dL [facility] [...] LAB BLOOD ORDERABLES F inal Result [facility] [address] [place] [phone] from Last 3 Months or Most Recently Relevant to Health Maintenance Insurance MEDICARE [facility] OPEN ACCESS MEDICARE [facility] Advance Directives For more information, please contact: [phone] * Full Code (Latest Code Status on File) Date Activated Date Inactivated Comments 09/17/2019 9:04 AM 09/18/2019 3:36 PM Care Teams Cushion Spring Assembler Relationship Specialty Start Date End Date Sarahi Roth MD [address] [facility] [address] [address] PCP - General Family Medicine 04/03/21 Marion Randall MD [address] [facility] [address] [place] [id number] Consulting Physician Interventional Cardiology 07/15/19
== END 2024-05-07 10:06 | disposition home or self-care (01) ==
PROVIDERS: PCP Family Medicine; Visit Provider Urology
DX: N20.0 Calculus of kidney (principal)
CPT/HCPCS: 74018

== ENCOUNTER 2024-05-26 16:16 | Outpatient (CLI) | payer MEDICARE, OTHER, SELFPAY ==
--- NOTE | ~2024-05-26 | CT_ITS ---
CLINICAL INDICATION: Renal calculi, lower abdominal pain COMPARISON: Reference is made to multiple plain film evaluations of the abdomen and pelvis a and 01/09/2024. TECHNIQUE: Multiple contiguous axial images of the abdomen and pelvis were performed without the admi nistration of intravenous contrast The dose-length product (DLP) was 864.86 mGy-cm. Automated exposure control and iterative reconstruction technique were employed. FINDINGS/OBSERVATIONS: Visualized lower thorax: The bilateral lung bases are clear. The heart is of normal size, without pericardial effusion. Small hiatal hernia is present. Liver: The liver demonstrates homogeneous attenuation and is not enlarged . Gallbladder and biliary system: The gallbladder is only minimally distended, and contains multiple subcentimeter layering stones. Pancreas: Limited evaluation of the pancreas secondary to the lack of intravenous contrast. Spleen: The spleen demonstrates homogeneous attenuation and is not enlarged . Kidneys: Innumerable nonobstructing stones are identified within the bilateral kidneys. The largest on the right is located within the lower pole and measures 7 mm. The largest on the left is located within the upper pole and measures 9 mm. No hydronephrosis or obstructing calculi are present. Adrenal glands: Unremarkable. Gastrointestinal tract: Colonic diverticulosis without surrounding inflammatory change. Appendix: Clips within the posterior wall of the cecum suggesting prior appendectomy. Vasculature: Calcified atherosclerotic disease. Lymph nodes: Limited evaluation without intravenous contrast. Pelvic structures: The bladder is decompressed, and otherwise unremarkable. The prostate gland is not enlarged, and contains multiple calcified stones.. Body wall and musculoskeletal: Age advanced degenerative disease within the lumbosacral spine with osteophyte formation, disc space narrowing, endplate changes and vacuum phenomena most prominent at the level of L3/L4 and L5/S1. IMPRESSION: Innumerable nonobstructing stones within the bilateral kidneys, as detailed above. No obstructive uropathy. Reviewed, dictated and finalized at location A. IMPRESSION: Innumerable nonobstructing stones within the bilateral kidneys, as detailed abo ve. No obstructive uropathy.
--- OUTSIDE RECORDS SUMMARY | 2024-05-26 17:08 | XMS_ITS | Encounter Summary ---
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 Name Role Phone Marion Randall MD Unavailable [phone] Sarahi Roth MD Primary Care Provider [phone] Encounter Details Date Type Department Care Team (Late st Contact Info) Description 04/28/2024 Results Follow-Up [facility] Endocrinology Metabolism and Lipid [address] [facility] 13th [place] [address] [place] [address] Alexa Araya MD [address] [facility] [address] [place], [place] [id number] Social History Tobacco Use Types Packs/Day Years Used Date Smoking Tobacco: Never Smokeless Tobacco: Never Alcohol Use Standard Drinks/Week Comments No 0 (1 standard drink = 0.6 oz pur e alcohol) Sex and Gender Information Value Date Recorded Sex Assigned at Not on file 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
--- OUTSIDE RECORDS SUMMARY | 2024-05-26 17:08 | XMS_ITS | Referral Summary ---
Author Organization [facility] [address] Address [address] [place] [address] Care Team Providers Care Order Detailer Name Role Phone Marion Randall MD Unavailable [phone] Sarahi Roth MD Primary Care Provider [phone] Encounters Date Type Department Care Team Description 05/18/2024 3:15 PM CDT Office Visit [facility] Cardiology [address] [facility] 8th [place] [address] [place] [address] Cristobal Butler MD Coronary artery disease involving togiak coronary artery of togiak heart without angina pectoris (Primary Dx); Mixed hyperlipidemia; Left ventricular thrombus; Cardiomyopathy, ischemic; 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 (Primary Dx) 05/05/2024 Telephone [facility] Endocrinology Metabolism and Lipid [address] [facility] 5th [place] [address] [place] [address] Le Delarosa RN Dwo 05/05/2024 Orders Only [facility] Endocrinology Metabolism and Lipid [address] [place] [address] [place] [address] Val Harper RMA Type 2 diabetes mellitus without complication, without long-term current use of insulin (HCC) (Primary Dx) 04/28/2024 Telephone [facility] Scheduling [address] [place] [address] Alexa Araya MD Prior Auth 04/28/2024 Results Follow-Up [facility] Endocrinology Metabolism and Lipid [address] [place] [address] Alexa Araya MD 04/28/2024 10:20 AM CDT Office Visit [facility] Endocrinology Metabolism and Lipid [address] [place] [address] Alexa Araya MD Type 2 diabetes mellitus without complication, without long-term current use of insulin (HCC) (Primary Dx); Mixed hyperlipidemia; Metabolic syndrome 04/22/2024 Anticoagulation Telephone Call [facility] Cardiology [facility] [address] [place] [address] Cristobal Butler MD 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 (Primary Dx) 04/21/2024 Telephone [facility] Cardiology [address] [place] [address] Cristobal Butler MD 03/29/2024 Anticoagulation Telephone Call [facility] Cardiology [address] [place] [address] Cristobal Butler MD detention (current) use of anticoagulants (Primary Dx) 03/11/2024 Anticoagulation Telephone Call [facility] Cardiology [address] [place] [address] Cristobal Butler MD 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 (Primary Dx) 03/09/2024 Telephone [facility] Cardiology [facility] [address] [place] [address] Cristobal Butler MD 03/03/2024 Telephone [facility] Cardiology [address] [facility] 8th [place] [address] [place] [address] Layton Lee MD from Last 3 Months [...] complication, without long-term current use of insulin ([facility]) Use to check blood sugar once daily 50 strip 11 5 Active OneTouch Verio Flex meter miscIndications:Ty pe 2 diabetes mellitus without complication, without long-term current use of insulin ([facility]) Use to check blood sugar daily 1 each 5 Active tirzepatide (Mounjaro) 2.5 mg/0.5 mL pen injector injectionIndicatio ns:Type 2 diabetes mellitus without complication, without long-term current use of insulin ([facility]) Inject 0.5 mL (2.5 mg total) under the skin once a week For 4 weeks, then increase dose to 5mg weekly 2 mL 5 Active tirzepatide (Mounjaro) 5 mg/0.5 mL pen injector injectionIndicatio ns:Type 2 diabetes mellitus without complication, without long-term current use of insulin (HCC) Inject 0.5 mL (5 mg total) under the skin once a week 2 mL 5 Active lancets miscIndications:Ty pe 2 diabetes mellitus without complication, without long-term current use of insulin (HCC) Check blood sugar four times a day or as directed 1 each 5 Active Active Problems Problem Noted Date Diagnosed Date Type 2 diabetes mellitus wit hout complication, without long-term current use of insulin 04/28/2024 Peripheral vascular disease 01/21/2022 Left ventricular thrombus 10/01/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 Prediabetes 03/07/2020 Presence of stent in coronary artery 10/11/2019 Cardiomyopathy, ischemic 09/10/2019 Overview (09/10/2019): Added automatically from request for surgery [id number] Assessment & Plan (09/18/2019 10:56 AM CDT): [...] effusion 06/04/2019 Coronary artery disease invo lving togiak coronary artery of togiak heart without angina pectoris 05/24/2019 Dry cough [...] on file Legal Sex Male 1:17 AM 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 PUMPER Gender Identity Not on file Sexual Orientation Not on file Last Filed Vital Signs Vital Sign Reading Time Taken Comments Blood Pressure 95/61 05/18/2024 2:50 PM CDT Pulse 79 05/18/2024 2:50 PM CDT Temperature 36.4 C (97.6 F) 04/28/2024 9:52 AM CDT Respiratory Rate 18 09/18/2019 8:55 AM CDT Oxygen Saturation 97% 05/18/2024 2:50 PM CDT Inhaled Oxygen Concentration - - Weight 122.6 kg (270 lb 3.2 oz) 05/18/2024 2:50 PM CDT Height 170.2 cm (5' 7 ) 05/18/2024 2:50 PM CDT Body Mass Index 42.32 05/18/2024 2:50 PM CDT Plan of Treatment Not on file Medical Devices Implanted Type Area Compressor Station Operator Device Identifier Shelf Expiration Date Model / Serial / Lot [employer] D150 Dynagen Enduralife Easyview Hf Perspectiv 5.37x7.36cm 1 Chamber - [id number] - [id number] Implanted:Qty: 1 on 09/17/2019 by Layton Lee MD at [facility] ICD Left: Chest Wall [employer] 07/29/2021 [id number] / [id number] / Description:ICD GENERATOR [employer] 0672 Mary D 4-Front 59cm Active Fixation Lead Icd - [id number] - [id number] Implanted:Qty: 1 on 09/17/2019 by Layotn Lee MD at [facility] Lead Right: Heart [employer] 08/30/2021 [id number] / [id number] / Description:RV LEAD Procedures Procedure Name Priority Date/Time Associated Diagnosis Comments TRANSTHORACIC ECHO (TTE) COMPLETE W DOPPLER/CF W CONTRAST Routine 05/18/2024 2:46 PM CDT Cardiomyopathy, ischemic PROTIME-INR Routine 05/14/2024 1:59 PM CDT detention (current) use of anticoagulants HEMOGLOBIN A1C Routine 04/23/2024 1:56 PM WATER PUMPER Prediabetes LIPID PANEL Routine 04/23/2024 1:56 PM WATER PUMPER Mixed hyperlipidemia PROTIME-INR Routine 04/21/2024 1:08 PM 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 PUMPER 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 PROTIME-INR Routine 03/26/2024 1:56 PM WATER PUMPER 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 PROTIME-INR Routine 03/10/2024 1:21 PM WATER PUMPER detention (current) use of anticoagulants BASIC METABOLIC PANEL Routine 12/08/2023 1:07 PM CDT Primary hypertension from Last 3 Months or Most Recently Relevant to Health Maintenance Results * TRANSTHORACIC ECHO (TTE) COMPLETE W DOPPLER/CF W CONTRAST (05/18/2024 2:46 PM CDT) LV EF 25 % CONS SCIMAGE Anatomical Region Laterality Modality Ultrasound 05/18/2024 1:57 PM CDT Narrative 05/18/2024 3:34 PM CDT [facility] [place] [address] Transthoracic Echocardiographic Report Patient Name: GO MORROW MA : 1955 (68y 5m) Gender: M Study Date: 05/18/2024 01:57:12 PM Ht(Inch): 67 Wt(Lb): 283.07 BSA: 2.46 Podiatry Doctor: Mindi Tello RDCS Location: [facility] Order Provider: CRISTOBAL BUTLER Heart Rate: 79 BMI: 44.33 BP: 113 / 68 Ref Provider: CRISTOBAL BUTLER PROCEDURES: Echocardiographic Report: Transthoracic complete echo with strain imaging and contrast, 2D, spectral and tissue Doppler, color flow Doppler, M-mode. Contrast: Contrast Enhancement was Employed: After initial imaging due to sub- optimal quality related to co-morbidity defined by patient's body habitus and due to suboptimal image quality with inadequate visualization of at least 2 of 16 LV wall segments in any view after initial imaging. Perflutren contrast was administered using the volume necessary to obtain adequate images. 0.8 ml Optison Administered, (2.2 ml wasted). Technically difficult study due to: Body habitus. Poor acoustic windows. Limited visualization of some cardiac structures precludes the ability to obtain complete measurements - INDICATIONS: I25.5 Ischemic cardiomyopathy. CONCLUSIONS: 1. Normal LV wall thickness. Severely depressed left ventricular systolic function. The Ejection Fraction is visually estimated to be 25 %. Grade II diastolic dysfunction (elevated mean LA pressure). The average global longitudinal strain is abnormal. 2. There is akinesis in the apical septum, mid anterior septum, mid anterior segment and apical anterior segment. 3. Resting Segmental Wall Motion Analysis: Total wall motion score is 2.73. There is akinesis of the entire apical wall. There is akinesis of the basal to mid anteroseptal wall. There is akinesis of the apical cap. There is akinesis of the mid anterior wall. There is hypokinesis of the mid inferolateral to mid inferior to mid inferoseptal wall. 4. Normal right ventricular size. Normal right ventricular systolic function. 5. The left atrium is normal in size. 6. The right atrium is normal in size. 7. Normal mitral valve structure. No mitral regurgitation. 8. Aortic valve not well visualized due to study quality. The mean transaortic gradient is 4 mmHg. The aortic valve area by the continuity equation (using VTI) is 1.81 cm2. Aortic valve dimensionless index is 0.54. 9. There is an anterior echo free space consistent with epicardial fat pad. ATTESTATION: I have personally reviewed and interpreted this study without fellow or resident. - DISCLAIMER: The study images and the final report will be retained in the patient chart by the Echo Laboratory for the legally required time period. This chart constitutes the legal record of any testing performed. FINDINGS: Left Ventricle: Moderately dilated left ventricle based on 2D measurements. Normal LV wall thickness. Severely depressed left ventricular systolic function. The Ejection Fraction is visually estimated to be 25 %. Grade II diastolic dysfunction (elevated mean LA pressure). The average global longitudinal strain is abnormal. The LV global strain is: -6.2 %. Unable to assess global longitudinal strain due to image quality. Resting Segmental Wall Motion Analysis: Total wall motion score is 2.73. There is akinesis of the entire apical wall. There is akinesis of the basal to mid anteroseptal wall. There is akinesis of the apical cap. There is akinesis of the mid anterior wall. There is hypokinesis of the mid inferolateral to mid inferior to mid inferoseptal wall. Regional Wall Motion: There is akinesis in the apical septum, mid anterior septum, mid anterior segment and apical anterior segment. Right Ventricle: Normal right ventricular size. Normal right ventricular systolic function. Left Atrium: The left atrium is normal in size. Right Atrium: The right atrium is normal in size. Atrial Septum: Normal interatrial septum. Mitral Valve: Normal mitral valve structure. No mitral regurgitation. Aortic Valve: Aortic valve not well visualized due to study quality. The mean transaortic gradient is 4 mmHg. The aortic valve area by the continuity equation (using VTI) is 1.81 cm2. Aortic valve dimensionless index is 0.54. Tricuspid Valve: Normal tricuspid valve structure. No tricuspid regurgitation. Pulmonic Valve: The pulmonic valve is not well visualized due to study quality. Pericardium: There is an anterior echo free space consistent with epicardial fat pad. Aorta: Normal aortic root. Normal aortic root size at sinuses of Valsalva. Normal aortic root size when indexed. IVC: IVC not visualized due to study quality. MEASUREMENTS: 2D/MM Value Range Doppler Value Range LVIDd 2D 6.44 cm [ 4.20 - 5.80 ] AV Peak Tucker 1.3 m/s [ 1.0 - 1.7 ] LVIDs 2D 5.40 cm [ 2.50 - 4.00 ] AV Peak PG 6.76 mmHg IVSd 2D 0.96 cm [ 0.60 - 1.00 ] AV Mean PG 4 mmHg LVPWd 2D 0.91 cm [ 0.60 - 1.00 ] AV VTI 31.5 cm LV Thickness Ratio 1.1 LVOT Peak Tucker 0.9 m/s [ 0.7 - 1.1 ] LV FS 2D 16.05 % [ 25.00 - 43.00 ] LVOT Peak PG 3.24 mmHg LV Mass 2D 264.38 g LVOT Mean PG 2 mmHg LV Mass Index 2D 107.47 g/m2 LVOT VTI 17.1 cm RWT 0.28 LVOT Diam 2.06 cm Visually Estimated EF 25 % TANYA VTI 1.81 cm2 LV GLS -6.2 % [ -25.0 - -18.0 ] LVOT/AV VTI 0.54 - Dimensionless index (DVI) LA Length 4C 5.39 cm MV E Peak Tucker 0.6 m/s [ 0.6 - 1.3 ] LA Length 2C 4.24 cm MV A Peak Tucker 1.1 m/s [ 1.0 - 1.2 ] LA Volume BP 32.36 ml MV E/A 0.5 ratio [ 0.8 - 1.5 ] LA Volume Index 13.15 ml/m2 [ 16.00 - 34.00 ] MV Decel Time 138.95 msec [ 104.00 - 258.00 ] RV Base Dimen 2D 3.3 cm [ 2.5 - 4.2 ] Med E` Tucker 5.2 cm/sec [ 8.0 - 25.0 ] TAPSE 2.94 cm [ 1.71 - 5.00 ] Lat E` Tucker 4.4 cm/sec [ 10.0 - 25.0 ] RA Volume 25.03 ml Average E/E` 12.50 RA Volume Index 10.17 ml/m2 RV S` 15.91 cm/sec AoR Diam 2D 3.57 cm [ 3.10 - 3.70 ] PV Peak Tucker 1.0 m/s [ 0.4 - 0.8 ] Ao Root Index 1.45 cm/m2 [ 1.00 - 2.00 ] PV Peak PG 4.00 mmHg PI ED Tucker 61.77 m/sec Electronically Signed By: Cristobal Butler M.D. 05/18/2024 3:34:01 PM CDT CC: Cristobal Butler M.D. Procedure Note Cristobal Butler MD - 05/18/2024 [facility] [place] [address] Transthoracic Echocardiographic Report Patient Name: GO MORROW MA : 1955 (68y 5m) Gender: M Study Date: 05/18/2024 01:57:12 PM Ht(Inch): 67 Wt(Lb): 283.07 BSA: 2.46 Podiatry Doctor: Mindi Tello RDCS Location: [facility] Order Provider:CRISTOBAL BUTLER Heart Rate: 79 BMI: 44.33 BP: 113 / 68 Ref Provider: CRISTOBAL BUTLER PROCEDURES: Echocardiographic Report: Transthoracic complete echo with strain imagingand contrast, 2D, spectral and tissue Doppler, color flow Doppler, M-mode. Contrast: Contrast Enhancement was Employed: After initial imaging due tosub- optimal quality related to co-morbidity defined by patient's body habitus and dueto suboptimal image quality with inadequate visualization of at least 2 of 16 LV wallsegments in any view after initial imaging. Perflutren contrast was administered using thevolume necessary to obtain adequate images. 0.8 ml Optison Administered, (2.2 mlwasted). Technically difficult study due to: Body habitus. Poor acoustic windows.Limited visualization of some cardiac structures precludes the ability to obtaincomplete measurements - INDICATIONS: I25.5 Ischemic cardiomyopathy. CONCLUSIONS: 1. Normal LV wall thickness. Severely depressed left ventricular systolicfunction. The Ejection Fraction is visually estimated to be 25 %. Grade II diastolicdysfunction (elevated mean LA pressure). The average global longitudinal strain isabnormal. 2. There is akinesis in the apical septum, mid anterior septum, midanterior segment and apical anterior segment. 3. Resting Segmental Wall Motion Analysis: Total wall motion score is2.73. There is akinesis of the entire apical wall. There is akinesis of the basal to midanteroseptal wall. There is akinesis of the apical cap. There is akinesis of the midanterior wall. There is hypokinesis of the mid inferolateral to mid inferior to midinferoseptal wall. 4. Normal right ventricular size. Normal right ventricular systolicfunction. 5. The left atrium is normal in size. 6. The right atrium is normal in size. 7. Normal mitral valve structure. No mitral regurgitation. 8. Aortic valve not well visualized due to study quality. The meantransaortic gradient is 4 mmHg. The aortic valve area by the continuity equation (using VTI) is1.81 cm2. Aortic valve dimensionless index is 0.54. 9. There is an anterior echo free space consistent with epicardial fatpad. ATTESTATION: I have personally reviewed and interpreted this study without fellow orresident. - DISCLAIMER: The study images and the final report will be retained in the patientchart by the Echo Laboratory for the legally required time period. This chart constitutesthe legal record of any testing performed. FINDINGS: Left Ventricle: Moderately dilated left ventricle based on 2Dmeasurements. Normal LV wall thickness. Severely depressed left ventricular systolic function. TheEjection Fraction is visually estimated to be 25 %. Grade II diastolic dysfunction(elevated mean LA pressure). The average global longitudinal strain is abnormal. The LVglobal strain is: -6.2 %. Unable to assess global longitudinal strain due to imagequality. Resting Segmental Wall Motion Analysis: Total wall motion score is 2.73.There is akinesis of the entire apical wall. There is akinesis of the basal to midanteroseptal wall. There is akinesis of the apical cap. There is akinesis of the midanterior wall. There is hypokinesis of the mid inferolateral to mid inferior to midinferoseptal wall. Regional Wall Motion: There is akinesis in the apical septum, mid anteriorseptum, mid anterior segment and apical anterior segment. Right Ventricle: Normal right ventricular size. Normal right ventricularsystolic function. Left Atrium: The left atrium is normal in size. Right Atrium: The right atrium is normal in size. Atrial Septum: Normal interatrial septum. Mitral Valve: Normal mitral valve structure. No mitral regurgitation. Aortic Valve: Aortic valve not well visualized due to study quality. Themean transaortic gradient is 4 mmHg. The aortic valve area by the continuity equation(using VTI) is 1.81 cm2. Aortic valve dimensionless index is 0.54. Tricuspid Valve: Normal tricuspid valve structure. No tricuspidregurgitation. Pulmonic Valve: The pulmonic valve is not well visualized due to studyquality. Pericardium: There is an anterior echo free space consistent withepicardial fat pad. Aorta: Normal aortic root. Normal aortic root size at sinuses of Valsalva.Normal aortic root size when indexed. IVC: IVC not visualized due to study quality. MEASUREMENTS: 2D/MM Value Range DopplerValue Range LVIDd 2D 6.44 cm [ 4.20 - 5.80 ] AV Peak Vel1.3 m/s [ 1.0 - 1.7 ] LVIDs 2D 5.40 cm [ 2.50 - 4.00 ] AV Peak PG6.76 mmHg IVSd 2D 0.96 cm [ 0.60 - 1.00 ] AV Mean PG4 mmHg LVPWd 2D 0.91 cm [ 0.60 - 1.00 ] AV VTI31.5 cm LV Thickness Ratio 1.1 LVOT Peak Vel0.9 m/s [ 0.7 - 1.1 ] LV FS 2D 16.05 % [ 25.00 - 43.00 ] LVOT Peak PG3.24 mmHg LV Mass 2D 264.38 g LVOT Mean PG2 mmHg LV Mass Index 2D 107.47 g/m2 LVOT VTI17.1 cm RWT 0.28 LVOT Diam2.06 cm Visually Estimated EF 25 % TANYA VTI1.81 cm2 LV GLS -6.2 % [ -25.0 - -18.0 ] LVOT/AV VTI0.54 - Dimensionless index (DVI) LA Length 4C 5.39 cm MV E Peak Vel0.6 m/s [ 0.6 - 1.3 ] LA Length 2C 4.24 cm MV A Peak Vel1.1 m/s [ 1.0 - 1.2 ] LA Volume BP 32.36 ml MV E/A0.5 ratio [ 0.8 - 1.5 ] LA Volume Index 13.15 ml/m2 [ 16.00 - 34.00 ] MV Decel Idmf969.95 msec [ 104.00 - 258.00 ] RV Base Dimen 2D 3.3 cm [ 2.5 - 4.2 ] Med E` Tucker 5.2cm/sec [ 8.0 - 25.0 ] TAPSE 2.94 cm [ 1.71 - 5.00 ] Lat E` Tucker 4.4cm/sec [ 10.0 - 25.0 ] RA Volume 25.03 ml Average E/E`12.50 RA Volume Index 10.17 ml/m2 RV S`15.91 cm/sec AoR Diam 2D 3.57 cm [ 3.10 - 3.70 ] PV Peak Tucker 1.0m/s [ 0.4 - 0.8 ] Ao Root Index 1.45 cm/m2 [ 1.00 - 2.00 ] PV Peak PG 4.00mmHg PI ED Tucker 61.77 m/sec Electronically Signed By: Cristobal Butler M.D. 05/18/2024 3:34:01 PM CDT CC: Cristobal Butler M.D. Cristobal Butler MD CV ECHO PROCEDURES Fin al Result * (ABNORMAL) Protime-INR (05/14/2024 1:59 PM CDT) INR 2.3(H) [facility] Comment: Reference Range 0.9-1.1 Moderate-intensity Warfarin Therapy 2.0-3.0 Higher-intensity Warfarin Therapy 3.0-4.0 PT 23.5(H) 9.0 - 11.5 sec [facility] Comment: For additional information, please refer to http://[email or web address] Creations/faq/JAL280 (This link is being provided for informational/ educational purposes only.) Blood 05/14/2024 1:59 PM CDT 05/14/2024 2:00 PM CDT Cristobal Butler MD LAB BLOOD ORDERABLES F inal Result Performing Organization Address [facility] Co de Phone Number [facility] [address] [place] [address] * (ABNORMAL) Hemoglobin A1c (04/23/2024 1:56 PM WATER PUMPER) Hgb A1C 6.8(H) <5.7 % of total Hgb [facility] Comment: For someone without known diabetes, [...] diabetes for children. Blood 04/23/2024 1:56 PM WATER PUMPER 04/23/2024 1:57 PM WATER PUMPER Alexa Araya MD LAB BLOOD ORDERABLES Final Resu lt Performing Organization Address [facility] Co de Phone Number [facility] [address] [place] [address] * Lipid panel (04/23/2024 1:56 PM WATER PUMPER) Cholesterol 118 <200 mg/dL [facility] [...] of LDL-C. Dante TENORIO et al. KATIE. 2013;310(43): 1566-7137 ([email or web address] [email or web address]/CQI689) Chol/HDL ratio 3.0 <5.0 (calc) [facility] Non-HDL, (LDL+VLDL) 78 <130 mg/dL (calc) [facility] Comment: For patients with diabetes plus 1 major ASCVD risk factor, treating to a non-HDL-C goal of <100 mg/dL (LDL-C of <70 mg/dL) is considered a therapeutic option. Blood 04/23/2024 1:56 PM WATER PUMPER 04/23/2024 1:57 PM WATER PUMPER Alexa Araya MD LAB BLOOD ORDERABLES Final Resu lt Performing Organization Address [facility] Co de Phone Number [facility] [address] [place] [address] * (ABNORMAL) Protime-INR (04/21/2024 1:08 PM WATER PUMPER) INR 2.6(H) [facility] Comment: Reference Range 0.9-1.1 Moderate-intensity Warfarin Therapy 2.0-3.0 Higher-intensity Warfarin Therapy 3.0-4.0 PT 26.5(H) 9.0 - 11.5 sec [facility] Comment: For additional information, please refer to [email or web address] [email or web address]/faq/MPE130 (This link is being provided for informational/ educational purposes only.) Blood 04/21/2024 1:08 PM WATER PUMPER 04/21/2024 1:08 PM WATER PUMPER Cristobal Butler MD LAB BLOOD ORDERABLES F inal Result [facility] [address] [place] [address] * (ABNORMAL) Protime-INR (03/26/2024 1:56 PM WATER PUMPER) INR 2.8(H) [facility] Comment: Reference Range 0.9-1.1 Moderate-intensity Warfarin Therapy 2.0-3.0 Higher-intensity Warfarin Therapy 3.0-4.0 PT 28.4(H) 9.0 - 11.5 sec [facility] Comment: For additional information, please refer to [email or web address] [email or web address]ations/faq/QDV699 (This link is being provided for informational/ educational purposes only.) Blood 03/26/2024 1:56 PM WATER PUMPER 03/26/2024 1:57 PM WATER PUMPER Cristobal Butler MD LAB BLOOD ORDERABLES F inal Result Performing Organization Address [facility] de Phone Number [facility] [address] [place] [address] * (ABNORMAL) Protime-INR (03/10/2024 1:21 PM WATER PUMPER) INR 2.9(H) [facility] Comment: Reference Range 0.9-1.1 Moderate-intensity Warfarin Therapy 2.0-3.0 Higher-intensity Warfarin Therapy 3.0-4.0 PT 28.6(H) 9.0 - 11.5 sec [facility] Comment: For additional information, please refer to [email or web address] [email or web address]/KRP778 (This link is being provided for informational/ educational purposes only.) Blood 03/10/2024 1:21 PM WATER PUMPER 03/10/2024 1:22 PM WATER PUMPER Cristobal Butler MD LAB BLOOD ORDERABLES F inal Result Performing Organization Address [facility] Co de Phone Number [facility] [address] [place] [address] * (ABNORMAL) Basic metabolic panel (12/08/2023 1:07 PM CDT) Glucose 120(H) 65 - 99 mg/dL [facility] Comment: Fasting reference interval For someone [...] 1:07 PM CDT 12/08/2023 1:07 PM CDT Cristobal Butler MD LAB BLOOD ORDERABLES F inal Result [facility] [address] [place] [address] from Last 3 Months or Most Recently Relevant to Health Maintenance Insurance MEDICARE [facility] [place] [address] [facility] OPEN ACCESS MEDICARE [employer] [facility] Advance Directives For more information, please contact: [phone] * Full Code (Latest Code Status on File) Date Activated Date Inactivated Comments 09/17/2019 9:04 AM 09/18/2019 3:36 PM Care Teams Order Detailer Relationship Specialty Start Date End Date Sarahi Roth MD [address] [place] [address] PCP - General Family Medicine 04/03/21 Marion Randall MD [address] [place] [address] Consulting Physician Interventional Cardiology 07/15/19
--- OUTSIDE RECORDS SUMMARY | 2024-05-26 17:08 | XMS_ITS | Encounter Summary ---
Author Organization [facility] [place] [facility] Address [address] [place] [address] Phone Care Team Providers Care Testing Machine Operator Name Role Phone Marion Randall MD Unavailable [phone] Sarahi Roth MD Primary Care Provider [phone] Encounter Details Date Type Department Care Team (Late st Contact Info) Description 10/19/2023 Anticoagulation - Ot her Visit (DOAC) [facility] Cardiology [address] [facility] Advanced Medicine 8th [place] [address] [place] [address] Roger Butler MD [address] [facility] [address] [place] [address] Social History Tobacco Use Types Packs/Day Years Used Date Smoking Tobacco: Never Smokeless Tobacco: Never Alcohol Use Standard Drinks/Week Comments No 0 (1 standard drink = 0.6 oz pur e alcohol) Sex and Gender Information Value Date Recorded Sex Assigned at Not on file 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
--- OUTSIDE RECORDS SUMMARY | 2024-05-26 17:08 | XMS_ITS | Clinical Summary ---
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 Prediabetes 03/07/2020 Presence of stent in coronary artery 10/11/2019 Cardiomyopathy, ischemic 09/10/2019 Overview (09/10/2019): Added automatically from request for surgery [id number] Assessment & Plan (09/18/2019 10:56 AM CDT): [...] effusion 06/04/2019 Coronary artery disease invo lving kenaitze coronary artery of kenaitze heart without angina pectoris 05/24/2019 Dry cough [...] Description 05/18/2024 3:15 PM CDT Office Visit [facility] Cardiology [address] [facility] 8th [place] [address] [place] [address] Cristobal Butler MD Coronary artery disease involving kenaitze coronary artery of kenaitze heart without angina pectoris (Primary Dx); Mixed hyperlipidemia; Left ventricular thrombus; Cardiomyopathy, ischemic; alf (current) use of anticoagulants 05/18/2024 1:45 PM CDT - 05/18/2024 11:59 PM CDT Hospital Encounter [facility] Cardiac Diagnostic Lab [address] [facility] [address] [place] [address] Cardiomyopathy, ischemic Discharge Disposition: Discharge to home or self care 05/17/2024 Anticoagulation Telephone Call [facility] Cardiology [address] [facility] Medical Office Building [address] [place] [address] Cristobal Butler MD 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 (Primary Dx) 05/05/2024 Telephone [facility] Endocrinology Metabolism and Lipid [address] [facility] 5th [place] [address] [place] [address] Le Delarosa RN Dwo 05/05/2024 Orders Only [facility] Endocrinology Metabolism and Lipid [address] [facility] 13th [place] [address] [place] [address] Val Harper RMA Type 2 diabetes mellitus without complication, without long-term current use of insulin (HCC) (Primary Dx) 04/28/2024 10:20 AM CDT Office Visit [facility] Endocrinology Metabolism and Lipid [address] [facility] 13th [place] [address] [place] [address] Alexa Araya MD Type 2 diabetes mellitus without complication, without long-term current use of insulin (HCC) (Primary Dx); Mixed hyperlipidemia; Metabolic syndrome 04/28/2024 Telephone [facility] Scheduling [address] [place] [address] Alexa Araya MD Prior Auth 04/28/2024 Results Follow-Up [facility] Endocrinology Metabolism and Lipid [address] [place] [address] 13th [place] [address] [place] [address] Alexa Araya MD 04/22/2024 Anticoagulation Telephone Call [address] 8th [place] [address] [place] [address] Cristobal Butler MD alf (current) use of anticoagulants (Primary Dx) 04/21/[address] [place] [address] Cristobal Butler MD 03/29/2024 Anticoagulation Telephone Call [address] [place] [address] Cristobal Butler MD alf (current) use of anticoagulants (Primary Dx) 03/11/2024 Anticoagulation Telephone Call [address] [place] [address] Cristobal Butler MD alf (current) use of anticoagulants (Primary Dx) 03/09/[address] [place] [address] Cristobal Butler MD 03/03/[address] [place] [address] Layton Lee MD from Last 3 Months [...] on file 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 Gender Identity Not on file Sexual Orientation [...] 05/18/2024 2:50 PM CDT Plan of Treatment Health Maintenance [...] 09/18/2019 Well Visit 65+ 2022 Influenza Vaccine (Season Ended) 2024 11/15/19 20, 01/01/2018 Hemoglobin A1C 10/24/2024 04/23/2024, 07/20, 01/21/2022, Additional history exists eGFR 2024 12/08/2023, 11/17, 11/18/2023, Additional history exists Lipid Panel 04/23/2025 04/23/2024, 07/20, 01/21/2022, Additional history exists DTaP/Tdap/Td Vaccine (3 - Td or Tdap) 10/30/2028 10/30/2018, 06/03/2008 Medical Devices Implanted Type Area Special Officer Device Identifier Shelf Expiration Date Model / Serial / Lot [employer] D150 Dynagen Enduralife Easyview Hf Perspectiv 5.37x7.36cm 1 Chamber - [id number] - [id number] Implanted:Qty: 1 on 09/17/2019 by Layton Lee MD at [facility] ICD Left: Chest Wall [employer] 07/29/2021 [id number] / [id number] / Description:ICD GENERATOR [employer] 0672 Granite 4-Front 59cm Active Fixation Lead Icd - [id number] - [id number] Implanted:Qty: 1 on 09/17/2019 by Layton Lee MD at [facility] Lead Right: Heart [employer] 08/30/2021 [id number] / [id number] / Description:RV LEAD Procedures Procedure Name Priority Date/Time Associated Diagnosis Comments TRANSTHORACIC ECHO (TTE) COMPLETE W DOPPLER/CF W CONTRAST Routine 05/18/2024 2:46 PM CDT Cardiomyopathy, ischemic PROTIME-INR Routine 05/14/2024 1:59 PM CDT 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 HEMOGLOBIN A1C Routine 04/23/2024 1:56 PM CARE PARTNER Prediabetes LIPID PANEL Routine 04/23/2024 1:56 PM CARE PARTNER Mixed hyperlipidemia PROTIME-INR Routine 04/21/2024 1:08 PM CARE PARTNER alf (current) use of anticoagulants PROTIME-INR Routine 03/26/2024 1:56 PM CARE PARTNER 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 PROTIME-INR Routine 03/10/2024 1:21 PM CARE PARTNER 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 BASIC METABOLIC PANEL Routine 12/08/2023 1:07 PM CDT Primary hypertension from Last 3 Months or Most Recently Relevant to Health Maintenance Results * TRANSTHORACIC ECHO (TTE) COMPLETE W DOPPLER/CF W CONTRAST (05/18/2024 2:46 PM CDT) LV EF 25 % CONS SCIMAGE Anatomical Region Laterality Modality Ultrasound 05/18/2024 1:57 PM CDT Narrative 05/18/2024 3:34 PM CDT [facility] [place] [address] Transthoracic Echocardiographic Report Patient Name: GO MORROW MA : 1955 (68y 5m) Gender: M Study Date: 05/18/2024 01:57:12 PM Ht(Inch): 67 Wt(Lb): 283.07 BSA: 2.46 Vehicle Window Tinter: Mindi Tello RDCS Location: [facility] Order Provider: CRISTOBAL BUTLER Heart Rate: 79 [...] Procedure Note Cristobal Butler MD - 05/18/2024 [facility] [place] [address] Transthoracic Echocardiographic Report Patient Name: GO MORROW MA : 1955 (68y 5m) Gender: M Study Date: 05/18/2024 01:57:12 PM Ht(Inch): 67 Wt(Lb): 283.07 BSA: 2.46 Vehicle Window Tinter: Mindi Tello RDCS Location: [facility] Order Provider:CRISTOBAL BUTLER Heart Rate: 79 BMI: [...] [ 16.00 - 34.00 ] MV Decel Ygvc848.95 msec [ 104.00 - 258.00 ] RV [...] Protime-INR (05/14/2024 1:59 PM CDT) INR 2.3(H) [facility] Comment: Reference Range 0.9-1.1 Moderate-intensity Warfarin Therapy 2.0-3.0 Higher-intensity Warfarin Therapy 3.0-4.0 PT 23.5(H) 9.0 - 11.5 sec [facility] Comment: For additional information, please refer to http://education.Insync.Loxo Oncology/faq/JKN003 (This link is being provided for informational/ educational purposes only.) Blood 05/14/2024 1:59 PM CDT 05/14/2024 2:00 PM CDT Cristobal Butler MD LAB BLOOD ORDERABLES F inal Result Performing Organization Address City/State/[facility] de Phone Number [facility] [address] [place] [address] * (ABNORMAL) Hemoglobin A1c (04/23/2024 1:56 PM CARE PARTNER) Pathologist [facility] Hgb A1C 6.8(H) <5.7 % of total Hgb [facility] Comment: For someone without known diabetes, [...] diabetes for children. Blood 04/23/2024 1:56 PM CARE PARTNER 04/23/2024 1:57 PM CARE PARTNER Alexa Araya MD LAB BLOOD ORDERABLES Final Resu lt Performing Organization Address [facility] de Phone Number [facility] [address] [place] [address] * Lipid panel (04/23/2024 1:56 PM CARE PARTNER) Pathologist [facility] Cholesterol 118 <200 mg/dL [facility] [...] LDL-C. Dante TENORIO et al. KATIE. 2013;310(19): 2998-6071 (http://education.sportif225.Loxo Oncology/faq/VUF949) Chol/HDL ratio 3.0 <5.0 (calc) [facility] Non-HDL, (LDL+VLDL) 78 <130 mg/dL (calc) [facility] Comment: For patients with diabetes plus 1 major ASCVD risk factor, treating to a non-HDL-C goal of <100 mg/dL (LDL-C of <70 mg/dL) is considered a therapeutic option. Blood 04/23/2024 1:56 PM CARE PARTNER 04/23/2024 1:57 PM CARE PARTNER Alexa Araya MD LAB BLOOD ORDERABLES Final Resu lt [facility] [address] [place] [address] * (ABNORMAL) Protime-INR (04/21/2024 1:08 PM CARE PARTNER) INR 2.6(H) [facility] Comment: Reference Range 0.9-1.1 Moderate-intensity Warfarin Therapy 2.0-3.0 Higher-intensity Warfarin Therapy 3.0-4.0 PT 26.5(H) 9.0 - 11.5 sec [facility] Comment: For additional information, please refer to http://education.iSale Global/faq/ELZ026 (This link is being provided for informational/ educational purposes only.) Blood 04/21/2024 1:08 PM CARE PARTNER 04/21/2024 1:08 PM CARE PARTNER Cristobal Butler MD LAB BLOOD ORDERABLES F inal Result [facility] [address] [place] [address] * (ABNORMAL) Protime-INR (03/26/2024 1:56 PM CARE PARTNER) INR 2.8(H) [facility] Comment: Reference Range 0.9-1.1 Moderate-intensity Warfarin Therapy 2.0-3.0 Higher-intensity Warfarin Therapy 3.0-4.0 PT 28.4(H) 9.0 - 11.5 sec [facility] Comment: For additional information, please refer to http://CupomNow.iSale Global/faq/KEY719 (This link is being provided for informational/ educational purposes only.) Blood 03/26/2024 1:56 PM CARE PARTNER 03/26/2024 1:57 PM CARE PARTNER Cristobal Butler MD LAB BLOOD ORDERABLES F inal Result Performing Organization Address [facility] de Phone Number [facility] [address] [place] [address] * (ABNORMAL) Protime-INR (03/10/2024 1:21 PM CARE PARTNER) INR 2.9(H) [facility] Comment: Reference Range 0.9-1.1 Moderate-intensity Warfarin Therapy 2.0-3.0 Higher-intensity Warfarin Therapy 3.0-4.0 PT 28.6(H) 9.0 - 11.5 sec [facility] Comment: For additional information, please refer to http://CupomNow.iSale Global/faq/WIJ092 (This link is being provided for informational/ educational purposes only.) Blood 03/10/2024 1:21 PM CARE PARTNER 03/10/2024 1:22 PM CARE PARTNER Cristobal Butler MD LAB BLOOD ORDERABLES F inal Result Performing Organization Address [facility] de Phone Number [facility] [address] [place] [address] * (ABNORMAL) Basic metabolic panel (12/08/2023 1:07 [...] PM CDT 12/08/2023 1:07 PM CDT us Cristobal Butler MD LAB BLOOD ORDERABLES F inal Result [facility] [address] [place] [address] from Last 3 Months or Most Recently Relevant to Health Maintenance [place] [address] [facility] [place] [address] [facility] OPEN ACCESS MEDICARE [facility] Advance Directives For more information, please contact: [phone] * Full Code (Latest Code Status on File) Date Activated Date Inactivated Comments 09/17/2019 9:04 AM 09/18/2019 3:36 PM Care Teams Yardage Control Operator Relationship Specialty Start Date End Date Sarahi Roth MD [address] [place] [address] PCP - General Family Medicine 04/03/21 Marion Randall MD [address] [place] [address] Consulting Physician Interventional Cardiology 07/15/19
--- OUTSIDE RECORDS SUMMARY | 2024-05-26 17:08 | XMS_ITS | Clinical Summary ---
Author Organization [facility] Address [address] [place] [address] Care Team Providers Care Sap Pi Architect Name Role Phone Sarahi Roth MD Primary Care Provider [phone] Source Comments [facility],non-owned Affiliates and Associated Physician Practices is amultiple site organization consisting of ambulatory clinics and hospital sitesin [place], [place], [place] and [place]. This disclosure is being madepursuant to the Care Everywhere program and may not contain all information available regarding this patient. Last updated 17.[facility] [employer] Allergies Active Allergy Reactions Criticality Noted Date [...] mg) / 24 hours. Active HYDROcodone-acetami nophen (Central) 5-325 MG tablet Take 1 (one) tablet [...] Office Visit [facility] [address] [place] [address] Ehsan Portillo MD [address] [place] [address] [place] [address] Health Maintenance Due Date Last Done Comments [...] VACCINE (1 - 2023-2 5 season) 2023 DEPRESSION SCREENING 02/18/2024 INFLUENZA VACCINE (Season Ended) 2024 11/15/19 20 HEPATITIS B VACCINE Aged Out No longe [...] age to complete this topic Care Teams Sap Pi Architect Relationship Specialty Start Date End Date Sarahi Roth MD [address] [place] [address] PCP - General 06/07/21
== END 2024-05-26 16:17 | disposition home or self-care (01) ==
PROVIDERS: PCP Family Medicine; Visit Provider Family Medicine
DX: R10.9 Unspecified abdominal pain (principal); N20.0 Calculus of kidney
CPT/HCPCS: 74176

== ENCOUNTER 2024-08-16 11:43 | Outpatient (CLI) | payer MEDICARE, OTHER, SELFPAY ==
--- NOTE | ~2024-08-16 | XR_ITS ---
Supine and upright views of the abdomen Clinical history: UTI, abdominal pain Findings: Bowel gas pattern is nonspecific. No evidence for obstruction or free air. Possible left re nal stones present. Osseous structures are intact. Impression: Possible left renal stones. Reviewed, dictated and finalized at location . Impression: Possible left renal stones.
--- OUTSIDE RECORDS SUMMARY | 2024-08-16 12:00 | XMS_ITS | Referral Summary ---
Author Organization [facility] [address] Address [address] [place] [address] Care Team Providers Care Pen And Pencil Repairer Name Role Phone Marion Randall MD Unavailable [phone] Sarahi Roth MD Primary Care Provider [phone] Encounters Date Type Department Care Team Description 08/06/2024 Anticoagulation Telephone Call [address] [place] [address] [place] [address] Cristobal Butler MD snf (current) use of anticoagulants (Primary Dx) 07/21/2024 Anticoagulation Telephone Call [address] [place] [address] [place] [address] Cristobal Butler MD snf (current) use of anticoagulants (Primary Dx) 07/05/2024 Anticoagulation Telephone Call [address] [place] [address] [place] [address] Cristobal Butler MD medical terminologist (current) use of anticoagulants (Primary Dx) 06/14/2024 Anticoagulation Telephone Call [address] [place] [address] [place] [address] Cristobal Butler MD medical terminologist (current) use of anticoagulants (Primary Dx) 06/04/2024 Anticoagulation Telephone Call [address] [place] [address] [place] [address] Cristobal Butler MD snf (current) use of anticoagulants (Primary Dx) 05/18/2024 3:15 PM CDT Office Visit [facility] Cardiology [address] [facility] [address]th [place] [address] [place] [address] Cristobal Butler MD Coronary artery disease involving peoria coronary artery of peoria heart without angina pectoris (Primary Dx); Mixed hyperlipidemia; Left ventricular thrombus; Cardiomyopathy, ischemic; medical terminologist (current) use of anticoagulants 05/18/2024 1:45 PM CDT - 05/18/2024 11:59 PM CDT Hospital Encounter [facility] Cardiac Diagnostic Lab [address] [facility] 8[address] [place] [id number] Cardiomyopathy, ischemic Discharge Disposition: Discharge to home or self care 05/17/2024 Anticoagulation Telephone Call [facility] Cardiology [address] [facility] [address] [facility] [address] [place] [address] Cristobal Butler MD snf (current) use of anticoagulants (Primary Dx) from [...] tongue every 5 (five) minutes as needed 03/23/19 20 Active UNABLE TO FIND CPAP Activ e acetaminophen (TYLENOL) 500 mg tablet Take 2 tablets (1,000 mg total) by mouth every 6 (six) hours as needed for pain Active ubidecarenone (ULTRA COQ10 ORAL) Take 1 tablet by mouth daily Active metoprolol XL (TOPROL-XL) 25 mg extended release tablet TAKE 1 AND 1/2 TABLETS BY MOUTH DAILY 135 tablet 1 03/14/19 21 Active aspirin 81 mg enteric coated tablet TAKE 1 TABLET BY MOUTH EVERY MORNING 90 tablet 2 03/15/19 21 Active isosorbide mononitrate ER (IMDUR) 30 mg 24 hr tablet Take 0.5 tablets (15 mg total) by mouth every morning 90 tablet 3 09/26/19 21 Active fexofenadine (GLORY) 180 mg tablet Active zolpidem (AMBIEN) 10 mg tablet Take 1 tablet (10 mg total) by mouth nightly as needed 12/13/19 22 Active diclofenac sodium (VOLTAREN) 1 % gel APPLY 2 GRAMS TOPICALLY TO RIGHT ELBOW FOUR TIMES DAILY 03/22/19 23 Active omeprazole (PriLOSEC) 40 mg capsule 06/08/19 23 Active HYDROcodone-aceta minophen (NORCO) 7.5-325 mg per tablet Take by mouth every 6 (six) hours as needed 08/16/19 23 Active ergocalciferol, vitamin D2, 10 mcg (400 unit) tablet Take by mouth Three times a week Active ferrous sulfate 325 mg (65 mg of elemental iron) tabletIndications :Iron Deficiency Anemia Take 1 tablet (65 mg of elemental iron total) by mouth 3 (three) times a day with meals Active furosemide (LASIX) 40 mg tablet Take 1.5 tablets (60 mg total) by mouth 2 (two) times a day 270 tablet 3 11/19/19 24 Active spironolactone (ALDACTONE) 25 mg tablet TAKE 1 TABLET(25 MG) BY MOUTH DAILY 90 tablet 3 11/26/19 24 Active Entresto 49-51 mg tablet TAKE 1 TABLET BY MOUTH TWICE DAILY 180 tablet 3 01/01/20 24 Active warfarin (COUMADIN) 2 mg tablet TAKE 2 TABLETS(4 MG) BY MOUTH DAILY 180 tablet 3 01/12/20 24 Active cephalexin (KEFLEX) 500 mg capsule Take 1 capsule (500 mg total) by mouth every 12 (twelve) hours 01/29/20 24 Active OneTouch Verio test strips stripIndications: Type 2 diabetes mellitus without complication, without long-term current use of insulin (HCC) Use to check blood sugar once daily 50 strip 11 04/29/19 25 Active OneTouch Verio Flex meter miscIndications:T ype 2 diabetes mellitus without complication, without long-term current use of insulin ([facility]) Use to check blood sugar daily 1 each 04/29/19 25 Active tirzepatide (Mounjaro) 2.5 mg/0.5 mL pen injector injectionIndicati ons:Type 2 diabetes mellitus without complication, without long-term current use of insulin ([facility]) Inject 0.5 mL (2.5 mg total) under the skin once a week For 4 weeks, then increase dose to 5mg weekly 2 mL 04/29/19 25 Active tirzepatide (Mounjaro) 5 mg/0.5 mL pen injector injectionIndicati ons:Type 2 diabetes mellitus without complication, without long-term current use of insulin ([facility]) Inject 0.5 mL (5 mg total) under the skin once a week 2 mL 05/28/19 25 Active lancets miscIndications:T ype 2 diabetes mellitus without complication, without long-term current use of insulin ([facility]) Check blood sugar four times a day or as directed 1 each 05/06/19 25 Active ezetimibe (ZETIA) 10 mg tabletIndications :Mixed hyperlipidemia TAKE 1 TABLET(10 MG) BY MOUTH DAILY 90 tablet 1 06/15/19 25 Active atorvastatin (LIPITOR) 80 mg tabletIndications :Mixed hyperlipidemia TAKE 1 TABLET(80 MG) BY MOUTH DAILY 90 tablet 3 07/27/19 25 Active potassium chloride ER 10 mEq CR tablet TAKE 1 TABLET BY MOUTH FRIDAY, FRIDAY, FRIDAY ONLY DOSE DECREASED 05/31/2022 38 tablet 3 08/03/19 25 Active atorvastatin (LIPITOR) 80 mg tabletIndications :Mixed hyperlipidemia TAKE 1 TABLET(80 MG) BY MOUTH DAILY 90 tablet 3 07/24/19 24 025 Discontinued potassium chloride ER 10 mEq CR tablet TAKE 1 TABLET BY MOUTH FRIDAY, FRIDAY, FRIDAY ONLY DOSE DECREASED 05/31/2022 38 tablet 3 08/11/19 24 025 Discontinued Active Problems Problem Noted Date Diagnosed Date Type 2 diabetes mellitus wit hout complication, without long-term current use of insulin 04/28/2024 Peripheral vascular disease 01/21/2022 Left ventricular thrombus 10/01/2021 medical terminologist (current) use of anticoagulants 2021 Prediabetes 03/07/2020 Presence of stent in coronary artery 10/11/2019 Cardiomyopathy, ischemic 09/10/2019 Overview (09/10/2019): Added automatically from request for surgery [id number] Assessment & Plan (09/18/2019 10:56 AM CDT): [...] on file Legal Sex Male 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 Gender Identity Not on file Sexual Orientation [...] 2:50 PM CDT Height 170.2 cm (5' 7) 05/18/2024 2:50 PM CDT Body Mass Index 42.32 05/18/2024 2:50 PM CDT Plan of Treatment Not on file Medical Devices Implanted Type Area Retail Field Representative Device Identifier Shelf Expiration Date Model / Serial / Lot Klip Chanel D150 Dynagen Enduralife Easyview Hf Perspectiv 5.37x7.36cm 1 Chamber - [id number] - [id number] Implanted:Qty: 1 on 09/17/2019 by Layton Lee MD at [facility] ICD Left: Chest Wall [place] [employer] 07/29/2021 [id number] / [id number] / Description:ICD GENERATOR Klip Chanel [address] [place] 4-Front 59cm Active Fixation Lead Icd - [id number] - [id number] Implanted:Qty: 1 on 09/17/2019 by Layton Lee MD at [facility] Lead Right: Heart [place] [employer] 08/30/2021 [id number] / [id number] / Description:RV LEAD Procedures Procedure Name Priority Date/Time Associated Diagnosis Comments PROTIME-INR Routine 08/05/2024 1:20 PM CDT medical terminologist (current) use of anticoagulants PROTIME-INR Routine 07/20/2024 1:18 PM CDT snf (current) use of anticoagulants PROTIME-INR Routine 07/02/2024 1:17 PM CDT Left ventricular thrombus snf (current) use of anticoagulants PROTIME-INR Routine 06/11/2024 1:31 PM CDT medical terminologist (current) use of anticoagulants PROTIME-INR Routine 06/03/2024 1:19 PM CDT snf (current) use of anticoagulants TRANSTHORACIC ECHO (TTE) COMPLETE W DOPPLER/CF W CONTRAST Routine 05/18/2024 2:46 PM CDT Cardiomyopathy, ischemic HEMOGLOBIN A1C Routine 04/23/2024 1:56 PM ADMISSIONS ADVISOR Prediabetes LIPID PANEL Routine 04/23/2024 1:56 PM ADMISSIONS ADVISOR Mixed hyperlipidemia BASIC METABOLIC PANEL Routine 12/08/2023 1:07 PM CDT Primary hypertension from Last 3 Months or Most Recently Relevant to Health Maintenance Results * (ABNORMAL) Protime-INR (08/05/2024 1:20 PM CDT) INR 2.7(H) [facility] Comment: Reference Range 0.9-1.1 Moderate-intensity Warfarin Therapy 2.0-3.0 Higher-intensity Warfarin Therapy 3.0-4.0 PT 27.1(H) 9.0 - 11.5 sec [facility] Comment: For additional information, please refer to http://Forte [employer].Gogo/faq/HOB126 (This link is being provided for informational/ educational purposes only.) Blood 08/05/2024 1:20 PM CDT 08/05/2024 1:21 PM CDT Cristobal Butler MD LAB BLOOD ORDERABLES F inal Result Performing Organization Address [facility] de Phone Number [facility] [address] [place] [address] * (ABNORMAL) Protime-INR (07/20/2024 1:18 PM CDT) INR 2.7(H) [facility] Comment: Reference Range 0.9-1.1 Moderate-intensity Warfarin Therapy 2.0-3.0 Higher-intensity Warfarin Therapy 3.0-4.0 PT 26.9(H) 9.0 - 11.5 sec [facility] Comment: For additional information, please refer to http://OnForce/faq/XYN224 (This link is being provided for informational/ educational purposes only.) Blood 07/20/2024 1:18 PM CDT 07/20/2024 1:18 PM CDT Cristobal Butler MD LAB BLOOD ORDERABLES F inal Result Performing Organization Address [facility] de Phone Number [facility] [address] [place] [address] * (ABNORMAL) Protime-INR (07/02/2024 1:17 PM CDT) INR 2.2(H) [facility] Comment: Reference Range 0.9-1.1 Moderate-intensity Warfarin Therapy 2.0-3.0 Higher-intensity Warfarin Therapy 3.0-4.0 PT 22.5(H) 9.0 - 11.5 sec [facility] Comment: For additional information, please refer to http://OnForce/faq/UNT935 (This link is being provided for informational/ educational purposes only.) Blood 07/02/2024 1:17 PM CDT 07/02/2024 1:17 PM CDT Cristobal Butler MD LAB BLOOD ORDERABLES F inal Result Performing Organization Address [facility] de Phone Number [facility] [address] [place] [address] * (ABNORMAL) Protime-INR (06/11/2024 1:31 PM CDT) INR 2.7(H) [facility] Comment: Reference Range 0.9-1.1 Moderate-intensity Warfarin Therapy 2.0-3.0 Higher-intensity Warfarin Therapy 3.0-4.0 PT 27.1(H) 9.0 - 11.5 sec [facility] Comment: For additional information, please refer to http://OnForce/faq/PWZ204 (This link is being provided for informational/ educational purposes only.) Blood 06/11/2024 1:31 PM CDT 06/11/2024 1:31 PM CDT Cristobal Butler MD LAB BLOOD ORDERABLES F inal Result Performing Organization Address [facility] de Phone Number [facility] [address] [place] [address] * (ABNORMAL) Protime-INR (06/03/2024 1:19 PM CDT) INR 2.9(H) [facility] Comment: Reference Range 0.9-1.1 Moderate-intensity Warfarin Therapy 2.0-3.0 Higher-intensity Warfarin Therapy 3.0-4.0 PT 28.5(H) 9.0 - 11.5 sec [facility] Comment: For additional information, please refer to http://education.Gogo/faq/DSQ887 (This link is being provided for informational/ educational purposes only.) Blood 06/03/2024 1:19 PM CDT 06/03/2024 1:20 PM CDT us Cristobal Butler MD LAB BLOOD ORDERABLES F inal Result [facility] [address] [place] [address] * TRANSTHORACIC ECHO (TTE) COMPLETE W DOPPLER/CF W CONTRAST (05/18/2024 2:46 PM CDT) LV EF 25 % CONS SCIMAGE Anatomical Region Laterality Modality Ultrasound 05/18/2024 1:57 PM CDT Narrative 05/18/2024 3:34 PM CDT [facility] Cardiac [place] [address] Transthoracic Echocardiographic Report Patient Name: GO MORROW MA : 1955 (68y 5m) Gender: M Study Date: 05/18/2024 01:57:12 PM Ht(Inch): 67 Wt(Lb): 283.07 BSA: 2.46 Workforce Development Program Director: Mindi Tello RDCS Location: [facility] Order Provider: CRISTOBAL BUTLER Heart Rate: [...] Procedure Note Cristobal Butler MD - 05/18/2024 [facility] Cardiac [place] [address] Transthoracic Echocardiographic Report Patient Name: GO MORROW MA : 1955 (68y 5m) Gender: M Study Date: 05/18/2024 01:57:12 PM Ht(Inch): 67 Wt(Lb): 283.07 BSA: 2.46 Workforce Development Program Director: Mindi Tello RDCS Location: [facility] Order Provider:CRISTOBAL BUTLER Heart Rate: 79 [...] [ 16.00 - 34.00 ] MV Decel Kvpf243.95 msec [ 104.00 - 258.00 ] RV [...] ECHO PROCEDURES Fin al Result * (ABNORMAL) Hemoglobin A1c (04/23/2024 1:56 PM ADMISSIONS ADVISOR) Hgb A1C 6.8(H) <5.7 % of total Hgb [facility] Comment: For someone without known diabetes, [...] diabetes for children. Blood 04/23/2024 1:56 PM ADMISSIONS ADVISOR 04/23/2024 1:57 PM ADMISSIONS ADVISOR Alexa Araya MD LAB BLOOD ORDERABLES Final Resu lt Performing Organization Address City/[facility]/ZIP Co de Phone Number [facility] [address] [place] [address] * Lipid panel (04/23/2024 1:56 PM ADMISSIONS ADVISOR) Pathologist [facility] Cholesterol 118 <200 mg/dL [facility] [...] LDL-C. Dante SS et al. KATIE. 2013;310(19): 0918-6587 (http://education.iSOCO/faq/WSW622) Chol/HDL ratio 3.0 <5.0 (calc) [facility] Non-HDL, (LDL+VLDL) 78 <130 mg/dL (calc) [facility] Comment: For patients with diabetes plus 1 major ASCVD risk factor, treating to a non-HDL-C goal of <100 mg/dL (LDL-C of <70 mg/dL) is considered a therapeutic option. Blood 04/23/2024 1:56 PM ADMISSIONS ADVISOR 04/23/2024 1:57 PM ADMISSIONS ADVISOR Alexa Araya MD LAB BLOOD ORDERABLES Final Resu lt Performing Organization Address City/[facility]/ZIP Co de Phone Number [facility] [address] [address] * (ABNORMAL) Basic metabolic panel (12/08/2023 1:07 [...] LAB BLOOD ORDERABLES F inal Result [facility] [address] [place] [address] from Last 3 Months or Most Recently Relevant to Health Maintenance Insurance MEDICARE [facility] [place] [address] [employer] [facility] Shiftboard Online Scheduling OPEN ACCESS MEDICARE [facility] Advance Directives For more information, please contact: [phone] * Full Code (Latest Code Status on File) Date Activated Date Inactivated Comments 09/17/2019 9:04 AM 09/18/2019 3:36 PM Care Teams Pen And Pencil Repairer Relationship Specialty Start Date End Date Sarahi Roth MD [address] [place] [address] PCP - General Family Medicine 04/03/21 Marion Randall MD [address] [place] [address] Consulting Physician Interventional Cardiology 07/15/19
--- OUTSIDE RECORDS SUMMARY | 2024-08-16 12:01 | XMS_ITS | Clinical Summary ---
Author Organization [facility] Address [address] [facility] [place] [address] Care Team Providers Care Fourdrinier Wire Weaver Name Role Phone Sarahi Roth MD Primary Care Provider [phone] Source Comments [facility],non-owned Affiliates and Associated Physician Practices is amultiple site organization consisting of ambulatory clinics and hospital sitesin [place], [place], [place] and [place]. This disclosure is being madepursuant to the Care Everywhere program and may not contain all information available regarding this patient. Last updated 17.[facility] MyRefers Allergies Active Allergy Reactions Criticality Noted Date Comments Evelio Inhibitors Cough Low 07/13/2019 Advair Diskus Other Low 04/03/2021 Dapagliflozin Other Low 05/07/2021 Fungal infection Sulfa Drugs Rash Medium 01/26/2015 Medications * Be aware that medications may not be up to date on this document. Alwaysverify current medications with the patient. ascorbic acid (VITAMIN C) 500 MG tablet Take 1 (one) tablet by mouth once daily Active finasteride (PROSCAR) 5 MG tablet Take 1 (one) tablet by mouth once daily 1 9 Active nitroGLYCERIN (NITROSTAT) 0.4 MG tablet Dissolve 1 (one) tablet under the tongue every 5 minutes as needed 0 Active metoprolol succinate XL 24hr (TOPROL XL) 25 MG tablet Take 1 (one) tablet by mouth once daily 0 Active atorvastatin (LIPITOR) 80 MG tablet Take 1 (one) tablet by mouth at bedtime 0 Active ASPIRIN LOW DOSE 81 MG Take 1 (one) tablet by mouth once 0 Active Ergocalciferol (VITAMIN D2) 50 MCG (1999 UT) Take 1 tablet by mouth once daily Active fexofenadine (GLORY) 180 MG tablet Take 1 (one) tablet by mouth once daily Active zolpidem (AMBIEN) 10 MG tablet Take 1 (one) tablet by mouth nightly as needed INSOMNIA 0 Active spironolactone (ALDACTONE) 25 MG tablet Take 1 (one) tablet by mouth once daily 0 Active ENTRESTO 24-26 MG tablet Take 1 (one) tablet by mouth once daily 0 Active isosorbide mononitrate CR 24hr (IMDUR) 30 MG tablet Take 1 (one) tablet by mouth once daily 0 Active furosemide (LASIX) 80 MG tablet Take 1 (one) tablet by mouth once daily 0 Active warfarin (COUMADIN) 2 MG tablet Take 1 (one) tablet by mouth once daily 2 Active CPAP Use 1 Dose as directed Active acetaminophen (TYLENOL) 500 MG tablet Take 1 (one) tablet by mouth every 4 hours as needed for Fever or Pain Maximum allowable Acetaminophen amount = 4 Grams (4000 mg) / 24 hours. Active HYDROcodone-evelio taminophen ([place]) 5-325 MG tablet Take 1 (one) tablet by mouth once daily 3 Active potassium chloride ER 10 MEQ tablet Take 1 (one) tablet by mouth once daily 3 Active omeprazole (PriLOSEC) 40 MG capsule Take 1 (one) capsule by mouth once daily 3 Active diclofenac sodium (Voltaren) 1 % gel Apply 2 (two) g to affected area as directed 3 Active Coenzyme Q10 (Ubidecarenone) POWD Take 1 Dose by mouth once daily Active clotrimazole-be tamethasone (Lotrisone) 1-0.05 % cream Apply to affected area 2 times daily 15 g 4 Active albuterol HFA (Proventil; Ventolin; Proair) 108 (90 Base) MCG/ACT inhaler Inhale 2 (two) puffs by mouth every 4 hours as needed 4 Active docusate sodium (Colace) 100 MG capsule Take 1 (one) capsule by mouth 2 times daily 4 Active ezetimibe (Zetia) 10 MG tablet Take 1 (one) tablet by mouth once daily 4 Active ferrous sulfate EC 325 (65 Fe) MG tablet Take 1 (one) tablet by mouth 3 times daily with meals Active Fiber Select Gummies CHEW Take 2 (two) tablets by mouth once daily 4 Active Advair HFA 230-21 MCG/ACT Inhale 2 (two) puffs by mouth 2 times daily 4 Active ondansetron (Zofran) 4 MG tablet Take 1 (one) tablet by mouth every 4 hours as needed FOR NAUSEA AND VOMITING 4 Active Active Problems Problem Noted Date [...] cerumen of both ears 11/30/2015 06/02/2017 Immunizations Immunization Administration Dates Next Due INFLUENZA VACCINE 11/15/2019 [...] at Not on file 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 Gender Identity Not on file Sexual [...] 11:45 AM CDT Height 175.3 cm (5' 9) 10/14/2023 11:45 AM CDT Body Mass Index 40.91 10/14/2023 11:45 AM CDT Plan of Treatment Upcoming Encounters Date Type Department Care Team (Late st Contact Info) Description 10/12/2024 11:00 AM CDT Office Visit [facility] ENT [address] [place] [address], [place] [address] Ehsan Portillo MD [address] [place] [address] [place] [address] Health Maintenance Due Date Last Done Comments [...] - Risk 60-74 years 1-dose series) 2017 PNEUMOCOCCAL VACCINE 50+ (2 of 2 - PCV20 or PCV21) 11/22/2020 11/23/2019 COVID-19 VACCINE (1 - 2023-2 5 season) 2023 DEPRESSION SCREENING 02/18/2024 SCREENING FOR DIABETES 05/18/2024 2, 03/08/2020 INFLUENZA VACCINE (Season Ended) 2024 11/15/2019 HEPATITIS B VACCINE Aged Out No longe r eligible based on patient's age to complete this topic HIB VACCINE Aged Out No longer eligi ble based on patient's age to complete this topic HPV VACCINE Aged Out No longer eligi ble based on patient's age to complete this topic MENINGOCOCCAL (Group B) VACCINE SHARED DECISION-MAKING Aged Out No longer eligible based on patient's age to complete this topic MENINGOCOCCAL GROUPS A/C/Y/W VACCINE Aged Out No longer eligible b ased on patient's age to complete [place] [address] MEDICARE MEDICARE [facility] [place] [facility] [facility] [employer] [facility] [place] [facility] [facility] SELF PAY NO INSURANCE Member Subscriber Plan / Payer (Ef fective for All Dates) Name:Go Mendes Member ID:Not on file Relation to Subscriber:Not on file Name:GO MENDES Subscriber ID:Not on file (Home) Address: [address] [place] [address] Payer ID:Not on file Group ID:Not on file Type:Self Pay Address: [place], [place] * Guarantor: GO MENDES Account Type Relation to Patient Date of Phone Billing Address Personal/Family [address] [place] [address] [employer] MEDICARE MEDICARE Member Subscriber Plan / Payer (Ef fective for All Dates) Name:Go Mendes Member ID:[id number] Relation to Subscriber:Self Name:ASHTYN MENDESNARCISOMAURILIO Subscriber ID:[id number] Payer ID:Not on file Group ID:Not on file Type:Medicare Address: [address] MED[address]ARE Member Subscriber Plan / Payer (Ef fective for All Dates) Name:CristhianGo Member ID:[id number] Relation to Subscriber:Self Name:ASHTYN MENDESY Subscriber ID:[id number] Payer ID:Not on file Group ID:Not on file Type:Medicare Address: [place] [id number] MEDICARE Member Subscriber Plan / Payer (Ef fective for All Dates) Name:Go Mendes Member ID:[id number] Relation to Subscriber:Self Name:GO MENDES Subscriber ID:[id number] Payer ID:Not on file Group ID:Not on file Type:Medicare Address: [place] [id number] Care Teams Fourdrinier Wire Weaver Relationship Specialty Start Date End Date Sarahi Roth MD [address] [place] [address] PCP - General 06/07/21
--- OUTSIDE RECORDS SUMMARY | 2024-08-16 12:01 | XMS_ITS | Clinical Summary ---
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) use of anticoagulants 2021 Prediabetes 03/07/2020 Presence of stent in coronary artery 10/11/2019 Cardiomyopathy, ischemic 09/10/2019 Overview (09/10/2019): Added automatically from request for surgery [id number] Assessment & Plan (09/18/2019 10:56 AM CDT): [...] effusion 06/04/2019 Coronary artery disease invo lving [place] coronary artery of [place] heart without angina pectoris 05/24/2019 Dry cough [...] Care Team Description 08/06/2024 Anticoagulation Telephone Call [address] [place] [address] Cristobal Butler MD senior care (current) use of anticoagulants (Primary Dx) 07/21/2024 Anticoagulation Telephone Call [address] [place] [address] [place] [address] Cristobal Butler MD senior care (current) use of anticoagulants (Primary Dx) 07/05/2024 Anticoagulation Telephone Call [address] [place] [address] [place] [address] Cristobal Butler MD hr intern (current) use of anticoagulants (Primary Dx) 06/14/2024 Anticoagulation Telephone Call [address] [place] [address] [place] [address] Cristobal Butler MD hr intern (current) use of anticoagulants (Primary Dx) 06/04/2024 Anticoagulation Telephone Call [address] [place] [address] [place] [address] Cristobal Butler MD hr intern (current) use of anticoagulants (Primary Dx) 05/18/2024 3:15 PM CDT Office Visit [address] [place] [address] Cristobal Butler MD Coronary artery disease involving kl[place] coronary artery of [place] heart without angina pectoris (Primary Dx); Mixed hyperlipidemia; Left ventricular thrombus; Cardiomyopathy, ischemic; senior care (current) use of anticoagulants 05/18/2024 1:45 PM CDT - 05/18/2024 11:59 PM CDT Hospital Encounter [facility] Cardiac Diagnostic Lab [address] [facility] 8th [place] [address] Cardiomyopathy, ischemic Discharge Disposition: Discharge to home or self care 05/17/[address] 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 ICD Left: Chest Wall [employer] 07/29/2021 D150 / [id number] / Description:ICD GENERATOR [employer] Chanel [address] 4-Front 59cm Active Fixation Lead Icd - [id number] - [id number] Implanted:Qty: 1 on 09/17/2019 by Layton Lee MD at [facility] Lead Right: Heart [employer] Corporation 08/30/2021 [id number] / [id number] / Description:RV LEAD Procedures Procedure Name Priority Date/Time Associated Diagnosis Comments PROTIME-INR Routine 08/05/2024 1:20 PM CDT senior care (current) use of anticoagulants PROTIME-INR Routine 07/20/2024 1:18 PM CDT senior care (current) use of anticoagulants PROTIME-INR Routine 07/02/2024 1:17 PM CDT Left ventricular thrombus hr intern (current) use of anticoagulants PROTIME-INR Routine 06/11/2024 1:31 PM CDT senior care (current) use of anticoagulants PROTIME-INR Routine 06/03/2024 1:19 PM CDT hr intern (current) use of anticoagulants TRANSTHORACIC ECHO (TTE) COMPLETE W DOPPLER/CF W CONTRAST Routine 05/18/2024 2:46 PM CDT Cardiomyopathy, ischemic HEMOGLOBIN A1C Routine 04/23/2024 1:56 PM VISITING NURSE Prediabetes LIPID PANEL Routine 04/23/2024 1:56 PM VISITING NURSE Mixed hyperlipidemia BASIC METABOLIC PANEL Routine 12/08/2023 1:07 PM CDT Primary hypertension from Last 3 Months or Most Recently Relevant to Health Maintenance Results * (ABNORMAL) Protime-INR (08/05/2024 1:20 PM CDT) INR 2.7(H) [facility] Comment: Reference Range 0.9-1.1 Moderate-intensity Warfarin Therapy 2.0-3.0 Higher-intensity Warfarin Therapy 3.0-4.0 PT 27.1(H) 9.0 - 11.5 sec [facility] Comment: For additional information, please refer to http://WeVideo.Graphite Systems/faq/ESL639 (This link is being provided for informational/ educational purposes only.) Blood 08/05/2024 1:20 PM CDT 08/05/2024 1:21 PM CDT Crisotbal Butler MD LAB BLOOD ORDERABLES F inal Result Performing Organization Address [facility] de Phone Number [facility] [address] [place] [address] * (ABNORMAL) Protime-INR (07/20/2024 1:18 PM CDT) INR 2.7(H) [facility] Comment: Reference Range 0.9-1.1 Moderate-intensity Warfarin Therapy 2.0-3.0 Higher-intensity Warfarin Therapy 3.0-4.0 PT 26.9(H) 9.0 - 11.5 sec [facility] Comment: For additional information, please refer to http://WeVideo.Graphite Systems/faq/UAM546 (This link is being provided for informational/ educational purposes only.) Blood 07/20/2024 1:18 PM CDT 07/20/2024 1:18 PM CDT Cristobal Butler MD LAB BLOOD ORDERABLES F inal Result Performing Organization Address [facility] de Phone Number [facility] [address] [place] [address] * (ABNORMAL) Protime-INR (07/02/2024 1:17 PM CDT) INR 2.2(H) [facility] Comment: Reference Range 0.9-1.1 Moderate-intensity Warfarin Therapy 2.0-3.0 Higher-intensity Warfarin Therapy 3.0-4.0 PT 22.5(H) 9.0 - 11.5 sec [facility] Comment: For additional information, please refer to http://WeVideo.Graphite Systems/faq/RZP973 (This link is being provided for informational/ educational purposes only.) Blood 07/02/2024 1:17 PM CDT 07/02/2024 1:17 PM CDT Cristobal Butler MD LAB BLOOD ORDERABLES F inal Result Performing Organization Address [facility] Co de Phone Number [facility] [address] [place] [address] * (ABNORMAL) Protime-INR (06/11/2024 1:31 PM CDT) INR 2.7(H) [facility] Comment: Reference Range 0.9-1.1 Moderate-intensity Warfarin Therapy 2.0-3.0 Higher-intensity Warfarin Therapy 3.0-4.0 PT 27.1(H) 9.0 - 11.5 sec [facility] Comment: For additional information, please refer to http://WeVideo.Graphite Systems/faq/KOP192 (This link is being provided for informational/ educational purposes only.) Blood 06/11/2024 1:31 PM CDT 06/11/2024 1:31 PM CDT Cristobal Butler MD LAB BLOOD ORDERABLES F inal Result Performing Organization Address [facility] Co de Phone Number [facility] [address] [place] [address] * (ABNORMAL) Protime-INR (06/03/2024 1:19 PM CDT) INR 2.9(H) [facility] Comment: Reference Range 0.9-1.1 Moderate-intensity Warfarin Therapy 2.0-3.0 Higher-intensity Warfarin Therapy 3.0-4.0 PT 28.5(H) 9.0 - 11.5 sec [facility] Comment: For additional information, please refer to http://education.Graphite Systems/faq/OSL059 (This link is being provided for informational/ educational purposes only.) Blood 06/03/2024 1:19 PM CDT 06/03/2024 1:20 PM CDT us Cristobal Butler MD LAB BLOOD ORDERABLES F inal Result [facility] [address] [place] [address] * TRANSTHORACIC ECHO (TTE) COMPLETE W DOPPLER/CF W CONTRAST (05/18/2024 2:46 PM CDT) LV EF 25 % CONS SCIMAGE Anatomical Region Laterality Modality Ultrasound 05/18/2024 1:57 PM CDT Narrative 05/18/2024 3:34 PM CDT [facility] [place] [address] Transthoracic Echocardiographic Report Patient Name: GO MENDES MA : 1955 (68y 5m) Gender: M Study Date: 05/18/2024 01:57:12 PM Ht(Inch): 67 Wt(Lb): 283.07 BSA: 2.46 Global Climate Change Analyst: Mindi Tello RDCS Location: [facility] Order Provider: CRISTOBAL BUTLER Heart Rate: [...] Procedure Note Cristobal Butler MD - 05/18/2024 [facility] [place] [address] Transthoracic Echocardiographic Report Patient Name: GO MENDES MA : 1955 (68y 5m) Gender: M Study Date: 05/18/2024 01:57:12 PM Ht(Inch): 67 Wt(Lb): 283.07 BSA: 2.46 Global Climate Change Analyst: Mindi Tello RDCS Location: [facility] Order Provider:CRISTOBAL BUTLER Heart Rate: 79 [...] [ 16.00 - 34.00 ] MV Decel Vrvh188.95 msec [ 104.00 - 258.00 ] RV [...] * (ABNORMAL) Hemoglobin A1c (04/23/2024 1:56 PM VISITING NURSE) Hgb A1C 6.8(H) <5.7 % of total Hgb [facility] Comment: For someone without known [...] diabetes for children. Blood 04/23/2024 1:56 PM VISITING NURSE 04/23/2024 1:57 PM VISITING NURSE us Alexa Araya MD LAB BLOOD ORDERABLES Final Resu lt [facility] [address] [place] [address] * Lipid panel (04/23/2024 1:56 PM VISITING NURSE) Cholesterol 118 <200 mg/dL [facility] [...] LDL-C. Dante SS et al. KATIE. 2013;310(19): 7604-4937 (http://education.Outbox/faq/BYS285) Chol/HDL ratio 3.0 <5.0 (calc) [facility] Non-HDL, (LDL+VLDL) 78 <130 mg/dL (calc) [facility] Comment: For patients with diabetes plus 1 major ASCVD risk factor, treating to a non-HDL-C goal of <100 mg/dL (LDL-C of <70 mg/dL) is considered a therapeutic option. Blood 04/23/2024 1:56 PM VISITING NURSE 04/23/2024 1:57 PM VISITING NURSE us Alexa Araya MD LAB BLOOD ORDERABLES Final Resu lt [facility] [address] [place] [address] * (ABNORMAL) Basic metabolic panel (12/08/2023 1:07 [...] MD LAB BLOOD ORDERABLES F inal Result [facility] [address] [place] [address] from Last 3 Months or Most Recently Relevant to Health Maintenance [place] [address] MEDICARE [facility] BLUE ACCESS [facility] OPEN ACCESS MEDICARE [employer] [facility] Advance Directives For more information, please contact: [phone] * Full Code (Latest Code Status on File) Date Activated Date Inactivated Comments 09/17/2019 9:04 AM 09/18/2019 3:36 PM Care Teams Back Panel Padder Relationship Specialty Start Date End Date Sarahi Roth MD [address] [place] [address] PCP - General Family Medicine 04/03/21 Marion Randall MD [address] [place] [address] Consulting Physician Interventional Cardiology 07/15/19
--- OUTSIDE RECORDS SUMMARY | 2024-08-16 12:01 | XMS_ITS | Encounter Summary ---
Author Organization [facility] [facility] Address [address] [place] [address] Phone Care Team Providers Care Patient Account Analyst Name Role Phone Marion Randall MD Unavailable [phone] Sarahi Roth MD Primary Care Provider [phone] Encounter Details Date Type Department Care Team (Late st Contact Info) Description 10/19/2023 Anticoagulation - Ot her Visit (DOAC) [facility] Cardiology [address] [facility] 8th [place] [address] [place] [address] Roger Butler MD [address] [facility] [address] [place] [address] Social History Tobacco Use Types Packs/Day Years Used Date Smoking Tobacco: Never Smokeless Tobacco: Never Alcohol Use Standard Drinks/Week Comments No 0 (1 standard drink = 0.6 oz pur e alcohol) Sex and Gender Information Value Date Recorded Sex Assigned at Not on file 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
== END 2024-08-16 11:44 | disposition home or self-care (01) ==
PROVIDERS: PCP Family Medicine; Visit Provider Urology
DX: N39.0 Urinary tract infection, site not specified (principal)
CPT/HCPCS: 74018

== ENCOUNTER 2024-11-22 09:51 | Outpatient (CLI) | payer MEDICARE, OTHER, SELFPAY ==
--- NOTE | ~2024-11-22 | XR_ITS ---
EXAMINATION: XR abdomen/kub 1V DATE: 11/22/2024 10:07 INDICATION: Kidney stones TECHNIQUE: A supine view of the abdomen on 2 radiographs was obtained. COMPARISON: 08/16/2024 FINDINGS: Moderate amount of stool. Moderate to large amount of air in nondilated large and small bowel. No stones similar to the prior study. Possible calcifications in the prostate gland. IMPRESSION: 1. Nonspecific abdomen with a moderate amount of stool. Moderate to large amount of air in nondilated large and small bowel. 2. Possible left-sided kidney stones similar to the prior study. Reviewed, dictated and finalized at location Q. IMPRESSION: 1. Nonspecific abdomen with a moderate amount of stool. Moderate to large amoun t of air in nondilated large and small bowel. 2. Possible left-sided kidney stones similar to the prior study.
--- OUTSIDE RECORDS SUMMARY | 2024-11-22 10:54 | XMS_ITS | Encounter Summary ---
Author Organization [facility] [employer] [facility] Address [address] [place] [address] Phone Care Team Providers Care Business Objects Name Role Phone Marion Randall MD Unavailable [phone] Sarahi Roth MD Primary Care Provider [phone] Encounter Details Date Type Department Care Team (Late st Contact Info) Description 10/29/2024 Results Follow-Up [facility] Medicine Cardiology [address] [facility] Advanced Medicine 8th [place] [address] [place] [address] Mary Mckeon RN Basic metabolic panel Social History Tobacco Use Types Packs/Day Years Used Date Smoking Tobacco: Never Smokeless Tobacco: Never Alcohol Use Standard Drinks/Week Comments No 0 (1 standard drink = 0.6 oz pur e alcohol) Sex and Gender Information Value Date Recorded Sex Assigned at Not on file 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
--- OUTSIDE RECORDS SUMMARY | 2024-11-22 10:55 | XMS_ITS | Clinical Summary ---
Author Organization [facility] Address [address] [place] [address] Care Team Providers Care Jig Grinder Name Role Phone Sarahi Roth MD Primary Care Provider [phone] Source Comments [facility],non-owned Affiliates and Associated Physician Practices is amultiple site organization consisting of ambulatory clinics and hospital sitesin [place], [place], [place] and [place]. This disclosure is being madepursuant to the Care Everywhere program and may not contain all information available regarding this patient. Last updated 17.[facility] Home Team Therapy Allergies Active Allergy Reactions Criticality Noted Date [...] mg) / 24 hours. 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 Gender Identity Not on file Sexual [...] Care Team (Late st Contact Info) Description 2024 10:45 AM CDT Office Visit [facility] - [facility] [address] [place] [phone] Ehsan Portillo MD [address] [place] [address] [place] [address] Health Maintenance Due Date Last Done Comments [...] 2 - PCV20 or PCV21) 11/22/2020 11/23/2019 DEPRESSION SCREENING 02/18/2024 COVID-19 VACCINE (1 - 2023-2 5 season) 2024 INFLUENZA VACCINE (#1) 2024 11/15/2019 HEPATITIS B VACCINE Aged Out [...] age to complete this [place] [address] [place] [address] MEDICARE [employer] [place] [employer] [place] [employer] SELF PAY NO INSURANCE Member Subscriber Plan / Payer (Ef fective for All Dates) Name:Go Mendes Member ID:Not on file Relation to Subscriber:Not on file Name:GO MENDES Subscriber ID:Not on file (Home) Address: [address] [place] [address] Payer ID:Not on file Group ID:Not on file Type:Self Pay Address: [place], [place] MED[employer]ARE MEDICARE Member Subscriber Plan / Payer (Ef fective for All Dates) Name:Go Mendes Member ID:[id number] Relation to Subscriber:Self Name:ELSY MENDESNARCISOMAURILIO Subscriber ID:[id number] Payer ID:Not on file Group ID:Not on file Type:Medicare Address: [address] MEDICARE MEDICARE Member Subscriber Plan / Payer (Ef fective for All Dates) Name:Go Mendes Member ID:[id number] Relation to Subscriber:Self Name:ELSY MENDESY Subscriber ID:[id number] Payer ID:Not on file Group ID:Not on file Type:Medicare Address: [address] Care Teams Jig Grinder Relationship Specialty Start Date End Date Sarahi Roth MD [address] [place] [address] PCP - General 06/07/21
--- OUTSIDE RECORDS SUMMARY | 2024-11-22 10:55 | XMS_ITS | Encounter Summary ---
Author Organization [facility] [employer] of [facility] Address [address] [place] [address] Phone Care Team Providers Care Pharmacy Technology Instructor Name Role Phone Marion Randall MD Unavailable [phone] Sarahi Roth MD Primary Care Provider [phone] Encounter Details Date Type Department Care Team (Late st Contact Info) Description 10/19/2023 Anticoagulation - Ot her Visit (DOAC) [facility] Medicine Cardiology [address] [facility] Advanced Medicine 8th [place] [address] [place] [address] Roger Btuler MD [address] [facility] [address] [place] [address] Social History Tobacco Use Types Packs/Day Years Used Date Smoking Tobacco: Never Smokeless Tobacco: Never Alcohol Use Standard Drinks/Week Comments No 0 (1 standard drink = 0.6 oz pur e alcohol) Sex and Gender Information Value Date Recorded Sex Assigned at Not on file 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 Gender Identity Not on file Sexual Orientation Not on file documented as of this encounter Plan of Treatment Not on file documented as of this encounter Visit Diagnoses Not on filedocumented in this encounter Care Teams Pharmacy Technology Instructor Relationship Specialty Start Date End Date Sarahi Roth MD [address] [facility] [address] [address] PCP - General Family Medicine 04/03/21 Marion Randall MD [address] [facility] [address], [place] [address] Consulting Physician Interventional Cardiology 07/15/19 documented as of this encounter
--- OUTSIDE RECORDS SUMMARY | 2024-11-22 10:55 | XMS_ITS | Clinical Summary ---
Author Organization [facility] [address] Address [address] [place] [address] Care Team Providers Care Bolt Sawyer Name Role Phone Marion Randall MD Unavailable [phone] Sarahi Roth MD Primary Care Provider [phone] Allergies Active Allergy Reactions Criticality Noted Date [...] (PriLOSEC) 40 mg capsule 06/08/19 23 Active HYDROcodone-acetam inophen (NORCO) 7.5-325 mg per [...] 01/29/20 24 Active OneTouch Verio test strips stripIndications:T ype 2 diabetes mellitus without complication, without long-term current use of insulin (HCC) Use to check blood sugar once daily 50 strip 11 04/29/19 25 Active OneTouch Verio Flex meter miscIndications:Ty pe 2 diabetes mellitus without complication, without long-term current use of insulin (HCC) Use to check blood sugar daily 1 each 04/29/19 25 Active lancets miscIndications:Ty pe 2 diabetes mellitus without complication, without long-term current use of insulin (HCC) Check blood sugar four times a day or as directed 1 each 05/06/19 25 Active ezetimibe (ZETIA) 10 mg tabletIndications: Mixed hyperlipidemia TAKE 1 TABLET(10 MG) BY MOUTH DAILY 90 tablet 1 06/15/19 25 Active atorvastatin (LIPITOR) 80 mg tabletIndications: Mixed hyperlipidemia TAKE 1 TABLET(80 MG) BY MOUTH DAILY 90 tablet 3 07/27/19 25 Active potassium chloride ER 10 mEq CR tablet TAKE 1 TABLET BY MOUTH FRIDAY, FRIDAY, FRIDAY ONLY DOSE DECREASED 05/31/2022 38 tablet 3 08/03/19 25 Active tirzepatide (Mounjaro) 2.5 mg/0.5 mL pen injector injectionIndicatio ns:Type 2 diabetes mellitus without complication, without long-term current use of insulin ([facility]) Inject 0.5 mL (2.5 mg total) under the skin once a week For 4 weeks, then increase dose to 5mg weekly 2 mL 04/29/19 025 Discontin ued(Patie nt Reported) tirzepatide (Mounjaro) 5 mg/0.5 mL pen injector injectionIndicatio ns:Type 2 diabetes mellitus without complication, without long-term current use of insulin ([facility]) Inject 0.5 mL (5 mg total) under the skin once a week 2 mL 05/28/19 025 Discontin ued(Patie nt Reported) Active Problems Problem Noted Date Diagnosed Date ICD (implantable cardioverter-defibrillator) in place 10/26/2024 Assessment & Plan (10/26/2024 3:10 PM CDT): -Single chamber ICD is functioning appropriately as programmed -Lead impedance, sensing, and threshold are stable -No programming changes -Continue remote monitoring quarterly -Follow up in 1 year for device check Type 2 diabetes mellitus wit hout complication, without long-term current use of insulin 04/28/2024 Peripheral vascular disease 01/21/2022 Left ventricular thrombus 10/01/2021 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 Prediabetes 03/07/2020 Presence of stent in coronary artery 10/11/2019 Cardiomyopathy, ischemic 09/10/2019 Overview (09/10/2019): Added automatically from request for surgery [id number] Assessment & Plan (10/26/2024 3:10 PM CDT): -ICM and persistently diminished LVEF < 35% despite GDMT -Single chamber ICD placed 09/17/2019 for primary prevention -No history of ICD shocks -Continue metoprolol for NSVT Assessment & Plan (09/18/2019 10:56 AM CDT): [...] effusion 06/04/2019 Coronary artery disease invo lving [place] coronary artery of [place] heart without angina pectoris 05/24/2019 Dry cough [...] Encounters Date Type Department Care Team Description 10/29/2024 Orders Only [facility] Medical Office Building [address] [place] [address] Layton Lee MD 10/29/2024 Results Follow-Up [facility] [address] [place] [address] 8th [place] [address] [place] [phone] Mary Mckeon RN Basic metabolic panel 10/29/2024 Anticoagulation Telephone Call [facility] [address] [place] [address] 8th [place] [address] [place] [phone] Roger Butler MD 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 (Primary Dx) 10/26/2024 3:00 PM CDT Office Visit [facility] [address] [place] [address] 8th [place] [address] [place] [phone] Marianela Del Rio, DAREN Cardiomyopathy, ischemic (Primary Dx); ICD (implantable cardioverter-defibril lator) in place 10/26/2024 2:30 PM CDT Ancillary Procedure [facility] [address] [place] [address] [place] [phone] Cardiomyopathy, ischemic (Primary Dx); Fitting and adjustment of automatic implantable cardioverter-defibril lator 10/26/2024 1:30 PM CDT Office Visit [facility] [address] [place] [phone] Roger Butler MD Left ventricular thrombus (Primary Dx); Coronary artery disease involving [place] coronary artery of [place] heart without angina pectoris; Cardiomyopathy, ischemic; Mixed hyperlipidemia; 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 10/19/2024 Anticoagulation Telephone Call [facility] [address] [place] [phone] Roger Butler MD 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 (Primary Dx) 09/30/2024 Anticoagulation Telephone Call [facility] [address] [place] [phone] Roger Butler MD snf (current) use of anticoagulants (Primary Dx) 09/23/2024 Anticoagulation Telephone Call [facility] [address] [place] [phone] Roger Butler MD 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 (Primary Dx) 09/15/2024 Anticoagulation Telephone Call [facility] [address] [place] [phone] Roger Butler MD snf (current) use of anticoagulants (Primary Dx) 08/27/2024 Anticoagulation Telephone Call [facility] [address] [place] [address] [place] [address] Roger Butler MD 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 (Primary Dx) 08/25/2024 Telephone [facility] [address] [place] [address] [place] [address] Layton Lee MD from Last 3 Months [...] on file Legal Sex Male 1:17 AM [employer] Gender Identity Not on file Sexual Orientation Not on file Obstetrics History Last Filed Vital Signs Vital Sign Reading Time Taken Comments Blood Pressure 99/62 10/26/2024 2:07 PM CDT Pulse 77 10/26/2024 2:07 PM CDT Temperature 36.4 C (97.6 F) 04/28/2024 9:52 AM CDT Respiratory Rate 18 09/18/2019 8:55 AM CDT Oxygen Saturation 98% 10/26/2024 2:07 PM CDT Inhaled Oxygen Concentration - - Weight 112.5 kg (248 lb) 10/26/2024 2:07 PM CDT Height 170.2 cm (5' 7) 10/26/2024 2:07 PM CDT Body Mass Index 38.84 10/26/2024 2:07 PM CDT Plan of Treatment Health Maintenance Due Date Last Done Comments Albumin Creatinine Ratio, Urine 1957 Colon Cancer Screening-Colonoscopy 1957 Depression Screening 1957 Hepatitis C Screening 1957 Prostate Cancer Screening-PSA 1957 Dilated Eye Exam 1957 Foot Exam 1957 Hepatitis B Screening 12/08/1975 Zoster Vaccine (1 of 2) 12/08/2007 Pneumococcal vaccine 65+ (2 of 2 - PPSV23, PCV20, or PCV21) 01/18/2020 11/23/2019 Fall Risk Assessment 09/17/2020 09/18/2019 Well Visit 65+ 2022 Covid-19 Vaccine (3 - 2024-2 6 season) 2024 05/23/2020, 05/02/2020 Influenza Vaccine (#1) 2024 , 01/16/2023, 02/15/2021, Additional history exists Hemoglobin A1C 10/24/2024 04/23/2024, 07/20, 01/21/2022, Additional history exists Lipid Panel 04/23/2025 04/23/2024, 07/20, 01/21/2022, Additional history exists eGFR 10/28/2025 10/28/2024, 11/18, 11/27/2023, Additional history exists DTaP/Tdap/Td Vaccine (3 - Td or Tdap) 10/30/2028 10/30/2018, 06/03/2008 Medical Devices Implanted Type Area Dusting And Brushing Machine Operator Device Identifier Shelf Expiration Date Model / Serial / Lot [employer] D150 Dynagen Enduralife Easyview Hf Perspectiv 5.37x7.36cm 1 Chamber - [id number] - [id number] Implanted:Qty: 1 on 09/17/2019 by Layton Lee MD at [facility] ICD Left: Chest Wall [employer] 07/29/2021 D150 / [id number] / Description:ICD GENERATOR [employer] [address] 4-Front 59cm Active Fixation Lead Icd - [id number] - [id number] Implanted:Qty: 1 on 09/17/2019 by Layton Lee MD at [facility] Lead Right: Heart [employer] 08/30/2021 0672 / [id number] / Description:RV LEAD Procedures Procedure Name Priority Date/Time Associated Diagnosis Comments DEVICE CHECK - REMOTE Routine 10/29/2024 2:53 AM CDT BASIC METABOLIC PANEL Routine 10/28/2024 1:16 PM CDT Cardiomyopathy, ischemic PROTIME-INR Routine 10/28/2024 1:15 PM CDT 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 DEVICE CHECK - IN OFFICE Routine 10/26/2024 1:44 PM CDT Fitting and adjustment of automatic implantable cardioverter-defibrill ator Cardiomyopathy, ischemic PROTIME-INR Routine 10/15/2024 1:35 PM CDT 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 PROTIME-INR Routine 09/29/2024 1:10 PM CDT snf (current) use of anticoagulants PROTIME-INR Routine 09/22/2024 1:08 PM CDT snf (current) use of anticoagulants PROTIME-INR Routine 09/14/2024 1:09 PM CDT 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 PROTIME-INR Routine 08/26/2024 1:09 PM CDT snf (current) use of anticoagulants HEMOGLOBIN A1C Routine 04/23/2024 1:56 PM [employer] TEACHER Prediabetes LIPID PANEL Routine 04/23/2024 1:56 PM [employer] TEACHER Mixed hyperlipidemia from Last 3 Months or Most Recently Relevant to Health Maintenance Results * DEVICE CHECK - REMOTE (10/29/2024 2:53 AM CDT) Anatomical Region Laterality Modality Other 10/29/2024 2:53 AM CDT Narrative 11/09/2024 10:06 AM CDT Interpretation Summary: Battery and Leads (BL) Normal parameters noted on battery and lead(s) --- 11 years remaining (this is an estimate based on prior usage) Presenting Rhythm (WI) Ventricular Sensing (VS) --- rate 72 Arrhythmic events (AE) No new arrhythmic events in monitoring period Anticoagulation (AC) Anticoagulation is not clinically indicated Patient is not on anticoagulant therapy Transmission Information (TI) Device Summary Report Procedure Note Lyaton Lee MD - 11/09/2024 Interpretation Summary: Battery and Leads (BL) Normal parameters noted on battery and lead(s) --- 11 years remaining(this is an estimate based on prior usage) Presenting Rhythm (WI) Ventricular Sensing (VS) --- rate 72 Arrhythmic events (AE) No new arrhythmic events in monitoring period Anticoagulation (AC) Anticoagulation is not clinically indicated Patient is not on anticoagulant therapy Transmission Information (TI) Device Summary Report Layton Lee MD [facility] PRO CEDURES Final Result * (ABNORMAL) Basic metabolic panel (10/28/2024 1:16 PM CDT) Glucose 111(H) 65 - 99 mg/dL [facility] Comment: Fasting reference interval For someone without known diabetes, a glucose value between 100 and 125 mg/dL is consistent with prediabetes and should be confirmed with a follow-up test. BUN 29(H) 7 - 25 mg/dL [facility] Creatinine 1.30 0.70 - 1.35 mg/dL [facility] eGFR 61 > OR = 60 mL/min/1.7 3m2 [facility] BUN/creat ratio 22 6 - 22 (calc) [facility] Sodium 138 135 - 146 mmol/L [facility] Potassium, pl 4.6 3.5 - 5.3 mmol/L [facility] Chloride 101 98 - 110 mmol/L [facility] CO2 27 20 - 32 mmol/L [facility] Calcium 9.2 8.6 - 10.3 mg/dL [facility] Blood 10/28/2024 1:16 PM CDT 10/28/2024 1:17 PM CDT Roger Butler MD LAB BLOOD ORDERABLES F inal Result [facility] [address] [place] [address] * (ABNORMAL) Protime-INR (10/28/2024 1:15 PM CDT) INR 2.3(H) [facility] Comment: Reference Range 0.9-1.1 Moderate-intensity Warfarin Therapy 2.0-3.0 Higher-intensity Warfarin Therapy 3.0-4.0 PT 23.2(H) 9.0 - 11.5 sec [facility] Comment: For additional information, please refer to http://education.Keri[employer]/faq/UEN355 (This link is being provided for informational/ educational purposes only.) Blood 10/28/2024 1:15 PM CDT 10/28/2024 1:16 PM CDT Roger Butler MD LAB BLOOD ORDERABLES F inal Result Performing Organization Address City/[facility] Co de Phone Number [facility] [address] [address] [place] [address] * DEVICE CHECK - IN OFFICE (10/26/2024 1:44 PM CDT) Anatomical Region Laterality Modality Other 10/26/2024 2:00 AM CDT Narrative 10/26/2024 8:13 PM CDT Interpretation Summary: Battery and Leads (BL) Normal parameters noted on battery and lead(s) --- 12 years Anticoagulation (AC) Patient on anticoagulant therapy Patient prescribed Warfarin (Coumadin) Transmission Information (TI) Device Summary Report Procedure Note Yariel Bhakta MD - 10/26/2024 Interpretation Summary: Battery and Leads (BL) Normal parameters noted on battery and lead(s) --- 12 years Anticoagulation (AC) Patient on anticoagulant therapy Patient prescribed Warfarin (Coumadin) Transmission Information (TI) Device Summary Report Layton Lee MD CV CARDIAC SERVICES PRO CEDURES Final Result * (ABNORMAL) Protime-INR (10/15/2024 1:35 PM CDT) INR 2.4(H) [facility] Comment: Reference Range 0.9-1.1 Moderate-intensity Warfarin Therapy 2.0-3.0 Higher-intensity Warfarin Therapy 3.0-4.0 PT 24.0(H) 9.0 - 11.5 sec [facility] Comment: For additional information, please refer to http://[employer].Keri[employer]/faq/IKM565 (This link is being provided for informational/ educational purposes only.) Blood 10/15/2024 1:35 PM CDT 10/15/2024 1:35 PM CDT Roger Butler MD LAB BLOOD ORDERABLES F inal Result Performing Organization Address [facility] de Phone Number [facility] [address] [address] [place] [address] * (ABNORMAL) Protime-INR (09/29/2024 1:10 PM CDT) INR 2.4(H) [facility] Comment: Reference Range 0.9-1.1 Moderate-intensity Warfarin Therapy 2.0-3.0 Higher-intensity Warfarin Therapy 3.0-4.0 PT 23.9(H) 9.0 - 11.5 sec [facility] Comment: For additional information, please refer to http://[employer].Keri[employer]/faq/OIP089 (This link is being provided for informational/ educational purposes only.) Blood 09/29/2024 1:10 PM CDT 09/29/2024 1:10 PM CDT us Roger Butler MD LAB BLOOD ORDERABLES F inal Result Performing Organization Address [facility] de Phone Number [facility] [address] [place] [address] * (ABNORMAL) Protime-INR (09/22/2024 1:08 PM CDT) INR 2.7(H) [facility] Comment: Reference Range 0.9-1.1 Moderate-intensity Warfarin Therapy 2.0-3.0 Higher-intensity Warfarin Therapy 3.0-4.0 PT 26.7(H) 9.0 - 11.5 sec [facility] Comment: For additional information, please refer to http://[employer].K[employer]/faq/XXC003 (This link is being provided for informational/ educational purposes only.) Blood 09/22/2024 1:08 PM CDT 09/22/2024 1:[address] [facility] Roger Butler MD LAB BLOOD ORDERABLES F inal Result Performing Organization Address [facility] de Phone Number [facility] [address] [place] [address] * (ABNORMAL) Protime-INR (09/14/2024 1:09 PM CDT) INR 1.9(H) [facility] Comment: Reference Range 0.9-1.1 Moderate-intensity Warfarin Therapy 2.0-3.0 Higher-intensity Warfarin Therapy 3.0-4.0 PT 19.6(H) 9.0 - 11.5 sec [facility] Comment: For additional information, please refer to http://[employer]/faq/OGY585 (This link is being provided for informational/ educational purposes only.) Blood 09/14/2024 1:09 PM CDT 09/14/2024 1:09 PM CDT us Roger Butler MD LAB BLOOD ORDERABLES F inal Result Performing Organization Address [facility] de Phone Number [facility] [address] [place] [address] * (ABNORMAL) Protime-INR (08/26/2024 1:09 PM CDT) INR 2.2(H) [facility] Comment: Reference Range 0.9-1.1 Moderate-intensity Warfarin Therapy 2.0-3.0 Higher-intensity Warfarin Therapy 3.0-4.0 PT 22.4(H) 9.0 - 11.5 sec [facility] Comment: For additional information, please refer to http://education.KeriCure/faq/ENB239 (This link is being provided for informational/ educational purposes only.) Blood 08/26/2024 1:09 PM CDT 08/26/2024 1:10 PM CDT Roger Butler MD LAB BLOOD ORDERABLES F inal Result Performing Organization Address [facility] de Phone Number [facility] [address] [place] [address] * (ABNORMAL) Hemoglobin A1c (04/23/2024 1:56 PM [employer] COMBINATION TEACHER) [facility] Hgb A1C 6.8(H) <5.7 % of total Hgb [facility] Comment: For someone without known diabetes, [...] diabetes for children. Blood 04/23/2024 1:56 PM [employer] COMBINATION TEACHER 04/23/2024 1:57 PM [employer] S[employer] COMBINATION TEACHER Alexa Araya MD LAB BLOOD ORDERABLES Final Resu lt Performing Organization Address [facility] Co de Phone Number [facility] [address] [place] [address] * Lipid panel (04/23/2024 1:56 PM MIDD[employer] SCHO[employer] COMBINATION TEACHER) Pathologist [facility] Cholesterol 118 <200 mg/dL [facility] [...] LDL-C. Dante TENORIO et al. KATIE. 2013;310(19): 7569-6475 (http://education.[employer]/faq/OTX117) Chol/HDL ratio 3.0 <5.0 (calc) [facility] Non-HDL, (LDL+VLDL) 78 <130 mg/dL (calc) [facility] Comment: For patients with diabetes plus 1 major ASCVD risk factor, treating to a non-HDL-C goal of <100 mg/dL (LDL-C of <70 mg/dL) is considered a therapeutic option. Blood 04/23/2024 1:56 PM [employer] COMBINATION TEACHER 04/23/2024 1:57 PM [employer] COMBINATION TEACHER Alexa Araya MD LAB BLOOD ORDERABLES Final Resu lt [facility] [address] [place] [address] from Last 3 Months or Most Recently Relevant to Health Maintenance Insurance MEDICARE [address] [place] [address] [employer] [place] [facility] OPEN ACCESS MEDICARE [employer] [facility] Advance Directives For more information, please contact: [phone] * Full Code (Latest Code Status on File) Date Activated Date Inactivated Comments 09/17/2019 9:04 AM 09/18/2019 3:36 PM Care Teams Bolt Sawyer Relationship Specialty Start Date End Date Sarahi Roth MD [address] [place] [address] PCP - General Family Medicine 04/03/21 Marion Randall MD [address] [place] [id number] Consulting Physician Interventional Cardiology 07/15/19
== END 2024-11-22 09:52 | disposition home or self-care (01) ==
PROVIDERS: Visit Provider Urology
DX: N20.0 Calculus of kidney (principal)
CPT/HCPCS: 74018